=== PATIENT | female | born 1940 | race African-American/Black ===

== ENCOUNTER 2017-04-19 12:58 | Emergency (ER) | payer MEDICARE, OTHER ==
[~2017-04-19] VITALS: Ht 177.8 cm; Wt 78.0 kg
[~2017-04-19 12:58] MED LIST: ACETAMINOPHEN-1 EAC1 ORAL; ASPIRIN81 MG ORAL; Alprazolam; Amantadine; Crestor; GLIMEPERIDE; Gabapentin; LIPITOR10 MG ORAL; Metoprolol; NORVASC5 MG ORAL; ONDANSETRON; Paroxetine; Ranitidine; Tramadol; ZESTRIL10 M1 ORAL; [UNRECOGNIZED DRUG - OTHER]; [UNRECOGNIZED DRUG - OTHER]
[2017-04-19 13:13] VITALS: BP 146/58
[2017-04-19] MEDS ORDERED: Tylenol #3 tab (300mg/30mg) PO ONE (13:30)
[2017-04-19] MEDS ORDERED: ACETAMINOPHEN-1 EAC1 ORAL (14:55)
[2017-04-19 15:01] VITALS: BP 158/64
--- NOTE | 2017-04-19 15:14 | Diagnostic Imaging Report ---
Indication: Chest pain Comparison: 01/10/15 A single view chest radiograph was obtained. Findings: No definite infiltrate or pulmonary vascular congestion identified. The heart is normal in size. The aorta is mildly enlarged consistent with atherosclerotic vascular disease. The bones are osteopenic. Impression: No acute disease
--- NOTE | 2017-04-19 15:16 | Diagnostic Imaging Report ---
Indication: Chest pain and trauma. Comparison: None Findings: 4 views of the left chest wall was obtained for evaluation of the ribs. No acute fracture seen. Bones are osteopenic. The lung is clear. There is no pneumothorax. Surgical clips are noted in the abdomen. Sternotomy noted. Aorta is calcified. Impression: no acute fracture
--- NOTE | 2017-04-19 15:24 | Emergency Room Report ---
History of Present Illness General Chief Complaint: Multiple Trauma/Fall Source: Patient Present Illness HPI 76-year-old female presents to ED complaining of left-sided rib pain. States that she tripped and fell crashing into her dresser. Denies hitting her head or LOC. Patient presents with left-sided rib pain. Pain is an 8 out 10, throbbing, nonradiating. Worse with deep breaths. Denies any other injuries. No other aggravating relieving factors. Denies any other associated symptoms Allergies: Coded Allergies: No Known Allergies (Unverified , 01/10/15) Patient History Past Medical History: DM, HTN Past Surgical History: none Pertinent Family History: none Social History: Denies: smoking, alcohol use, drug use Now: No Immunizations: UTD Reviewed Nursing Documentation: PMH: Agreed, PSxH: Agreed Nursing Documentation-PMH Hx Cardiac Problems: Yes Hx Hypertension: Yes Hx Diabetes: Yes Hx Cancer: No Hx Gastrointestinal Problems: No Hx Neurological Problems: No Review of Systems All Other Systems: negative except mentioned in HPI Physical Exam Vital Signs Date Time Temp Pulse Resp B/P (MAP) Pulse Ox O2 Delivery O2 Flow Rate FiO2 04/19/17 13:05 97.9 71 15 146/58 99 Room Air Sp02 EP Interpretation: reviewed, normal General Appearance: no apparent distress, alert, GCS 15, non-toxic Head: normocephalic Eyes: bilateral eye normal inspection, bilateral eye PERRL ENT: hearing grossly normal Neck: normal inspection Respiratory: lungs clear, normal breath sounds, speaking full sentences, other - L sided rib pain Cardiovascular #1: regular rate, rhythm, no edema Gastrointestinal: normal bowel sounds, non tender, soft, non-distended, no guarding, no rebound Rectal: deferred Genitourinary: no CVA tenderness Musculoskeletal: normal inspection Neurologic: alert, oriented x3, responsive, motor strength/tone normal, sensory intact, speech normal Psychiatric: normal inspection Skin: normal inspection Lymphatic: normal inspection Medical Decision Making Diagnostic Impression: Primary Impression: Rib contusion Qualified Codes: S20.212A - Contusion of left front wall of thorax, initial encounter ER Course Hospital Course 76-year-old F presents to ED complaining of L sided rib pain s/p trip and fall Differential diagnoses include: Fracture, dislocation, sprain, contusion Clinical course Patient placed on stretcher. After initial history and physical, I ordered pain medications and Xrays of chest/L ribs Xrays read shows no acute fracture/dislocation. no PTX. Diagnosis - rib contusion Stable and discharged to home with prescription for Tylenol #3. apply ice. weight bear as tolerated. Followup with PMD. Return to ED if symptoms recur or worsen Chest X-Ray Diagnostic Results Chest X-Ray Diagnostic Results : Chest X-Ray Ordered: Yes # of Views/Limited/Complete: 1 View Indication: Chest Pain EP Interpretation: Yes Interpretation: no consolidation, no effusion, no pneumothorax, no acute cardiopulmonary disease Impression: No acute disease Interpreting ER Provider: Electronically signed by Kolton Galindo MD Other X-Ray Diagnostic Results Other X-Ray Diagnostic Results : X-Ray ordered: Rib series # of Views/Limited Vs Complete: 3 View Indication: Pain EP Interpretation: Yes Interpretation: no dislocation, no soft tissue swelling, no fractures, other - no pneumothorax Impression: No acute disease Interpreting ER Provider: Electronically signed by Kolton Galindo MD Last Vital Signs Date Time Temp Pulse Resp B/P (MAP) Pulse Ox O2 Delivery O2 Flow Rate FiO2 04/19/17 15:01 97.9 73 15 158/64 99 Room Air Status: improved Disposition: HOME, SELF-CARE Condition: Stable Scripts Acetaminophen With Codeine (T#3) (TYLENOL #3 TAB*) Y Tab 1 TAB ORAL Q8H Y for For Pain, #20 TAB Prov: KOLTON GALINDO M.D. 04/19/17 Patient Instructions: Rib Contusion KOLTON GALINDO M.D. Apr 19, 2017 15:24
== END 2017-04-19 15:07 | disposition home or self-care (01) ==
LOC: EMR 14:05
DX: S20.212A Contusion of left front wall of thorax, initial encounter (principal); W01.0XXA Fall on same level from slipping, tripping and stumbling without subsequent striking against object, initial encounter; Y92.9 Unspecified place or not applicable; E11.9 Type 2 diabetes mellitus without complications; I10 Essential (primary) hypertension
CPT/HCPCS: 71010; 99284

== ENCOUNTER 2017-05-21 16:06 | Emergency (ER) | payer MEDICARE, OTHER ==
[~2017-05-21] VITALS: Ht 177.8 cm; Wt 77.1 kg
[2017-05-21 16:24] VITALS: BP 102/56
[2017-05-21] MEDS ORDERED: TYLENOL EXTRA500 MG ORAL (17:49)
[2017-05-21] MEDS ORDERED: Tylenol #3 tab (300mg/30mg) ORAL ONE (18:00)
[2017-05-21 18:15] VITALS: BP 102/56
--- NOTE | 2017-05-21 22:38 | Emergency Room Report ---
History of Present Illness General Chief Complaint: Multiple Trauma/Fall Source: Patient Present Illness [facility] The patient is a 77 yo F presenting for R rib and R knee pain 2 days prior. She states she was in the bathroom with her walker, felt weakness in the R knee, and fell with her ribs hitting the toilet seat. She has R knee TKR many years prior. She is now complaining of R rib pain described as 8/10 dull ache and is worse with deep breaths and movement. She denies SOB, cough, hemoptysis, CP. R knee described as 5/10 dull ache and is worse with movement. She has been ambulating with walker since the fall without difficulty. She has been using pain medication prescribed by her PMD which does help. She denies hitting her head or LOC. She denies other symptoms including N, V, F , chills, MOLINA, dizziness, blurred vision, abd pain, numbness/tingling Allergies: Coded Allergies: No Known Allergies (Unverified , 01/10/15) Patient History Past Medical History: see triage record Pertinent Family History: none Reviewed Nursing Documentation: PMH: Agreed, PSxH: Agreed Nursing Documentation-PMH Hx Cardiac Problems: Yes Hx Hypertension: Yes Hx Diabetes: Yes Hx Cancer: No Hx Gastrointestinal Problems: No Hx Neurological Problems: No Review of Systems All Other Systems: negative except mentioned in HPI Physical Exam Vital Signs Date Time Temp Pulse Resp B/P (MAP) Pulse Ox O2 Delivery O2 Flow Rate FiO2 05/21/17 16:11 99.3 69 20 102/56 100 Room Air Sp02 EP Interpretation: reviewed, normal General Appearance: no apparent distress, alert, GCS 15, non-toxic Head: normocephalic, atraumatic Eyes: bilateral eye normal inspection, bilateral eye PERRL ENT: hearing grossly normal, normal pharynx, no angioedema, normal voice Respiratory: normal inspection, lungs clear, normal breath sounds, no respiratory distress, no retraction, other - TTP over the R lateral lower ribs Cardiovascular #1: regular rate, rhythm, no edema Musculoskeletal: back normal, normal range of motion Neurologic: alert, oriented x3, responsive, motor strength/tone normal, sensory intact, speech normal Psychiatric: judgement/insight normal, memory normal, mood/affect normal, no suicidal/homicidal ideation Skin: normal color, no rash, warm/dry, well hydrated Medical Decision Making PA Attestation Dr. Knox is my supervising physician. Patient management was discussed with my supervising physician Diagnostic Impression: Primary Impression: Fracture of rib Qualified Codes: S22.31XA - Fracture of one rib, right side, initial encounter for closed fracture Additional Impression: Fall Qualified Codes: W19.XXXA - Unspecified fall, initial encounter ER Course The patient is a 77 yo F presenting for R rib and R knee pain DDx considered but not limited to: rib fracture, pneumothorax, rib contusion, flail chest, knee fracture/contusion, among others PE: NAD RRR. Lungs CTA bilat. Normal chest expansion. TTP over the R lateral lower ribs. No ecchymosis. No flail chest. R knee: no ecchymosis. Surgical scar. Full AROM Xrays show R rib multiple rib fractures. No pneumothorax. R knee xray unremarkable CUREs report shows patient has had multiple recent narcotic and benzodiazepine prescriptions. She was told she needs to see her PMD for pain medication. ER precautions given Other X-Ray Diagnostic Results Other X-Ray Diagnostic Results #1: X-Ray ordered: R rib # of Views/Limited Vs Complete: Complete Indication: Pain EP Interpretation: Yes Interpretation: no dislocation, no soft tissue swelling, no fractures, nonspecific bowel gas Impression: Other - R lower rib fracture. No free air. Pneumothorax Electronically Signed by: QUIN Doan Scribe Text Multiple R lower rib fractures. No pneumothorax. Reviewed with my SP. Other X-Ray Diagnostic Results #2: X-Ray ordered: R knee # of Views/Limited Vs Complete: 3 View Indication: Pain EP Interpretation: Yes Interpretation: no dislocation, no soft tissue swelling, no fractures Impression: No acute disease Electronically Signed by: QUIN Doan Scribjoe Text Reviewed with my SP. No acute findings. Last Vital Signs Date Time Temp Pulse Resp B/P (MAP) Pulse Ox O2 Delivery O2 Flow Rate FiO2 05/21/17 18:15 99.3 80 20 102/56 100 Room Air Status: improved Disposition: HOME, SELF-CARE Condition: Improved Scripts Acetaminophen* (TYLENOL EXTRA STRENGTH*) 500 Mg Tablet 500 MG ORAL Q8H Y for Prn Headache/Temp > 101, #30 TAB 0 Refills Prov: SOPHIA RODARTE 05/21/17 Patient Instructions: Rib Fracture Additional Instructions: I discussed my findings with the patient. All questions and concerns have been answered. Treatment and medication compliance have been addressed. I advised the patient that they need to follow up with Primary doctor within 3 days. Return to ED if symptoms worsen, new symptoms arise such as shortness of breath , or if needed for any reason. Patient verbalized understanding of discharge instructions. SOPHIA RODARTE. May 21, 2017 22:38
--- NOTE | 2017-05-22 10:22 | Diagnostic Imaging Report ---
Indication: PAIN Technique: One view of the chest, multiple views of the right ribs Comparison: Chest radiograph compared to 04/19/2017 Findings: Chest Demonstrates slightly better inspiration than on the prior study. Calcified granuloma is again demonstrated the left lung base. Lungs and pleural spaces are otherwise clear. Heart size is normal. The aorta is tortuous and calcified. Radiographs demonstrate fractures of the right lateral eighth, ninth, 10th, and 11th ribs. Impression: Multiple right rib fractures, as described No pneumothorax This agrees with the preliminary interpretation provided by the emergency room physician
--- NOTE | 2017-05-22 10:32 | Diagnostic Imaging Report ---
Indication: PAIN Technique: 3 views of the right knee Comparison: None Findings:Patient is status post total knee arthroplasty. There are surgical clips postero-medially. The prosthesis appears well aligned. No worrisome periprosthetic lucency. There is questionable small suprapatellar effusion and questionable suprapatellar soft tissue swelling. No acute fractures. No dislocations. Impression:Post surgical changes, as described No acute bony trauma Possible soft tissue swelling and small joint effusion. Correlate with clinical findings This agrees with the preliminary interpretation provided by the emergency room physician
== END 2017-05-21 18:31 | disposition home or self-care (01) ==
LOC: EMR 16:42
DX: S22.31XA Fracture of one rib, right side, initial encounter for closed fracture (principal); M25.561 Pain in right knee; Z96.651 Presence of right artificial knee joint; I10 Essential (primary) hypertension; E11.9 Type 2 diabetes mellitus without complications; R53.1 Weakness; W19.XXXA Unspecified fall, initial encounter; Y93.9 Activity, unspecified; Y92.002 Bathroom of unspecified non-institutional (private) residence as the place of occurrence of the external cause
CPT/HCPCS: 99284

== ENCOUNTER 2017-06-04 18:07 | Inpatient (IN) | payer MEDICARE, OTHER ==
[~2017-06-04] VITALS: Ht 177.8 cm; Wt 75.7 kg
[~2017-06-04 18:07] MED LIST changes: +TYLENOL EXTRA500 MG ORAL
[2017-06-04] MEDS ORDERED: Sodium Chloride 500ML 500 ML IV ONE (18:11)
[2017-06-04 18:25] VITALS: BP 134/63
[2017-06-04 18:51] LABS: BASOPHILS % (AUTO) 0.5 % (0.0-2.0); EOSINOPHILS % (AUTO) 1.2 % (0.0-3.0); LYMPHOCYTES % (AUTO) 27.6 % (20.0-45.0); MEAN CORPUSCULAR HEMOGLOBIN 31.9 PG (27.0-31.0); MEAN CORPUSCULAR HGB CONC 31.8 G/DL (32.0-36.0); MEAN CORPUSCULAR VOLUME 100 FL (80-99); MEAN PLATELET VOLUME 4.9 FL (6.5-10.1); MONOCYTES % (AUTO) 8.1 % (1.0-10.0); NEUTROPHILS % (AUTO) 62.6 % (45.0-75.0); PLATELET COUNT 243 K/UL (150-450); RED BLOOD COUNT 3.28 M/UL (4.20-5.40); RED CELL DISTRIBUTION WIDTH 12.7 % (11.6-14.8); WHITE BLOOD COUNT 7.7 K/UL (4.8-10.8)
[2017-06-04 19:01] LABS: INR 0.9 (0.9-1.1); PROTHROMBIN TIME 9.9 SEC (9.30-11.50)
--- NOTE | 2017-06-04 19:07 | Emergency Room Report ---
History of Present Illness General Chief Complaint: Generalized Weakness Source: Patient Present Illness HPI Patient presents with complaints of general weakness Patient reports that over the past several weeks she has been feeling more weak She has been getting blood test for worsening kidney disease Denies any vomiting or diarrhea denies any chest pain On review of records patient has had multiple falls recently complaining of knee pain and has had previous recent multiple rib fractures At this time denies any vomiting or diarrhea denies any cough Patient feels that she feels too weak to stand up and bear weight Allergies: Coded Allergies: No Known Allergies (Unverified , 01/10/15) Patient History Past Medical History: see triage record Pertinent Family History: none Reviewed Nursing Documentation: PMH: Agreed, PSxH: Agreed Nursing Documentation-PMH Hx Cardiac Problems: Yes - CABG Hx Hypertension: Yes Hx Diabetes: Yes Hx Cancer: No Hx Gastrointestinal Problems: No Hx Neurological Problems: No Review of Systems All Other Systems: negative except mentioned in HPI Physical Exam Vital Signs Date Time Temp Pulse Resp B/P (MAP) Pulse Ox O2 Delivery O2 Flow Rate FiO2 06/04/17 18:11 98.2 74 18 112/61 99 Room Air Sp02 EP Interpretation: reviewed, normal General Appearance: well appearing, no apparent distress Head: normocephalic, atraumatic Eyes: bilateral eye PERRL, bilateral eye EOMI ENT: hearing grossly normal, TMs + canals normal, uvula midline, dry mucus membranes Neck: full range of motion, supple, no meningismus, no bony tend Respiratory: lungs clear, normal breath sounds, no rhonchi, no respiratory distress, no retraction, no accessory muscle use Cardiovascular #1: normal peripheral pulses, regular rate, rhythm, no edema, no gallop, no JVD, no murmur Gastrointestinal: normal bowel sounds, non tender, soft, no mass, no organomegaly, non-distended, no guarding, no hernia, no pulsatile mass, no rebound Genitourinary: no CVA tenderness Musculoskeletal: other - Uncomfortable on palpation of both knees no obvious hematomas Neurologic: oriented x3, responsive, card grinder helper III-XII nml as tested, motor strength/ tone normal, sensory intact Psychiatric: mood/affect normal Skin: no rash, warm/dry, palpation normal Lymphatic: normal inspection, no adenopathy Medical Decision Making Diagnostic Impression: Primary Impression: ARF (acute renal failure) Additional Impression: UTI (urinary tract infection) ER Course Multiple differentials considered including but not limited to cardiac, cardiopulmonary metabolic pathology also infectious and intracranial Patient's blood work revealed renal insufficiency patient also clinically appears dehydrated at this time is provided further hydration and requires admission for further care IV and to box also initiated , Labs Test 06/04/17 18:33 06/04/17 18:53 06/05/17 05:20 White Blood Count 7.7 K/UL (4.8-10.8) 9.8 K/UL (4.8-10.8) Red Blood Count 3.28 M/UL (4.20-5.40) 3.52 M/UL (4.20-5.40) Hemoglobin 10.5 G/DL (12.0-16.0) 11.7 G/DL (12.0-16.0) Hematocrit 32.9 % (37.0-47.0) 34.7 % (37.0-47.0) Mean Corpuscular Volume 100 FL (80-99) 98 FL (80-99) Mean Corpuscular Hemoglobin 31.9 PG (27.0-31.0) 33.2 PG (27.0-31.0) Mean Corpuscular Hemoglobin Concent 31.8 G/DL (32.0-36.0) 33.8 G/DL (32.0-36.0) Red Cell Distribution Width 12.7 % (11.6-14.8) 12.9 % (11.6-14.8) Platelet Count 243 K/UL (150-450) 267 K/UL (150-450) Mean Platelet Volume 4.9 FL (6.5-10.1) 5.9 FL (6.5-10.1) Neutrophils (%) (Auto) 62.6 % (45.0-75.0) 83.5 % (45.0-75.0) Lymphocytes (%) (Auto) 27.6 % (20.0-45.0) 9.4 % (20.0-45.0) Monocytes (%) (Auto) 8.1 % (1.0-10.0) 6.2 % (1.0-10.0) Eosinophils (%) (Auto) 1.2 % (0.0-3.0) 0.6 % (0.0-3.0) Basophils (%) (Auto) 0.5 % (0.0-2.0) 0.4 % (0.0-2.0) Prothrombin Time 9.9 SEC (9.30-11.50) 10.0 SEC (9.30-11.50) Prothromb Time International Ratio 0.9 (0.9-1.1) 1.0 (0.9-1.1) Activated Partial Thromboplast Time 32 SEC (23-33) 29 SEC (23-33) Sodium Level 137 MMOL/L (136-145) 142 MMOL/L (136-145) Potassium Level 3.4 MMOL/L (3.5-5.1) 3.4 MMOL/L (3.5-5.1) Chloride Level 101 MMOL/L (98-107) 107 MMOL/L (98-107) Carbon Dioxide Level 26 MMOL/L (21-32) 27 MMOL/L (21-32) Anion Gap 10 (5-15) 8 (5-15) Blood Urea Nitrogen 22 mg/dL (7-18) 19 mg/dL (7-18) Creatinine 2.6 MG/DL (0.55-1.30) 2.0 MG/DL (0.55-1.30) Estimat Glomerular Filtration Rate mL/min (>60) mL/min (>60) Glucose Level 84 MG/DL (74-106) 124 MG/DL (74-106) Uric Acid 6.0 MG/DL (2.6-7.2) Calcium Level 8.3 MG/DL (8.5-10.1) 8.9 MG/DL (8.5-10.1) Total Bilirubin 0.2 MG/DL (0.2-1.0) 0.2 MG/DL (0.2-1.0) Aspartate Amino Transf (AST/SGOT) 10 U/L (15-37) 10 U/L (15-37) Alanine Aminotransferase (ALT/SGPT) 11 U/L (12-78) 9 U/L (12-78) Alkaline Phosphatase 92 U/L (46-116) 96 U/L (46-116) Total Creatine Kinase 33 U/L (26-308) Creatine Kinase MB < 0.5 NG/ML (0.0-3.6) Creatine Kinase MB Relative Index 1.5 Troponin I 0.017 ng/mL (0.000-0.056) Pro-B-Type Natriuretic Peptide 256 (0-125) Total Protein 6.2 G/DL (6.4-8.2) 6.8 G/DL (6.4-8.2) Albumin 2.8 G/DL (3.4-5.0) 2.8 G/DL (3.4-5.0) Globulin 3.4 g/dL 4.0 g/dL Albumin/Globulin Ratio 0.8 (1.0-2.7) 0.7 (1.0-2.7) Urine Color Pale yellow Urine Appearance Very cloudy Urine pH 5 (4.5-8.0) Urine Specific [place] 1.015 (1.005-1.035) Urine Protein 3+ (NEGATIVE) Urine Glucose (UA) Negative (NEGATIVE) Urine Ketones Negative (NEGATIVE) Urine Occult Blood 1+ (NEGATIVE) Urine Nitrite Negative (NEGATIVE) Urine Bilirubin Negative (NEGATIVE) Urine Urobilinogen Normal MG/DL (0.0-1.0) Urine Leukocyte Esterase 3+ (NEGATIVE) Urine RBC 2-4 /HPF (0 - 2) Urine WBC 20-30 /HPF (0 - 2) Urine Squamous Epithelial Cells Occasional /LPF Urine Bacteria Many /HPF (NONE) Urine Eosinophils None seen Urine Random Sodium 40 MEQ/L (20-110) Urine Potassium Timed 29 mmol/L (12-62) Differential Total Cells Counted 100 Neutrophils % (Manual) 86 % (45-75) Lymphocytes % (Manual) 12 % (20-45) Monocytes % (Manual) 2 % (1-10) Eosinophils % (Manual) 0 % (0-3) Basophils % (Manual) 0 % (0-2) Band Neutrophils 0 % (0-8) Platelet Estimate Adequate Platelet Morphology Normal Red Blood Cell Morphology Normal Erythrocyte Sedimentation Rate 73 MM/HR (0-30) Reticulocyte Count 1.1 % (0.0-2.0) Iron Level 21 ug/dL (50-175) Total Iron Binding Capacity 191 ug/dL (250-450) Percent Iron Saturation 11 % (15-50) Unsaturated Iron Binding 170 ug/dL (112-346) Lactate Dehydrogenase 131 U/L (81-234) Triglycerides Level 83 MG/DL (0-200) Cholesterol Level 78 MG/DL (< 200) LDL Cholesterol 41 mg/dL (<100) HDL Cholesterol 27 MG/DL (40-60) Cholesterol/HDL Ratio 2.9 (3.3-4.4) Vitamin B12 Level > 2000 PG/ML (193-986) Folate 11.3 ng/mL (>3.0) Thyroid Stimulating Hormone (TSH) 0.614 uiU/mL (0.360-3.740) Rhythm Strip Diag. Results EP Interpretation: yes Rate: 88 Rhythm: NSR, no PVC's, no ectopy Chest X-Ray Diagnostic Results Chest X-Ray Diagnostic Results : Chest X-Ray Ordered: Yes # of Views/Limited/Complete: 1 View Indication: Chest Pain EP Interpretation: Yes Interpretation: no consolidation, no effusion, no pneumothorax Impression: No acute disease Electronically Signed by: Naila Tavares DO Last Vital Signs Date Time Temp Pulse Resp B/P (MAP) Pulse Ox O2 Delivery O2 Flow Rate FiO2 06/04/17 18:25 98.3 78 14 134/63 100 Room Air Status: improved Disposition: ADMITTED INPATIENT Condition: Serious Referrals: NON PHYSICIAN (PCP) NAILA TAVARES D.O. Jun 04, 2017 19:07
[2017-06-04 19:12] LABS: APPEARANCE,URINE VERY CLOUDY; KETONES,URINE NEGATIVE (NEGATIVE); LEUKOCYTE ESTERASE ,URINE 3+ (NEGATIVE); NITRITE,URINE NEGATIVE (NEGATIVE); PH,URINE 5 (4.5-8.0); PROTEIN,URINE 3+ (NEGATIVE); UROBILINOGEN,URINE NORMAL MG/DL (0.0-1.0)
[2017-06-04] MEDS ORDERED: CRESTOR20 MG ORAL (19:19)
[2017-06-04] MEDS ORDERED: LISINOPRIL20 MG ORAL (19:19)
[2017-06-04] MEDS ORDERED: NEURONTIN300 MG ORAL ×2 (19:19→19:22)
[2017-06-04] MEDS ORDERED: PAXIL40 MG ORAL (19:19)
[2017-06-04] MEDS ORDERED: NORVASC5 MG ORAL (19:19)
[2017-06-04] MEDS ORDERED: LACTULOSE10 GM/153 PO (19:19)
[2017-06-04] MEDS ORDERED: ACETAMINOPHEN-1 EAC1 ORAL (19:19)
[2017-06-04 19:20] LABS: BACTERIA,URINE MANY /HPF; SQUAMOUS EPITHELIAL CELL,UR OCCASIONAL /LPF (NONE/OCC); WBC,URINE 20-30 /HPF (0 - 2)
[2017-06-04] MEDS ORDERED: ZOFRAN4 M1 ORAL (19:22)
[2017-06-04] MEDS ORDERED: FORTAMET500 MG PO (19:22)
[2017-06-04] MEDS ORDERED: TRULICITY0.75 MG/0. SQ (19:22)
[2017-06-04] MEDS ORDERED: HYDRALAZINE HCL25 M2 PO (19:22)
[2017-06-04] MEDS ORDERED: PROTONIX40 MG ORAL (19:22)
[2017-06-04] MEDS ORDERED: ALPRAZOLAM0.5 MG PO (19:22)
[2017-06-04] MEDS ORDERED: ZANTAC150 MG ORAL (19:22)
[2017-06-04 19:27] LABS: ALANINE AMINOTRANSFERASE 11 U/L (12-78); ALBUMIN/GLOBULIN RATIO 0.8 (1.0-2.7); ANION GAP 10 (5-15); ASPARTATE AMINO TRANSFERASE 10 U/L (15-37); CALCIUM 8.3 MG/DL (8.5-10.1); CARBON DIOXIDE 26 MMOL/L (21-32); CHLORIDE 101 MMOL/L (98-107); CKMB < 0.5 NG/ML (0.0-3.6); CREATININE 2.6 MG/DL (0.55-1.30); POTASSIUM 3.4 MMOL/L (3.5-5.1); SODIUM 137 MMOL/L (136-145); TOTAL PROTEIN 6.2 G/DL (6.4-8.2)
[2017-06-04] MEDS ORDERED: LORazepam Inj 2mg/ml 1ml IV PRN (19:45)
[2017-06-04] MEDS ORDERED: cefTRIAXone 1 GM in NS 55 ML IVPB ONE (19:45)
[2017-06-04] MEDS ORDERED: Morphine Sulfate 2mg/ml Inj IVP PRN (19:45)
[2017-06-04] MEDS ORDERED: Mylanta II UD 30ml ORAL PRN (19:45)
[2017-06-04] MEDS ORDERED: Miralax 17gm pkt ORAL PRN (19:45)
[2017-06-04] MEDS ORDERED: Zolpidem 5mg tab ORAL PRN (19:45)
[2017-06-04 20:10] VITALS: BP 127/68
[2017-06-04] MEDS ORDERED: METOPROLOL TART25 MG ORAL (20:10)
[2017-06-04] MEDS ORDERED: BACLOFEN10 MG ORAL (20:10)
[2017-06-04] MEDS ORDERED: NICODERM CQ1 EAC1 TD (20:10)
[2017-06-04] MEDS ORDERED: CARAFATE1 GM/10 M1 ORAL (20:10)
[2017-06-04] MEDS ORDERED: LINZESS290 MCG PO (20:10)
[2017-06-04] MEDS: HydrALAZINE 25mg tab ORAL SCH (20:33)
[2017-06-04 20:40] VITALS: BP 138/72
[2017-06-04] MEDS: NovoLOG Insulin Flexpen SUBQ SCH (21:00)
[2017-06-05] VITALS (8 sets, daily range): BP systolic 116–157; BP diastolic 58–78
[2017-06-05] MEDS: NovoLOG Insulin Flexpen SUBQ SCH ×4 (05:40→21:06)
[2017-06-05 07:12] LABS: BASOPHILS % (AUTO) 0.4 % (0.0-2.0); EOSINOPHILS % (AUTO) 0.6 % (0.0-3.0); LYMPHOCYTES % (AUTO) 9.4 % (20.0-45.0); MEAN CORPUSCULAR HEMOGLOBIN 33.2 PG (27.0-31.0); MEAN CORPUSCULAR HGB CONC 33.8 G/DL (32.0-36.0); MEAN CORPUSCULAR VOLUME 98 FL (80-99); MEAN PLATELET VOLUME 5.9 FL (6.5-10.1); MONOCYTES % (AUTO) 6.2 % (1.0-10.0); NEUTROPHILS % (AUTO) 83.5 % (45.0-75.0); PLATELET COUNT 267 K/UL (150-450); RED BLOOD COUNT 3.52 M/UL (4.20-5.40); RED CELL DISTRIBUTION WIDTH 12.9 % (11.6-14.8); WHITE BLOOD COUNT 9.8 K/UL (4.8-10.8)
[2017-06-05 07:44] LABS: ALANINE AMINOTRANSFERASE 9 U/L (12-78); ALBUMIN/GLOBULIN RATIO 0.7 (1.0-2.7); ANION GAP 8 (5-15); ASPARTATE AMINO TRANSFERASE 10 U/L (15-37); CALCIUM 8.9 MG/DL (8.5-10.1); CARBON DIOXIDE 27 MMOL/L (21-32); CHLORIDE 107 MMOL/L (98-107); CHOLESTEROL 78 MG/DL (< 200); CHOLESTEROL/HDL RATIO 2.9 (3.3-4.4); LACTATE DEHYDROGENASE 131 U/L (81-234); POTASSIUM 3.4 MMOL/L (3.5-5.1); SODIUM 142 MMOL/L (136-145); THYROID STIMULATING HORMONE 0.614 uiU/mL (0.360-3.740); TOTAL PROTEIN 6.8 G/DL (6.4-8.2)
[2017-06-05 08:49] LABS: IRON 21 ug/dL (50-175); TOTAL IRON BINDING CAPACITY 191 ug/dL (250-450)
[2017-06-05 09:18] LABS: ERYTHROCYTE SEDIMENTATION RATE 73 MM/HR (0-30)
[2017-06-05] MEDS: ALPRAZolam 0.5mg tab ORAL SCH ×3 (09:26→17:55)
[2017-06-05 09:54] LABS: BAND NEUTROPHILS % (MANUAL) 0 % (0-8); BASOPHILS % (MANUAL) 0 % (0-2); EOSINOPHILS % (MANUAL) 0 % (0-3); LYMPHOCYTES % (MANUAL) 12 % (20-45); NEUTROPHILS % (MANUAL) 86 % (45-75); PLATELET ESTIMATE ADEQUATE; PLATELET MORPHOLOGY NORMAL; TOTAL CELLS COUNTED 100
[2017-06-05] MEDS: PARoxetine 20mg tab ORAL SCH (10:17)
[2017-06-05 10:37] LABS: PATH BLOOD SMEAR/OMC SENT TO PATHOLOGIST; RETICULOCYTE COUNT 1.1 % (0.0-2.0)
--- NOTE | 2017-06-05 10:50 | Diagnostic Imaging Report ---
Indication: Chest pain Technique: One view of the chest Comparison: 04/19/2017 Findings: Suboptimal inspiration. Lungs and pleural spaces are clear. There is evidence of prior CABG. No significant interim change Impression: No acute process
[2017-06-05] MEDS: Aspirin Baby 81mg ORAL SCH (17:56)
--- NOTE | 2017-06-05 18:51 | History and Physical ---
History of Present Illness General Date patient seen: Jun 05, 2017 Reason for Hospitalization: Generalized Weakness Present Illness HPI 77 y/o gentle lady with pmhx of CAD s/p CABG, HTN, DM2, multiple falls with resultant rib fractuers, knee pain presents to [facility] with complaints of general weakness for the past several weeks. Patient also has a complaint of burning sensation when she urinates and it has lasted for the last 2 weeks. Patient denies fever or chills, denies shortness of breath or chest pain. Preliminary urinalysis reveals presence of pyuria and the patient has been initiated on broad spectrum antibiotics and appropriate consultations have been requested. CXR obtained in the ER is negative for acute process. Allergies: Coded Allergies: No Known Allergies (Unverified , 01/10/15) Medication History Scheduled Alprazolam* (Xanax*), 0.5 MG PO TID, (Reported) Amlodipine Besylate (Norvasc), 5 MG ORAL BID Amlodipine Besylate (Norvasc), 5 MG ORAL DAILY, (Reported) Aspirin* (Aspirin*), 162 MG ORAL DAILY Atorvastatin Calcium* (Lipitor*), 10 MG ORAL BEDTIME Baclofen* (Baclofen*), 10 MG ORAL THREE TIMES A DAY, (Reported) Ciprofloxacin* (Cipro*), 500 MG PO BID Gabapentin (Neurontin), 300 MG ORAL BID, (Reported) Gabapentin (Neurontin), 300 MG ORAL THREE TIMES A DAY, (Reported) Hydralazine Hcl* (Hydralazine Hcl*), 25 MG ORAL BEDTIME Lisinopril (Lisinopril*), 20 MG ORAL DAILY, (Reported) Lisinopril* (Zestril*), 5 MG ORAL DAILY Metoprolol Tartrate* (Metoprolol Tartrate*), 25 MG ORAL EVERY 12 HOURS, ( Reported) Nicotine 14MG Patch* (Nicoderm Cq 14MG*), 1 EACH TD DAILY, (Reported) Pantoprazole* (Protonix*), 40 MG ORAL DAILY, (Reported) Paroxetine Hcl (Paxil), 40 MG ORAL DAILY, (Reported) Ranitidine Hcl* (Zantac*), 150 MG ORAL TWICE A DAY, (Reported) Rosuvastatin Calcium* (Crestor*), 20 MG ORAL DAILY, (Reported) Sucralfate (Carafate), 1 GM ORAL FOUR TIMES A DAY, (Reported) Scheduled PRN Acetaminophen With Codeine (T#3) (Tylenol #3 Tab*), 1 TAB ORAL Q8H PRN for For Pain Acetaminophen With Codeine (T#3) (Tylenol #3 Tab*), 1 TAB ORAL Q8H PRN for For Pain Acetaminophen With Codeine (T#3) (Tylenol #3 Tab*), 1 TAB ORAL Q4H PRN for For Pain, (Reported) Acetaminophen* (Tylenol Extra Strength*), 500 MG ORAL Q8H PRN for Prn Headache/ Temp > 101 Ondansetron (Zofran), 4 MG ORAL Q6H PRN for Nausea & Vomiting, (Reported) Phenazopyridine Hcl* (Pyridium*), 100 MG ORAL TIDPRN PRN Miscellaneous Medications Dulaglutide (Trulicity), 0.75 MG SQ, (Reported) Lactulose (Lactulose), 10 GM PO, (Reported) Linaclotide (Linzess), 290 MCG PO, (Reported) Metformin Hcl (Fortamet), 500 MG PO, (Reported) [Alprazolam], (Reported) [Amantadine], (Reported) [Crestor], (Reported) [Glimeperide], (Reported) [List], (Reported) [Metoprolol], (Reported) [Ondansentron], (Reported) [Ranitidine], (Reported) [Tramadol], (Reported) Patient History Healthcare decision maker Resuscitation status Advanced Directive on File Past Medical/Surgical History Past Medical/Surgical History: (1) Syncope (2) Hyperkalemia (3) ARF (acute renal failure) (4) Benzocaine overdose of undetermined intent (5) Depression (6) Hypertension (7) Polypharmacy (8) DM (diabetes mellitus) (9) Contusion, hip (10) Multiple injuries due to trauma (11) Rib contusion (12) Fracture of rib (13) Fall (14) Anemia Review of Systems Constitutional: Reports: malaise, weakness Genitourinary: Reports: dysuria, frequency, pain, urgency Physical Exam General Appearance: moderate distress Lines, tubes and drains: peripheral HEENT: normocephalic, atraumatic, anicteric, PERRL Neck: non-tender, normal alignment, supple, normal inspection Breasts: no masses Cardiovascular/Chest: normal peripheral pulses, normal rate, no JVD Abdomen: normal bowel sounds, non tender, soft, no organomegaly, no mass Genitourinary/Rectal: normal genital exam, normal rectal exam Extremities: normal range of motion, non-tender, normal inspection, no calf tenderness Skin Exam: normal pigmentation, warm/dry Neurologic: sportspersons II-XII grossly normal, no motor/sensory deficits Last 24 Hour Vital Signs Date Time Temp Pulse Resp B/P (MAP) Pulse Ox O2 Delivery O2 Flow Rate FiO2 06/05/17 17:55 75 120/58 06/05/17 16:00 97.9 75 18 120/58 96 Room Air 06/05/17 12:33 98.2 79 18 133/70 96 Room Air 06/05/17 09:26 88 116/62 06/05/17 09:13 98.1 88 14 116/62 94 Room Air 06/05/17 08:00 98.1 88 14 116/62 94 Room Air 06/05/17 04:00 97.9 78 18 139/77 96 Room Air 06/05/17 00:00 98.1 82 18 157/78 95 Room Air 06/04/17 20:40 98.1 72 16 138/72 99 Room Air 06/04/17 20:33 138/72 06/04/17 20:10 98.3 82 18 127/68 100 Nasal Cannula 2.0 06/04/17 20:10 98.3 82 18 127/68 100 Nasal Cannula 2.0 Laboratory Tests Test 06/04/17 18:53 06/05/17 05:20 Urine Color Pale yellow Urine Appearance Very cloudy Urine pH 5 (4.5-8.0) Urine Specific [place] 1.015 (1.005-1.035) Urine Protein 3+ (NEGATIVE) H Urine Glucose (UA) Negative (NEGATIVE) Urine Ketones Negative (NEGATIVE) Urine Occult Blood 1+ (NEGATIVE) H Urine Nitrite Negative (NEGATIVE) Urine Bilirubin Negative (NEGATIVE) Urine Urobilinogen Normal MG/DL (0.0-1.0) Urine Leukocyte Esterase 3+ (NEGATIVE) H Urine RBC 2-4 /HPF (0 - 2) H Urine WBC 20-30 /HPF (0 - 2) H Urine Squamous Epithelial Cells Occasional /LPF Urine Bacteria Many /HPF (NONE) H Urine Eosinophils None seen Urine Random Sodium 40 MEQ/L (20-110) Urine Potassium Timed 29 mmol/L (12-62) White Blood Count 9.8 K/UL (4.8-10.8) Red Blood Count 3.52 M/UL (4.20-5.40) L Hemoglobin 11.7 G/DL (12.0-16.0) L Hematocrit 34.7 % (37.0-47.0) L Mean Corpuscular Volume 98 FL (80-99) Mean Corpuscular Hemoglobin 33.2 PG (27.0-31.0) H Mean Corpuscular Hemoglobin Concent 33.8 G/DL (32.0-36.0) Red Cell Distribution Width 12.9 % (11.6-14.8) Platelet Count 267 K/UL (150-450) Mean Platelet Volume 5.9 FL (6.5-10.1) L Neutrophils (%) (Auto) 83.5 % (45.0-75.0) H Lymphocytes (%) (Auto) 9.4 % (20.0-45.0) L Monocytes (%) (Auto) 6.2 % (1.0-10.0) Eosinophils (%) (Auto) 0.6 % (0.0-3.0) Basophils (%) (Auto) 0.4 % (0.0-2.0) Differential Total Cells Counted 100 Neutrophils % (Manual) 86 % (45-75) H Lymphocytes % (Manual) 12 % (20-45) L Monocytes % (Manual) 2 % (1-10) Eosinophils % (Manual) 0 % (0-3) Basophils % (Manual) 0 % (0-2) Band Neutrophils 0 % (0-8) Platelet Estimate Adequate Platelet Morphology Normal Red Blood Cell Morphology Normal Erythrocyte Sedimentation Rate 73 MM/HR (0-30) H Reticulocyte Count 1.1 % (0.0-2.0) Prothrombin Time 10.0 SEC (9.30-11.50) Prothromb Time International Ratio 1.0 (0.9-1.1) Activated Partial Thromboplast Time 29 SEC (23-33) Sodium Level 142 MMOL/L (136-145) Potassium Level 3.4 MMOL/L (3.5-5.1) L Chloride Level 107 MMOL/L (98-107) Carbon Dioxide Level 27 MMOL/L (21-32) Anion Gap 8 (5-15) Blood Urea Nitrogen 19 mg/dL (7-18) H Creatinine 2.0 MG/DL (0.55-1.30) H Estimat Glomerular Filtration Rate mL/min (>60) Glucose Level 124 MG/DL (74-106) H Calcium Level 8.9 MG/DL (8.5-10.1) Iron Level 21 ug/dL (50-175) L Total Iron Binding Capacity 191 ug/dL (250-450) L Percent Iron Saturation 11 % (15-50) L Unsaturated Iron Binding 170 ug/dL (112-346) Total Bilirubin 0.2 MG/DL (0.2-1.0) Aspartate Amino Transf (AST/SGOT) 10 U/L (15-37) L Alanine Aminotransferase (ALT/SGPT) 9 U/L (12-78) L Alkaline Phosphatase 96 U/L (46-116) Lactate Dehydrogenase 131 U/L (81-234) Total Protein 6.8 G/DL (6.4-8.2) Albumin 2.8 G/DL (3.4-5.0) L Globulin 4.0 g/dL Albumin/Globulin Ratio 0.7 (1.0-2.7) L Triglycerides Level 83 MG/DL (0-200) Cholesterol Level 78 MG/DL (< 200) LDL Cholesterol 41 mg/dL (<100) HDL Cholesterol 27 MG/DL (40-60) L Cholesterol/HDL Ratio 2.9 (3.3-4.4) L Carcinoembryonic Antigen Pending Vitamin B12 Level > 2000 PG/ML (193-986) H Folate Pending Thyroid Stimulating Hormone (TSH) 0.614 uiU/mL (0.360-3.740) Microbiology Date/Time Source Procedure Growth Status 06/04/17 18:53 Urine,Clean Catch Urine Culture - Preliminary Gram Negative Bacillus 1 Resulted Height (Feet): 5 Height (Inches): 10.00 Weight (Pounds): 167 Medications Current Medications Medications (Trade) Dose Ordered Sig/Mikhail Route PRN Reason Start Time Stop Time Status Last Admin Dose Admin Acetaminophen (Tylenol) 650 mg Q4H PRN ORAL fever 06/04/17 19:45 07/04/17 19:44 06/05/17 14:33 Al Hydroxide/Mg Hydroxide (Mylanta II) 30 ml Q6H PRN ORAL dyspepsia 06/04/17 19:45 07/04/17 19:44 Alprazolam (Xanax) 0.5 mg TID ORAL 06/05/17 09:00 06/12/17 08:59 06/05/17 17:55 Amlodipine Besylate (Norvasc) 5 mg BID ORAL 06/05/17 09:00 07/05/17 08:59 06/05/17 17:55 Aspirin (ASA) 81 mg DAILY ORAL 06/05/17 17:00 07/05/17 16:59 06/05/17 17:56 Dextrose (Dextrose 50%) STAT PRN IV Hypoglycemia 06/04/17 19:45 07/04/17 19:44 Gabapentin (Neurontin) 300 mg BID ORAL 06/05/17 09:00 07/05/17 08:59 06/05/17 17:55 Hydralazine HCl (Apresoline) 25 mg BEDTIME ORAL 06/04/17 21:00 07/04/17 20:59 06/04/17 20:33 Insulin Aspart (NovoLOG) BEFORE MEALS AND HS SUBQ 06/04/17 21:00 07/04/17 20:59 06/05/17 11:37 Lorazepam (Ativan 2mg/ml 1ml) 0.5 mg Q4H PRN IV For Anxiety 06/04/17 19:45 06/11/17 19:44 Morphine Sulfate (Morphine Sulfate) 1 mg Q4H PRN IVP For Pain Scale 4-10 06/04/17 19:45 06/11/17 19:44 Ondansetron HCl (Zofran) 4 mg Q6H PRN IVP Nausea & Vomiting 06/04/17 19:45 07/04/17 19:44 Paroxetine HCl (Paxil) 40 mg DAILY ORAL 06/05/17 09:00 07/05/17 08:59 06/05/17 10:17 Phenazopyridine HCl (Pyridium) 100 mg TIDPRN PRN ORAL PAIN UPON URINATION 06/05/17 15:00 07/05/17 14:59 Piperacillin Sod/ Tazobactam Sod 3.375 gm/Dextrose 110 ml @ 27.5 mls/hr EVERY 8 HOURS IVPB 06/05/17 20:00 06/12/17 19:59 Polyethylene Glycol (Miralax) 17 gm HSPRN PRN ORAL Constipation 06/04/17 19:45 07/04/17 19:44 Zolpidem Tartrate (Ambien) 5 mg HSPRN PRN ORAL Insomnia 06/04/17 19:45 06/11/17 19:44 Assessment/Plan Status: stable, progressing Assessment/Plan Acute generalized weakness Acute urinary tract infection Hx of CAD s/p CAGB HTN Plan Broad spectrum antibiotics Urine culture and sensitivity Adjust antibiotics as sson as sensitivity is determined Cardiac diet as tolerated Electrolyte replacement CURTIS ROBERTS Jun 05, 2017 18:51
[2017-06-05] MEDS: HydrALAZINE 25mg tab ORAL SCH (20:59)
[2017-06-05] MEDS: Piperacillin/Tazobactam 3.375 GM in D5W 110 ML IVPB SCH (21:53)
[2017-06-06] VITALS (7 sets, daily range): BP systolic 125–157; BP diastolic 62–91
[2017-06-06] MEDS: Piperacillin/Tazobactam 3.375 GM in D5W 110 ML IVPB SCH ×2 (05:19→13:57)
[2017-06-06] MEDS: NovoLOG Insulin Flexpen SUBQ SCH ×4 (06:22→21:05)
--- NOTE | 2017-06-06 08:24 | Diagnostic Imaging Report ---
APPROVED REPORT CPT Code: 98435 Present Symptoms Lower Extremity Pain: Right Comments: Hx CAD, CABG, HTN. BILATERAL: Imaging reveals a patent deep venous system bilaterally. There is no evidence of thrombus within the femoral, popliteal or tibial segments. The greater saphenous veins are also within normal limits. Doppler indicates normal spontaneous flow within these segments. The tibial veins were not well visualized bilaterally.
[2017-06-06] MEDS: Aspirin Baby 81mg ORAL SCH (09:11)
[2017-06-06] MEDS: ALPRAZolam 0.5mg tab ORAL SCH ×2 (09:13→13:14)
[2017-06-06] MEDS: PARoxetine 20mg tab ORAL SCH (09:13)
--- NOTE | 2017-06-06 11:09 | Diagnostic Imaging Report ---
Indication: Abnormal renal function tests Technique: Grayscale and duplex images of the kidneys, retroperitoneum, and bladder were obtained. Comparison:01/10/2015 Findings: Right kidney measures 9.2 cm in length. Left kidney measures 10.7 cm in length. Both kidneys demonstrate normal echogenicity. No hydronephrosis. There is questionably a small cyst in the upper pole of the left kidney. Right renal contour is lobulated. Normal inferior vena cava. Bladder is mildly distended, contains some dependent debris posteriorly.. Impression: Negative right of cirrhosis Possible debris within the bladder Equivocal small left renal cyst.
--- NOTE | 2017-06-06 14:31 | Neurology Progress Note ---
Objective Physical Exam Last Vital Signs Date Time Temp Pulse Resp B/P (MAP) Pulse Ox O2 Delivery O2 Flow Rate FiO2 06/06/17 11:58 98.2 73 20 126/62 97 Room Air 06/04/17 20:10 2.0 Impression/Recommendations Recommendations # [id number] CLOVER GRAY Jun 06, 2017 14:31
--- NOTE | 2017-06-06 16:36 | Consultation ---
History of Present Illness General Date patient seen: Jun 06, 2017 Time patient seen: 19:19 Chief Complaint: Generalized Weakness Reason for Consultation: bactriuria Present Illness HPI ID Consult Note 77 y/o F with hx of CAD s/p CABG, HTN, DM2, multiple falls with resultant rib fractuers, knee pain presents to ED on 06/04 with complains of general weakness for the past several weeks. Also complains of dysuria for the last 2 weeks. Denies vomiting, diarrhea, CP, cough Of note, has been getting frequent lab test as an outpatient given worsening renal failure Patient has been afebrile, no leukocytosis, CXR neg. U/a with mild pyuria and ucx grew pans S E.coli. Currently on IV ZOsyn. Allergies: Coded Allergies: No Known Allergies (Unverified , 01/10/15) Medication History Scheduled Alprazolam* (Xanax*), 0.5 MG PO TID, (Reported) Amlodipine Besylate (Norvasc), 5 MG ORAL BID Amlodipine Besylate (Norvasc), 5 MG ORAL DAILY, (Reported) Aspirin* (Aspirin*), 162 MG ORAL DAILY Atorvastatin Calcium* (Lipitor*), 10 MG ORAL BEDTIME Baclofen* (Baclofen*), 10 MG ORAL THREE TIMES A DAY, (Reported) Gabapentin (Neurontin), 300 MG ORAL BID, (Reported) Gabapentin (Neurontin), 300 MG ORAL THREE TIMES A DAY, (Reported) Lisinopril (Lisinopril*), 20 MG ORAL DAILY, (Reported) Lisinopril* (Zestril*), 5 MG ORAL DAILY Metoprolol Tartrate* (Metoprolol Tartrate*), 25 MG ORAL EVERY 12 HOURS, ( Reported) Nicotine 14MG Patch* (Nicoderm Cq 14MG*), 1 EACH TD DAILY, (Reported) Pantoprazole* (Protonix*), 40 MG ORAL DAILY, (Reported) Paroxetine Hcl (Paxil), 40 MG ORAL DAILY, (Reported) Ranitidine Hcl* (Zantac*), 150 MG ORAL TWICE A DAY, (Reported) Rosuvastatin Calcium* (Crestor*), 20 MG ORAL DAILY, (Reported) Sucralfate (Carafate), 1 GM ORAL FOUR TIMES A DAY, (Reported) Scheduled PRN Acetaminophen With Codeine (T#3) (Tylenol #3 Tab*), 1 TAB ORAL Q8H PRN for For Pain Acetaminophen With Codeine (T#3) (Tylenol #3 Tab*), 1 TAB ORAL Q8H PRN for For Pain Acetaminophen With Codeine (T#3) (Tylenol #3 Tab*), 1 TAB ORAL Q4H PRN for For Pain, (Reported) Acetaminophen* (Tylenol Extra Strength*), 500 MG ORAL Q8H PRN for Prn Headache/ Temp > 101 Ondansetron (Zofran), 4 MG ORAL Q6H PRN for Nausea & Vomiting, (Reported) Miscellaneous Medications Dulaglutide (Trulicity), 0.75 MG SQ, (Reported) Hydralazine HCl (Hydralazine HCl), 25 MG PO, (Reported) Lactulose (Lactulose), 10 GM PO, (Reported) Linaclotide (Linzess), 290 MCG PO, (Reported) Metformin Hcl (Fortamet), 500 MG PO, (Reported) [Alprazolam], (Reported) [Amantadine], (Reported) [Crestor], (Reported) [Glimeperide], (Reported) [List], (Reported) [Metoprolol], (Reported) [Ondansentron], (Reported) [Ranitidine], (Reported) [Tramadol], (Reported) Patient History Healthcare decision maker Resuscitation status Advanced Directive on File Patient History Narrative PMHx: as above SHX no contributory Fhx: non contributory Review of Systems All Other Systems: negative except mentioned in HPI Physical Exam Physical Exam Narrative General Appearance: well appearing, no apparent distress HEENT: PERRL, no oral lesions Neck: full range of motion, supple Respiratory: lungs clear, normal breath sounds, no rhonchi, no respiratory distress Cardiovascular : regular rate, rhythm, no edema, no murmur Gastrointestinal: normal bowel sounds, non tender, soft, no mass, no organomegaly, non-distended Genitourinary: no CVA tenderness Musculoskeletal: other - Uncomfortable on palpation of both knees no obvious hematomas Neurologic: oriented x3, responsive, no focal deficits Skin: no rash, warm/dry, no rash Last 24 Hour Vital Signs Date Time Temp Pulse Resp B/P (MAP) Pulse Ox O2 Delivery O2 Flow Rate FiO2 06/06/17 16:00 98.1 76 18 155/75 97 Room Air 06/06/17 11:58 98.2 73 20 126/62 97 Room Air 06/06/17 09:13 77 137/73 06/06/17 08:44 97.9 77 20 144/62 96 Room Air 06/06/17 04:09 98.0 06/06/17 04:00 97.9 76 20 129/68 95 Room Air 06/06/17 00:05 98.1 66 18 125/62 95 Room Air 06/05/17 20:59 132/70 06/05/17 20:00 97.7 75 18 132/70 18 Room Air 06/05/17 20:00 97.7 75 18 132/70 96 Room Air 06/05/17 17:55 75 120/58 Intake and Output 06/06/17 06/07/17 19:00 07:00 Intake Total 387.5 ml Balance 387.5 ml Intake Oral 360 ml IV Total 27.5 ml reviewed reviewed Height (Feet): 5 Height (Inches): 10.00 Weight (Pounds): 167 Medications Current Medications Medications (Trade) Dose Ordered Sig/Mikhail Route PRN Reason Start Time Stop Time Status Last Admin Dose Admin Acetaminophen (Tylenol) 650 mg Q4H PRN ORAL fever 06/04/17 19:45 07/04/17 19:44 06/06/17 03:10 Al Hydroxide/Mg Hydroxide (Mylanta II) 30 ml Q6H PRN ORAL dyspepsia 06/04/17 19:45 07/04/17 19:44 Alprazolam (Xanax) 0.5 mg BEDTIME ORAL 06/06/17 21:00 06/12/17 08:59 Amlodipine Besylate (Norvasc) 5 mg BID ORAL 06/05/17 09:00 07/05/17 08:59 06/06/17 09:13 Aspirin (ASA) 81 mg DAILY ORAL 06/05/17 17:00 07/05/17 16:59 06/06/17 09:11 Dextrose (Dextrose 50%) STAT PRN IV Hypoglycemia 06/04/17 19:45 07/04/17 19:44 Gabapentin (Neurontin) 300 mg BID ORAL 06/05/17 09:00 07/05/17 08:59 06/06/17 09:11 Hydralazine HCl (Apresoline) 25 mg BEDTIME ORAL 06/04/17 21:00 07/04/17 20:59 06/05/17 20:59 Insulin Aspart (NovoLOG) BEFORE MEALS AND HS SUBQ 06/04/17 21:00 07/04/17 20:59 06/06/17 06:22 Lorazepam (Ativan 2mg/ml 1ml) 0.5 mg Q4H PRN IV For Anxiety 06/04/17 19:45 06/11/17 19:44 Morphine Sulfate (Morphine Sulfate) 1 mg Q4H PRN IVP For Pain Scale 4-10 06/04/17 19:45 06/11/17 19:44 Ondansetron HCl (Zofran) 4 mg Q6H PRN IVP Nausea & Vomiting 06/04/17 19:45 07/04/17 19:44 Paroxetine HCl (Paxil) 40 mg DAILY ORAL 06/05/17 09:00 07/05/17 08:59 06/06/17 09:13 Phenazopyridine HCl (Pyridium) 100 mg TIDPRN PRN ORAL PAIN UPON URINATION 06/05/17 15:00 07/05/17 14:59 06/05/17 19:47 Piperacillin Sod/ Tazobactam Sod 3.375 gm/Dextrose 110 ml @ 27.5 mls/hr EVERY 8 HOURS IVPB 06/05/17 20:00 06/12/17 19:59 06/06/17 13:57 Polyethylene Glycol (Miralax) 17 gm HSPRN PRN ORAL Constipation 06/04/17 19:45 07/04/17 19:44 Zolpidem Tartrate (Ambien) 5 mg HSPRN PRN ORAL Insomnia 06/04/17 19:45 06/11/17 19:44 Assessment/Plan Assessment/Plan Abx: IV CEftriaxone x1 06/04 IV Zosyn 06/05- Assesment: GEneralized weakness/ body aches- r/o flu -CXR no acute disease GALDINO on CKD, improving -renal us: No hydronephrosis. There is questionably a small cyst in the upper pole of the left kidney. Right renal contour is lobulated. . Bladder is mildly distended, contains some dependent debris posteriorly.. E.coli UTI- +pyuria and dysuria -u/a WBC 20-30, nit ne g,leuk +3; uCx >100K E.coli (guzman S) Afebrile, no leukocytosis CAD s/p CABG, HTN, DM2, multiple falls with resultant rib fractuers, knee pain Plan: -Switch Zosyn to PO keflex 250mg bid for UTI (Abx d#10/30) -check Flu, WNV ab -Monitor CBC/BMP, temperatures Thank you for this consultation. Will continue to follow along with you. Discussed with ANDREY. Rosalva Bourne M.D. Jun 06, 2017 16:36
--- NOTE | 2017-06-06 17:20 | Pulmonology Progress Note ---
Assessment/Plan Assessment/Plan ASSESSMENT UTI with E coli CKD generalized weakness likely due to UTI HTN recurrent falls DM CAD with hx of CABG anemia of chronic disease PLAN OF CARE [facility] floor Neuro seen and evaluated abx urine cx + E coli on abx and Pyridium, can be switched to oral on dc ID follows renal parameters closely monitored creat down to 2.0 from initial 2.6 renal US no evidence of hydro, normal echogenicity bilaterally CKD likely due to diabetic nephropathy BS management with SS of insulin BP management with BB and CCB continue ASA lipid panel WNL bowel regimen fall precautions PT/OT HH monitor, anemia w/up c/w anemia of chronic disease neuro cleared for dc ( discussed over the phone) dc today fup with PMD case discussed and evaluated by supervising physician Subjective Allergies: Coded Allergies: No Known Allergies (Unverified , 01/10/15) Subjective patient reports feeling better wants to go home creat down to 2.0 Objective Last 24 Hour Vital Signs Date Time Temp Pulse Resp B/P (MAP) Pulse Ox O2 Delivery O2 Flow Rate FiO2 06/06/17 16:00 98.1 76 18 155/75 97 Room Air 06/06/17 11:58 98.2 73 20 126/62 97 Room Air 06/06/17 09:13 77 137/73 06/06/17 08:44 97.9 77 20 144/62 96 Room Air 06/06/17 04:09 98.0 06/06/17 04:00 97.9 76 20 129/68 95 Room Air 06/06/17 00:05 98.1 66 18 125/62 95 Room Air 06/05/17 20:59 132/70 06/05/17 20:00 97.7 75 18 132/70 18 Room Air 06/05/17 20:00 97.7 75 18 132/70 96 Room Air 06/05/17 17:55 75 120/58 Intake and Output 06/06/17 06/07/17 19:00 07:00 Intake Total 387.5 ml Balance 387.5 ml Intake Oral 360 ml IV Total 27.5 ml General Appearance: WD/WN, no acute distress HEENT: normocephalic, atraumatic, anicteric, mucous membranes moist Respiratory/Chest: chest wall non-tender, lungs clear, normal breath sounds, no respiratory distress Cardiovascular: normal peripheral pulses, normal rate, regular rhythm, no JVD Abdomen: normal bowel sounds, soft, non tender, non distended Genitourinary: normal external genitalia Extremities: no edema Neurologic/Psychiatric: no motor/sensory deficits, alert, oriented x 3, responsive Musculoskeletal: normal muscle bulk Microbiology Date/Time Source Procedure Growth Status 06/04/17 18:53 Urine,Clean Catch Urine Culture - Final Escherichia Coli Complete Current Medications Medications (Trade) Dose Ordered Sig/Mikhail Route PRN Reason Start Time Stop Time Status Last Admin Dose Admin Acetaminophen (Tylenol) 650 mg Q4H PRN ORAL fever 06/04/17 19:45 07/04/17 19:44 06/06/17 03:10 Al Hydroxide/Mg Hydroxide (Mylanta II) 30 ml Q6H PRN ORAL dyspepsia 06/04/17 19:45 07/04/17 19:44 Alprazolam (Xanax) 0.5 mg BEDTIME ORAL 06/06/17 21:00 06/12/17 08:59 Amlodipine Besylate (Norvasc) 5 mg BID ORAL 06/05/17 09:00 07/05/17 08:59 06/06/17 09:13 Aspirin (ASA) 81 mg DAILY ORAL 06/05/17 17:00 07/05/17 16:59 06/06/17 09:11 Dextrose (Dextrose 50%) STAT PRN IV Hypoglycemia 06/04/17 19:45 07/04/17 19:44 Gabapentin (Neurontin) 300 mg BID ORAL 06/05/17 09:00 07/05/17 08:59 06/06/17 09:11 Hydralazine HCl (Apresoline) 25 mg BEDTIME ORAL 06/04/17 21:00 07/04/17 20:59 06/05/17 20:59 Insulin Aspart (NovoLOG) BEFORE MEALS AND HS SUBQ 06/04/17 21:00 07/04/17 20:59 06/06/17 06:22 Lorazepam (Ativan 2mg/ml 1ml) 0.5 mg Q4H PRN IV For Anxiety 06/04/17 19:45 06/11/17 19:44 Morphine Sulfate (Morphine Sulfate) 1 mg Q4H PRN IVP For Pain Scale 4-10 06/04/17 19:45 06/11/17 19:44 Ondansetron HCl (Zofran) 4 mg Q6H PRN IVP Nausea & Vomiting 06/04/17 19:45 07/04/17 19:44 Paroxetine HCl (Paxil) 40 mg DAILY ORAL 06/05/17 09:00 07/05/17 08:59 06/06/17 09:13 Phenazopyridine HCl (Pyridium) 100 mg TIDPRN PRN ORAL PAIN UPON URINATION 06/05/17 15:00 07/05/17 14:59 06/05/17 19:47 Piperacillin Sod/ Tazobactam Sod 3.375 gm/Dextrose 110 ml @ 27.5 mls/hr EVERY 8 HOURS IVPB 06/05/17 20:00 06/12/17 19:59 06/06/17 13:57 Polyethylene Glycol (Miralax) 17 gm HSPRN PRN ORAL Constipation 06/04/17 19:45 07/04/17 19:44 Zolpidem Tartrate (Ambien) 5 mg HSPRN PRN ORAL Insomnia 06/04/17 19:45 06/11/17 19:44 Ankush (Corneliokenrick)Rina NP Jun 06, 2017 17:20
[2017-06-06] MEDS ORDERED: CIPRO500 MG PO (17:25)
[2017-06-06] MEDS ORDERED: HYDRALAZINE HCL25 M1 ORAL (17:25)
[2017-06-06] MEDS ORDERED: PHENAZOPYRIDIN100 MG ORAL (17:25)
[2017-06-06] MEDS ORDERED: ALPRAZolam 0.5mg tab ORAL SCH (21:00)
[2017-06-06] MEDS: HydrALAZINE 25mg tab ORAL SCH (21:00)
[2017-06-06] MEDS: Cephalexin 250mg Cap ORAL SCH (22:50)
[2017-06-07] VITALS: BP 147/81
--- NOTE | 2017-06-07 01:01 | Consultation ---
DATE OF CONSULTATION: 06/06/2017 NEUROLOGIC CONSULTATION CONSULTING PHYSICIAN: Sánchez Rod M.D. REQUESTING PHYSICIAN: Georgie Montanez M.D. HISTORY OF PRESENT ILLNESS: This is a 77-year-old female, seen in neurological consultation to evaluate an episode of a sudden fall. The patient now informs me that she was at home and she was transferring herself from the bed to a bedside commode. She felt weakness in her legs and fell down hitting her knee and both wrists. She could not get up, so she called out a caregiver, who helped her and called paramedics. According to percussion instrument repairer note, they were called to the scene, found the patient with a blood pressure of 78/52 and heart rate of 77. Apparently, the patient was sitting at a doctor's office where she developed weakness and dizziness, became hypotensive, and had orthostatic blood pressure changes. The patient reported that she donated blood at 6 a.m., following which she was weak and dizzy. She went to see her doctor and on arrival, she was placed in a gurney in a shock position and started on IV fluids. She was awake x3. There was no chest pain. No palpitations. No shortness of breath. The patient was able to speak in full sentences. The patient was brought to emergency room. She was complaining that over the last few weeks, she was getting weak and she was getting blood tests for "worsening of kidney disease." Apparently, she had a recent history of several falls and had previous multiple rib fractures. On admission, she was feeling too weak to be able to stand up or bear weight. Her vital signs on admission improved. Blood pressure 112/61 and temperature 98.2 degrees. Following admission, lab work was obtained. CBC study with hemoglobin 10.5, hematocrit 32.9, and elevated MCV and MCH. Coagulation panel was normal. Urinalysis, 20 to 30 WBCs and 3+ leukocyte esterase. Her chemistry panel with BUN of 22 and creatinine 2.6. BNP of 256. Normal TSH and B12. Normal lipid panel. Sedimentation rate elevated at 73. The patient's venous duplex of lower extremities, no DVT noted. Chest x-ray, no acute process. PAST MEDICAL HISTORY: The patient has a history of fall with right knee surgery in September of this year. She has a history of hypertension, diabetes, and diabetic polyneuropathy. CURRENT MEDICATIONS: Treatment prior to admission included Tylenol as needed, Xanax 0.5 t.i.d., amlodipine, Norvasc 5 mg b.i.d., aspirin, Lipitor, Baclofen, Trulicity, Neurontin 300 mg b.i.d., hydralazine, lactulose, lisinopril, metformin, metoprolol, nicotine patch, ondansetron, Paxil, and Crestor. ALLERGIES: None reported. SOCIAL HISTORY: Lives at home. She has a caregiver. Denies alcohol or drug abuse. Nonsmoker. FAMILY HISTORY: Noncontributory. REVIEW OF SYSTEMS: At this time, she feels quite better. She still has some generalized weakness and weakness in her both knees. She is able to ambulate at home without walker, but goes outside using walker. No chest pain or palpitations. No respiratory difficulties. Denies previous strokes, TIA, or seizures. PHYSICAL EXAMINATION: GENERAL: A well-developed, well-nourished female, not in acute distress. VITAL SIGNS: Stable. Blood pressure 126/62 and temperature 98.2 degrees. HEENT: Head, normocephalic. There is no evidence of injuries. Eyes, ears, and throat are clear. NECK: Supple. No meningeal signs. MUSCULOSKELETAL: Unremarkable except a postoperative scarring with a recent bruise in the right knee area. Peripheral pulses 1+ and symmetric. MENTAL STATUS: The patient is alert and oriented x2. Her speech is fluent with no evidence of aphasia or apraxia. She has a poor recollection of events. She is a poor historian. She is pleasant, cooperative, and asking to discharge her home right at this moment. CRANIAL NERVE II: Pupils both responding to light and accommodation. Extraocular movement intact. No nystagmus. CRANIAL NERVE V: Normal corneal responses. CRANIAL NERVE VII: No facial asymmetry. CRANIAL NERVE VIII: Normal hearing. CRANIAL NERVES IX THROUGH XII: Within normal limits. MOTOR EXAMINATION: Normal muscle tone and strength 5/5 in all extremities. No involuntary movement. Deep tendon reflexes 1+ bilaterally and symmetric. SENSORY EXAMINATION: Decreased response to pin stimulation in both feet. GAIT: Not tested. IMPRESSION: 1. History of syncopal episode, probably vasovagal in origin. 2. Diabetes type 2, diabetic neuropathies. 3. Mild cognitive impairment. 4. Abnormal gait, multifactorial. RECOMMENDATIONS: Get CT of the brain without contrast. Get PT and OT. Start mobility protocol outside the rehab. Discontinue all unessential medications, which may contribute to her gait problems such as benzodiazepine (Xanax). Continue with aspirin and statins. Thank you for allowing me to see this interesting patient in neurological consultation. Sánchez Myate Rod DR: JOANNE JOB#: [id number] CC:
[2017-06-07 04:56] VITALS: BP 142/73
[2017-06-07] MEDS: NovoLOG Insulin Flexpen SUBQ SCH ×2 (05:40→11:30)
[2017-06-07 08:00] VITALS: BP 135/61
--- NOTE | 2017-06-07 08:32 | Pulmonology Progress Note ---
Assessment/Plan Assessment/Plan ASSESSMENT history of syncopal episode, probably vasovagal in origin. UTI with E coli CKD generalized weakness likely due to UTI HTN recurrent falls DM diabetic nephropathy CAD with hx of CABG anemia of chronic disease mild cognitive impairment abnormal gait PLAN OF CARE [facility] floor Neuro seen and evaluated CT head no acute findings abx urine cx + E coli on abx and Pyridium, can be switched to oral on dc ID follows renal parameters closely monitored creat down to 2.0 from initial 2.6 renal US no evidence of hydro, normal echogenicity bilaterally CKD likely due to diabetic nephropathy BS management with SS of insulin BP management with BB and CCB continue ASA lipid panel WNL bowel regimen fall precautions PT/OT HH monitor, anemia w/up c/w anemia of chronic disease neuro cleared for dc per PT eval patient needs 24 hr caregiver vs SNF [facility] caregiver was contacted by nursing staff, he and the other caregiver will be 24 hrs caregivers for this patient patient can be dc home (declined SNF) case discussed and evaluated by supervising physician Subjective Allergies: Coded Allergies: No Known Allergies (Unverified , 01/10/15) Subjective patient was not dc last night no caregiver was available patient wants to go home Objective Last 24 Hour Vital Signs Date Time Temp Pulse Resp B/P (MAP) Pulse Ox O2 Delivery O2 Flow Rate FiO2 06/07/17 04:56 99.2 77 19 142/73 95 Room Air 06/07/17 00:00 99.3 87 21 147/81 95 Room Air 06/06/17 22:00 98.2 06/06/17 21:00 147/78 06/06/17 19:53 98.2 77 20 147/78 97 Room Air 06/06/17 18:35 77 145/72 06/06/17 18:29 77 145/72 06/06/17 16:00 98.1 76 18 155/75 97 Room Air 06/06/17 11:58 98.2 73 20 126/62 97 Room Air 06/06/17 09:13 77 137/73 06/06/17 08:44 97.9 77 20 144/62 96 Room Air Objective General Appearance: WD/WN, no acute distress HEENT: normocephalic, atraumatic, anicteric, mucous membranes moist Respiratory/Chest: chest wall non-tender, lungs clear, normal breath sounds, no respiratory distress Cardiovascular: normal peripheral pulses, normal rate, regular rhythm, no JVD Abdomen: normal bowel sounds, soft, non tender, non distended Genitourinary: normal external genitalia Extremities: no edema Neurologic/Psychiatric: no motor/sensory deficits, alert, oriented ,responsive , ataxic Musculoskeletal: normal muscle bulk Microbiology Date/Time Source Procedure Growth Status 06/04/17 18:53 Urine,Clean Catch Urine Culture - Final Escherichia Coli Complete Current Medications Medications (Trade) Dose Ordered Sig/Mikhail Route PRN Reason Start Time Stop Time Status Last Admin Dose Admin Acetaminophen (Tylenol) 650 mg Q4H PRN ORAL fever 06/04/17 19:45 07/04/17 19:44 06/06/17 21:01 Al Hydroxide/Mg Hydroxide (Mylanta II) 30 ml Q6H PRN ORAL dyspepsia 06/04/17 19:45 07/04/17 19:44 Alprazolam (Xanax) 0.5 mg BEDTIME ORAL 06/06/17 21:00 06/12/17 08:59 Amlodipine Besylate (Norvasc) 5 mg BID ORAL 06/05/17 09:00 07/05/17 08:59 06/06/17 18:29 Aspirin (ASA) 81 mg DAILY ORAL 06/05/17 17:00 07/05/17 16:59 06/06/17 09:11 Cephalexin (Keflex) 250 mg BID ORAL 06/06/17 23:00 06/13/17 22:59 06/06/17 22:50 Dextrose (Dextrose 50%) STAT PRN IV Hypoglycemia 06/04/17 19:45 07/04/17 19:44 Gabapentin (Neurontin) 300 mg BID ORAL 06/05/17 09:00 07/05/17 08:59 06/06/17 18:28 Hydralazine HCl (Apresoline) 25 mg BEDTIME ORAL 06/04/17 21:00 07/04/17 20:59 06/06/17 21:00 Insulin Aspart (NovoLOG) BEFORE MEALS AND HS SUBQ 06/04/17 21:00 07/04/17 20:59 06/06/17 21:05 Lorazepam (Ativan 2mg/ml 1ml) 0.5 mg Q4H PRN IV For Anxiety 06/04/17 19:45 06/11/17 19:44 Morphine Sulfate (Morphine Sulfate) 1 mg Q4H PRN IVP For Pain Scale 4-10 06/04/17 19:45 06/11/17 19:44 Ondansetron HCl (Zofran) 4 mg Q6H PRN IVP Nausea & Vomiting 06/04/17 19:45 07/04/17 19:44 Paroxetine HCl (Paxil) 40 mg DAILY ORAL 06/05/17 09:00 07/05/17 08:59 06/06/17 09:13 Phenazopyridine HCl (Pyridium) 100 mg TIDPRN PRN ORAL PAIN UPON URINATION 06/05/17 15:00 07/05/17 14:59 06/05/17 19:47 Polyethylene Glycol (Miralax) 17 gm HSPRN PRN ORAL Constipation 06/04/17 19:45 07/04/17 19:44 Zolpidem Tartrate (Ambien) 5 mg HSPRN PRN ORAL Insomnia 06/04/17 19:45 06/11/17 19:44 Ankush BradleyUniversity Of Vermont Health NetworkRina Neville NP Jun 07, 2017 08:32
[2017-06-07] MEDS: Cephalexin 250mg Cap ORAL SCH (09:13)
[2017-06-07] MEDS: PARoxetine 20mg tab ORAL SCH (09:14)
[2017-06-07] MEDS: Aspirin Baby 81mg ORAL SCH (09:14)
[2017-06-07 10:46] LABS: BASOPHILS % (AUTO) 0.5 % (0.0-2.0); EOSINOPHILS % (AUTO) 0.6 % (0.0-3.0); MEAN CORPUSCULAR HGB CONC 32.6 G/DL (32.0-36.0); MEAN CORPUSCULAR VOLUME 98 FL (80-99); MEAN PLATELET VOLUME 5.9 FL (6.5-10.1); MONOCYTES % (AUTO) 5.1 % (1.0-10.0); NEUTROPHILS % (AUTO) 77.8 % (45.0-75.0); PLATELET COUNT 286 K/UL (150-450); RED CELL DISTRIBUTION WIDTH 12.8 % (11.6-14.8); WHITE BLOOD COUNT 8.8 K/UL (4.8-10.8)
--- NOTE | 2017-06-07 10:56 | Diagnostic Imaging Report ---
Indication: Altered level of consciousness Technique: Contiguous 5 mm thick transaxial imaging of the head obtained in a Siemens Sensation [address] scanner. Soft tissue and bone windows generated. Total Dose length Product (DLP): [address] Dose Index Volume (CTDIvol): 70.38, 0.15 mGy Comparison: 01/10/15 Findings: There is mild prominence of the ventricles, basal cisterns, and cerebral sulci consistent with atrophy. Mild, nonspecific, white matter hypoattenuation is noted throughout the brain consistent with chronic small vessel disease. There is no midline shift, edema, acute hemorrhage, mass effect, or abnormal extra-axial fluid collections. Bones and extra osseous soft tissues are unremarkable. Impression: No acute intracranial bleed, mass effect or edema. Mild atrophy of the brain. Nonspecific white matter hypoattenuation probably due to chronic small vessel disease. The CT scanner at [facility] is accredited by the [employer] and the scans are performed using dose optimization techniques as appropriate to a performed exam including Automatic Exposure control.
[2017-06-07 10:59] LABS: ANION GAP 8 (5-15); CARBON DIOXIDE 28 MMOL/L (21-32); CHLORIDE 105 MMOL/L (98-107); CREATININE 1.8 MG/DL (0.55-1.30); POTASSIUM 4.3 MMOL/L (3.5-5.1); SODIUM 141 MMOL/L (136-145)
[2017-06-07 12:00] VITALS: BP 146/71
[2017-06-07] MEDS ORDERED: NS 275ml ONE (14:19)
[2017-06-07] MEDS ORDERED: Tubing IV Secondary IV ONE (14:19)
--- NOTE | 2017-06-10 13:17 | Discharge Summary ---
Discharge Summary Hospital Course Date of Admission Jun 04, 2017 at 18:40 Date of Discharge Jun 07, 2017 at 14:20 Admitting Diagnosis Near syncope HPI Carolann Tsang is a 77 year old female who was admitted on Jun 04, 2017 at 18: 40 for Syncope Hospital Course dc summary #[id number] Discharge Medications New Medications: Ciprofloxacin* (Cipro*) 500 Mg Tablet 500 MG PO BID, #10 TAB Hydralazine Hcl* (Hydralazine Hcl*) 25 Mg Tablet 25 MG ORAL BEDTIME, #30 TAB Phenazopyridine Hcl* (Pyridium*) 100 Mg Tablet 100 MG ORAL TIDPRN PRN, #10 TAB Continued Medications: Acetaminophen* (Tylenol Extra Strength*) 500 Mg Tablet 500 MG ORAL Q8H PRN for Prn Headache/Temp > 101, #30 TAB 0 Refills Alprazolam* (Xanax*) 0.5 Mg Tablet 0.5 MG PO TID, TAB Amlodipine Besylate (Norvasc) 5 Mg Tab 5 MG ORAL BID, #60 TAB Aspirin* (Aspirin*) 81 Mg Chew 162 MG ORAL DAILY, #30 TAB Atorvastatin Calcium* (Lipitor*) 10 Mg Tab 10 MG ORAL BEDTIME, #30 TAB Baclofen* (Baclofen*) 10 Mg Tablet 10 MG ORAL THREE TIMES A DAY, TAB Gabapentin (Neurontin) 300 Mg Capsule 300 MG ORAL BID, #15 CAP 0 Refills Linaclotide (Linzess) 290 Mcg Capsule 290 MCG PO, CAP Metformin Hcl (Fortamet) 500 Mg Tab.er.24 500 MG PO, TAB Paroxetine Hcl (Paxil) 40 Mg Tablet 40 MG ORAL DAILY, #30 TAB 0 Refills Ranitidine Hcl* (Zantac*) 150 Mg Tablet 150 MG ORAL TWICE A DAY, TAB Sucralfate (Carafate) 1 Gm/10 Ml Oral.susp 1 GM ORAL FOUR TIMES A DAY, ML Discontinued Medications: Hydralazine HCl (Hydralazine HCl) 25 Mg Tablet 25 MG PO, TAB Discharge Discharge Disposition Patient was discharged to Home () Discharge Diagnoses: Ankush (Violetaein)Rina NP Jun 10, 2017 13:17
--- NOTE | 2017-06-10 22:45 | Discharge Summary 2 SIG ---
DATE OF ADMISSION: 06/04/2017 DATE OF DISCHARGE: 06/07/2017 REASON FOR ADMISSION: 77-year-old female presented with complaint of generalized weakness. In the emergency department, she was diagnosed with acute renal failure, urinary tract infection and was admitted for further management. HOSPITAL STAY: The patient was admitted. ID and neurology consults were requested. Neurologist had seen and evaluated the patient. CT of the head revealed no acute intracranial pathology. Initially, neurologist stated that syncopal episode was likely vasovagal. He recommended to discontinue all unnecessary medications that could contribute to abnormal gait including all benzodiazepine and continue to use aspirin and statin. The patient was started on empiric antibiotics. Urine culture grew E. coli. The patient was on antibiotic and Pyridium p.r.n. Per ID recommendation, the patient could be switched to oral antibiotic on discharge. Renal parameters were closely monitored. Creatinine down to 2 from initial 2.6. Renal ultrasound revealed no evidence of hydronephrosis and normal echogenicity bilaterally. The patient most likely had chronic kidney disease probably due to the diabetic nephropathy. Blood sugar was managed with sliding scale of insulin. Blood pressure was managed with beta-zita and calcium-channel zita. Aspirin was continued. Lipid panel was within normal limits. Bowel regimen was instituted. Hemoglobin and hematocrit were closely monitored. Anemia workup was consistent with anemia of chronic disease. No need for transfusion. The patient was working with physical and occupational therapists. Fall precautions were maintained. Per physical therapy evaluation, the patient needs 24-hour caregiver versus prison facility. Initially was working on placement to prison facility; however, the patient adamantly refused. Caregiver, Parrish, was contacted by nursing staff and pillowcase folder. Parrish stated that he and another caregiver will be able to provide 24-hour care, staying with the patient overnight. Neurologist cleared the patient for discharge. The patient was stable for discharge. FINAL DIAGNOSES: 1. Status post syncopal episode, probably vasovagal in origin. 2. Urinary tract infection with Escherichia coli. 3. Chronic kidney disease. 4. Generalized weakness, likely secondary to urinary tract infection. 5. Hypertension. 6. Recurrent falls. 7. Diabetes mellitus. 8. Diabetic nephropathy. 9. Coronary artery disease with history of coronary artery bypass graft. 10. Anemia of chronic disease. 11. Mild cognitive impairment. 12. Abnormal gait. DISCHARGE MEDICATIONS: See medication reconciliation list. Prescription provided for oral antibiotics. DISCHARGE INSTRUCTIONS: The patient discharged home with 24-hour caregiver. Follow up with primary medical doctor. Georgie Montanez M.D. Rina BradleyRye Psychiatric Hospital CenterJamin NMindy DR: Chris JOB#: [id number] CC: GEORGINA
--- NOTE | 2017-06-17 12:19 | Cardiology Report ---
APPROVED REPORT EKG Measurement Heart [id number] Normal sinus rhythm IVCD Septal infarct, age undetermined Abnormal ECG
== END 2017-06-07 14:20 | disposition home or self-care (01) | DRG 690 ==
LOC: EDBD 18:07 → EMR 18:32 → 4W 18:40 → EDBEDREQ 19:29
DX: N39.0 Urinary tract infection, site not specified (principal); E11.22 Type 2 diabetes mellitus with diabetic chronic kidney disease; E11.42 Type 2 diabetes mellitus with diabetic polyneuropathy; I12.9 Hypertensive chronic kidney disease with stage 1 through stage 4 chronic kidney disease, or unspecified chronic kidney disease; N18.9 Chronic kidney disease, unspecified; I25.10 Atherosclerotic heart disease of native coronary artery without angina pectoris; B96.20 Unspecified Escherichia coli [E. coli] as the cause of diseases classified elsewhere; R55 Syncope and collapse; R29.6 Repeated falls; G31.84 Mild cognitive impairment of uncertain or unknown etiology; D63.1 Anemia in chronic kidney disease; Z79.84 Long term (current) use of oral hypoglycemic drugs; Z95.1 Presence of aortocoronary bypass graft
CPT/HCPCS: 36415; 70450; 71010; 76775; 80048; 80053; 80061; 81003; 82378; 82550; 82553; 82607; 82746; 82962; 83540; 83550; 83615; 83880; 84133; 84300; 84443; 84484; 84550; 85007; 85025; 85044; 85060; 85610; 85651; 85730; 87086; 87181; 89050; 93005; 93970; 99285; J1815; J8499

== ENCOUNTER 2017-11-26 13:39 | Inpatient (IN) | payer MEDICARE, OTHER ==
[~2017-11-26] VITALS: Ht 177.8 cm; Wt 73.0 kg
[~2017-11-26 13:39] MED LIST changes: +ALPRAZOLAM0.5 MG PO; +BACLOFEN10 MG ORAL; +CARAFATE1 GM/10 M1 ORAL; +CIPRO500 MG PO; +CRESTOR20 MG ORAL; +FORTAMET500 MG PO; +HYDRALAZINE HCL25 M1 ORAL; +HYDRALAZINE HCL25 M2 PO; +LACTULOSE10 GM/153 PO; +LINZESS290 MCG PO; +LISINOPRIL20 MG ORAL; +METOPROLOL TART25 MG ORAL; +NEURONTIN300 MG ORAL; +NICODERM CQ1 EAC1 TD; +PAXIL40 MG ORAL; +PHENAZOPYRIDIN100 MG ORAL; +PROTONIX40 MG ORAL; +TRULICITY0.75 MG/0. SQ; +ZANTAC150 MG ORAL; +ZOFRAN4 M1 ORAL
[2017-11-26 17:18] VITALS: BP 187/90
[2017-11-26 20:00] VITALS: BP 179/94
[2017-11-26] MEDS: Heparin 5000 units/ml inj SUBQ SCH (21:44)
[2017-11-26] MEDS ORDERED: D5 1/2NS 1,000 ML IV SCH (22:00)
[2017-11-26] MEDS ORDERED: Lisinopril 20mg tab ORAL ONE (22:00)
[2017-11-26] MEDS: cefTRIAXone 1 GM in D5W 110 ML IVPB SCH (22:44)
[2017-11-27] VITALS: BP 164/86
[2017-11-27] MEDS: ALPRAZolam 0.25mg tab ORAL PRN (02:43)
[2017-11-27] MEDS ORDERED: AMLODIPINE BESYL5 MG PO (03:49)
[2017-11-27 04:00] VITALS: BP 158/87
[2017-11-27] MEDS: Heparin 5000 units/ml inj SUBQ SCH ×3 (06:22→22:33)
[2017-11-27 07:55] LABS: BASOPHILS % (AUTO) 0.5 % (0.0-2.0); EOSINOPHILS % (AUTO) 0.5 % (0.0-3.0); HEMATOCRIT 36.5 % (37.0-47.0); HEMOGLOBIN 12.1 G/DL (12.0-16.0); LYMPHOCYTES % (AUTO) 13.5 % (20.0-45.0); MEAN CORPUSCULAR VOLUME 92 FL (80-99); NEUTROPHILS % (AUTO) 79.6 % (45.0-75.0); PLATELET COUNT 194 K/UL (150-450); RED BLOOD COUNT 3.95 M/UL (4.20-5.40)
[2017-11-27 08:00] VITALS: BP 169/87
[2017-11-27] MEDS: Aspirin Baby 81mg ORAL SCH (08:29)
[2017-11-27 08:49] LABS: APPEARANCE,URINE SLIGHTLY CLOUDY; BILIRUBIN, URINE NEGATIVE (NEGATIVE); COLOR,URINE PALE YELLOW; GLUCOSE, URINE (UA) NEGATIVE (NEGATIVE); KETONES,URINE NEGATIVE (NEGATIVE); LEUKOCYTE ESTERASE ,URINE 3+ (NEGATIVE); NITRITE,URINE POSITIVE (NEGATIVE); PH,URINE 6 (4.5-8.0); PROTEIN,URINE 4+ (NEGATIVE); UROBILINOGEN,URINE NORMAL MG/DL (0.0-1.0)
[2017-11-27 08:58] LABS: ALANINE AMINOTRANSFERASE 27 U/L (12-78); ALBUMIN 2.5 G/DL (3.4-5.0); ALBUMIN/GLOBULIN RATIO 0.7 (1.0-2.7); ALKALINE PHOSPHATASE 89 U/L (46-116); ANION GAP 10 mmol/L (5-15); ASPARTATE AMINO TRANSFERASE 39 U/L (15-37); BILIRUBIN,TOTAL 0.2 MG/DL (0.2-1.0); BLOOD UREA NITROGEN 25 mg/dL (7-18); CALCIUM 7.9 MG/DL (8.5-10.1); CARBON DIOXIDE 25 MMOL/L (21-32); CHLORIDE 106 MMOL/L (98-107); CHOLESTEROL 85 MG/DL (< 200); CREATINE KINASE 1119 U/L (26-308); HDL CHOLESTEROL 30 MG/DL (40-60); PHOSPHORUS 4.2 MG/DL (2.5-4.9); POTASSIUM 3.5 MMOL/L (3.5-5.1); SODIUM 141 MMOL/L (136-145); TRIGLYCERIDES 61 MG/DL (30-150)
[2017-11-27] MEDS ORDERED: Azithromycin 250mg tab ORAL SCH (09:00)
--- NOTE | 2017-11-27 11:00 | Diagnostic Imaging Report ---
Indication: Dyspnea Comparison: 06/04/2017 A single view chest radiograph was obtained. Findings: Right hemidiaphragm is elevated. Heart is normal in size. There is mild right basilar atelectasis. Sternotomy noted. Bones are osteopenic. IMPRESSION: Right basal atelectasis and volume loss.
--- NOTE | 2017-11-27 11:03 | History & Physical ---
History and Physical History & Physicial Dictated for Int Med-Dr Neil no. [id number]. MARCELL WAYNE Nov 27, 2017 11:03
[2017-11-27] MEDS ORDERED: NAMENDA5 MG ORAL (11:28)
[2017-11-27 12:00] VITALS: BP 169/80
[2017-11-27] MEDS: NovoLOG Insulin Flexpen SUBQ SCH ×3 (12:02→22:38)
--- NOTE | 2017-11-27 12:37 | Diagnostic Imaging Report ---
Indication: Left-sided facial droop Technique: The head was imaged in a 1.5 Kierra magnet. Sequences obtained include sagittal and axial T1 FLAIR, axial T2 fast spin echo with fat saturation, axial T2 FLAIR, diffusion and ADC map. Comparison: CT head 06/07/2017 Findings: There is moderate prominence of the sulci, ventricles, and basal cisterns consistent with atrophy. Moderate, nonspecific T2 hyperintensity noted within white matter. This may be due to chronic small vessel disease. Several small cystic foci are demonstrated within the basal ganglia and deep white matter/marshall radiata. These are consistent with old lacunar infarcts. There is no restricted diffusion. Diaz-white differentiation is normal. There is no mass effect, midline shift, edema, or hemorrhage. There are no abnormal extra-axial or intra-axial fluid collections. The corpus callosum and sella are unremarkable. The brainstem and cerebellum are unremarkable. Bone marrow signal within the visualized osseous structures appears age appropriate and unremarkable otherwise. Impression: No acute intracranial findings. No evidence of acute CVA. Multiple old lacunar infarcts. Moderate atrophy and evidence of chronic small vessel disease involving white matter tracts.
--- NOTE | 2017-11-27 12:45 | Consultation ---
History of Present Illness General Date patient seen: Nov 27, 2017 Reason for Consultation: dyspnea Present Illness HPI 77 y/o gentle lady with pmhx of CAD s/p CABG, HTN, DM2, multiple falls with resultant rib fractures, She was taken by paramedics to [facility] with CC of ALOC. She had a CT without contrast at [place], which was negative for CVA. She was found to have possible pneumonia, pyuria and UTI and transferred to [facility] for further evaluation. Patient denies fever or chills, or chest pain. Preliminary urinalysis reveals presence of pyuria and the patient has been initiated on broad spectrum antibiotics. She is asymptomatic now and only c/o back and knee pain. Allergies: Coded Allergies: No Known Allergies (Unverified , 01/10/15) Medication History Scheduled Alprazolam* (Xanax*), 0.5 MG PO BID, (Reported) Amlodipine Besylate* (Amlodipine Besylate*), 5 MG PO DAILY, (Reported) Aspirin* (Aspirin*), 162 MG ORAL DAILY Atorvastatin Calcium* (Lipitor*), 10 MG ORAL BEDTIME Baclofen* (Baclofen*), 10 MG ORAL BID, (Reported) Ciprofloxacin* (Cipro*), 500 MG PO BID Gabapentin (Neurontin), 300 MG ORAL BID, (Reported) Gabapentin (Neurontin), 300 MG ORAL BID, (Reported) Hydralazine Hcl* (Hydralazine Hcl*), 25 MG ORAL BEDTIME Lisinopril (Lisinopril*), 20 MG ORAL DAILY, (Reported) Memantine Hcl* (Namenda*), 5 MG ORAL DAILY, (Reported) Metoprolol Tartrate* (Metoprolol Tartrate*), 25 MG ORAL EVERY 12 HOURS, ( Reported) Nicotine 14MG Patch* (Nicoderm Cq 14MG*), 1 EACH TD DAILY, (Reported) Pantoprazole* (Protonix*), 40 MG ORAL DAILY, (Reported) Paroxetine Hcl (Paxil), 40 MG ORAL DAILY, (Reported) Ranitidine Hcl* (Zantac*), 150 MG ORAL TWICE A DAY, (Reported) Rosuvastatin Calcium* (Crestor*), 20 MG ORAL DAILY, (Reported) Sucralfate (Carafate), 1 GM ORAL FOUR TIMES A DAY, (Reported) Scheduled PRN Acetaminophen With Codeine (T#3) (Tylenol #3 Tab*), 1 TAB ORAL Q8H PRN for For Pain Acetaminophen With Codeine (T#3) (Tylenol #3 Tab*), 1 TAB ORAL Q8H PRN for For Pain Acetaminophen With Codeine (T#3) (Tylenol #3 Tab*), 1 TAB ORAL Q4H PRN for For Pain, (Reported) Acetaminophen* (Tylenol Extra Strength*), 500 MG ORAL Q8H PRN for Prn Headache/ Temp > 101 Ondansetron (Zofran), 4 MG ORAL Q6H PRN for Nausea & Vomiting, (Reported) Phenazopyridine Hcl* (Pyridium*), 100 MG ORAL TIDPRN PRN Miscellaneous Medications Dulaglutide (Trulicity), 0.75 MG SQ, (Reported) Lactulose (Lactulose), 10 GM PO, (Reported) Linaclotide (Linzess), 290 MCG PO, (Reported) Metformin Hcl (Fortamet), 500 MG PO, (Reported) [Alprazolam], (Reported) [Amantadine], (Reported) [Crestor], (Reported) [Glimeperide], (Reported) [List], (Reported) [Metoprolol], (Reported) [Ondansentron], (Reported) [Ranitidine], (Reported) [Tramadol], (Reported) Discontinued Medications Amlodipine Besylate (Norvasc), 5 MG ORAL BID Discontinued Reason: Medication dose changed Amlodipine Besylate (Norvasc), 5 MG ORAL DAILY, (Reported) Discontinued Reason: Medication dose changed Lisinopril* (Zestril*), 5 MG ORAL DAILY Discontinued Reason: Medication dose changed Patient History Healthcare decision maker Resuscitation status Full Code Advanced Directive on File Past Medical/Surgical History Past Medical/Surgical History: (1) Depression (2) Hypertension (3) DM (diabetes mellitus) (4) Rib contusion Review of Systems All Other Systems: negative except mentioned in HPI Physical Exam General Appearance: cachetic Lines, tubes and drains: peripheral Neck: non-tender, normal alignment Respiratory/Chest: chest wall non-tender, lungs clear Cardiovascular/Chest: normal peripheral pulses, normal rate Abdomen: normal bowel sounds Genitourinary/Rectal: normal rectal exam Extremities: normal range of motion Neurologic: launch manager II-XII grossly normal, no motor/sensory deficits Lymphatic: anterior cervical Last 24 Hour Vital Signs Date Time Temp Pulse Resp B/P (MAP) Pulse Ox O2 Delivery O2 Flow Rate FiO2 11/27/17 08:32 80 169/87 11/27/17 08:32 80 169/87 11/27/17 08:00 90 11/27/17 08:00 98.2 86 18 169/87 98 Room Air 98.2 11/27/17 04:00 82 11/27/17 04:00 98.2 86 18 158/87 98 Room Air 98.2 11/27/17 00:00 111 11/27/17 00:00 98.4 87 18 164/86 100 Room Air 98.4 11/26/17 21:43 179/94 11/26/17 21:42 91 179/94 11/26/17 20:00 113 11/26/17 20:00 99.9 91 18 179/94 95 Room Air 99.9 11/26/17 17:18 97.5 90 20 187/90 96 Room Air 97.5 11/26/17 17:09 94 Intake and Output 11/26/17 11/27/17 19:00 07:00 Intake Total 535 ml Output Total 500 ml 625 ml Balance -500 ml -90 ml Intake Oral 50 ml IV Total 485 ml Output Urine Total 500 ml 625 ml Laboratory Tests Test 11/27/17 03:00 11/27/17 06:20 Urine Color Pale yellow Urine Appearance Slightly cloudy Urine pH 6 (4.5-8.0) Urine Specific [place] 1.020 (1.005-1.035) Urine Protein 4+ (NEGATIVE) H Urine Glucose (UA) Negative (NEGATIVE) Urine Ketones Negative (NEGATIVE) Urine Occult Blood 5+ (NEGATIVE) H Urine Nitrite Positive (NEGATIVE) H Urine Bilirubin Negative (NEGATIVE) Urine Urobilinogen Normal MG/DL (0.0-1.0) Urine Leukocyte Esterase 3+ (NEGATIVE) H Urine RBC 5-10 /HPF (0 - 2) H Urine WBC 30-40 /HPF (0 - 2) H Urine Squamous Epithelial Cells Few /LPF (NONE/OCC) Urine Bacteria Moderate /HPF (NONE) H White Blood Count 9.0 K/UL (4.8-10.8) Red Blood Count 3.95 M/UL (4.20-5.40) L Hemoglobin 12.1 G/DL (12.0-16.0) Hematocrit 36.5 % (37.0-47.0) L Mean Corpuscular Volume 92 FL (80-99) Mean Corpuscular Hemoglobin 30.7 PG (27.0-31.0) Mean Corpuscular Hemoglobin Concent 33.2 G/DL (32.0-36.0) Red Cell Distribution Width 13.0 % (11.6-14.8) Platelet Count 194 K/UL (150-450) Mean Platelet Volume 5.9 FL (6.5-10.1) L Neutrophils (%) (Auto) 79.6 % (45.0-75.0) H Lymphocytes (%) (Auto) 13.5 % (20.0-45.0) L Monocytes (%) (Auto) 6.0 % (1.0-10.0) Eosinophils (%) (Auto) 0.5 % (0.0-3.0) Basophils (%) (Auto) 0.5 % (0.0-2.0) Sodium Level 141 MMOL/L (136-145) Potassium Level 3.5 MMOL/L (3.5-5.1) Chloride Level 106 MMOL/L (98-107) Carbon Dioxide Level 25 MMOL/L (21-32) Anion Gap 10 mmol/L (5-15) Blood Urea Nitrogen 25 mg/dL (7-18) H Creatinine 2.0 MG/DL (0.55-1.30) H Estimat Glomerular Filtration Rate mL/min (>60) Glucose Level 154 MG/DL (74-106) H Hemoglobin A1c 5.5 % (4.3-6.0) Calcium Level 7.9 MG/DL (8.5-10.1) L Phosphorus Level 4.2 MG/DL (2.5-4.9) Magnesium Level 2.0 MG/DL (1.8-2.4) Total Bilirubin 0.2 MG/DL (0.2-1.0) Aspartate Amino Transf (AST/SGOT) 39 U/L (15-37) H Alanine Aminotransferase (ALT/SGPT) 27 U/L (12-78) Alkaline Phosphatase 89 U/L (46-116) Total Creatine Kinase 1119 U/L (26-308) H Troponin I 0.059 ng/mL (0.000-0.056) Total Protein 6.1 G/DL (6.4-8.2) L Albumin 2.5 G/DL (3.4-5.0) L Globulin 3.6 g/dL Albumin/Globulin Ratio 0.7 (1.0-2.7) L Triglycerides Level 61 MG/DL (30-150) Cholesterol Level 85 MG/DL (< 200) LDL Cholesterol 40 mg/dL (<100) HDL Cholesterol 30 MG/DL (40-60) L Cholesterol/HDL Ratio 2.8 (3.3-4.4) L Height (Feet): 5 Height (Inches): 10.00 Weight (Pounds): 161 Medications Current Medications Medications (Trade) Dose Ordered Sig/Mikhail Route PRN Reason Start Time Stop Time Status Last Admin Dose Admin Alprazolam (Xanax) 0.25 mg Q8H PRN ORAL For Anxiety 11/26/17 19:00 12/03/17 18:59 11/27/17 02:43 Amlodipine Besylate (Norvasc) 5 mg DAILY ORAL 11/27/17 09:00 12/27/17 08:59 11/27/17 08:32 Aspirin (ASA) 81 mg DAILY ORAL 11/27/17 09:00 12/27/17 08:59 11/27/17 08:29 Azithromycin (Zithromax) 250 mg DAILY ORAL 11/27/17 09:00 12/04/17 08:59 11/27/17 08:31 Carvedilol (Coreg) 3.125 mg EVERY 12 HOURS ORAL 11/26/17 21:00 12/26/17 20:59 11/27/17 08:32 Ceftriaxone Sodium 1 gm/ Dextrose 110 ml @ 220 mls/hr Q24H IVPB 11/26/17 23:00 12/03/17 22:59 11/26/17 22:44 Dextrose (Dextrose 50%) 25 ml STAT PRN IV Hypoglycemia 11/27/17 12:00 12/27/17 11:59 Dextrose (Dextrose 50%) 50 ml STAT PRN IV Hypoglycemia 11/27/17 11:00 12/27/17 10:59 Gabapentin (Neurontin) 100 mg BID ORAL 11/26/17 22:00 12/26/17 21:59 11/27/17 08:28 Heparin Sodium (Porcine) (Heparin 5000 units/ml) 5,000 units EVERY 8 HOURS SUBQ 11/26/17 22:00 12/26/17 21:59 11/27/17 06:22 Insulin Aspart (NovoLOG) BEFORE MEALS AND HS SUBQ 11/27/17 12:30 12/27/17 12:29 Pantoprazole (Protonix) 40 mg DAILY ORAL 11/27/17 09:00 12/27/17 08:59 11/27/17 08:28 Paroxetine HCl (Paxil) 20 mg BEDTIME ORAL 11/27/17 21:00 12/27/17 20:59 Sodium 1,000 ml @ 75 mls/hr [id number] IV 11/27/17 12:30 12/27/17 12:29 Assessment/Plan Problem List: (1) Sepsis ICD Codes: A41.9 - Sepsis, unspecified organism SNOMED: 41063253 (2) UTI (urinary tract infection) ICD Codes: N39.0 - Urinary tract infection, site not specified SNOMED: 33402060 (3) DM (diabetes mellitus) ICD Codes: E11.9 - DM (diabetes mellitus) SNOMED: 03721638 (4) Hypertension ICD Codes: I10 - Hypertension SNOMED: 06357072 (5) Depression ICD Codes: F32.9 - Depression SNOMED: 44965827 (6) ARF (acute renal failure) ICD Codes: N17.9 - Acute kidney failure, unspecified SNOMED: 17959796 Assessment/Plan check urine cultures iv abx titrate fio2 to sat of 92% CT of head at [place] was negative monitor BP renal studies antidepressant pt/ot med/surg. Georgie Montanez MD Nov 27, 2017 12:45
[2017-11-27] MEDS: 1/2NS w/KCl 20mEq 1000ml 1,000 ML IV SCH (13:31)
--- NOTE | 2017-11-27 14:58 | Cardiac Electrophysiology PN ---
Subjective Subjective Consult dictated [id number] Objective Last 24 Hour Vital Signs Date Time Temp Pulse Resp B/P (MAP) Pulse Ox O2 Delivery O2 Flow Rate FiO2 11/27/17 08:32 80 169/87 11/27/17 08:32 80 169/87 11/27/17 08:00 90 11/27/17 08:00 98.2 86 18 169/87 98 Room Air 98.2 11/27/17 04:00 82 11/27/17 04:00 98.2 86 18 158/87 98 Room Air 98.2 11/27/17 00:00 111 11/27/17 00:00 98.4 87 18 164/86 100 Room Air 98.4 11/26/17 21:43 179/94 11/26/17 21:42 91 179/94 11/26/17 20:00 113 11/26/17 20:00 99.9 91 18 179/94 95 Room Air 99.9 11/26/17 17:18 97.5 90 20 187/90 96 Room Air 97.5 11/26/17 17:09 94 Intake and Output 11/26/17 11/27/17 19:00 07:00 Intake Total 535 ml Output Total 500 ml 625 ml Balance -500 ml -90 ml Intake Oral 50 ml IV Total 485 ml Output Urine Total 500 ml 625 ml Laboratory Tests Test 11/27/17 03:00 11/27/17 06:20 Urine Color Pale yellow Urine Appearance Slightly cloudy Urine pH 6 (4.5-8.0) Urine Specific [place] 1.020 (1.005-1.035) Urine Protein 4+ (NEGATIVE) H Urine Glucose (UA) Negative (NEGATIVE) Urine Ketones Negative (NEGATIVE) Urine Occult Blood 5+ (NEGATIVE) H Urine Nitrite Positive (NEGATIVE) H Urine Bilirubin Negative (NEGATIVE) Urine Urobilinogen Normal MG/DL (0.0-1.0) Urine Leukocyte Esterase 3+ (NEGATIVE) H Urine RBC 5-10 /HPF (0 - 2) H Urine WBC 30-40 /HPF (0 - 2) H Urine Squamous Epithelial Cells Few /LPF (NONE/OCC) Urine Bacteria Moderate /HPF (NONE) H White Blood Count 9.0 K/UL (4.8-10.8) Red Blood Count 3.95 M/UL (4.20-5.40) L Hemoglobin 12.1 G/DL (12.0-16.0) Hematocrit 36.5 % (37.0-47.0) L Mean Corpuscular Volume 92 FL (80-99) Mean Corpuscular Hemoglobin 30.7 PG (27.0-31.0) Mean Corpuscular Hemoglobin Concent 33.2 G/DL (32.0-36.0) Red Cell Distribution Width 13.0 % (11.6-14.8) Platelet Count 194 K/UL (150-450) Mean Platelet Volume 5.9 FL (6.5-10.1) L Neutrophils (%) (Auto) 79.6 % (45.0-75.0) H Lymphocytes (%) (Auto) 13.5 % (20.0-45.0) L Monocytes (%) (Auto) 6.0 % (1.0-10.0) Eosinophils (%) (Auto) 0.5 % (0.0-3.0) Basophils (%) (Auto) 0.5 % (0.0-2.0) Sodium Level 141 MMOL/L (136-145) Potassium Level 3.5 MMOL/L (3.5-5.1) Chloride Level 106 MMOL/L (98-107) Carbon Dioxide Level 25 MMOL/L (21-32) Anion Gap 10 mmol/L (5-15) Blood Urea Nitrogen 25 mg/dL (7-18) H Creatinine 2.0 MG/DL (0.55-1.30) H Estimat Glomerular Filtration Rate mL/min (>60) Glucose Level 154 MG/DL (74-106) H Hemoglobin A1c 5.5 % (4.3-6.0) Calcium Level 7.9 MG/DL (8.5-10.1) L Phosphorus Level 4.2 MG/DL (2.5-4.9) Magnesium Level 2.0 MG/DL (1.8-2.4) Total Bilirubin 0.2 MG/DL (0.2-1.0) Aspartate Amino Transf (AST/SGOT) 39 U/L (15-37) H Alanine Aminotransferase (ALT/SGPT) 27 U/L (12-78) Alkaline Phosphatase 89 U/L (46-116) Total Creatine Kinase 1119 U/L (26-308) H Troponin I 0.059 ng/mL (0.000-0.056) Total Protein 6.1 G/DL (6.4-8.2) L Albumin 2.5 G/DL (3.4-5.0) L Globulin 3.6 g/dL Albumin/Globulin Ratio 0.7 (1.0-2.7) L Triglycerides Level 61 MG/DL (30-150) Cholesterol Level 85 MG/DL (< 200) LDL Cholesterol 40 mg/dL (<100) HDL Cholesterol 30 MG/DL (40-60) L Cholesterol/HDL Ratio 2.8 (3.3-4.4) L Hunter Ruby MD Nov 27, 2017 14:58
--- NOTE | 2017-11-27 15:50 | Cardiology Report ---
APPROVED REPORT EXAM: Two-dimensional and M-mode echocardiogram with Doppler and color Doppler. INDICATION CVA/TIA M-Mode DIMENSIONS IVSd1.6 (0.7-1.1cm)Left Atrium (MM)3.5 (1.6-4.0cm) LVDd4.0 (3.5-5.6cm)Aortic Root3.1 (2.0-3.7cm) PWd1.4 (0.7-1.1cm)Aortic Cusp Exc.1.8 (1.5-2.0cm) LVDs3.0 (2.5-4.0cm) PWs1.7 cm Normal left ventricular chamber size. Mildly depressed systolic function and wall motion. Left ventricular ejection fraction estimated to be 50 %. Mild left ventricular hypertrophy. No evidence of pericardial effusion. All other cardiac chamber sizes are within normal limits. Aortic valve calcification with decreased cusp excursion c/w mild aortic stenosis. Mildly thickened mitral valve leaflets with normal excursion. Mild mitral annulus and aortic root calcification. Normal pulmonic valve structure. Normal tricuspid valve structure. IVC is normal in size with physiological collapse. A color flow and spectral Doppler study was performed and revealed: No aortic insufficiency. Peak aortic valve gradient of 18 mmHg and a mean of 8 mmHg. Aortic valve area 1.6 cm2 calculated by continuity equation. Mild mitral regurgitation. Mitral diastolic velocities suggest mild left ventricular diastolic dysfunction (Grade I). Mild tricuspid regurgitation. Tricuspid systolic velocities suggests peak right ventricular systolic pressure of 37 mmHg, consistent with mild pulmonary hypertension. Mild pulmonic regurgitation present.
--- NOTE | 2017-11-27 15:50 | Consultation ---
Consult Note Consult Note [id number] Tyrese Pagan MD Nov 27, 2017 15:50
[2017-11-27 16:00] VITALS: BP 145/70
--- NOTE | 2017-11-27 16:15 | History and Physical Report ---
DATE OF ADMISSION: 11/27/2017 CHIEF COMPLAINT: The patient is a 77-year-old female, who presents with a chief complaint of, "I fell out of bed." HISTORY OF PRESENT ILLNESS: The patient was last seen on 11/25/2017 by her caregiver. This was in the evening. The patient states she fell out of her bed yesterday, 11/26/2017. The patient states she rolled over and fell out of bed. The patient denies loss of consciousness. The patient, however, was found by her caregiver approximately at 10:30 a.m. EMS was called. The patient appeared to be confused. The patient was initially transferred to [facility] emergency room. The patient is transferred to [facility] for insurance purposes. The patient is admitted for syncopal episode to rule out acute cerebrovascular accident. Upon arrival at [facility], the patient was also noted to have a left-sided facial droop. The patient was initially transferred to [facility] emergency room by EMS. The patient is transferred to [facility] for insurance purposes. The patient is admitted for syncopal episode and left facial weakness to rule out acute cerebrovascular accident. PAST MEDICAL HISTORY: Significant for , 1. Type 2 diabetes. 2. Hypertension. 3. Chronic renal failure. 4. History of coronary artery disease. PAST SURGICAL HISTORY: Significant for, 1. Coronary artery bypass graft in 2013. 2. Right knee surgery. CURRENT MEDICATIONS: 1. Coreg 3.125 mg p.o. twice daily. 2. Xanax 0.25 mg p.o. q.8 hours p.r.n. 3. Protonix 40 mg p.o. daily. 4. Crestor 10 mg p.o. daily. 5. Gabapentin 100 mg p.o. twice daily. 6. Lisinopril 20 mg p.o. daily. 7. Amlodipine 5 mg p.o. daily. 8. Aspirin 81 mg p.o. daily. ALLERGIES: No known drug allergies. SOCIAL HISTORY: The patient is a and lives alone. The patient does have a caregiver daily. The patient denies alcohol use. The patient does state that she occasionally smokes tobacco. REVIEW OF SYSTEMS: CONSTITUTIONAL: The patient denies weight loss or weight gain. The patient denies fevers or chills. HEENT: The patient denies ear or throat pain. The patient denies headache. CARDIOVASCULAR: The patient denies palpitations or chest pain. CHEST: The patient denies wheeze or shortness of breath. ABDOMINAL: The patient denies nausea, vomiting, diarrhea, or constipation. GENITOURINARY: The patient denies dysuria or increased frequency of urination. NEUROMUSCULAR: The patient has a history of syncopal episode as above. The patient complains of left facial weakness. The patient denies seizures or generalized weakness. PHYSICAL EXAMINATION: VITAL SIGNS: Temperature 98.4, respirations 18, pulse 87 to 111, and blood pressure 154/86. GENERAL: The patient is a well-developed and well-nourished female, in no apparent distress. HEENT: Pupils equal and responsive to light and accommodation. Extraocular movements are intact. The patient does have a right-sided facial droop noted. CHEST: Lungs are clear to auscultation bilaterally without wheezes or rales. CARDIOVASCULAR: Regular rhythm and rate. S1 and S2 are normal without murmurs, rubs, or gallops. ABDOMEN: Soft, nontender, and nondistended. Positive bowel sounds. No evidence of hepatosplenomegaly. Currently, no rebound or guarding noted. EXTREMITIES: Negative for clubbing, cyanosis, or edema. RECTAL/GENITAL: Refused. NEUROLOGIC: The patient does have a right-sided facial droop. Cranial nerves II through XII are grossly intact without focal deficits. Motor strength is 4/5 bilaterally. Deep tendon reflexes are 2+ plantar. LABORATORY STUDIES: WBC 12.0, hemoglobin 13.7, hematocrit 41.1, and platelets 251,000. Sodium 136, potassium 3.7, chloride 102, CO2 22, BUN 23, creatinine 2.22, and glucose 195. Troponin 0.03. Protime 13.4 and INR 1.1. Creatine kinase 1.694. Urinalysis showed positive leukocyte esterase with 4 to 10 rbc's and greater than [address] scan of the brain at [place] failed to demonstrate acute hemorrhage or infarct. ASSESSMENT: This is a 77-year-old female. 1. Syncopal episode. 2. Left facial droop. 3. Urinary tract infection. 4. Hypertension. 5. Diabetes type 2. 6. Hypercholesterolemia. 7. Coronary artery disease. TREATMENT: 1. Syncopal episode/left facial droop. A Neurology consultation is pending with Dr. Rod. The patient is awaiting MRI of the brain. Initial CAT scan of the brain failed to demonstrate acute infarct or hemorrhage. We will follow recommendations of Neurology. Carotid duplex and Dopplers are pending. 2. Urinary tract infection. The patient was started empirically on ceftriaxone at [place]. The patient will continue on ceftriaxone. A urine culture is pending. 3. Hypertension. Continue lisinopril and Coreg as above. 4. Diabetes type 2. NovoLog sliding scale has been instituted. 5. Hypercholesteremia. Continue Crestor as above. 6. Coronary artery disease. A Cardiology consultation has been obtained with Dr. Hunter Ruby. Hira De Leon M.D. DR: RISHI JOB#: [id number] CC:
--- NOTE | 2017-11-27 16:30 | Cardiology Report ---
APPROVED REPORT EKG Measurement Heart [id number] Normal sinus rhythm Normal ECG
[2017-11-27] MEDS ORDERED: Norco 5mg/325mg tab ORAL PRN (16:50)
--- NOTE | 2017-11-27 18:45 | Consultation ---
DATE OF CONSULTATION: 11/27/2017 CARDIAC ELECTROPHYSIOLOGY CONSULTATION CONSULTING PHYSICIAN: Hunter Ruby M.D. REFERRING PHYSICIAN: García Neil M.D. REASON FOR CONSULTATION: Evaluation of the patient for SVT, hypertension, history of coronary bypass graft. HISTORY OF PRESENT ILLNESS: The patient is a very pleasant 77-year-old lady with history of hypertension, history of diabetes as well as coronary artery bypass graft in 2013 at [facility], who was taken to [facility] for altered level of consciousness and syncope. The patient had CT of the head without contrast that was negative for acute stroke. The patient was then transferred to [facility] for possible underlying pneumonia and UTI. The patient also overnight had episodes of SVT at rate of 180 beats per minute with sudden onset and sudden termination while the patient was in sinus rhythm before and after the event. The patient states that she has had palpitations in the past, but never had any procedure to fix it. REVIEW OF SYSTEMS: Performed and was negative other than what was mentioned in history of present illness. PAST MEDICAL HISTORY: 1. Hypertension. 2. Diabetes. 3. Coronary artery disease. 4. Coronary artery bypass graft. 5. History of mild dementia. MEDICATIONS: Include Xanax, amlodipine, aspirin, Lipitor, gabapentin, hydralazine, lisinopril, Toprol, nicotine patch, Paxil, Protonix, Zantac, Carafate, and Crestor. FAMILY HISTORY: Noncontributory. SOCIAL HISTORY: She does not smoke or drink alcohol. PHYSICAL EXAMINATION: VITAL SIGNS: Show blood pressure of 169/87, pulse is 90, respirations 18, and she is afebrile. HEAD AND NECK: Showed no JVD or carotid bruits. LUNGS: Clear. CARDIOVASCULAR: Shows regular S1 and S2 with no gallop. Sternotomy scar is intact. ABDOMEN: Soft. EXTREMITIES: A 1+ pitting edema. LABORATORY AND DIAGNOSTIC DATA: Her EKG showed sinus rhythm with prolonged QT with corrected QT of 475 msec. The telemetry strips show episodes of supraventricular tachycardia, rate of up to 180 beats per minute. Her echocardiogram showed ejection fraction of 50%. Labs show white count of 9, hemoglobin 12.1, hematocrit 36.5, platelet count of 194,000. Sodium 141, potassium 3.1, BUN of 25, creatinine 2, and glucose of 154. Troponin 0.059. Total CK is 1119. ASSESSMENT AND PLAN: 1. Elevated troponin. This could be due to the patient's renal failure with creatinine of 2 as well as multiple falls with CPK of more than 1100. Her echocardiogram showed normal left ventricular systolic function. The patient does not have any chest pain currently. The EKG does not show active ischemic changes. Continue aspirin and Coreg. Add statin to her medical regimen. 2. History of coronary artery bypass graft. As mentioned above, continue aspirin, Coreg, and Lipitor. 3. Supraventricular tachycardia, rate of up to 170 beats per minute. The electrophysiology study can be considered as an outpatient. At this time, continue on Coreg and if the patient has recurrence of arrhythmia, we will increase the dosage. 4. Hypertension, on Coreg 3.125 mg b.i.d. and Norvasc 5 mg daily. 5. UTI, on IV antibiotic. 6. Status post fall with very high CPK. Creatinine is 2. 7. Renal failure. In general, the patient's urinalysis shows positive nitrites and 30 to 40 wbc as well. Thank you very much, Dr. Neil, for allowing me to participate in the care of this patient. Please do not hesitate to contact me for any questions regarding my evaluation. Hunter Ruby M.D. DR: Jasper JOB#: [id number] CC:
[2017-11-27 20:00] VITALS: BP 165/84
[2017-11-27] MEDS ORDERED: Tubing IV Secondary IV ONE (21:26)
[2017-11-27] MEDS ORDERED: D5 1/2NS 1000ml IV ONE (21:26)
--- NOTE | 2017-11-27 21:51 | Consultation ---
History of Present Illness General Date patient seen: Nov 26, 2017 Reason for Consultation: dyspnea Present Illness HPI 77-year-old lady with history of hypertension, history of diabetes as well as coronary artery bypass graft in 2013 at [facility], who was taken to [facility] for altered level of consciousness. the pt is disorganized and delusional disoriented to year Allergies: Coded Allergies: No Known Allergies (Unverified , 01/10/15) Medication History Scheduled Alprazolam* (Xanax*), 0.5 MG PO BID, (Reported) Amlodipine Besylate* (Amlodipine Besylate*), 5 MG PO DAILY, (Reported) Aspirin* (Aspirin*), 162 MG ORAL DAILY Atorvastatin Calcium* (Lipitor*), 10 MG ORAL BEDTIME Baclofen* (Baclofen*), 10 MG ORAL BID, (Reported) Ciprofloxacin* (Cipro*), 500 MG PO BID Gabapentin (Neurontin), 300 MG ORAL BID, (Reported) Gabapentin (Neurontin), 300 MG ORAL BID, (Reported) Hydralazine Hcl* (Hydralazine Hcl*), 25 MG ORAL BEDTIME Lisinopril (Lisinopril*), 20 MG ORAL DAILY, (Reported) Memantine Hcl* (Namenda*), 5 MG ORAL DAILY, (Reported) Metoprolol Tartrate* (Metoprolol Tartrate*), 25 MG ORAL EVERY 12 HOURS, ( Reported) Nicotine 14MG Patch* (Nicoderm Cq 14MG*), 1 EACH TD DAILY, (Reported) Pantoprazole* (Protonix*), 40 MG ORAL DAILY, (Reported) Paroxetine Hcl (Paxil), 40 MG ORAL DAILY, (Reported) Ranitidine Hcl* (Zantac*), 150 MG ORAL TWICE A DAY, (Reported) Rosuvastatin Calcium* (Crestor*), 20 MG ORAL DAILY, (Reported) Sucralfate (Carafate), 1 GM ORAL FOUR TIMES A DAY, (Reported) Scheduled PRN Acetaminophen With Codeine (T#3) (Tylenol #3 Tab*), 1 TAB ORAL Q8H PRN for For Pain Acetaminophen With Codeine (T#3) (Tylenol #3 Tab*), 1 TAB ORAL Q8H PRN for For Pain Acetaminophen With Codeine (T#3) (Tylenol #3 Tab*), 1 TAB ORAL Q4H PRN for For Pain, (Reported) Acetaminophen* (Tylenol Extra Strength*), 500 MG ORAL Q8H PRN for Prn Headache/ Temp > 101 Ondansetron (Zofran), 4 MG ORAL Q6H PRN for Nausea & Vomiting, (Reported) Phenazopyridine Hcl* (Pyridium*), 100 MG ORAL TIDPRN PRN Miscellaneous Medications Dulaglutide (Trulicity), 0.75 MG SQ, (Reported) Lactulose (Lactulose), 10 GM PO, (Reported) Linaclotide (Linzess), 290 MCG PO, (Reported) Metformin Hcl (Fortamet), 500 MG PO, (Reported) [Alprazolam], (Reported) [Amantadine], (Reported) [Crestor], (Reported) [Glimeperide], (Reported) [List], (Reported) [Metoprolol], (Reported) [Ondansentron], (Reported) [Ranitidine], (Reported) [Tramadol], (Reported) Discontinued Medications Amlodipine Besylate (Norvasc), 5 MG ORAL BID Discontinued Reason: Medication dose changed Amlodipine Besylate (Norvasc), 5 MG ORAL DAILY, (Reported) Discontinued Reason: Medication dose changed Lisinopril* (Zestril*), 5 MG ORAL DAILY Discontinued Reason: Medication dose changed Patient History Limited by: medical condition History Provided By: Patient, Medical Record, PMD Healthcare decision maker Resuscitation status Full Code Advanced Directive on File Past Medical/Surgical History Past Medical/Surgical History: (1) Hyperkalemia (2) Fracture of rib (3) Anemia (4) Contusion, hip (5) Polypharmacy (6) Benzocaine overdose of undetermined intent (7) Multiple injuries due to trauma (8) Weakness (9) Fall (10) Syncope (11) Depression (12) Hypertension (13) DM (diabetes mellitus) (14) Rib contusion (15) Sepsis (16) UTI (urinary tract infection) (17) ARF (acute renal failure) Review of Systems Psychiatric: Reports: prior hx, anxiety, depressed feelings, emotional problems Physical Exam General Appearance: no apparent distress, alert, agitated Last 24 Hour Vital Signs Date Time Temp Pulse Resp B/P (MAP) Pulse Ox O2 Delivery O2 Flow Rate FiO2 11/27/17 20:00 97.3 77 18 165/84 97 Room Air 97.3 11/27/17 18:22 97.3 11/27/17 16:00 97.3 73 18 145/70 98 Room Air 97.3 11/27/17 12:00 80 11/27/17 12:00 97.6 80 18 169/80 95 Room Air 97.6 11/27/17 08:32 80 169/87 11/27/17 08:32 80 169/87 11/27/17 08:00 90 11/27/17 08:00 98.2 86 18 169/87 98 Room Air 98.2 11/27/17 04:00 82 11/27/17 04:00 98.2 86 18 158/87 98 Room Air 98.2 11/27/17 00:00 111 11/27/17 00:00 98.4 87 18 164/86 100 Room Air 98.4 Intake and Output 11/26/17 11/27/17 19:00 07:00 Intake Total 535 ml Output Total 500 ml 625 ml Balance -500 ml -90 ml Intake Oral 50 ml IV Total 485 ml Output Urine Total 500 ml 625 ml Laboratory Tests Test 11/27/17 03:00 11/27/17 06:20 Urine Color Pale yellow Urine Appearance Slightly cloudy Urine pH 6 (4.5-8.0) Urine Specific [place] 1.020 (1.005-1.035) Urine Protein 4+ (NEGATIVE) H Urine Glucose (UA) Negative (NEGATIVE) Urine Ketones Negative (NEGATIVE) Urine Occult Blood 5+ (NEGATIVE) H Urine Nitrite Positive (NEGATIVE) H Urine Bilirubin Negative (NEGATIVE) Urine Urobilinogen Normal MG/DL (0.0-1.0) Urine Leukocyte Esterase 3+ (NEGATIVE) H Urine RBC 5-10 /HPF (0 - 2) H Urine WBC 30-40 /HPF (0 - 2) H Urine Squamous Epithelial Cells Few /LPF (NONE/OCC) Urine Bacteria Moderate /HPF (NONE) H White Blood Count 9.0 K/UL (4.8-10.8) Red Blood Count 3.95 M/UL (4.20-5.40) L Hemoglobin 12.1 G/DL (12.0-16.0) Hematocrit 36.5 % (37.0-47.0) L Mean Corpuscular Volume 92 FL (80-99) Mean Corpuscular Hemoglobin 30.7 PG (27.0-31.0) Mean Corpuscular Hemoglobin Concent 33.2 G/DL (32.0-36.0) Red Cell Distribution Width 13.0 % (11.6-14.8) Platelet Count 194 K/UL (150-450) Mean Platelet Volume 5.9 FL (6.5-10.1) L Neutrophils (%) (Auto) 79.6 % (45.0-75.0) H Lymphocytes (%) (Auto) 13.5 % (20.0-45.0) L Monocytes (%) (Auto) 6.0 % (1.0-10.0) Eosinophils (%) (Auto) 0.5 % (0.0-3.0) Basophils (%) (Auto) 0.5 % (0.0-2.0) Sodium Level 141 MMOL/L (136-145) Potassium Level 3.5 MMOL/L (3.5-5.1) Chloride Level 106 MMOL/L (98-107) Carbon Dioxide Level 25 MMOL/L (21-32) Anion Gap 10 mmol/L (5-15) Blood Urea Nitrogen 25 mg/dL (7-18) H Creatinine 2.0 MG/DL (0.55-1.30) H Estimat Glomerular Filtration Rate mL/min (>60) Glucose Level 154 MG/DL (74-106) H Hemoglobin A1c 5.5 % (4.3-6.0) Calcium Level 7.9 MG/DL (8.5-10.1) L Phosphorus Level 4.2 MG/DL (2.5-4.9) Magnesium Level 2.0 MG/DL (1.8-2.4) Total Bilirubin 0.2 MG/DL (0.2-1.0) Aspartate Amino Transf (AST/SGOT) 39 U/L (15-37) H Alanine Aminotransferase (ALT/SGPT) 27 U/L (12-78) Alkaline Phosphatase 89 U/L (46-116) Total Creatine Kinase 1119 U/L (26-308) H Troponin I 0.059 ng/mL (0.000-0.056) Total Protein 6.1 G/DL (6.4-8.2) L Albumin 2.5 G/DL (3.4-5.0) L Globulin 3.6 g/dL Albumin/Globulin Ratio 0.7 (1.0-2.7) L Triglycerides Level 61 MG/DL (30-150) Cholesterol Level 85 MG/DL (< 200) LDL Cholesterol 40 mg/dL (<100) HDL Cholesterol 30 MG/DL (40-60) L Cholesterol/HDL Ratio 2.8 (3.3-4.4) L Height (Feet): 5 Height (Inches): 10.00 Weight (Pounds): 161 Medications Current Medications Medications (Trade) Dose Ordered Sig/Mikhail Route PRN Reason Start Time Stop Time Status Last Admin Dose Admin Acetaminophen/ Hydrocodone Bitart ([place] 5/325) 1 tab Q6H PRN ORAL Moderate Pain (5-7) 11/27/17 16:50 12/04/17 16:49 11/27/17 17:23 Alprazolam (Xanax) 0.25 mg Q8H PRN ORAL For Anxiety 11/26/17 19:00 12/03/17 18:59 11/27/17 02:43 Amlodipine Besylate (Norvasc) 5 mg DAILY ORAL 11/27/17 09:00 12/27/17 08:59 11/27/17 08:32 Aspirin (ASA) 81 mg DAILY ORAL 11/27/17 09:00 12/27/17 08:59 11/27/17 08:29 Carvedilol (Coreg) 3.125 mg EVERY 12 HOURS ORAL 11/26/17 21:00 12/26/17 20:59 11/27/17 08:32 Ceftriaxone Sodium 1 gm/ Dextrose 110 ml @ 220 mls/hr Q24H IVPB 11/26/17 23:00 12/03/17 22:59 11/26/17 22:44 Dextrose (Dextrose 50%) 25 ml STAT PRN IV Hypoglycemia 11/27/17 12:00 12/27/17 11:59 Dextrose (Dextrose 50%) 50 ml STAT PRN IV Hypoglycemia 11/27/17 11:00 12/27/17 10:59 Gabapentin (Neurontin) 100 mg BID ORAL 11/26/17 22:00 12/26/17 21:59 11/27/17 18:18 Heparin Sodium (Porcine) (Heparin 5000 units/ml) 5,000 units EVERY 8 HOURS SUBQ 11/26/17 22:00 12/26/17 21:59 11/27/17 06:22 Insulin Aspart (NovoLOG) BEFORE MEALS AND HS SUBQ 11/27/17 12:30 12/27/17 12:29 11/27/17 18:18 Memantine (Namenda) 5 mg DAILY ORAL 11/28/17 09:00 12/28/17 08:59 Pantoprazole (Protonix) 40 mg DAILY ORAL 11/27/17 09:00 12/27/17 08:59 11/27/17 08:28 Paroxetine HCl (Paxil) 20 mg BEDTIME ORAL 11/27/17 21:00 12/27/17 20:59 Sodium 1,000 ml @ 75 mls/hr [id number] IV 11/27/17 12:30 12/27/17 12:29 11/27/17 13:31 Assessment/Plan Status: unchanged Status Narrative dementia with behavioral dist Paxil Zyprexa decreased Gregg Villalobos M.D. Nov 27, 2017 21:51
--- NOTE | 2017-11-27 21:53 | General Progress Note ---
Assessment/Plan Assessment/Plan dementia with behavioral dist Paxil Zyprexa decreased Xanax Subjective Date patient seen: Nov 27, 2017 Neurologic/Psychiatric: Reports: anxiety, depressed Allergies: Coded Allergies: No Known Allergies (Unverified , 01/10/15) Objective Last 24 Hour Vital Signs Date Time Temp Pulse Resp B/P (MAP) Pulse Ox O2 Delivery O2 Flow Rate FiO2 11/27/17 20:00 97.3 77 18 165/84 97 Room Air 97.3 11/27/17 18:22 97.3 11/27/17 16:00 97.3 73 18 145/70 98 Room Air 97.3 11/27/17 12:00 80 11/27/17 12:00 97.6 80 18 169/80 95 Room Air 97.6 11/27/17 08:32 80 169/87 11/27/17 08:32 80 169/87 11/27/17 08:00 90 11/27/17 08:00 98.2 86 18 169/87 98 Room Air 98.2 11/27/17 04:00 82 11/27/17 04:00 98.2 86 18 158/87 98 Room Air 98.2 11/27/17 00:00 111 11/27/17 00:00 98.4 87 18 164/86 100 Room Air 98.4 Intake and Output 11/26/17 11/27/17 19:00 07:00 Intake Total 535 ml Output Total 500 ml 625 ml Balance -500 ml -90 ml Intake Oral 50 ml IV Total 485 ml Output Urine Total 500 ml 625 ml Laboratory Tests 11/27/17 03:00: Urine Color Pale yellow, Urine Appearance Slightly cloudy, Urine pH 6, Urine Specific [place] 1.020, Urine Protein 4+H, Urine Glucose (UA) Negative, Urine Ketones Negative, Urine Occult Blood 5+H, Urine Nitrite PositiveH, Urine Bilirubin Negative, Urine Urobilinogen Normal, Urine Leukocyte Esterase 3+H, Urine RBC 5-10H, Urine WBC 30-40H, Urine Squamous Epithelial Cells Few, Urine Bacteria ModerateH 11/27/17 06:20: White Blood Count 9.0, Red Blood Count 3.95L, Hemoglobin 12.1, Hematocrit 36.5L , Mean Corpuscular Volume 92, Mean Corpuscular Hemoglobin 30.7, Mean Corpuscular Hemoglobin Concent 33.2, Red Cell Distribution Width 13.0, Platelet Count 194, Mean Platelet Volume 5.9L, Neutrophils (%) (Auto) 79.6H, Lymphocytes (%) (Auto) 13.5L, Monocytes (%) (Auto) 6.0, Eosinophils (%) (Auto) 0.5, Basophils (%) (Auto) 0.5, Sodium Level 141, Potassium Level 3.5, Chloride Level 106, Carbon Dioxide Level 25, Anion Gap 10, Blood Urea Nitrogen 25H, Creatinine 2.0H, Estimat Glomerular Filtration Rate , Glucose Level 154H, Hemoglobin A1c 5.5, Calcium Level 7.9L, Phosphorus Level 4.2, Magnesium Level 2.0, Total Bilirubin 0.2, Aspartate Amino Transf (AST/SGOT) 39H, Alanine Aminotransferase ( ALT/SGPT) 27, Alkaline Phosphatase 89, Total Creatine Kinase 1119H, Troponin I 0.059H, Total Protein 6.1L, Albumin 2.5L, Globulin 3.6, Albumin/Globulin Ratio 0.7L, Triglycerides Level 61, Cholesterol Level 85, LDL Cholesterol 40, HDL Cholesterol 30L, Cholesterol/HDL Ratio 2.8L Height (Feet): 5 Height (Inches): 10.00 Weight (Pounds): 161 General Appearance: no apparent distress, alert Gregg Acosta M.D. Nov 27, 2017 21:53
[2017-11-27] MEDS: cefTRIAXone 1 GM in D5W 110 ML IVPB SCH (22:33)
[2017-11-27] MEDS: PARoxetine 20mg tab ORAL SCH (22:34)
--- NOTE | 2017-11-27 23:15 | Consultation ---
DATE OF CONSULTATION: 11/27/2017 INFECTIOUS DISEASES CONSULTATION CONSULTING PHYSICIAN: Tyrese Pagan M.D. REQUESTING PHYSICIAN: Georgie Montanez M.D. REASON FOR CONSULTATION: Evaluation of the patient for possible pneumonia, UTI, antibiotic management. HISTORY OF PRESENT ILLNESS: The patient is a 77-year-old female with multiple medical problems who was admitted to [place] initially after the patient had a fall. The patient worked up including a CT scan, which was unremarkable; however, the patient was diagnosed with possible urinary tract infection and pneumonia, was started on Zithromax and Rocephin. The patient has been transferred to this medical center for further care. The patient has history of dysuria for the last one month. Laboratories in [place] showed significant pyuria. PAST MEDICAL HISTORY: 1. CAD. 2. Hyperlipidemia. 3. Hypertension. 4. Renal insufficiency. 5. Osteoarthritis. 6. Diabetes. 7. Depression. MEDICATIONS: Rocephin and Zithromax. ALLERGIES: No known drug allergies. SOCIAL HISTORY: Ex-smoker. FAMILY HISTORY: Not contributing. REVIEW OF SYSTEMS: A 10-point review was done. Except what was mentioned above has been negative. The patient is not complaining of cough, runny nose, or sore throat. Just dysuria. No abdominal pain. No seizure. PHYSICAL EXAMINATION: VITAL SIGNS: Temperature 97 degrees, pulse 86, respiratory rate 18, and blood pressure 116/80. HEENT: No pale conjunctivae. No icterus. NECK: No lymphadenopathy. CHEST: Clear. HEART: S1 and S2. ABDOMEN: Soft and nontender. EXTREMITIES: No cyanosis. NEUROLOGIC: Awake and alert. LABORATORY AND DIAGNOSTIC DATA: White blood cells 9, hemoglobin 12 and platelets 194. UA, 30-40 white blood cells. BUN 25 and creatinine 2. ALT, AST and alkaline phosphatase unremarkable. Troponin 0.06. Urine culture is pending. ASSESSMENT: The patient is a 77-year-old female with: 1. Urinary tract infection/dysuria and pyuria. 2. Doubt pneumonia. The patient has been complaining of cough. 3. Status post fall. 4. Rule out bacteremia. PLAN: 1. We will continue the patient on Rocephin and discontinue Zithromax. 2. Monitor CBC. 3. Monitor BMP. 4. Monitor chest x-ray. 5. We will send blood culture and urine culture. 6. Ultrasound of the kidneys. 7. Based on the patient's clinical course and laboratories, we will do further recommendation. Thank you, Dr. Montanez, for allowing me to participate in the care of this patient. I will follow the patient with you during this hospitalization. Tyrese Pagan M.D. DR: BENITEZ JOB#: [id number] CC:
[2017-11-28] VITALS: BP 159/76
[2017-11-28] MEDS: 1/2NS w/KCl 20mEq 1000ml 1,000 ML IV SCH ×2 (01:39→14:58)
[2017-11-28 04:00] VITALS: BP 177/69
[2017-11-28] MEDS: NovoLOG Insulin Flexpen SUBQ SCH ×4 (06:40→21:04)
[2017-11-28] MEDS: Heparin 5000 units/ml inj SUBQ SCH ×3 (06:40→22:25)
[2017-11-28 08:00] VITALS: BP 173/76
--- NOTE | 2017-11-28 08:11 | Diagnostic Imaging Report ---
APPROVED REPORT CPT Code: 22587 Present Symptoms Comments: R/O DVT BILATERAL: Imaging reveals a patent deep venous system bilaterally. There is no evidence of thrombus within the femoral, popliteal or tibial segments. The greater saphenous veins are also within normal limits. Doppler indicates normal spontaneous flow within these segments.
--- NOTE | 2017-11-28 08:11 | Diagnostic Imaging Report ---
APPROVED REPORT CPT Code: 23127 Vascular Symptoms Syncope Doppler Spectral Velocity Analysis RightLeft arteries. The Doppler spectral flow analysis indicates the degree of stenosis is minimal (30%) in the common carotid artery, mild (40%) in the internal carotid artery, and (30%) in the external carotid artery. VERTEBRAL- The vertebral artery is patent, without evidence of stenosis or steal. arteries. The Doppler spectral flow analysis indicates the degree of stenosis is minimal (30%) in the common carotid artery, mild (40%) in the internal carotid artery, and moderate (50% - 60%) in the external carotid artery. VERTEBRAL- The vertebral artery is patent, without evidence of stenosis or steal.
[2017-11-28] MEDS: Aspirin Baby 81mg ORAL SCH (08:35)
[2017-11-28] MEDS: Memantine 5 MG TAB ORAL SCH (08:36)
[2017-11-28 09:03] LABS: BASOPHILS % (AUTO) 0.4 % (0.0-2.0); EOSINOPHILS % (AUTO) 1.1 % (0.0-3.0); HEMATOCRIT 32.3 % (37.0-47.0); HEMOGLOBIN 10.6 G/DL (12.0-16.0); LYMPHOCYTES % (AUTO) 16.1 % (20.0-45.0); MEAN CORPUSCULAR VOLUME 92 FL (80-99); MONOCYTES % (AUTO) 5.4 % (1.0-10.0); PLATELET COUNT 203 K/UL (150-450); RED BLOOD COUNT 3.52 M/UL (4.20-5.40); RED CELL DISTRIBUTION WIDTH 12.6 % (11.6-14.8); WHITE BLOOD COUNT 8.3 K/UL (4.8-10.8)
[2017-11-28 09:16] LABS: ANION GAP 8 mmol/L (5-15); BLOOD UREA NITROGEN 25 mg/dL (7-18); CALCIUM 8.1 MG/DL (8.5-10.1); CARBON DIOXIDE 24 MMOL/L (21-32); CHLORIDE 107 MMOL/L (98-107); CREATININE 1.9 MG/DL (0.55-1.30); POTASSIUM 3.9 MMOL/L (3.5-5.1); SODIUM 139 MMOL/L (136-145)
[2017-11-28 09:27] LABS: INR 0.9 (0.9-1.1)
--- NOTE | 2017-11-28 10:05 | Infectious Diseases Prog Note ---
Assessment/Plan Assessment/Plan ASSESSMENT: The patient is a 77-year-old female with: Urinary tract infection dysuria and pyuria Doubt pneumonia Not complaining of cough Rule out bacteremia MRI : No acute intracranial findings. No evidence of acute CVA. Status post fall CAD Hyperlipidemia Hypertension Renal insufficiency Osteoarthritis Diabetes Depression PLAN: continue the patient on Rocephin d# 3/ 5 Monitor CBC Monitor BMP. Monitor chest x-ray. Monitor (blood and urine) culture Ultrasound of the kidneys Subjective Allergies: Coded Allergies: No Known Allergies (Unverified , 01/10/15) Subjective Afebrile Objective Vital Signs Last 24 Hour Vital Signs Date Time Temp Pulse Resp B/P (MAP) Pulse Ox O2 Delivery O2 Flow Rate FiO2 11/28/17 08:36 75 173/76 11/28/17 08:36 75 173/76 11/28/17 08:00 97.3 75 21 173/76 95 Room Air 97.3 11/28/17 04:00 98.1 70 20 177/69 97 Room Air 98.1 11/28/17 04:00 68 11/28/17 00:00 98.2 70 18 159/76 98 Room Air 98.2 11/28/17 00:00 75 11/27/17 22:34 77 165/84 11/27/17 20:00 97.3 77 18 165/84 97 Room Air 97.3 11/27/17 20:00 72 11/27/17 18:22 97.3 11/27/17 16:00 97.3 73 18 145/70 98 Room Air 97.3 11/27/17 12:00 80 11/27/17 12:00 97.6 80 18 169/80 95 Room Air 97.6 Height (Feet): 5 Height (Inches): 10.00 Weight (Pounds): 161 HEENT: anicteric Respiratory/Chest: no respiratory distress Cardiovascular: normal rate Abdomen: no organomegaly Laboratory Tests Test 11/28/17 04:00 11/28/17 06:40 White Blood Count 8.3 K/UL (4.8-10.8) Red Blood Count 3.52 M/UL (4.20-5.40) L Hemoglobin 10.6 G/DL (12.0-16.0) L Hematocrit 32.3 % (37.0-47.0) L Mean Corpuscular Volume 92 FL (80-99) Mean Corpuscular Hemoglobin 30.3 PG (27.0-31.0) Mean Corpuscular Hemoglobin Concent 32.9 G/DL (32.0-36.0) Red Cell Distribution Width 12.6 % (11.6-14.8) Platelet Count 203 K/UL (150-450) Mean Platelet Volume 6.0 FL (6.5-10.1) L Neutrophils (%) (Auto) 77.0 % (45.0-75.0) H Lymphocytes (%) (Auto) 16.1 % (20.0-45.0) L Monocytes (%) (Auto) 5.4 % (1.0-10.0) Eosinophils (%) (Auto) 1.1 % (0.0-3.0) Basophils (%) (Auto) 0.4 % (0.0-2.0) Erythrocyte Sedimentation Rate Pending Reticulocyte Count Pending Prothrombin Time 9.8 SEC (9.30-11.50) Prothromb Time International Ratio 0.9 (0.9-1.1) Activated Partial Thromboplast Time 38 SEC (23-33) H Sodium Level 139 MMOL/L (136-145) Potassium Level 3.9 MMOL/L (3.5-5.1) Chloride Level 107 MMOL/L (98-107) Carbon Dioxide Level 24 MMOL/L (21-32) Anion Gap 8 mmol/L (5-15) Blood Urea Nitrogen 25 mg/dL (7-18) H Creatinine 1.9 MG/DL (0.55-1.30) H Estimat Glomerular Filtration Rate mL/min (>60) Glucose Level 151 MG/DL (74-106) H Calcium Level 8.1 MG/DL (8.5-10.1) L Iron Level Pending Unsaturated Iron Binding Pending Lactate Dehydrogenase Pending Total Creatine Kinase Pending Creatine Kinase MB Pending Troponin I Pending Pro-B-Type Natriuretic Peptide Pending Triglycerides Level Pending Cholesterol Level Pending LDL Cholesterol Pending HDL Cholesterol Pending Cholesterol/HDL Ratio Pending Vitamin B12 Level Pending Folate Pending Thyroid Stimulating Hormone (TSH) Pending Current Medications Medications (Trade) Dose Ordered Sig/Mikhail Route PRN Reason Start Time Stop Time Status Last Admin Dose Admin Acetaminophen/ Hydrocodone Bitart ([place] 5/325) 1 tab Q6H PRN ORAL Moderate Pain (5-7) 11/27/17 16:50 12/04/17 16:49 11/27/17 17:23 Alprazolam (Xanax) 0.25 mg Q8H PRN ORAL For Anxiety 11/26/17 19:00 12/03/17 18:59 11/27/17 02:43 Amlodipine Besylate (Norvasc) 5 mg DAILY ORAL 11/27/17 09:00 12/27/17 08:59 11/28/17 08:36 Aspirin (ASA) 81 mg DAILY ORAL 11/27/17 09:00 12/27/17 08:59 11/28/17 08:35 Carvedilol (Coreg) 3.125 mg EVERY 12 HOURS ORAL 11/26/17 21:00 12/26/17 20:59 11/28/17 08:36 Ceftriaxone Sodium 1 gm/ Dextrose 110 ml @ 220 mls/hr Q24H IVPB 11/26/17 23:00 12/03/17 22:59 11/27/17 22:33 Dextrose (Dextrose 50%) 25 ml STAT PRN IV Hypoglycemia 11/27/17 12:00 12/27/17 11:59 Dextrose (Dextrose 50%) 50 ml STAT PRN IV Hypoglycemia 11/27/17 11:00 12/27/17 10:59 Gabapentin (Neurontin) 100 mg BID ORAL 11/26/17 22:00 12/26/17 21:59 11/28/17 08:40 Heparin Sodium (Porcine) (Heparin 5000 units/ml) 5,000 units EVERY 8 HOURS SUBQ 11/26/17 22:00 12/26/17 21:59 11/28/17 06:40 Insulin Aspart (NovoLOG) BEFORE MEALS AND HS SUBQ 11/27/17 12:30 12/27/17 12:29 11/28/17 06:40 Memantine (Namenda) 5 mg DAILY ORAL 11/28/17 09:00 12/28/17 08:59 11/28/17 08:36 Olanzapine (ZyPREXA) 2.5 mg BEDTIME ORAL 11/28/17 21:00 12/28/17 20:59 Pantoprazole (Protonix) 40 mg DAILY ORAL 11/27/17 09:00 5/4/18 08:59 11/28/17 08:36 Paroxetine HCl (Paxil) 20 mg BEDTIME ORAL 11/27/17 21:00 12/27/17 20:59 11/27/17 22:34 Sodium 1,000 ml @ 75 mls/hr [id number] IV 11/27/17 12:30 12/27/17 12:29 11/28/17 01:39 Tyrese Pagan MD Nov 28, 2017 10:04
[2017-11-28 10:35] LABS: % IRON SATURATION 35 % (15-50); IRON 48 ug/dL (50-175); TOTAL IRON BINDING CAPACITY 136 ug/dL (250-450)
[2017-11-28 10:37] LABS: CHOLESTEROL 79 MG/DL (< 200); HDL CHOLESTEROL 23 MG/DL (40-60); LACTATE DEHYDROGENASE 242 U/L (81-234); TRIGLYCERIDES 85 MG/DL (30-150)
[2017-11-28 10:49] LABS: CKMB 2.4 NG/ML (0.0-3.6)
[2017-11-28 12:00] VITALS: BP 169/79
--- NOTE | 2017-11-28 14:46 | Pulmonology Progress Note ---
Assessment/Plan Problems: (1) Acute encephalopathy (2) Sepsis (3) UTI (urinary tract infection) (4) SVT (supraventricular tachycardia) (5) Depression (6) Hypertension (7) DM (diabetes mellitus) Assessment/Plan dc iv fluids renal function becoming more stable continue abx check urine cultures sliding scale diabetic diet pt/ot med/surg if of with cardio Subjective ROS Limited/Unobtainable: No Constitutional: Reports: no symptoms HEENT: Repors: no symptoms Respiratory: Reports: no symptoms Allergies: Coded Allergies: No Known Allergies (Unverified , 01/10/15) Objective Last 24 Hour Vital Signs Date Time Temp Pulse Resp B/P (MAP) Pulse Ox O2 Delivery O2 Flow Rate FiO2 11/28/17 12:00 97.3 20 169/79 95 Room Air 97.3 11/28/17 12:00 70 11/28/17 08:36 75 173/76 11/28/17 08:36 75 173/76 11/28/17 08:00 97.3 75 21 173/76 95 Room Air 97.3 11/28/17 08:00 75 11/28/17 04:00 98.1 70 20 177/69 97 Room Air 98.1 11/28/17 04:00 68 11/28/17 00:00 98.2 70 18 159/76 98 Room Air 98.2 11/28/17 00:00 75 11/27/17 22:34 77 165/84 11/27/17 20:00 97.3 77 18 165/84 97 Room Air 97.3 11/27/17 20:00 72 11/27/17 18:22 97.3 11/27/17 16:00 97.3 73 18 145/70 98 Room Air 97.3 Intake and Output 11/27/17 11/28/17 19:00 07:00 Intake Total 913 ml 1016 ml Output Total 800 ml 500 ml Balance 113 ml 516 ml Intake Oral 500 ml 100 ml IV Total 413 ml 916 ml Output Urine Total 800 ml 500 ml # Bowel Movements 1 General Appearance: WD/WN HEENT: normocephalic, atraumatic Respiratory/Chest: chest wall non-tender, lungs clear, normal breath sounds Breasts: no masses Cardiovascular: normal peripheral pulses Abdomen: normal bowel sounds, soft, non tender Genitourinary: normal external genitalia Extremities: no cyanosis Neurologic/Psychiatric: clinical rn liaison II-XII grossly normal Lymphatic: no neck adenopathy Microbiology Date/Time Source Procedure Growth Status 11/27/17 03:00 Urine,Clean Catch Urine Culture - Preliminary Gram Negative Bacillus 1 Resulted Laboratory Tests 11/28/17 04:00: White Blood Count 8.3, Red Blood Count 3.52L, Hemoglobin 10.6L, Hematocrit 32.3L , Mean Corpuscular Volume 92, Mean Corpuscular Hemoglobin 30.3, Mean Corpuscular Hemoglobin Concent 32.9, Red Cell Distribution Width 12.6, Platelet Count 203, Mean Platelet Volume 6.0L, Neutrophils (%) (Auto) 77.0H, Lymphocytes (%) (Auto) 16.1L, Monocytes (%) (Auto) 5.4, Eosinophils (%) (Auto) 1.1, Basophils (%) (Auto) 0.4, Differential Total Cells Counted 100, Neutrophils % ( Manual) 76H, Lymphocytes % (Manual) 18L, Monocytes % (Manual) 6, Eosinophils % ( Manual) 0, Basophils % (Manual) 0, Band Neutrophils 0, Platelet Estimate Adequate, Platelet Morphology Normal 11/28/17 06:40: Erythrocyte Sedimentation Rate 74H, Reticulocyte Count 1.9, Prothrombin Time 9.8 , Prothromb Time International Ratio 0.9, Activated Partial Thromboplast Time 38H, Sodium Level 139, Potassium Level 3.9, Chloride Level 107, Carbon Dioxide Level 24, Anion Gap 8, Blood Urea Nitrogen 25H, Creatinine 1.9H, Estimat Glomerular Filtration Rate , Glucose Level 151H, Calcium Level 8.1L, Iron Level 48L, Total Iron Binding Capacity 136L, Percent Iron Saturation 35, Unsaturated Iron Binding 88L, Lactate Dehydrogenase 242H, Total Creatine Kinase 748H, Creatine Kinase MB 2.4, Creatine Kinase MB Relative Index 0.3, Troponin I 0.020 , Pro-B-Type Natriuretic Peptide 904H, Triglycerides Level 85, Cholesterol Level 79, LDL Cholesterol 42, HDL Cholesterol 23L, Cholesterol/HDL Ratio 3.4, Vitamin B12 Level 1231H, Folate 17.3, Thyroid Stimulating Hormone (TSH) 0.659 Current Medications Medications (Trade) Dose Ordered Sig/Mikhail Route PRN Reason Start Time Stop Time Status Last Admin Dose Admin Acetaminophen (Tylenol) 650 mg Q6H PRN ORAL Mild Pain/Temp > 100.5 11/28/17 11:30 12/28/17 11:29 Alprazolam (Xanax) 0.25 mg Q8H PRN ORAL For Anxiety 11/26/17 19:00 12/03/17 18:59 11/27/17 02:43 Amlodipine Besylate (Norvasc) 5 mg DAILY ORAL 11/27/17 09:00 12/27/17 08:59 11/28/17 08:36 Aspirin (ASA) 81 mg DAILY ORAL 11/27/17 09:00 12/27/17 08:59 11/28/17 08:35 Carvedilol (Coreg) 3.125 mg EVERY 12 HOURS ORAL 11/26/17 21:00 12/26/17 20:59 11/28/17 08:36 Ceftriaxone Sodium 1 gm/ Dextrose 110 ml @ 220 mls/hr Q24H IVPB 11/26/17 23:00 12/03/17 22:59 11/27/17 22:33 Dextrose (Dextrose 50%) 25 ml STAT PRN IV Hypoglycemia 11/27/17 12:00 12/27/17 11:59 Dextrose (Dextrose 50%) 50 ml STAT PRN IV Hypoglycemia 11/27/17 11:00 12/27/17 10:59 Gabapentin (Neurontin) 100 mg BID ORAL 11/26/17 22:00 12/26/17 21:59 11/28/17 08:40 Heparin Sodium (Porcine) (Heparin 5000 units/ml) 5,000 units EVERY 8 HOURS SUBQ 11/26/17 22:00 12/26/17 21:59 11/28/17 06:40 Insulin Aspart (NovoLOG) BEFORE MEALS AND HS SUBQ 11/27/17 12:30 12/27/17 12:29 11/28/17 12:00 Memantine (Namenda) 5 mg DAILY ORAL 11/28/17 09:00 12/28/17 08:59 11/28/17 08:36 Olanzapine (ZyPREXA) 2.5 mg BEDTIME ORAL 11/28/17 21:00 12/28/17 20:59 Pantoprazole (Protonix) 40 mg DAILY ORAL 11/27/17 09:00 12/27/17 08:59 11/28/17 08:36 Paroxetine HCl (Paxil) 20 mg BEDTIME ORAL 11/27/17 21:00 12/27/17 20:59 11/27/17 22:34 Sodium 1,000 ml @ 75 mls/hr [id number] IV 11/27/17 12:30 12/27/17 12:29 11/28/17 01:39 Georgie Montanez MD Nov 28, 2017 14:46
--- NOTE | 2017-11-28 15:39 | Consultation ---
Consult Note Consult Note asked to eval for high Cr- The patient was last seen on 11/25/2017 by her caregiver. This was in the evening. The patient states she fell out of her bed yesterday, 11/26/2017. The patient states she rolled over and fell out of bed. The patient denies loss of consciousness. The patient, however, was found by her caregiver approximately at 10:30 a.m. EMS was called. The patient appeared to be confused. The patient was initially transferred to [facility] emergency room. The patient is transferred to [facility] for insurance purposes. The patient is admitted for syncopal episode to rule out acute cerebrovascular accident. Upon arrival at [facility], the patient was also noted to have a left-sided facial droop. The patient was initially transferred to [facility] emergency room by EMS. The patient is transferred to [facility] for insurance purposes. The patient is admitted for syncopal episode and left facial weakness to rule out acute cerebrovascular accident. PH: 1. Type 2 diabetes. 2. Hypertension. 3. Chronic renal failure. 4. History of coronary artery disease. Assessment/Plan CKD with proteinuria likely diabetic- UTI Encephalopathy 1. Syncopal episode. 2. Left facial droop. 3. Urinary tract infection. 4. Hypertension. 5. Diabetes type 2. 6. Hypercholesterolemia. 7. Coronary artery disease. Keep BP and BS in check Avoid nephrotoxic Per consultants fu renal parameters AMOL DAVILA Nov 28, 2017 15:39
--- NOTE | 2017-11-28 15:41 | General Progress Note ---
Assessment/Plan Status: stable, progressing Assessment/Plan dementia with behavioral dist Paxil Zyprexa decreased Xanax Subjective Date patient seen: Nov 28, 2017 Neurologic/Psychiatric: Reports: anxiety, depressed Allergies: Coded Allergies: No Known Allergies (Unverified , 01/10/15) Subjective the pt is more alert and less confused. No agitation today Objective Last 24 Hour Vital Signs Date Time Temp Pulse Resp B/P (MAP) Pulse Ox O2 Delivery O2 Flow Rate FiO2 11/28/17 14:50 97.3 11/28/17 12:00 97.3 20 169/79 95 Room Air 97.3 11/28/17 12:00 70 11/28/17 08:36 75 173/76 11/28/17 08:36 75 173/76 11/28/17 08:00 97.3 75 21 173/76 95 Room Air 97.3 11/28/17 08:00 75 11/28/17 04:00 98.1 70 20 177/69 97 Room Air 98.1 11/28/17 04:00 68 11/28/17 00:00 98.2 70 18 159/76 98 Room Air 98.2 11/28/17 00:00 75 11/27/17 22:34 77 165/84 11/27/17 20:00 97.3 77 18 165/84 97 Room Air 97.3 11/27/17 20:00 72 11/27/17 18:22 97.3 11/27/17 16:00 97.3 73 18 145/70 98 Room Air 97.3 Intake and Output 11/27/17 11/28/17 19:00 07:00 Intake Total 913 ml 1016 ml Output Total 800 ml 500 ml Balance 113 ml 516 ml Intake Oral 500 ml 100 ml IV Total 413 ml 916 ml Output Urine Total 800 ml 500 ml # Bowel Movements 1 Laboratory Tests 11/28/17 04:00: White Blood Count 8.3, Red Blood Count 3.52L, Hemoglobin 10.6L, Hematocrit 32.3L , Mean Corpuscular Volume 92, Mean Corpuscular Hemoglobin 30.3, Mean Corpuscular Hemoglobin Concent 32.9, Red Cell Distribution Width 12.6, Platelet Count 203, Mean Platelet Volume 6.0L, Neutrophils (%) (Auto) 77.0H, Lymphocytes (%) (Auto) 16.1L, Monocytes (%) (Auto) 5.4, Eosinophils (%) (Auto) 1.1, Basophils (%) (Auto) 0.4, Differential Total Cells Counted 100, Neutrophils % ( Manual) 76H, Lymphocytes % (Manual) 18L, Monocytes % (Manual) 6, Eosinophils % ( Manual) 0, Basophils % (Manual) 0, Band Neutrophils 0, Platelet Estimate Adequate, Platelet Morphology Normal 11/28/17 06:40: Erythrocyte Sedimentation Rate 74H, Reticulocyte Count 1.9, Prothrombin Time 9.8 , Prothromb Time International Ratio 0.9, Activated Partial Thromboplast Time 38H, Sodium Level 139, Potassium Level 3.9, Chloride Level 107, Carbon Dioxide Level 24, Anion Gap 8, Blood Urea Nitrogen 25H, Creatinine 1.9H, Estimat Glomerular Filtration Rate , Glucose Level 151H, Calcium Level 8.1L, Iron Level 48L, Total Iron Binding Capacity 136L, Percent Iron Saturation 35, Unsaturated Iron Binding 88L, Lactate Dehydrogenase 242H, Total Creatine Kinase 748H, Creatine Kinase MB 2.4, Creatine Kinase MB Relative Index 0.3, Troponin I 0.020 , Pro-B-Type Natriuretic Peptide 904H, Triglycerides Level 85, Cholesterol Level 79, LDL Cholesterol 42, HDL Cholesterol 23L, Cholesterol/HDL Ratio 3.4, Vitamin B12 Level 1231H, Folate 17.3, Thyroid Stimulating Hormone (TSH) 0.659 Height (Feet): 5 Height (Inches): 10.00 Weight (Pounds): 161 General Appearance: no apparent distress, alert Neurologic: oriented x 3, responsive, normal mood/affect Gregg Acosta M.D. Nov 28, 2017 15:41
[2017-11-28 16:00] VITALS: BP 165/80
--- NOTE | 2017-11-28 16:22 | Cardiac Electrophysiology PN ---
Assessment/Plan Assessment/Plan 1. Elevated troponin. Could be due to renal failure with creatinine of 2 as well as multiple falls with CPK of more than 1100. Echo showed normal left ventricular systolic function. The EKG does not show active ischemic changes. Continue aspirin and Coreg. Hold statin for now for high CPK. 2. History of coronary artery bypass graft. On aspirin and Coreg 3. Supraventricular tachycardia, rate of up to 170 beats per minute. The electrophysiology study as outpatient. Continue Coreg 4. Hypertension, on Coreg 3.125 mg b.i.d. and Norvasc 5 mg daily. 5. UTI, on IV antibiotic. 6. Status post fall with very high CPK. Creatinine is 2. 7. Renal failure. DW RN Subjective Subjective Comfortable in NAD Objective Last 24 Hour Vital Signs Date Time Temp Pulse Resp B/P (MAP) Pulse Ox O2 Delivery O2 Flow Rate FiO2 11/28/17 14:50 97.3 11/28/17 12:00 97.3 20 169/79 95 Room Air 97.3 11/28/17 12:00 70 11/28/17 08:36 75 173/76 11/28/17 08:36 75 173/76 11/28/17 08:00 97.3 75 21 173/76 95 Room Air 97.3 11/28/17 08:00 75 11/28/17 04:00 98.1 70 20 177/69 97 Room Air 98.1 11/28/17 04:00 68 11/28/17 00:00 98.2 70 18 159/76 98 Room Air 98.2 11/28/17 00:00 75 11/27/17 22:34 77 165/84 11/27/17 20:00 97.3 77 18 165/84 97 Room Air 97.3 11/27/17 20:00 72 11/27/17 18:22 97.3 Intake and Output 11/27/17 11/28/17 19:00 07:00 Intake Total 913 ml 1016 ml Output Total 800 ml 500 ml Balance 113 ml 516 ml Intake Oral 500 ml 100 ml IV Total 413 ml 916 ml Output Urine Total 800 ml 500 ml # Bowel Movements 1 Laboratory Tests Test 11/28/17 04:00 11/28/17 06:40 White Blood Count 8.3 K/UL (4.8-10.8) Red Blood Count 3.52 M/UL (4.20-5.40) L Hemoglobin 10.6 G/DL (12.0-16.0) L Hematocrit 32.3 % (37.0-47.0) L Mean Corpuscular Volume 92 FL (80-99) Mean Corpuscular Hemoglobin 30.3 PG (27.0-31.0) Mean Corpuscular Hemoglobin Concent 32.9 G/DL (32.0-36.0) Red Cell Distribution Width 12.6 % (11.6-14.8) Platelet Count 203 K/UL (150-450) Mean Platelet Volume 6.0 FL (6.5-10.1) L Neutrophils (%) (Auto) 77.0 % (45.0-75.0) H Lymphocytes (%) (Auto) 16.1 % (20.0-45.0) L Monocytes (%) (Auto) 5.4 % (1.0-10.0) Eosinophils (%) (Auto) 1.1 % (0.0-3.0) Basophils (%) (Auto) 0.4 % (0.0-2.0) Differential Total Cells Counted 100 Neutrophils % (Manual) 76 % (45-75) H Lymphocytes % (Manual) 18 % (20-45) L Monocytes % (Manual) 6 % (1-10) Eosinophils % (Manual) 0 % (0-3) Basophils % (Manual) 0 % (0-2) Band Neutrophils 0 % (0-8) Platelet Estimate Adequate Platelet Morphology Normal Erythrocyte Sedimentation Rate 74 MM/HR (0-30) H Reticulocyte Count 1.9 % (0.0-2.0) Prothrombin Time 9.8 SEC (9.30-11.50) Prothromb Time International Ratio 0.9 (0.9-1.1) Activated Partial Thromboplast Time 38 SEC (23-33) H Sodium Level 139 MMOL/L (136-145) Potassium Level 3.9 MMOL/L (3.5-5.1) Chloride Level 107 MMOL/L (98-107) Carbon Dioxide Level 24 MMOL/L (21-32) Anion Gap 8 mmol/L (5-15) Blood Urea Nitrogen 25 mg/dL (7-18) H Creatinine 1.9 MG/DL (0.55-1.30) H Estimat Glomerular Filtration Rate mL/min (>60) Glucose Level 151 MG/DL (74-106) H Calcium Level 8.1 MG/DL (8.5-10.1) L Iron Level 48 ug/dL (50-175) L Total Iron Binding Capacity 136 ug/dL (250-450) L Percent Iron Saturation 35 % (15-50) Unsaturated Iron Binding 88 ug/dL (112-346) L Lactate Dehydrogenase 242 U/L (81-234) H Total Creatine Kinase 748 U/L (26-308) H Creatine Kinase MB 2.4 NG/ML (0.0-3.6) Creatine Kinase MB Relative Index 0.3 Troponin I 0.020 ng/mL (0.000-0.056) Pro-B-Type Natriuretic Peptide 904 pg/mL (0-125) H Triglycerides Level 85 MG/DL (30-150) Cholesterol Level 79 MG/DL (< 200) LDL Cholesterol 42 mg/dL (<100) HDL Cholesterol 23 MG/DL (40-60) L Cholesterol/HDL Ratio 3.4 (3.3-4.4) Vitamin B12 Level 1231 PG/ML (193-986) H Folate 17.3 NG/ML (8.6-58.9) Thyroid Stimulating Hormone (TSH) 0.659 uiU/mL (0.358-3.740) Microbiology Date/Time Source Procedure Growth Status 11/27/17 03:00 Urine,Clean Catch Urine Culture - Preliminary Gram Negative Bacillus 1 Resulted Objective HEAD AND NECK: No JVD LUNGS: Clear. CARDIOVASCULAR: Regular S1 and S2 with no gallop. Sternotomy scar is intact. ABDOMEN: Soft. EXTREMITIES: 1+ pitting edema. Hunter Ruby MD Nov 28, 2017 16:22
[2017-11-28] MEDS: Nitroglycerin Patch 0.4mg TDERMAL SCH (17:12)
--- NOTE | 2017-11-28 18:33 | Internal Med Progress Note ---
Subjective Date of Service: Nov 28, 2017 Physician Name Wayne,Marcell Attending Physician García Neil MD Current Medications Medications (Trade) Dose Ordered Sig/Mikhail Route PRN Reason Start Time Stop Time Status Last Admin Dose Admin Acetaminophen (Tylenol) 650 mg Q6H PRN ORAL Mild Pain/Temp > 100.5 11/28/17 11:30 12/28/17 11:29 11/28/17 14:50 Alprazolam (Xanax) 0.25 mg Q8H PRN ORAL For Anxiety 11/26/17 19:00 12/03/17 18:59 11/27/17 02:43 Amlodipine Besylate (Norvasc) 5 mg BID ORAL 11/28/17 18:00 12/27/17 08:59 11/28/17 17:12 Aspirin (ASA) 81 mg DAILY ORAL 11/27/17 09:00 12/27/17 08:59 11/28/17 08:35 Carvedilol (Coreg) 3.125 mg EVERY 12 HOURS ORAL 11/26/17 21:00 12/26/17 20:59 11/28/17 08:36 Ceftriaxone Sodium 1 gm/ Dextrose 110 ml @ 220 mls/hr Q24H IVPB 11/26/17 23:00 12/03/17 22:59 11/27/17 22:33 Dextrose (Dextrose 50%) 25 ml STAT PRN IV Hypoglycemia 11/27/17 12:00 12/27/17 11:59 Dextrose (Dextrose 50%) 50 ml STAT PRN IV Hypoglycemia 11/27/17 11:00 12/27/17 10:59 Gabapentin (Neurontin) 100 mg BID ORAL 11/26/17 22:00 12/26/17 21:59 11/28/17 17:11 Heparin Sodium (Porcine) (Heparin 5000 units/ml) 5,000 units EVERY 8 HOURS SUBQ 11/26/17 22:00 12/26/17 21:59 11/28/17 06:40 Insulin Aspart (NovoLOG) BEFORE MEALS AND HS SUBQ 11/27/17 12:30 12/27/17 12:29 11/28/17 12:00 Memantine (Namenda) 5 mg DAILY ORAL 11/28/17 09:00 12/28/17 08:59 11/28/17 08:36 Nitroglycerin (Ntg) 1 patch Q24H TDERMAL 11/28/17 17:00 12/28/17 16:59 11/28/17 17:12 Olanzapine (ZyPREXA) 2.5 mg BEDTIME ORAL 11/28/17 21:00 12/28/17 20:59 Pantoprazole (Protonix) 40 mg DAILY ORAL 11/27/17 09:00 12/27/17 08:59 11/28/17 08:36 Paroxetine HCl (Paxil) 20 mg BEDTIME ORAL 11/27/17 21:00 12/27/17 20:59 11/27/17 22:34 Sodium 1,000 ml @ 75 mls/hr [id number] IV 11/27/17 12:30 12/27/17 12:29 11/28/17 14:58 Allergies: Coded Allergies: No Known Allergies (Unverified , 01/10/15) ROS Limited/Unobtainable: No Constitutional: Reports: no symptoms HEENT: Reports: no symptoms Cardiovascular: Reports: no symptoms Respiratory: Reports: no symptoms Gastrointestinal/Abdominal: Reports: no symptoms Genitourinary: Reports: no symptoms Neurologic/Psychiatric: Reports: no symptoms Subjective 77 YO F admitted with syncope and left facial weakness. Now Rhabdomyolysis, UTI and possible pneumonia. Cover for Int Alexy-Dr Neil Objective Last Vital Signs Date Time Temp Pulse Resp B/P (MAP) Pulse Ox O2 Delivery O2 Flow Rate FiO2 11/28/17 17:12 165/80 11/28/17 17:12 87 11/28/17 16:00 97.3 20 95 Room Air 97.3 General Appearance: WD/WN, no apparent distress, alert EENT: PERRL/EOMI, normal ENT inspection Neck: non-tender, normal alignment, supple, normal inspection Cardiovascular: normal peripheral pulses, normal rate, regular rhythm, no gallop/murmur, no JVD Respiratory/Chest: chest wall non-tender, lungs clear, normal breath sounds, no respiratory distress, no accessory muscle use Abdomen: normal bowel sounds, non tender, soft, no organomegaly, no mass Extremities: normal range of motion Neurologic: wirer passenger car II-XII grossly normal, no motor/sensory deficits Skin: normal pigmentation, warm/dry Laboratory Tests Test 11/28/17 04:00 11/28/17 06:40 White Blood Count 8.3 K/UL (4.8-10.8) Red Blood Count 3.52 M/UL (4.20-5.40) L Hemoglobin 10.6 G/DL (12.0-16.0) L Hematocrit 32.3 % (37.0-47.0) L Mean Corpuscular Volume 92 FL (80-99) Mean Corpuscular Hemoglobin 30.3 PG (27.0-31.0) Mean Corpuscular Hemoglobin Concent 32.9 G/DL (32.0-36.0) Red Cell Distribution Width 12.6 % (11.6-14.8) Platelet Count 203 K/UL (150-450) Mean Platelet Volume 6.0 FL (6.5-10.1) L Neutrophils (%) (Auto) 77.0 % (45.0-75.0) H Lymphocytes (%) (Auto) 16.1 % (20.0-45.0) L Monocytes (%) (Auto) 5.4 % (1.0-10.0) Eosinophils (%) (Auto) 1.1 % (0.0-3.0) Basophils (%) (Auto) 0.4 % (0.0-2.0) Differential Total Cells Counted 100 Neutrophils % (Manual) 76 % (45-75) H Lymphocytes % (Manual) 18 % (20-45) L Monocytes % (Manual) 6 % (1-10) Eosinophils % (Manual) 0 % (0-3) Basophils % (Manual) 0 % (0-2) Band Neutrophils 0 % (0-8) Platelet Estimate Adequate Platelet Morphology Normal Erythrocyte Sedimentation Rate 74 MM/HR (0-30) H Reticulocyte Count 1.9 % (0.0-2.0) Prothrombin Time 9.8 SEC (9.30-11.50) Prothromb Time International Ratio 0.9 (0.9-1.1) Activated Partial Thromboplast Time 38 SEC (23-33) H Sodium Level 139 MMOL/L (136-145) Potassium Level 3.9 MMOL/L (3.5-5.1) Chloride Level 107 MMOL/L (98-107) Carbon Dioxide Level 24 MMOL/L (21-32) Anion Gap 8 mmol/L (5-15) Blood Urea Nitrogen 25 mg/dL (7-18) H Creatinine 1.9 MG/DL (0.55-1.30) H Estimat Glomerular Filtration Rate mL/min (>60) Glucose Level 151 MG/DL (74-106) H Calcium Level 8.1 MG/DL (8.5-10.1) L Iron Level 48 ug/dL (50-175) L Total Iron Binding Capacity 136 ug/dL (250-450) L Percent Iron Saturation 35 % (15-50) Unsaturated Iron Binding 88 ug/dL (112-346) L Lactate Dehydrogenase 242 U/L (81-234) H Total Creatine Kinase 748 U/L (26-308) H Creatine Kinase MB 2.4 NG/ML (0.0-3.6) Creatine Kinase MB Relative Index 0.3 Troponin I 0.020 ng/mL (0.000-0.056) C-Reactive Protein, Quantitative 5.2 mg/dL (0.00-0.90) H Pro-B-Type Natriuretic Peptide 904 pg/mL (0-125) H Triglycerides Level 85 MG/DL (30-150) Cholesterol Level 79 MG/DL (< 200) LDL Cholesterol 42 mg/dL (<100) HDL Cholesterol 23 MG/DL (40-60) L Cholesterol/HDL Ratio 3.4 (3.3-4.4) Vitamin B12 Level 1231 PG/ML (193-986) H Folate 17.3 NG/ML (8.6-58.9) Thyroid Stimulating Hormone (TSH) 0.659 uiU/mL (0.358-3.740) Microbiology Date/Time Source Procedure Growth Status 11/27/17 03:00 Urine,Clean Catch Urine Culture - Preliminary Gram Negative Bacillus 1 Resulted Intake and Output 11/27/17 11/28/17 19:00 07:00 Intake Total 913 ml 1016 ml Output Total 800 ml 500 ml Balance 113 ml 516 ml Intake Oral 500 ml 100 ml IV Total 413 ml 916 ml Output Urine Total 800 ml 500 ml # Bowel Movements 1 Assessment/Plan Problem List: (1) Coronary artery disease (2) Elevated troponin Assessment & Plan: Due to renal Failure. See cardiology note. (3) Rhabdomyolysis Assessment & Plan: Follow CPK (4) Syncope (5) UTI (urinary tract infection) Assessment & Plan: Await urine culture results. Continue rocephin for now (6) DM (diabetes mellitus) Assessment & Plan: continue novolog sliding scale. (7) Hypertension Assessment & Plan: Continue amlodipine. (8) ARF (acute renal failure) Assessment & Plan: See nephrology note. Status: progressing MARCELL WAYNE Nov 28, 2017 18:33
--- NOTE | 2017-11-28 18:38 | Diagnostic Imaging Report ---
Indication: Abnormal renal function Technique: US Renal Comp Comparison: 01/11/2015 Findings: Limited exam due to patient body habitus. Right kidney measures 9.7 cm in length. Left kidney measures 11 cm in length. Parenchymal echogenicity appears within normal limits bilaterally. No appreciable urinary tract stones or hydronephrosis. Bladder is decompressed by a Garcia catheter, limiting its evaluation. Imaged portions of the liver and IVC unremarkable. IMPRESSION: Renal parenchymal echogenicity appears within normal limits bilaterally. No evidence of hydronephrosis or sonographically appreciable renal stones. Garcia catheter decompresses the bladder, precluding reliable evaluation.
[2017-11-28 20:00] VITALS: BP 169/79
[2017-11-28] MEDS: OLANZapine 2.5mg tab ORAL SCH (21:02)
[2017-11-28] MEDS: PARoxetine 20mg tab ORAL SCH (21:02)
[2017-11-28] MEDS: cefTRIAXone 1 GM in D5W 110 ML IVPB SCH (22:30)
[2017-11-29] VITALS: BP 150/76
[2017-11-29] MEDS: cefTRIAXone 1 GM in D5W 110 ML IVPB SCH (01:00)
[2017-11-29 04:00] VITALS: BP 160/88
[2017-11-29] MEDS: 1/2NS w/KCl 20mEq 1000ml 1,000 ML IV SCH ×2 (04:03→17:37)
[2017-11-29] MEDS: Heparin 5000 units/ml inj SUBQ SCH ×3 (06:23→22:22)
[2017-11-29] MEDS: NovoLOG Insulin Flexpen SUBQ SCH ×4 (06:26→22:11)
--- NOTE | 2017-11-29 07:23 | Cardiac Electrophysiology PN ---
Assessment/Plan Assessment/Plan 1. Elevated troponin. Due to renal failure with creatinine of 2 as well as multiple falls with CPK of more than 1100. Echo showed normal left ventricular systolic function. The EKG does not show active ischemic changes. Continue aspirin and Coreg. Hold statin for now for high CPK. 2. History of coronary artery bypass graft. On aspirin and Coreg 3. Supraventricular tachycardia, rate of up to 170 beats per minute. The electrophysiology study as outpatient. Continue Coreg 4. Hypertension, on Coreg 3.125 mg b.i.d. and Norvasc 5 mg daily. 5. UTI, on IV antibiotic. 6. Status post fall with very high CPK. Creatinine is 2. 7. Renal failure. EVE RN Subjective Subjective Comfortable in NAD. No arrhythmias on tele. Objective Last 24 Hour Vital Signs Date Time Temp Pulse Resp B/P (MAP) Pulse Ox O2 Delivery O2 Flow Rate FiO2 11/29/17 04:00 96.6 84 18 160/88 95 Room Air 96.6 11/29/17 04:00 79 11/29/17 00:00 97.0 83 19 150/76 95 Room Air 97.0 11/29/17 00:00 70 11/28/17 21:02 72 169/79 11/28/17 20:00 97.7 72 21 169/79 96 Room Air 97.7 11/28/17 20:00 72 11/28/17 17:12 165/80 11/28/17 17:12 87 165/80 11/28/17 16:00 97.3 20 165/80 95 Room Air 97.3 11/28/17 16:00 68 11/28/17 15:49 97.3 11/28/17 14:50 97.3 11/28/17 12:00 97.3 20 169/79 95 Room Air 97.3 11/28/17 12:00 70 11/28/17 08:36 75 173/76 11/28/17 08:36 75 173/76 11/28/17 08:00 97.3 75 21 173/76 95 Room Air 97.3 11/28/17 08:00 75 Intake and Output 11/28/17 11/29/17 19:00 07:00 Intake Total 1560 ml 810 ml Output Total 1000 ml 1200 ml Balance 560 ml -390 ml Intake Oral 660 ml IV Total 900 ml 810 ml Output Urine Total 1000 ml 1200 ml Laboratory Tests Test 11/28/17 22:00 11/29/17 03:10 Urine Random Sodium 43 mmol/L (20-110) Urine Eosinophils Pending Microbiology Date/Time Source Procedure Growth Status 11/27/17 16:10 Blood Blood Culture - Preliminary NO GROWTH AFTER 24 HOURS Resulted 11/27/17 16:05 Blood Blood Culture - Preliminary NO GROWTH AFTER 24 HOURS Resulted 11/27/17 03:00 Urine,Clean Catch Urine Culture - Preliminary Gram Negative Bacillus 1 Resulted Objective HEAD AND NECK: No JVD LUNGS: Clear. CARDIOVASCULAR: Regular S1 and S2 with no gallop. Sternotomy scar is intact. ABDOMEN: Soft. EXTREMITIES: 1+ pitting edema. Hunter Ruby MD Nov 29, 2017 07:23
[2017-11-29 08:00] VITALS: BP 168/76
[2017-11-29 09:13] LABS: BASOPHILS % (AUTO) 1.1 % (0.0-2.0); HEMATOCRIT 32.3 % (37.0-47.0); HEMOGLOBIN 10.6 G/DL (12.0-16.0); LYMPHOCYTES % (AUTO) 16.5 % (20.0-45.0); MEAN CORPUSCULAR VOLUME 91 FL (80-99); MONOCYTES % (AUTO) 6.5 % (1.0-10.0); NEUTROPHILS % (AUTO) 74.9 % (45.0-75.0); PLATELET COUNT 214 K/UL (150-450); RED BLOOD COUNT 3.54 M/UL (4.20-5.40); RED CELL DISTRIBUTION WIDTH 12.4 % (11.6-14.8); WHITE BLOOD COUNT 8.1 K/UL (4.8-10.8)
[2017-11-29] MEDS: Aspirin Baby 81mg ORAL SCH (09:20)
[2017-11-29] MEDS: Memantine 5 MG TAB ORAL SCH (09:21)
[2017-11-29 10:10] LABS: ALANINE AMINOTRANSFERASE 36 U/L (12-78); ALBUMIN 2.6 G/DL (3.4-5.0); ALBUMIN/GLOBULIN RATIO 0.7 (1.0-2.7); ALKALINE PHOSPHATASE 73 U/L (46-116); ANION GAP 8 mmol/L (5-15); ASPARTATE AMINO TRANSFERASE 43 U/L (15-37); BILIRUBIN,TOTAL 0.2 MG/DL (0.2-1.0); BLOOD UREA NITROGEN 21 mg/dL (7-18); CALCIUM 8.1 MG/DL (8.5-10.1); CARBON DIOXIDE 24 MMOL/L (21-32); CHLORIDE 105 MMOL/L (98-107); CREATININE 1.8 MG/DL (0.55-1.30); PHOSPHORUS 2.8 MG/DL (2.5-4.9); POTASSIUM 3.8 MMOL/L (3.5-5.1); SODIUM 136 MMOL/L (136-145)
[2017-11-29 10:37] LABS: CREATINE KINASE 804 U/L (26-308)
[2017-11-29] MEDS: ALPRAZolam 0.25mg tab ORAL PRN ×2 (10:53→17:36)
[2017-11-29 12:00] VITALS: BP 168/80
--- NOTE | 2017-11-29 13:45 | Wound Care Consultation ---
Wound Assessment Wound Assessment #1: Wound Number: 1 Wound Present on Admission: Yes New Wound: No Status Change of Wound: No Wound Location Body Site Modif: right Wound Location Body Site: trochanter Wound Type: pressure ulcer Jennifer Test: Does not Jennifer Pressure Ulcer Stage: Deep Tissue Injury Wound Thickness: Full Thickness Wound Length: 6.0 Wound Width: 6.0 Wound Depth: utd Percent of Wound Purple/Maroon: 100 Wound Drainage Amount: None Wound Drainage Odor: None/Absent Tissue Surrounding Wound: Erythemic Wound General Appearance: Reddened - purple Wound Assessment #2: Wound Number: 2 Wound Present on Admission: Yes New Wound: No Status Change of Wound: No Wound Location Body Site Modif: upper Wound Location Body Site: sacral Wound Type: discoloration - s/p fall Jennifer Test: Does not Jennifer Percent of Wound Purple/Maroon: 100 Wound Drainage Amount: None Wound Drainage Odor: None/Absent Tissue Surrounding Wound: Intact Wound General Appearance: Reddened - purple Wound Assessment #3: Wound Number: 3 Wound Present on Admission: Yes New Wound: No Status Change of Wound: No Wound Location Body Site Modif: left Wound Location Body Site: heel Wound Type: pressure ulcer Jennifer Test: Does not Jennifer Pressure Ulcer Stage: Deep Tissue Injury Wound Thickness: Full Thickness Wound Length: 3.5 Wound Width: 4.5 Wound Depth: utd Percent of Wound [place]/Red: 100 - deep Wound Drainage Amount: None Wound Drainage Odor: None/Absent Tissue Surrounding Wound: Intact Wound General Appearance: Reddened Wound Comment #1 Right trochanter DTI pressure ulcer #2 Left heel SDTI pressure ulcer #3 Upper sacral area purple discoloration. s/p fall, according to Pt. Recommendation -Local wound care per protocol -Keep clean and dry -Turn and reposition -Optimize nutrition -Heel protector on both heels -Offload both heels -Low air loss mattress -Assess and f/u accordingly for any changes ARON NIXON RN Nov 29, 2017 13:45
--- NOTE | 2017-11-29 15:19 | Pulmonology Progress Note ---
Assessment/Plan Problems: (1) Acute encephalopathy (2) Sepsis (3) UTI (urinary tract infection) (4) SVT (supraventricular tachycardia) (5) Depression (6) Hypertension (7) DM (diabetes mellitus) Assessment/Plan dc iv fluids renal function becoming more stable continue abx, ceftriaxone urine cultures reviewed sliding scale diabetic diet pt/ot med/surg Subjective ROS Limited/Unobtainable: No Constitutional: Reports: no symptoms HEENT: Repors: no symptoms Respiratory: Reports: no symptoms Allergies: Coded Allergies: No Known Allergies (Unverified , 01/10/15) Objective Last 24 Hour Vital Signs Date Time Temp Pulse Resp B/P (MAP) Pulse Ox O2 Delivery O2 Flow Rate FiO2 11/29/17 12:00 77 11/29/17 12:00 98.0 80 20 168/80 95 Room Air 98.0 11/29/17 09:21 83 168/76 11/29/17 09:21 83 168/76 11/29/17 08:00 96.6 84 18 168/76 95 Room Air 96.6 11/29/17 08:00 86 11/29/17 04:00 96.6 84 18 160/88 95 Room Air 96.6 11/29/17 04:00 79 11/29/17 00:00 97.0 83 19 150/76 95 Room Air 97.0 11/29/17 00:00 70 11/28/17 21:02 72 169/79 11/28/17 20:00 97.7 72 21 169/79 96 Room Air 97.7 11/28/17 20:00 72 11/28/17 17:12 165/80 11/28/17 17:12 87 165/80 11/28/17 16:00 97.3 20 165/80 95 Room Air 97.3 11/28/17 16:00 68 11/28/17 15:49 97.3 Intake and Output 11/28/17 11/29/17 19:00 07:00 Intake Total 1560 ml 885 ml Output Total 1000 ml 1200 ml Balance 560 ml -315 ml Intake Oral 660 ml IV Total 900 ml 885 ml Output Urine Total 1000 ml 1200 ml General Appearance: WD/WN HEENT: normocephalic Respiratory/Chest: chest wall non-tender, lungs clear Breasts: no masses Cardiovascular: normal rate Abdomen: normal bowel sounds, soft, non tender Extremities: no cyanosis Skin: no ulcers Neurologic/Psychiatric: no motor/sensory deficits Microbiology Date/Time Source Procedure Growth Status 11/27/17 16:10 Blood Blood Culture - Preliminary NO GROWTH AFTER 24 HOURS Resulted 11/27/17 16:05 Blood Blood Culture - Preliminary NO GROWTH AFTER 24 HOURS Resulted 11/27/17 05:00 Nasal Nares MRSA Culture - Final NO METHICILLIN RESISTANT STAPH AUREUS... Complete 11/27/17 03:00 Urine,Clean Catch Urine Culture - Final Escherichia Coli Complete 11/27/17 05:00 Rectum VRE Culture - Final NO VANCOMYCIN RESISTANT ENTEROCOCCUS ... Complete Laboratory Tests 11/28/17 22:00: Urine Random Sodium 43 11/29/17 03:10: Urine Eosinophils None seen 11/29/17 08:35: White Blood Count 8.1, Red Blood Count 3.54L, Hemoglobin 10.6L, Hematocrit 32.3L , Mean Corpuscular Volume 91, Mean Corpuscular Hemoglobin 30.0, Mean Corpuscular Hemoglobin Concent 32.8, Red Cell Distribution Width 12.4, Platelet Count 214, Mean Platelet Volume 6.5, Neutrophils (%) (Auto) 74.9, Lymphocytes (% ) (Auto) 16.5L, Monocytes (%) (Auto) 6.5, Eosinophils (%) (Auto) 1.0, Basophils (%) (Auto) 1.1, Sodium Level 136, Potassium Level 3.8, Chloride Level 105, Carbon Dioxide Level 24, Anion Gap 8, Blood Urea Nitrogen 21H, Creatinine 1.8H, Estimat Glomerular Filtration Rate , Glucose Level 202H, Uric Acid 4.7, Calcium Level 8.1L, Phosphorus Level 2.8, Magnesium Level 1.8, Total Bilirubin 0.2, Aspartate Amino Transf (AST/SGOT) 43H, Alanine Aminotransferase (ALT/SGPT) 36, Alkaline Phosphatase 73, Total Creatine Kinase 804H, Pro-B-Type Natriuretic Peptide 1177H, Total Protein 6.5, Albumin 2.6L, Globulin 3.9, Albumin/Globulin Ratio 0.7L Current Medications Medications (Trade) Dose Ordered Sig/Mikhail Route PRN Reason Start Time Stop Time Status Last Admin Dose Admin Acetaminophen (Tylenol) 650 mg Q6H PRN ORAL Mild Pain/Temp > 100.5 11/28/17 11:30 5/5/18 11:29 11/28/17 14:50 Alprazolam (Xanax) 0.25 mg Q8H PRN ORAL For Anxiety 11/26/17 19:00 12/03/17 18:59 11/29/17 10:53 Amlodipine Besylate (Norvasc) 5 mg BID ORAL 11/28/17 18:00 12/27/17 08:59 11/29/17 09:21 Aspirin (ASA) 81 mg DAILY ORAL 11/27/17 09:00 12/27/17 08:59 11/29/17 09:20 Carvedilol (Coreg) 3.125 mg EVERY 12 HOURS ORAL 11/26/17 21:00 12/26/17 20:59 11/29/17 09:21 Ceftriaxone Sodium 1 gm/ Dextrose 110 ml @ 220 mls/hr Q24H IVPB 11/26/17 23:00 12/03/17 22:59 11/28/17 22:30 Dextrose (Dextrose 50%) 25 ml STAT PRN IV Hypoglycemia 11/27/17 12:00 12/27/17 11:59 Dextrose (Dextrose 50%) 50 ml STAT PRN IV Hypoglycemia 11/27/17 11:00 12/27/17 10:59 Gabapentin (Neurontin) 100 mg BID ORAL 11/26/17 22:00 12/26/17 21:59 11/29/17 09:20 Heparin Sodium (Porcine) (Heparin 5000 units/ml) 5,000 units EVERY 8 HOURS SUBQ 11/26/17 22:00 12/26/17 21:59 11/29/17 06:23 Insulin Aspart (NovoLOG) BEFORE MEALS AND HS SUBQ 11/27/17 12:30 12/27/17 12:29 11/29/17 06:26 Memantine (Namenda) 5 mg DAILY ORAL 11/28/17 09:00 12/28/17 08:59 11/29/17 09:21 Nitroglycerin (Ntg) 1 patch Q24H TDERMAL 11/28/17 17:00 12/28/17 16:59 11/28/17 17:12 Olanzapine (ZyPREXA) 2.5 mg BEDTIME ORAL 11/28/17 21:00 12/28/17 20:59 11/28/17 21:02 Pantoprazole (Protonix) 40 mg DAILY ORAL 11/27/17 09:00 12/27/17 08:59 11/29/17 09:20 Paroxetine HCl (Paxil) 20 mg BEDTIME ORAL 11/27/17 21:00 12/27/17 20:59 11/28/17 21:02 Sodium 1,000 ml @ 75 mls/hr [id number] IV 11/27/17 12:30 12/27/17 12:29 11/29/17 04:03 Georgie Montanez MD Nov 29, 2017 15:19
--- NOTE | 2017-11-29 15:31 | Nephrology Progress Note ---
Assessment/Plan Problem List: (1) Hypertension (2) DM (diabetes mellitus) (3) Anemia (4) ARF (acute renal failure) Assessment CKD with proteinuria likely diabetic- cr down 1.8 UTI Encephalopathy Anemia 1. Syncopal episode. 2. Left facial droop. 3. Urinary tract infection. 4. Hypertension. 5. Diabetes type 2. 6. Hypercholesterolemia. 7. Coronary artery disease. Plan Keep BP and BS in check increase coreg Avoid nephrotoxic Per consultants fu renal parameters Subjective ROS Limited/Unobtainable: No Constitutional: Reports: malaise Objective Objective Last 24 Hour Vital Signs Date Time Temp Pulse Resp B/P (MAP) Pulse Ox O2 Delivery O2 Flow Rate FiO2 11/29/17 12:00 77 11/29/17 12:00 98.0 80 20 168/80 95 Room Air 98.0 11/29/17 09:21 83 168/76 11/29/17 09:21 83 168/76 11/29/17 08:00 96.6 84 18 168/76 95 Room Air 96.6 11/29/17 08:00 86 11/29/17 04:00 96.6 84 18 160/88 95 Room Air 96.6 11/29/17 04:00 79 11/29/17 00:00 97.0 83 19 150/76 95 Room Air 97.0 11/29/17 00:00 70 11/28/17 21:02 72 169/79 11/28/17 20:00 97.7 72 21 169/79 96 Room Air 97.7 11/28/17 20:00 72 11/28/17 17:12 165/80 11/28/17 17:12 87 165/80 11/28/17 16:00 97.3 20 165/80 95 Room Air 97.3 11/28/17 16:00 68 11/28/17 15:49 97.3 Intake and Output 11/28/17 11/29/17 19:00 07:00 Intake Total 1560 ml 885 ml Output Total 1000 ml 1200 ml Balance 560 ml -315 ml Intake Oral 660 ml IV Total 900 ml 885 ml Output Urine Total 1000 ml 1200 ml Laboratory Tests 11/28/17 22:00: Urine Random Sodium 43 11/29/17 03:10: Urine Eosinophils None seen 11/29/17 08:35: White Blood Count 8.1, Red Blood Count 3.54L, Hemoglobin 10.6L, Hematocrit 32.3L , Mean Corpuscular Volume 91, Mean Corpuscular Hemoglobin 30.0, Mean Corpuscular Hemoglobin Concent 32.8, Red Cell Distribution Width 12.4, Platelet Count 214, Mean Platelet Volume 6.5, Neutrophils (%) (Auto) 74.9, Lymphocytes (% ) (Auto) 16.5L, Monocytes (%) (Auto) 6.5, Eosinophils (%) (Auto) 1.0, Basophils (%) (Auto) 1.1, Sodium Level 136, Potassium Level 3.8, Chloride Level 105, Carbon Dioxide Level 24, Anion Gap 8, Blood Urea Nitrogen 21H, Creatinine 1.8H, Estimat Glomerular Filtration Rate , Glucose Level 202H, Uric Acid 4.7, Calcium Level 8.1L, Phosphorus Level 2.8, Magnesium Level 1.8, Total Bilirubin 0.2, Aspartate Amino Transf (AST/SGOT) 43H, Alanine Aminotransferase (ALT/SGPT) 36, Alkaline Phosphatase 73, Total Creatine Kinase 804H, Pro-B-Type Natriuretic Peptide 1177H, Total Protein 6.5, Albumin 2.6L, Globulin 3.9, Albumin/Globulin Ratio 0.7L Height (Feet): 5 Height (Inches): 10.00 Weight (Pounds): 161 General Appearance: no apparent distress Objective no change AMOL DAVILA Nov 29, 2017 15:31
[2017-11-29 16:00] VITALS: BP 167/86
[2017-11-29] MEDS: Nitroglycerin Patch 0.4mg TDERMAL SCH (17:38)
--- NOTE | 2017-11-29 19:00 | General Progress Note ---
Assessment/Plan Assessment/Plan dementia with behavioral dist Paxil Zyprexa decreased Xanax Subjective Date patient seen: Nov 29, 2017 Neurologic/Psychiatric: Reports: anxiety, depressed, emotional problems Allergies: Coded Allergies: No Known Allergies (Unverified , 01/10/15) Subjective the pt is more alert and less confused. No agitation today Objective Last 24 Hour Vital Signs Date Time Temp Pulse Resp B/P (MAP) Pulse Ox O2 Delivery O2 Flow Rate FiO2 11/29/17 17:38 167/86 11/29/17 17:37 82 167/86 11/29/17 16:41 97.8 11/29/17 16:00 97.8 82 20 167/86 95 Room Air 97.8 11/29/17 16:00 78 11/29/17 12:00 77 11/29/17 12:00 98.0 80 20 168/80 95 Room Air 98.0 11/29/17 09:21 83 168/76 11/29/17 09:21 83 168/76 11/29/17 08:00 96.6 84 18 168/76 95 Room Air 96.6 11/29/17 08:00 86 11/29/17 04:00 96.6 84 18 160/88 95 Room Air 96.6 11/29/17 04:00 79 11/29/17 00:00 97.0 83 19 150/76 95 Room Air 97.0 11/29/17 00:00 70 11/28/17 21:02 72 169/79 11/28/17 20:00 97.7 72 21 169/79 96 Room Air 97.7 11/28/17 20:00 72 Intake and Output 11/28/17 11/29/17 19:00 07:00 Intake Total 1560 ml 885 ml Output Total 1000 ml 1200 ml Balance 560 ml -315 ml Intake Oral 660 ml IV Total 900 ml 885 ml Output Urine Total 1000 ml 1200 ml Laboratory Tests 11/28/17 22:00: Urine Random Sodium 43 11/29/17 03:10: Urine Eosinophils None seen 11/29/17 08:35: White Blood Count 8.1, Red Blood Count 3.54L, Hemoglobin 10.6L, Hematocrit 32.3L , Mean Corpuscular Volume 91, Mean Corpuscular Hemoglobin 30.0, Mean Corpuscular Hemoglobin Concent 32.8, Red Cell Distribution Width 12.4, Platelet Count 214, Mean Platelet Volume 6.5, Neutrophils (%) (Auto) 74.9, Lymphocytes (% ) (Auto) 16.5L, Monocytes (%) (Auto) 6.5, Eosinophils (%) (Auto) 1.0, Basophils (%) (Auto) 1.1, Sodium Level 136, Potassium Level 3.8, Chloride Level 105, Carbon Dioxide Level 24, Anion Gap 8, Blood Urea Nitrogen 21H, Creatinine 1.8H, Estimat Glomerular Filtration Rate , Glucose Level 202H, Uric Acid 4.7, Calcium Level 8.1L, Phosphorus Level 2.8, Magnesium Level 1.8, Total Bilirubin 0.2, Aspartate Amino Transf (AST/SGOT) 43H, Alanine Aminotransferase (ALT/SGPT) 36, Alkaline Phosphatase 73, Total Creatine Kinase 804H, Pro-B-Type Natriuretic Peptide 1177H, Total Protein 6.5, Albumin 2.6L, Globulin 3.9, Albumin/Globulin Ratio 0.7L Height (Feet): 5 Height (Inches): 10.00 Weight (Pounds): 161 Gregg Acosta M.D. Nov 29, 2017 19:00
--- NOTE | 2017-11-29 19:21 | Internal Med Progress Note ---
Subjective Date of Service: Nov 29, 2017 Physician Name Marcell Wayne Attending Physician García Neil MD Current Medications Medications (Trade) Dose Ordered Sig/Mikhail Route PRN Reason Start Time Stop Time Status Last Admin Dose Admin Acetaminophen (Tylenol) 650 mg Q6H PRN ORAL Mild Pain/Temp > 100.5 11/28/17 11:30 12/28/17 11:29 11/29/17 15:42 Alprazolam (Xanax) 0.25 mg Q8H PRN ORAL For Anxiety 11/26/17 19:00 12/03/17 18:59 11/29/17 17:36 Amlodipine Besylate (Norvasc) 5 mg BID ORAL 11/28/17 18:00 12/27/17 08:59 11/29/17 17:37 Aspirin (ASA) 81 mg DAILY ORAL 11/27/17 09:00 12/27/17 08:59 11/29/17 09:20 Carvedilol (Coreg) 6.25 mg EVERY 12 HOURS ORAL 11/29/17 21:00 12/26/17 20:59 Ceftriaxone Sodium 1 gm/ Dextrose 110 ml @ 220 mls/hr Q24H IVPB 11/26/17 23:00 12/03/17 22:59 11/28/17 22:30 Dextrose (Dextrose 50%) 25 ml STAT PRN IV Hypoglycemia 11/27/17 12:00 12/27/17 11:59 Dextrose (Dextrose 50%) 50 ml STAT PRN IV Hypoglycemia 11/27/17 11:00 12/27/17 10:59 Gabapentin (Neurontin) 100 mg BID ORAL 11/26/17 22:00 12/26/17 21:59 11/29/17 17:39 Heparin Sodium (Porcine) (Heparin 5000 units/ml) 5,000 units EVERY 8 HOURS SUBQ 11/26/17 22:00 12/26/17 21:59 11/29/17 06:23 Insulin Aspart (NovoLOG) BEFORE MEALS AND HS SUBQ 11/27/17 12:30 12/27/17 12:29 11/29/17 17:36 Memantine (Namenda) 5 mg DAILY ORAL 11/28/17 09:00 12/28/17 08:59 11/29/17 09:21 Nitroglycerin (Ntg) 1 patch Q24H TDERMAL 11/28/17 17:00 12/28/17 16:59 11/29/17 17:38 Olanzapine (ZyPREXA) 2.5 mg BEDTIME ORAL 11/28/17 21:00 12/28/17 20:59 11/28/17 21:02 Pantoprazole (Protonix) 40 mg DAILY ORAL 11/27/17 09:00 12/27/17 08:59 11/29/17 09:20 Paroxetine HCl (Paxil) 20 mg BEDTIME ORAL 11/27/17 21:00 12/27/17 20:59 11/28/17 21:02 Sodium 1,000 ml @ 75 mls/hr [id number] IV 11/27/17 12:30 12/27/17 12:29 11/29/17 17:37 Allergies: Coded Allergies: No Known Allergies (Unverified , 01/10/15) ROS Limited/Unobtainable: No Constitutional: Reports: no symptoms HEENT: Reports: no symptoms Cardiovascular: Reports: no symptoms Respiratory: Reports: no symptoms Gastrointestinal/Abdominal: Reports: no symptoms Genitourinary: Reports: no symptoms Neurologic/Psychiatric: Reports: no symptoms Subjective 77 YO F admitted with syncope and left facial weakness. Now Rhabdomyolysis, UTI and possible pneumonia. Cover for Int Alexy-Dr Neil Objective Last Vital Signs Date Time Temp Pulse Resp B/P (MAP) Pulse Ox O2 Delivery O2 Flow Rate FiO2 11/29/17 17:38 167/86 11/29/17 17:37 82 11/29/17 16:41 97.8 11/29/17 16:00 20 95 Room Air Laboratory Tests Test 11/28/17 22:00 11/29/17 03:10 11/29/17 08:35 Urine Random Sodium 43 mmol/L (20-110) Urine Eosinophils None seen White Blood Count 8.1 K/UL (4.8-10.8) Red Blood Count 3.54 M/UL (4.20-5.40) L Hemoglobin 10.6 G/DL (12.0-16.0) L Hematocrit 32.3 % (37.0-47.0) L Mean Corpuscular Volume 91 FL (80-99) Mean Corpuscular Hemoglobin 30.0 PG (27.0-31.0) Mean Corpuscular Hemoglobin Concent 32.8 G/DL (32.0-36.0) Red Cell Distribution Width 12.4 % (11.6-14.8) Platelet Count 214 K/UL (150-450) Mean Platelet Volume 6.5 FL (6.5-10.1) Neutrophils (%) (Auto) 74.9 % (45.0-75.0) Lymphocytes (%) (Auto) 16.5 % (20.0-45.0) L Monocytes (%) (Auto) 6.5 % (1.0-10.0) Eosinophils (%) (Auto) 1.0 % (0.0-3.0) Basophils (%) (Auto) 1.1 % (0.0-2.0) Sodium Level 136 MMOL/L (136-145) Potassium Level 3.8 MMOL/L (3.5-5.1) Chloride Level 105 MMOL/L (98-107) Carbon Dioxide Level 24 MMOL/L (21-32) Anion Gap 8 mmol/L (5-15) Blood Urea Nitrogen 21 mg/dL (7-18) H Creatinine 1.8 MG/DL (0.55-1.30) H Estimat Glomerular Filtration Rate mL/min (>60) Glucose Level 202 MG/DL (74-106) H Uric Acid 4.7 MG/DL (2.6-7.2) Calcium Level 8.1 MG/DL (8.5-10.1) L Phosphorus Level 2.8 MG/DL (2.5-4.9) Magnesium Level 1.8 MG/DL (1.8-2.4) Total Bilirubin 0.2 MG/DL (0.2-1.0) Aspartate Amino Transf (AST/SGOT) 43 U/L (15-37) H Alanine Aminotransferase (ALT/SGPT) 36 U/L (12-78) Alkaline Phosphatase 73 U/L (46-116) Total Creatine Kinase 804 U/L (26-308) H Pro-B-Type Natriuretic Peptide 1177 pg/mL (0-125) H Total Protein 6.5 G/DL (6.4-8.2) Albumin 2.6 G/DL (3.4-5.0) L Globulin 3.9 g/dL Albumin/Globulin Ratio 0.7 (1.0-2.7) L Microbiology Date/Time Source Procedure Growth Status 4/4/18 16:10 Blood Blood Culture - Preliminary NO GROWTH AFTER 24 HOURS Resulted 11/27/17 16:05 Blood Blood Culture - Preliminary NO GROWTH AFTER 24 HOURS Resulted 11/27/17 05:00 Nasal Nares MRSA Culture - Final NO METHICILLIN RESISTANT STAPH AUREUS... Complete 11/27/17 03:00 Urine,Clean Catch Urine Culture - Final Escherichia Coli Complete 11/27/17 05:00 Rectum VRE Culture - Final NO VANCOMYCIN RESISTANT ENTEROCOCCUS ... Complete Intake and Output 11/28/17 11/29/17 19:00 07:00 Intake Total 1560 ml 885 ml Output Total 1000 ml 1200 ml Balance 560 ml -315 ml Intake Oral 660 ml IV Total 900 ml 885 ml Output Urine Total 1000 ml 1200 ml Objective GENERAL: The patient is a well-developed and well-nourished female, in no apparent distress. HEENT: Pupils equal and responsive to light and accommodation. Extraocular movements are intact. The patient does have a right-sided facial droop noted. CHEST: Lungs are clear to auscultation bilaterally without wheezes or rales. CARDIOVASCULAR: Regular rhythm and rate. S1 and S2 are normal without murmurs, rubs, or gallops. ABDOMEN: Soft, nontender, and nondistended. Positive bowel sounds. No evidence of hepatosplenomegaly. Currently, no rebound or guarding noted. EXTREMITIES: Negative for clubbing, cyanosis, or edema. RECTAL/GENITAL: Refused. NEUROLOGIC: The patient does have a right-sided facial droop. Cranial nerves II through XII are grossly intact without focal deficits. Motor strength is 4/5 bilaterally. Deep tendon reflexes are 2+ plantar. Assessment/Plan Problem List: (1) Coronary artery disease (2) Elevated troponin Assessment & Plan: Due to renal Failure. See cardiology note. (3) Rhabdomyolysis Assessment & Plan: Follow CPK (4) Syncope (5) UTI (urinary tract infection) Assessment & Plan: Await urine culture results. Continue rocephin for now (6) DM (diabetes mellitus) Assessment & Plan: continue novolog sliding scale. (7) Hypertension Assessment & Plan: Continue amlodipine. (8) ARF (acute renal failure) Assessment & Plan: See nephrology note. Status: not improved MARCELL WAYNE Nov 29, 2017 19:21
--- NOTE | 2017-11-29 19:22 | Infectious Diseases Prog Note ---
Assessment/Plan Assessment/Plan ASSESSMENT: The patient is a 77-year-old female with: Urinary tract infection E Coli dysuria and pyuria US : Renal parenchymal echogenicity appears within normal limits bilaterally. Doubt pneumonia Not complaining of cough MRI : No acute intracranial findings. No evidence of acute CVA. Status post fall CAD Hyperlipidemia Hypertension Renal insufficiency Osteoarthritis Diabetes Depression PLAN: continue the patient on Rocephin d# 4 / 5 Monitor CBC Monitor BMP. Monitor chest x-ray. Monitor (blood ) culture Subjective Constitutional: Denies: no symptoms, fever, chills, fatigue, anorexia, drenching sweats, other Allergies: Coded Allergies: No Known Allergies (Unverified , 01/10/15) Subjective Afebrile Objective Vital Signs Last 24 Hour Vital Signs Date Time Temp Pulse Resp B/P (MAP) Pulse Ox O2 Delivery O2 Flow Rate FiO2 11/29/17 17:38 167/86 11/29/17 17:37 82 167/86 11/29/17 16:41 97.8 11/29/17 16:00 97.8 82 20 167/86 95 Room Air 97.8 11/29/17 16:00 78 11/29/17 12:00 77 11/29/17 12:00 98.0 80 20 168/80 95 Room Air 98.0 11/29/17 09:21 83 168/76 11/29/17 09:21 83 168/76 11/29/17 08:00 96.6 84 18 168/76 95 Room Air 96.6 11/29/17 08:00 86 11/29/17 04:00 96.6 84 18 160/88 95 Room Air 96.6 11/29/17 04:00 79 11/29/17 00:00 97.0 83 19 150/76 95 Room Air 97.0 11/29/17 00:00 70 11/28/17 21:02 72 169/79 11/28/17 20:00 97.7 72 21 169/79 96 Room Air 97.7 11/28/17 20:00 72 Height (Feet): 5 Height (Inches): 10.00 Weight (Pounds): 161 HEENT: anicteric Respiratory/Chest: no respiratory distress Cardiovascular: normal rate Abdomen: no organomegaly Microbiology Date/Time Source Procedure Growth Status 11/27/17 16:10 Blood Blood Culture - Preliminary NO GROWTH AFTER 24 HOURS Resulted 11/27/17 16:05 Blood Blood Culture - Preliminary NO GROWTH AFTER 24 HOURS Resulted 11/27/17 05:00 Nasal Nares MRSA Culture - Final NO METHICILLIN RESISTANT STAPH AUREUS... Complete 11/27/17 03:00 Urine,Clean Catch Urine Culture - Final Escherichia Coli Complete 11/27/17 05:00 Rectum VRE Culture - Final NO VANCOMYCIN RESISTANT ENTEROCOCCUS ... Complete Laboratory Tests Test 11/28/17 22:00 11/29/17 03:10 11/29/17 08:35 Urine Random Sodium 43 mmol/L (20-110) Urine Eosinophils None seen White Blood Count 8.1 K/UL (4.8-10.8) Red Blood Count 3.54 M/UL (4.20-5.40) L Hemoglobin 10.6 G/DL (12.0-16.0) L Hematocrit 32.3 % (37.0-47.0) L Mean Corpuscular Volume 91 FL (80-99) Mean Corpuscular Hemoglobin 30.0 PG (27.0-31.0) Mean Corpuscular Hemoglobin Concent 32.8 G/DL (32.0-36.0) Red Cell Distribution Width 12.4 % (11.6-14.8) Platelet Count 214 K/UL (150-450) Mean Platelet Volume 6.5 FL (6.5-10.1) Neutrophils (%) (Auto) 74.9 % (45.0-75.0) Lymphocytes (%) (Auto) 16.5 % (20.0-45.0) L Monocytes (%) (Auto) 6.5 % (1.0-10.0) Eosinophils (%) (Auto) 1.0 % (0.0-3.0) Basophils (%) (Auto) 1.1 % (0.0-2.0) Sodium Level 136 MMOL/L (136-145) Potassium Level 3.8 MMOL/L (3.5-5.1) Chloride Level 105 MMOL/L (98-107) Carbon Dioxide Level 24 MMOL/L (21-32) Anion Gap 8 mmol/L (5-15) Blood Urea Nitrogen 21 mg/dL (7-18) H Creatinine 1.8 MG/DL (0.55-1.30) H Estimat Glomerular Filtration Rate mL/min (>60) Glucose Level 202 MG/DL (74-106) H Uric Acid 4.7 MG/DL (2.6-7.2) Calcium Level 8.1 MG/DL (8.5-10.1) L Phosphorus Level 2.8 MG/DL (2.5-4.9) Magnesium Level 1.8 MG/DL (1.8-2.4) Total Bilirubin 0.2 MG/DL (0.2-1.0) Aspartate Amino Transf (AST/SGOT) 43 U/L (15-37) H Alanine Aminotransferase (ALT/SGPT) 36 U/L (12-78) Alkaline Phosphatase 73 U/L (46-116) Total Creatine Kinase 804 U/L (26-308) H Pro-B-Type Natriuretic Peptide 1177 pg/mL (0-125) H Total Protein 6.5 G/DL (6.4-8.2) Albumin 2.6 G/DL (3.4-5.0) L Globulin 3.9 g/dL Albumin/Globulin Ratio 0.7 (1.0-2.7) L Current Medications Medications (Trade) Dose Ordered Sig/Mikhail Route PRN Reason Start Time Stop Time Status Last Admin Dose Admin Acetaminophen (Tylenol) 650 mg Q6H PRN ORAL Mild Pain/Temp > 100.5 11/28/17 11:30 12/28/17 11:29 11/29/17 15:42 Alprazolam (Xanax) 0.25 mg Q8H PRN ORAL For Anxiety 11/26/17 19:00 12/03/17 18:59 11/29/17 17:36 Amlodipine Besylate (Norvasc) 5 mg BID ORAL 11/28/17 18:00 12/27/17 08:59 11/29/17 17:37 Aspirin (ASA) 81 mg DAILY ORAL 11/27/17 09:00 12/27/17 08:59 11/29/17 09:20 Carvedilol (Coreg) 6.25 mg EVERY 12 HOURS ORAL 11/29/17 21:00 12/26/17 20:59 Ceftriaxone Sodium 1 gm/ Dextrose 110 ml @ 220 mls/hr Q24H IVPB 11/26/17 23:00 12/03/17 22:59 11/28/17 22:30 Dextrose (Dextrose 50%) 25 ml STAT PRN IV Hypoglycemia 11/27/17 12:00 12/27/17 11:59 Dextrose (Dextrose 50%) 50 ml STAT PRN IV Hypoglycemia 11/27/17 11:00 12/27/17 10:59 Gabapentin (Neurontin) 100 mg BID ORAL 11/26/17 22:00 12/26/17 21:59 11/29/17 17:39 Heparin Sodium (Porcine) (Heparin 5000 units/ml) 5,000 units EVERY 8 HOURS SUBQ 11/26/17 22:00 12/26/17 21:59 11/29/17 06:23 Insulin Aspart (NovoLOG) BEFORE MEALS AND HS SUBQ 11/27/17 12:30 12/27/17 12:29 11/29/17 17:36 Memantine (Namenda) 5 mg DAILY ORAL 11/28/17 09:00 12/28/17 08:59 11/29/17 09:21 Nitroglycerin (Ntg) 1 patch Q24H TDERMAL 11/28/17 17:00 12/28/17 16:59 11/29/17 17:38 Olanzapine (ZyPREXA) 2.5 mg BEDTIME ORAL 11/28/17 21:00 12/28/17 20:59 11/28/17 21:02 Pantoprazole (Protonix) 40 mg DAILY ORAL 11/27/17 09:00 12/27/17 08:59 11/29/17 09:20 Paroxetine HCl (Paxil) 20 mg BEDTIME ORAL 11/27/17 21:00 12/27/17 20:59 11/28/17 21:02 Sodium 1,000 ml @ 75 mls/hr [id number] IV 11/27/17 12:30 12/27/17 12:29 11/29/17 17:37 Tyrese Pagan MD Nov 29, 2017 19:22
[2017-11-29 20:00] VITALS: BP 166/93
[2017-11-29] MEDS: PARoxetine 20mg tab ORAL SCH (22:08)
[2017-11-29] MEDS: OLANZapine 2.5mg tab ORAL SCH (22:08)
[2017-11-30] VITALS (7 sets, daily range): BP systolic 151–167; BP diastolic 73–87
[2017-11-30 05:54] LABS: EOSINOPHILS % (AUTO) 1.8 % (0.0-3.0); HEMATOCRIT 31.3 % (37.0-47.0); MEAN CORPUSCULAR VOLUME 91 FL (80-99); MONOCYTES % (AUTO) 9.3 % (1.0-10.0); NEUTROPHILS % (AUTO) 67.9 % (45.0-75.0); PLATELET COUNT 211 K/UL (150-450); RED BLOOD COUNT 3.44 M/UL (4.20-5.40); RED CELL DISTRIBUTION WIDTH 12.4 % (11.6-14.8); WHITE BLOOD COUNT 7.3 K/UL (4.8-10.8)
[2017-11-30 06:15] LABS: CREATINE KINASE 430 U/L (26-308)
[2017-11-30 06:16] LABS: ALANINE AMINOTRANSFERASE 36 U/L (12-78); ALBUMIN 2.5 G/DL (3.4-5.0); ALBUMIN/GLOBULIN RATIO 0.6 (1.0-2.7); ALKALINE PHOSPHATASE 74 U/L (46-116); ANION GAP 8 mmol/L (5-15); ASPARTATE AMINO TRANSFERASE 32 U/L (15-37); BILIRUBIN,TOTAL 0.3 MG/DL (0.2-1.0); BLOOD UREA NITROGEN 18 mg/dL (7-18); CALCIUM 8.2 MG/DL (8.5-10.1); CARBON DIOXIDE 24 MMOL/L (21-32); CHLORIDE 106 MMOL/L (98-107); CREATININE 1.7 MG/DL (0.55-1.30); PHOSPHORUS 3.1 MG/DL (2.5-4.9); POTASSIUM 3.9 MMOL/L (3.5-5.1); SODIUM 138 MMOL/L (136-145)
[2017-11-30] MEDS: NovoLOG Insulin Flexpen SUBQ SCH ×4 (07:01→20:46)
[2017-11-30] MEDS: Heparin 5000 units/ml inj SUBQ SCH ×3 (07:02→22:00)
[2017-11-30] MEDS: Memantine 5 MG TAB ORAL SCH (08:43)
[2017-11-30] MEDS: Aspirin Baby 81mg ORAL SCH (08:44)
[2017-11-30] MEDS: ALPRAZolam 0.25mg tab ORAL PRN (08:44)
[2017-11-30] MEDS: 1/2NS w/KCl 20mEq 1000ml 1,000 ML IV SCH ×2 (08:49→17:47)
[2017-11-30] MEDS ORDERED: Miralax 17gm pkt ORAL PRN ×2 (11:05→15:45)
--- NOTE | 2017-11-30 11:42 | Pulmonology Progress Note ---
Assessment/Plan Problems: (1) Acute encephalopathy (2) Sepsis (3) UTI (urinary tract infection) (4) SVT (supraventricular tachycardia) (5) Depression (6) Hypertension (7) DM (diabetes mellitus) Assessment/Plan on iv renal function becoming more stable continue abx, ceftriaxone urine cultures reviewed sliding scale diabetic diet pt/ot med/surg Subjective ROS Limited/Unobtainable: No Allergies: Coded Allergies: No Known Allergies (Unverified , 01/10/15) Objective Last 24 Hour Vital Signs Date Time Temp Pulse Resp B/P (MAP) Pulse Ox O2 Delivery O2 Flow Rate FiO2 11/30/17 08:44 77 151/73 11/30/17 08:43 77 151/73 11/30/17 08:00 98.2 77 20 151/73 97 Room Air 98.2 11/30/17 08:00 74 11/30/17 04:00 78 11/30/17 04:00 97.9 75 20 164/80 94 Room Air 97.9 11/30/17 00:00 75 11/30/17 00:00 97.7 75 20 167/87 96 Room Air 97.7 11/29/17 22:09 94 166/93 11/29/17 20:00 97.5 81 20 166/93 95 Room Air 97.5 11/29/17 20:00 83 11/29/17 17:38 167/86 11/29/17 17:37 82 167/86 11/29/17 16:41 97.8 11/29/17 16:00 97.8 82 20 167/86 95 Room Air 97.8 11/29/17 16:00 78 11/29/17 12:00 77 11/29/17 12:00 98.0 80 20 168/80 95 Room Air 98.0 Intake and Output 11/29/17 11/30/17 19:00 07:00 Intake Total 1305 ml Output Total 2000 ml 2000 ml Balance -695 ml -2000 ml Intake Oral 480 ml IV Total 825 ml Output Urine Total 2000 ml 2000 ml Objective General Appearance: cachectic HEENT: normocephalic Respiratory/Chest: chest wall non-tender, lungs clear Breasts: no masses Cardiovascular: normal rate Abdomen: normal bowel sounds, soft, non tender Extremities: no cyanosis Skin: no ulcers Neurologic/Psychiatric: no motor/sensory deficits Microbiology Date/Time Source Procedure Growth Status 11/27/17 16:10 Blood Blood Culture - Preliminary NO GROWTH AFTER 48 HOURS Resulted 11/27/17 16:05 Blood Blood Culture - Preliminary NO GROWTH AFTER 48 HOURS Resulted Laboratory Tests 11/30/17 04:35: White Blood Count 7.3, Red Blood Count 3.44L, Hemoglobin 11.0L, Hematocrit 31.3L , Mean Corpuscular Volume 91, Mean Corpuscular Hemoglobin 31.9H, Mean Corpuscular Hemoglobin Concent 35.0, Red Cell Distribution Width 12.4, Platelet Count 211, Mean Platelet Volume 6.1L, Neutrophils (%) (Auto) 67.9, Lymphocytes ( %) (Auto) 20.0, Monocytes (%) (Auto) 9.3, Eosinophils (%) (Auto) 1.8, Basophils (%) (Auto) 1.0, Sodium Level 138, Potassium Level 3.9, Chloride Level 106, Carbon Dioxide Level 24, Anion Gap 8, Blood Urea Nitrogen 18, Creatinine 1.7H, Estimat Glomerular Filtration Rate , Glucose Level 137H, Uric Acid 4.1, Calcium Level 8.2L, Phosphorus Level 3.1, Magnesium Level 1.6L, Total Bilirubin 0.3, Aspartate Amino Transf (AST/SGOT) 32, Alanine Aminotransferase (ALT/SGPT) 36, Alkaline Phosphatase 74, Total Creatine Kinase 430H, Troponin I 0.017, C- Reactive Protein, Quantitative 1.5H, Pro-B-Type Natriuretic Peptide 1397H, Total Protein 6.5, Albumin 2.5L, Globulin 4.0, Albumin/Globulin Ratio 0.6L Current Medications Medications (Trade) Dose Ordered Sig/Mikhail Route PRN Reason Start Time Stop Time Status Last Admin Dose Admin Acetaminophen (Tylenol) 650 mg Q6H PRN ORAL Mild Pain/Temp > 100.5 11/28/17 11:30 12/28/17 11:29 11/29/17 15:42 Alprazolam (Xanax) 0.25 mg Q8H PRN ORAL For Anxiety 11/26/17 19:00 12/03/17 18:59 11/30/17 08:44 Amlodipine Besylate (Norvasc) 5 mg BID ORAL 11/28/17 18:00 12/27/17 08:59 11/30/17 08:43 Aspirin (ASA) 81 mg DAILY ORAL 11/27/17 09:00 12/27/17 08:59 11/30/17 08:44 Carvedilol (Coreg) 6.25 mg EVERY 12 HOURS ORAL 11/29/17 21:00 12/26/17 20:59 11/30/17 08:44 Ceftriaxone Sodium 1 gm/ Dextrose 110 ml @ 220 mls/hr Q24H IVPB 11/26/17 23:00 12/03/17 22:59 11/29/17 01:00 Dextrose (Dextrose 50%) 25 ml STAT PRN IV Hypoglycemia 11/27/17 12:00 12/27/17 11:59 Dextrose (Dextrose 50%) 50 ml STAT PRN IV Hypoglycemia 11/27/17 11:00 12/27/17 10:59 Gabapentin (Neurontin) 100 mg BID ORAL 11/26/17 22:00 12/26/17 21:59 11/30/17 08:42 Heparin Sodium (Porcine) (Heparin 5000 units/ml) 5,000 units EVERY 8 HOURS SUBQ 11/26/17 22:00 12/26/17 21:59 11/30/17 07:02 Insulin Aspart (NovoLOG) BEFORE MEALS AND HS SUBQ 11/27/17 12:30 12/27/17 12:29 11/30/17 07:01 Memantine (Namenda) 5 mg DAILY ORAL 11/28/17 09:00 12/28/17 08:59 11/30/17 08:43 Nitroglycerin (Ntg) 1 patch Q24H TDERMAL 11/28/17 17:00 12/28/17 16:59 11/29/17 17:38 Olanzapine (ZyPREXA) 2.5 mg BEDTIME ORAL 11/28/17 21:00 12/28/17 20:59 11/29/17 22:08 Pantoprazole (Protonix) 40 mg DAILY ORAL 11/27/17 09:00 12/27/17 08:59 11/30/17 09:12 Paroxetine HCl (Paxil) 20 mg BEDTIME ORAL 11/27/17 21:00 12/27/17 20:59 11/29/17 22:08 Polyethylene Glycol (Miralax) 17 gm DAILY PRN ORAL Constipation 11/30/17 11:05 12/30/17 11:04 11/30/17 11:38 Sodium 1,000 ml @ 75 mls/hr [id number] IV 11/27/17 12:30 12/27/17 12:29 11/30/17 08:49 Georgie Montanez MD Nov 30, 2017 11:42
--- NOTE | 2017-11-30 12:08 | Nephrology Progress Note ---
Assessment/Plan Problem List: (1) Hypertension (2) DM (diabetes mellitus) (3) Anemia (4) ARF (acute renal failure) Assessment CKD with proteinuria likely diabetic- cr down 1.8 UTI Encephalopathy Anemia 1. Syncopal episode. 2. Left facial droop. 3. Urinary tract infection. 4. Hypertension. 5. Diabetes type 2. 6. Hypercholesterolemia. 7. Coronary artery disease. Plan Keep BP and BS in check increase coreg Avoid nephrotoxic Per consultants fu renal parameters Subjective ROS Limited/Unobtainable: No Constitutional: Reports: malaise Objective Objective Last 24 Hour Vital Signs Date Time Temp Pulse Resp B/P (MAP) Pulse Ox O2 Delivery O2 Flow Rate FiO2 11/30/17 08:44 77 151/73 11/30/17 08:43 77 151/73 11/30/17 08:00 98.2 77 20 151/73 97 Room Air 98.2 11/30/17 08:00 74 11/30/17 04:00 78 11/30/17 04:00 97.9 75 20 164/80 94 Room Air 97.9 11/30/17 00:00 75 11/30/17 00:00 97.7 75 20 167/87 96 Room Air 97.7 11/29/17 22:09 94 166/93 11/29/17 20:00 97.5 81 20 166/93 95 Room Air 97.5 11/29/17 20:00 83 11/29/17 17:38 167/86 11/29/17 17:37 82 167/86 11/29/17 16:41 97.8 11/29/17 16:00 97.8 82 20 167/86 95 Room Air 97.8 11/29/17 16:00 78 Intake and Output 11/29/17 11/30/17 19:00 07:00 Intake Total 1305 ml Output Total 2000 ml 2000 ml Balance -695 ml -2000 ml Intake Oral 480 ml IV Total 825 ml Output Urine Total 2000 ml 2000 ml Laboratory Tests 11/30/17 04:35: White Blood Count 7.3, Red Blood Count 3.44L, Hemoglobin 11.0L, Hematocrit 31.3L , Mean Corpuscular Volume 91, Mean Corpuscular Hemoglobin 31.9H, Mean Corpuscular Hemoglobin Concent 35.0, Red Cell Distribution Width 12.4, Platelet Count 211, Mean Platelet Volume 6.1L, Neutrophils (%) (Auto) 67.9, Lymphocytes ( %) (Auto) 20.0, Monocytes (%) (Auto) 9.3, Eosinophils (%) (Auto) 1.8, Basophils (%) (Auto) 1.0, Sodium Level 138, Potassium Level 3.9, Chloride Level 106, Carbon Dioxide Level 24, Anion Gap 8, Blood Urea Nitrogen 18, Creatinine 1.7H, Estimat Glomerular Filtration Rate , Glucose Level 137H, Uric Acid 4.1, Calcium Level 8.2L, Phosphorus Level 3.1, Magnesium Level 1.6L, Total Bilirubin 0.3, Aspartate Amino Transf (AST/SGOT) 32, Alanine Aminotransferase (ALT/SGPT) 36, Alkaline Phosphatase 74, Total Creatine Kinase 430H, Troponin I 0.017, C- Reactive Protein, Quantitative 1.5H, Pro-B-Type Natriuretic Peptide 1397H, Total Protein 6.5, Albumin 2.5L, Globulin 4.0, Albumin/Globulin Ratio 0.6L Height (Feet): 5 Height (Inches): 10.00 Weight (Pounds): 161 General Appearance: no apparent distress Objective no change AMOL DAVILA Nov 30, 2017 12:08
--- NOTE | 2017-11-30 14:44 | Internal Med Progress Note ---
Subjective Date of Service: Nov 30, 2017 Physician Name Wayne,Marcell Attending Physician García Neil MD Current Medications Medications (Trade) Dose Ordered Sig/Mikhail Route PRN Reason Start Time Stop Time Status Last Admin Dose Admin Acetaminophen (Tylenol) 650 mg Q6H PRN ORAL Mild Pain/Temp > 100.5 11/28/17 11:30 12/28/17 11:29 11/29/17 15:42 Alprazolam (Xanax) 0.25 mg Q8H PRN ORAL For Anxiety 11/26/17 19:00 12/03/17 18:59 11/30/17 08:44 Amlodipine Besylate (Norvasc) 5 mg BID ORAL 11/28/17 18:00 12/27/17 08:59 11/30/17 08:43 Aspirin (ASA) 81 mg DAILY ORAL 11/27/17 09:00 12/27/17 08:59 11/30/17 08:44 Carvedilol (Coreg) 6.25 mg EVERY 12 HOURS ORAL 11/29/17 21:00 12/26/17 20:59 11/30/17 08:44 Ceftriaxone Sodium 1 gm/ Dextrose 110 ml @ 220 mls/hr Q24H IVPB 11/26/17 23:00 12/03/17 22:59 11/29/17 01:00 Dextrose (Dextrose 50%) 25 ml STAT PRN IV Hypoglycemia 11/27/17 12:00 12/27/17 11:59 Dextrose (Dextrose 50%) 50 ml STAT PRN IV Hypoglycemia 11/27/17 11:00 12/27/17 10:59 Gabapentin (Neurontin) 100 mg BID ORAL 11/26/17 22:00 12/26/17 21:59 11/30/17 08:42 Heparin Sodium (Porcine) (Heparin 5000 units/ml) 5,000 units EVERY 8 HOURS SUBQ 11/26/17 22:00 12/26/17 21:59 11/30/17 07:02 Insulin Aspart (NovoLOG) BEFORE MEALS AND HS SUBQ 11/27/17 12:30 12/27/17 12:29 11/30/17 11:43 Memantine (Namenda) 5 mg DAILY ORAL 11/28/17 09:00 12/28/17 08:59 11/30/17 08:43 Nitroglycerin (Ntg) 1 patch Q24H TDERMAL 11/28/17 17:00 12/28/17 16:59 11/29/17 17:38 Olanzapine (ZyPREXA) 2.5 mg BEDTIME ORAL 11/28/17 21:00 12/28/17 20:59 11/29/17 22:08 Pantoprazole (Protonix) 40 mg DAILY ORAL 11/27/17 09:00 12/27/17 08:59 11/30/17 09:12 Paroxetine HCl (Paxil) 20 mg BEDTIME ORAL 11/27/17 21:00 12/27/17 20:59 11/29/17 22:08 Polyethylene Glycol (Miralax) 17 gm DAILY PRN ORAL Constipation 11/30/17 11:05 12/30/17 11:04 11/30/17 11:38 Sodium 1,000 ml @ 75 mls/hr [id number] IV 11/27/17 12:30 12/27/17 12:29 11/30/17 08:49 Allergies: Coded Allergies: No Known Allergies (Unverified , 01/10/15) ROS Limited/Unobtainable: No Constitutional: Reports: no symptoms HEENT: Reports: no symptoms Cardiovascular: Reports: no symptoms Respiratory: Reports: no symptoms Gastrointestinal/Abdominal: Reports: no symptoms Genitourinary: Reports: no symptoms Neurologic/Psychiatric: Reports: no symptoms Subjective 77 YO F admitted with syncope and left facial weakness. Now Rhabdomyolysis, UTI and possible pneumonia. Cover for Int Alexy-Dr Neil Objective Last Vital Signs Date Time Temp Pulse Resp B/P (MAP) Pulse Ox O2 Delivery O2 Flow Rate FiO2 11/30/17 12:00 97.0 76 20 155/77 96 Room Air 97.0 Laboratory Tests Test 11/30/17 04:35 White Blood Count 7.3 K/UL (4.8-10.8) Red Blood Count 3.44 M/UL (4.20-5.40) L Hemoglobin 11.0 G/DL (12.0-16.0) L Hematocrit 31.3 % (37.0-47.0) L Mean Corpuscular Volume 91 FL (80-99) Mean Corpuscular Hemoglobin 31.9 PG (27.0-31.0) H Mean Corpuscular Hemoglobin Concent 35.0 G/DL (32.0-36.0) Red Cell Distribution Width 12.4 % (11.6-14.8) Platelet Count 211 K/UL (150-450) Mean Platelet Volume 6.1 FL (6.5-10.1) L Neutrophils (%) (Auto) 67.9 % (45.0-75.0) Lymphocytes (%) (Auto) 20.0 % (20.0-45.0) Monocytes (%) (Auto) 9.3 % (1.0-10.0) Eosinophils (%) (Auto) 1.8 % (0.0-3.0) Basophils (%) (Auto) 1.0 % (0.0-2.0) Sodium Level 138 MMOL/L (136-145) Potassium Level 3.9 MMOL/L (3.5-5.1) Chloride Level 106 MMOL/L (98-107) Carbon Dioxide Level 24 MMOL/L (21-32) Anion Gap 8 mmol/L (5-15) Blood Urea Nitrogen 18 mg/dL (7-18) Creatinine 1.7 MG/DL (0.55-1.30) H Estimat Glomerular Filtration Rate mL/min (>60) Glucose Level 137 MG/DL (74-106) H Uric Acid 4.1 MG/DL (2.6-7.2) Calcium Level 8.2 MG/DL (8.5-10.1) L Phosphorus Level 3.1 MG/DL (2.5-4.9) Magnesium Level 1.6 MG/DL (1.8-2.4) L Total Bilirubin 0.3 MG/DL (0.2-1.0) Aspartate Amino Transf (AST/SGOT) 32 U/L (15-37) Alanine Aminotransferase (ALT/SGPT) 36 U/L (12-78) Alkaline Phosphatase 74 U/L (46-116) Total Creatine Kinase 430 U/L (26-308) H Troponin I 0.017 ng/mL (0.000-0.056) C-Reactive Protein, Quantitative 1.5 mg/dL (0.00-0.90) H Pro-B-Type Natriuretic Peptide 1397 pg/mL (0-125) H Total Protein 6.5 G/DL (6.4-8.2) Albumin 2.5 G/DL (3.4-5.0) L Globulin 4.0 g/dL Albumin/Globulin Ratio 0.6 (1.0-2.7) L Microbiology Date/Time Source Procedure Growth Status 11/27/17 16:10 Blood Blood Culture - Preliminary NO GROWTH AFTER 48 HOURS Resulted 11/27/17 16:05 Blood Blood Culture - Preliminary NO GROWTH AFTER 48 HOURS Resulted Intake and Output 11/29/17 11/30/17 19:00 07:00 Intake Total 1305 ml Output Total 2000 ml 2000 ml Balance -695 ml -2000 ml Intake Oral 480 ml IV Total 825 ml Output Urine Total 2000 ml 2000 ml Objective GENERAL: The patient is a well-developed and well-nourished female, in no apparent distress. HEENT: Pupils equal and responsive to light and accommodation. Extraocular movements are intact. The patient does have a right-sided facial droop noted. CHEST: Lungs are clear to auscultation bilaterally without wheezes or rales. CARDIOVASCULAR: Regular rhythm and rate. S1 and S2 are normal without murmurs, rubs, or gallops. ABDOMEN: Soft, nontender, and nondistended. Positive bowel sounds. No evidence of hepatosplenomegaly. Currently, no rebound or guarding noted. EXTREMITIES: Negative for clubbing, cyanosis, or edema. RECTAL/GENITAL: Refused. NEUROLOGIC: The patient does have a right-sided facial droop. Cranial nerves II through XII are grossly intact without focal deficits. Motor strength is 4/5 bilaterally. Deep tendon reflexes are 2+ plantar. Assessment/Plan Problem List: (1) Coronary artery disease (2) Elevated troponin Assessment & Plan: Due to renal Failure. See cardiology note. (3) Rhabdomyolysis Assessment & Plan: Follow CPK (4) Syncope (5) UTI (urinary tract infection) Assessment & Plan: E. Coli. Continue rocephin (6) DM (diabetes mellitus) Assessment & Plan: continue novolog sliding scale. (7) Hypertension Assessment & Plan: Continue amlodipine. (8) ARF (acute renal failure) Assessment & Plan: See nephrology note. Status: progressing Assessment/Plan Discharge planning MARCELL WAYNE Nov 30, 2017 14:44
[2017-11-30] MEDS ORDERED: ALPRAZolam 0.25mg tab ORAL PRN (15:40)
--- NOTE | 2017-11-30 16:06 | Cardiac Electrophysiology PN ---
Assessment/Plan Assessment/Plan 1. Elevated troponin. Due to renal failure with creatinine of 2 as well as CPK of more than 1100. Echo showed normal left ventricular systolic function. The EKG does not show active ischemic changes. Continue aspirin and Coreg. Hold statin for now for high CPK. No chest pain 2. History of coronary artery bypass graft. On aspirin and Coreg 3. Supraventricular tachycardia, rate of up to 170 beats per minute. The electrophysiology study as outpatient. Continue Coreg 4. Hypertension, on Coreg 3.125 mg b.i.d. and Norvasc 5 mg daily. 5. UTI, on IV antibiotic. 6. Status post fall with very high CPK. Creatinine is 2. 7. Renal failure. EVE RN Subjective Subjective Comfortable in NAD. No arrhythmias on tele.Just transferred to [facility] Objective Last 24 Hour Vital Signs Date Time Temp Pulse Resp B/P (MAP) Pulse Ox O2 Delivery O2 Flow Rate FiO2 11/30/17 12:00 97.0 76 20 155/77 96 Room Air 97.0 11/30/17 12:00 79 11/30/17 08:44 77 151/73 11/30/17 08:43 77 151/73 11/30/17 08:00 98.2 77 20 151/73 97 Room Air 98.2 11/30/17 08:00 74 11/30/17 04:00 78 11/30/17 04:00 97.9 75 20 164/80 94 Room Air 97.9 11/30/17 00:00 75 11/30/17 00:00 97.7 75 20 167/87 96 Room Air 97.7 11/29/17 22:09 94 166/93 11/29/17 20:00 97.5 81 20 166/93 95 Room Air 97.5 11/29/17 20:00 83 11/29/17 17:38 167/86 11/29/17 17:37 82 167/86 11/29/17 16:41 97.8 Intake and Output 11/29/17 11/30/17 19:00 07:00 Intake Total 1305 ml Output Total 2000 ml 2000 ml Balance -695 ml -2000 ml Intake Oral 480 ml IV Total 825 ml Output Urine Total 2000 ml 2000 ml Laboratory Tests Test 11/30/17 04:35 White Blood Count 7.3 K/UL (4.8-10.8) Red Blood Count 3.44 M/UL (4.20-5.40) L Hemoglobin 11.0 G/DL (12.0-16.0) L Hematocrit 31.3 % (37.0-47.0) L Mean Corpuscular Volume 91 FL (80-99) Mean Corpuscular Hemoglobin 31.9 PG (27.0-31.0) H Mean Corpuscular Hemoglobin Concent 35.0 G/DL (32.0-36.0) Red Cell Distribution Width 12.4 % (11.6-14.8) Platelet Count 211 K/UL (150-450) Mean Platelet Volume 6.1 FL (6.5-10.1) L Neutrophils (%) (Auto) 67.9 % (45.0-75.0) Lymphocytes (%) (Auto) 20.0 % (20.0-45.0) Monocytes (%) (Auto) 9.3 % (1.0-10.0) Eosinophils (%) (Auto) 1.8 % (0.0-3.0) Basophils (%) (Auto) 1.0 % (0.0-2.0) Sodium Level 138 MMOL/L (136-145) Potassium Level 3.9 MMOL/L (3.5-5.1) Chloride Level 106 MMOL/L (98-107) Carbon Dioxide Level 24 MMOL/L (21-32) Anion Gap 8 mmol/L (5-15) Blood Urea Nitrogen 18 mg/dL (7-18) Creatinine 1.7 MG/DL (0.55-1.30) H Estimat Glomerular Filtration Rate mL/min (>60) Glucose Level 137 MG/DL (74-106) H Uric Acid 4.1 MG/DL (2.6-7.2) Calcium Level 8.2 MG/DL (8.5-10.1) L Phosphorus Level 3.1 MG/DL (2.5-4.9) Magnesium Level 1.6 MG/DL (1.8-2.4) L Total Bilirubin 0.3 MG/DL (0.2-1.0) Aspartate Amino Transf (AST/SGOT) 32 U/L (15-37) Alanine Aminotransferase (ALT/SGPT) 36 U/L (12-78) Alkaline Phosphatase 74 U/L (46-116) Total Creatine Kinase 430 U/L (26-308) H Troponin I 0.017 ng/mL (0.000-0.056) C-Reactive Protein, Quantitative 1.5 mg/dL (0.00-0.90) H Pro-B-Type Natriuretic Peptide 1397 pg/mL (0-125) H Total Protein 6.5 G/DL (6.4-8.2) Albumin 2.5 G/DL (3.4-5.0) L Globulin 4.0 g/dL Albumin/Globulin Ratio 0.6 (1.0-2.7) L Microbiology Date/Time Source Procedure Growth Status 11/27/17 16:10 Blood Blood Culture - Preliminary NO GROWTH AFTER 48 HOURS Resulted 11/27/17 16:05 Blood Blood Culture - Preliminary NO GROWTH AFTER 48 HOURS Resulted Objective HEAD AND NECK: No JVD LUNGS: Clear. CARDIOVASCULAR: Regular S1 and S2 with no gallop. Sternotomy scar is intact. ABDOMEN: Soft. EXTREMITIES: 1+ pitting edema. Hunter Ruby MD Nov 30, 2017 16:06
[2017-11-30] MEDS: Nitroglycerin Patch 0.4mg TDERMAL SCH (17:50)
[2017-11-30] MEDS ORDERED: Fleet's Enema 133ml RECTAL PRN ×2 (18:15)
[2017-11-30] MEDS: Carvedilol 6.25mg Tab ORAL SCH (20:07)
[2017-11-30] MEDS: OLANZapine 2.5mg tab ORAL SCH (20:08)
[2017-11-30] MEDS: PARoxetine 20mg tab ORAL SCH (20:22)
[2017-11-30] MEDS: cefTRIAXone 1 GM in D5W 110 ML IVPB SCH (23:32)
[2017-12-01] VITALS: BP 140/67
[2017-12-01] MEDS: 1/2NS w/KCl 20mEq 1000ml 1,000 ML IV SCH ×2 (01:55→17:10)
[2017-12-01] MEDS: Heparin 5000 units/ml inj SUBQ SCH ×3 (05:55→21:40)
[2017-12-01] MEDS: NovoLOG Insulin Flexpen SUBQ SCH ×4 (05:56→21:00)
[2017-12-01 07:22] LABS: BASOPHILS % (AUTO) 0.8 % (0.0-2.0); EOSINOPHILS % (AUTO) 1.5 % (0.0-3.0); HEMATOCRIT 31.4 % (37.0-47.0); HEMOGLOBIN 10.3 G/DL (12.0-16.0); LYMPHOCYTES % (AUTO) 20.1 % (20.0-45.0); MEAN CORPUSCULAR VOLUME 93 FL (80-99); NEUTROPHILS % (AUTO) 69.5 % (45.0-75.0); PLATELET COUNT 208 K/UL (150-450); RED BLOOD COUNT 3.39 M/UL (4.20-5.40); RED CELL DISTRIBUTION WIDTH 12.5 % (11.6-14.8); WHITE BLOOD COUNT 9.2 K/UL (4.8-10.8)
[2017-12-01 07:50] LABS: ALANINE AMINOTRANSFERASE 28 U/L (12-78); ALBUMIN 2.5 G/DL (3.4-5.0); ALBUMIN/GLOBULIN RATIO 0.7 (1.0-2.7); ALKALINE PHOSPHATASE 70 U/L (46-116); ANION GAP 8 mmol/L (5-15); ASPARTATE AMINO TRANSFERASE 23 U/L (15-37); BILIRUBIN,TOTAL 0.3 MG/DL (0.2-1.0); BLOOD UREA NITROGEN 20 mg/dL (7-18); CALCIUM 8.1 MG/DL (8.5-10.1); CARBON DIOXIDE 25 MMOL/L (21-32); CHLORIDE 106 MMOL/L (98-107); CREATININE 1.8 MG/DL (0.55-1.30); POTASSIUM 4.1 MMOL/L (3.5-5.1); SODIUM 139 MMOL/L (136-145)
[2017-12-01 08:00] VITALS: BP 146/76
[2017-12-01] MEDS: Aspirin Baby 81mg ORAL SCH (08:53)
[2017-12-01] MEDS: Memantine 5 MG TAB ORAL SCH (08:53)
[2017-12-01] MEDS: Carvedilol 6.25mg Tab ORAL SCH ×2 (08:54→21:17)
[2017-12-01 12:00] VITALS: BP 131/77
--- NOTE | 2017-12-01 12:49 | Nephrology Progress Note ---
Assessment/Plan Problem List: (1) Hypertension (2) DM (diabetes mellitus) (3) Anemia (4) ARF (acute renal failure) Assessment CKD with proteinuria likely diabetic- cr down 1.8 UTI Encephalopathy Anemia 1. Syncopal episode. 2. Left facial droop. 3. Urinary tract infection. 4. Hypertension. 5. Diabetes type 2. 6. Hypercholesterolemia. 7. Coronary artery disease. Plan Keep BP and BS in check increase coreg Avoid nephrotoxic Per consultants fu renal parameters Subjective ROS Limited/Unobtainable: No Constitutional: Reports: malaise Objective Objective Last 24 Hour Vital Signs Date Time Temp Pulse Resp B/P (MAP) Pulse Ox O2 Delivery O2 Flow Rate FiO2 12/01/17 08:54 82 146/76 12/01/17 08:53 82 146/76 12/01/17 08:00 97.5 82 17 146/76 97 Room Air 97.5 12/01/17 04:00 97.0 84 20 97 Room Air 97.0 12/01/17 01:09 97.2 12/01/17 00:10 101.0 12/01/17 00:00 100.1 76 19 140/67 96 Room Air 100.1 11/30/17 20:08 85 167/85 11/30/17 20:07 85 167/85 11/30/17 20:00 98.2 85 19 167/85 96 Room Air 98.2 11/30/17 17:50 156/87 11/30/17 16:00 99.0 86 20 156/81 95 Room Air 99.0 Intake and Output 11/30/17 12/01/17 19:00 07:00 Intake Total 765 ml 675 ml Output Total 200 ml 1000 ml Balance 565 ml -325 ml Intake Oral 690 ml IV Total 75 ml 675 ml Output Urine Total 200 ml 1000 ml Laboratory Tests 12/01/17 04:30: Urine Eosinophils None seen 12/01/17 05:30: White Blood Count 9.2, Red Blood Count 3.39L, Hemoglobin 10.3L, Hematocrit 31.4L , Mean Corpuscular Volume 93, Mean Corpuscular Hemoglobin 30.5, Mean Corpuscular Hemoglobin Concent 33.0, Red Cell Distribution Width 12.5, Platelet Count 208, Mean Platelet Volume 5.8L, Neutrophils (%) (Auto) 69.5, Lymphocytes ( %) (Auto) 20.1, Monocytes (%) (Auto) 8.0, Eosinophils (%) (Auto) 1.5, Basophils (%) (Auto) 0.8, Sodium Level 139, Potassium Level 4.1, Chloride Level 106, Carbon Dioxide Level 25, Anion Gap 8, Blood Urea Nitrogen 20H, Creatinine 1.8H, Estimat Glomerular Filtration Rate , Glucose Level 111H, Calcium Level 8.1L, Phosphorus Level 4.0, Magnesium Level 1.8, Total Bilirubin 0.3, Aspartate Amino Transf (AST/SGOT) 23, Alanine Aminotransferase (ALT/SGPT) 28, Alkaline Phosphatase 70, Total Protein 6.2L, Albumin 2.5L, Globulin 3.7, Albumin/ Globulin Ratio 0.7L 12/01/17 07:00: Stool Occult Blood Negative Height (Feet): 5 Height (Inches): 10.00 Weight (Pounds): 161 General Appearance: no apparent distress Objective no change AMOL DAVILA Dec 01, 2017 12:49
--- NOTE | 2017-12-01 13:37 | Pulmonology Progress Note ---
Assessment/Plan Problems: (1) Acute encephalopathy (2) Sepsis (3) UTI (urinary tract infection) (4) SVT (supraventricular tachycardia) (5) Depression (6) Hypertension (7) DM (diabetes mellitus) Assessment/Plan doing better renal function becoming more stable continue abx, ceftriaxone finsihding soon. urine cultures reviewed sliding scale diabetic diet pt/ot med/surg Subjective ROS Limited/Unobtainable: No Constitutional: Reports: no symptoms HEENT: Repors: no symptoms Respiratory: Reports: no symptoms Allergies: Coded Allergies: No Known Allergies (Unverified , 01/10/15) Objective Last 24 Hour Vital Signs Date Time Temp Pulse Resp B/P (MAP) Pulse Ox O2 Delivery O2 Flow Rate FiO2 12/01/17 12:00 97.5 63 17 131/77 97 Room Air 97.5 12/01/17 08:54 82 146/76 12/01/17 08:53 82 146/76 12/01/17 08:00 97.5 82 17 146/76 97 Room Air 97.5 12/01/17 04:00 97.0 84 20 97 Room Air 97.0 12/01/17 01:09 97.2 12/01/17 00:10 101.0 12/01/17 00:00 100.1 76 19 140/67 96 Room Air 100.1 11/30/17 20:08 85 167/85 11/30/17 20:07 85 167/85 11/30/17 20:00 98.2 85 19 167/85 96 Room Air 98.2 11/30/17 17:50 156/87 11/30/17 16:00 99.0 86 20 156/81 95 Room Air 99.0 Intake and Output 11/30/17 12/01/17 19:00 07:00 Intake Total 765 ml 675 ml Output Total 200 ml 1000 ml Balance 565 ml -325 ml Intake Oral 690 ml IV Total 75 ml 675 ml Output Urine Total 200 ml 1000 ml Objective General Appearance: cachectic HEENT: normocephalic Respiratory/Chest: chest wall non-tender, lungs clear Breasts: no masses Cardiovascular: normal rate Abdomen: normal bowel sounds, soft, non tender Extremities: no cyanosis Skin: no ulcers Neurologic/Psychiatric: no motor/sensory deficits Laboratory Tests 12/01/17 04:30: Urine Eosinophils None seen 12/01/17 05:30: White Blood Count 9.2, Red Blood Count 3.39L, Hemoglobin 10.3L, Hematocrit 31.4L , Mean Corpuscular Volume 93, Mean Corpuscular Hemoglobin 30.5, Mean Corpuscular Hemoglobin Concent 33.0, Red Cell Distribution Width 12.5, Platelet Count 208, Mean Platelet Volume 5.8L, Neutrophils (%) (Auto) 69.5, Lymphocytes ( %) (Auto) 20.1, Monocytes (%) (Auto) 8.0, Eosinophils (%) (Auto) 1.5, Basophils (%) (Auto) 0.8, Sodium Level 139, Potassium Level 4.1, Chloride Level 106, Carbon Dioxide Level 25, Anion Gap 8, Blood Urea Nitrogen 20H, Creatinine 1.8H, Estimat Glomerular Filtration Rate , Glucose Level 111H, Calcium Level 8.1L, Phosphorus Level 4.0, Magnesium Level 1.8, Total Bilirubin 0.3, Aspartate Amino Transf (AST/SGOT) 23, Alanine Aminotransferase (ALT/SGPT) 28, Alkaline Phosphatase 70, Total Protein 6.2L, Albumin 2.5L, Globulin 3.7, Albumin/ Globulin Ratio 0.7L 12/01/17 07:00: Stool Occult Blood Negative Current Medications Medications (Trade) Dose Ordered Sig/Mikhail Route PRN Reason Start Time Stop Time Status Last Admin Dose Admin Acetaminophen (Tylenol) 650 mg Q6H PRN ORAL Mild Pain/Temp > 100.5 11/30/17 15:40 12/28/17 15:39 12/01/17 09:08 Alprazolam (Xanax) 0.25 mg Q8H PRN ORAL For Anxiety 11/30/17 15:40 12/03/17 15:39 Amlodipine Besylate (Norvasc) 5 mg Q12HR ORAL 11/30/17 21:00 12/30/17 20:59 12/01/17 08:53 Aspirin (ASA) 81 mg DAILY ORAL 12/01/17 09:00 12/27/17 08:59 12/01/17 08:53 Carvedilol (Coreg) 6.25 mg EVERY 12 HOURS ORAL 11/30/17 21:00 12/26/17 20:59 12/01/17 08:54 Ceftriaxone Sodium 1 gm/ Dextrose 110 ml @ 220 mls/hr Q24H IVPB 11/30/17 23:00 12/03/17 22:59 11/30/17 23:32 Dextrose (Dextrose 50%) 25 ml STAT PRN IV Hypoglycemia 11/30/17 15:42 12/30/17 15:41 Dextrose (Dextrose 50%) 50 ml STAT PRN IV Hypoglycemia 11/30/17 15:42 12/30/17 15:41 Gabapentin (Neurontin) 100 mg BID ORAL 11/30/17 18:00 12/26/17 21:59 12/01/17 08:53 Heparin Sodium (Porcine) (Heparin 5000 units/ml) 5,000 units EVERY 8 HOURS SUBQ 11/30/17 22:00 12/26/17 21:59 12/01/17 05:55 Insulin Aspart (NovoLOG) BEFORE MEALS AND HS SUBQ 11/30/17 16:30 12/27/17 12:29 12/01/17 12:04 Memantine (Namenda) 5 mg DAILY ORAL 12/01/17 09:00 12/28/17 08:59 12/01/17 08:53 Nitroglycerin (Ntg) 1 patch Q24H TDERMAL 11/30/17 17:00 12/28/17 16:59 11/30/17 17:50 Olanzapine (ZyPREXA) 2.5 mg BEDTIME ORAL 11/30/17 21:00 12/28/17 20:59 11/30/17 20:08 Pantoprazole (Protonix) 40 mg DAILY ORAL 12/01/17 09:00 12/27/17 08:59 12/01/17 08:53 Paroxetine HCl (Paxil) 20 mg BEDTIME ORAL 11/30/17 21:00 12/27/17 20:59 11/30/17 20:22 Polyethylene Glycol (Miralax) 17 gm DAILY PRN ORAL Constipation 11/30/17 15:45 12/30/17 15:44 Sodium 1,000 ml @ 75 mls/hr [id number] IV 11/30/17 15:40 12/27/17 15:39 12/01/17 01:55 Sodium Phosphate (Fleet's Sodium Phosl Enema) 133 ml DAILY PRN RECTAL Constipation 11/30/17 18:15 12/30/17 18:14 Georgie Montanez MD Dec 01, 2017 13:37
--- NOTE | 2017-12-01 15:27 | Infectious Diseases Prog Note ---
Assessment/Plan Assessment/Plan ASSESSMENT: The patient is a 77-year-old female with: Urinary tract infection E Coli dysuria and pyuria US : Renal parenchymal echogenicity appears within normal limits bilaterally. Doubt pneumonia Not complaining of cough MRI : No acute intracranial findings. No evidence of acute CVA. Status post fall CAD Hyperlipidemia Hypertension Renal insufficiency Osteoarthritis Diabetes Depression PLAN: continue the patient on Rocephin d# 6 / 7-10 , upon DC will cont pt on Keflex to cont Monitor CBC Monitor BMP. Monitor chest x-ray blood Cx Subjective Allergies: Coded Allergies: No Known Allergies (Unverified , 01/10/15) Subjective SP low grade fever Objective Vital Signs Last 24 Hour Vital Signs Date Time Temp Pulse Resp B/P (MAP) Pulse Ox O2 Delivery O2 Flow Rate FiO2 12/01/17 12:00 97.5 63 17 131/77 97 Room Air 97.5 12/01/17 08:54 82 146/76 12/01/17 08:53 82 146/76 12/01/17 08:00 97.5 82 17 146/76 97 Room Air 97.5 12/01/17 04:00 97.0 84 20 97 Room Air 97.0 12/01/17 01:09 97.2 12/01/17 00:10 101.0 12/01/17 00:00 100.1 76 19 140/67 96 Room Air 100.1 11/30/17 20:08 85 167/85 11/30/17 20:07 85 167/85 11/30/17 20:00 98.2 85 19 167/85 96 Room Air 98.2 11/30/17 17:50 156/87 11/30/17 16:00 99.0 86 20 156/81 95 Room Air 99.0 Height (Feet): 5 Height (Inches): 10.00 Weight (Pounds): 161 HEENT: mucous membranes moist Respiratory/Chest: normal breath sounds Cardiovascular: regular rhythm Abdomen: no organomegaly Laboratory Tests Test 12/01/17 04:30 12/01/17 05:30 12/01/17 07:00 Urine Eosinophils None seen White Blood Count 9.2 K/UL (4.8-10.8) Red Blood Count 3.39 M/UL (4.20-5.40) L Hemoglobin 10.3 G/DL (12.0-16.0) L Hematocrit 31.4 % (37.0-47.0) L Mean Corpuscular Volume 93 FL (80-99) Mean Corpuscular Hemoglobin 30.5 PG (27.0-31.0) Mean Corpuscular Hemoglobin Concent 33.0 G/DL (32.0-36.0) Red Cell Distribution Width 12.5 % (11.6-14.8) Platelet Count 208 K/UL (150-450) Mean Platelet Volume 5.8 FL (6.5-10.1) L Neutrophils (%) (Auto) 69.5 % (45.0-75.0) Lymphocytes (%) (Auto) 20.1 % (20.0-45.0) Monocytes (%) (Auto) 8.0 % (1.0-10.0) Eosinophils (%) (Auto) 1.5 % (0.0-3.0) Basophils (%) (Auto) 0.8 % (0.0-2.0) Sodium Level 139 MMOL/L (136-145) Potassium Level 4.1 MMOL/L (3.5-5.1) Chloride Level 106 MMOL/L (98-107) Carbon Dioxide Level 25 MMOL/L (21-32) Anion Gap 8 mmol/L (5-15) Blood Urea Nitrogen 20 mg/dL (7-18) H Creatinine 1.8 MG/DL (0.55-1.30) H Estimat Glomerular Filtration Rate mL/min (>60) Glucose Level 111 MG/DL (74-106) H Calcium Level 8.1 MG/DL (8.5-10.1) L Phosphorus Level 4.0 MG/DL (2.5-4.9) Magnesium Level 1.8 MG/DL (1.8-2.4) Total Bilirubin 0.3 MG/DL (0.2-1.0) Aspartate Amino Transf (AST/SGOT) 23 U/L (15-37) Alanine Aminotransferase (ALT/SGPT) 28 U/L (12-78) Alkaline Phosphatase 70 U/L (46-116) Total Protein 6.2 G/DL (6.4-8.2) L Albumin 2.5 G/DL (3.4-5.0) L Globulin 3.7 g/dL Albumin/Globulin Ratio 0.7 (1.0-2.7) L Stool Occult Blood Negative (NEGATIVE) Current Medications Medications (Trade) Dose Ordered Sig/Mikhail Route PRN Reason Start Time Stop Time Status Last Admin Dose Admin Acetaminophen (Tylenol) 650 mg Q6H PRN ORAL Mild Pain/Temp > 100.5 11/30/17 15:40 12/28/17 15:39 12/01/17 09:08 Alprazolam (Xanax) 0.25 mg Q8H PRN ORAL For Anxiety 11/30/17 15:40 12/03/17 15:39 Amlodipine Besylate (Norvasc) 5 mg Q12HR ORAL 11/30/17 21:00 12/30/17 20:59 12/01/17 08:53 Aspirin (ASA) 81 mg DAILY ORAL 12/01/17 09:00 12/27/17 08:59 12/01/17 08:53 Carvedilol (Coreg) 6.25 mg EVERY 12 HOURS ORAL 11/30/17 21:00 12/26/17 20:59 12/01/17 08:54 Ceftriaxone Sodium 1 gm/ Dextrose 110 ml @ 220 mls/hr Q24H IVPB 11/30/17 23:00 12/03/17 22:59 11/30/17 23:32 Dextrose (Dextrose 50%) 25 ml STAT PRN IV Hypoglycemia 11/30/17 15:42 12/30/17 15:41 Dextrose (Dextrose 50%) 50 ml STAT PRN IV Hypoglycemia 11/30/17 15:42 12/30/17 15:41 Gabapentin (Neurontin) 100 mg BID ORAL 11/30/17 18:00 12/26/17 21:59 12/01/17 08:53 Heparin Sodium (Porcine) (Heparin 5000 units/ml) 5,000 units EVERY 8 HOURS SUBQ 11/30/17 22:00 12/26/17 21:59 12/01/17 13:55 Insulin Aspart (NovoLOG) BEFORE MEALS AND HS SUBQ 11/30/17 16:30 12/27/17 12:29 12/01/17 12:04 Memantine (Namenda) 5 mg DAILY ORAL 12/01/17 09:00 12/28/17 08:59 12/01/17 08:53 Nitroglycerin (Ntg) 1 patch Q24H TDERMAL 11/30/17 17:00 12/28/17 16:59 11/30/17 17:50 Olanzapine (ZyPREXA) 2.5 mg BEDTIME ORAL 11/30/17 21:00 12/28/17 20:59 11/30/17 20:08 Pantoprazole (Protonix) 40 mg DAILY ORAL 12/01/17 09:00 12/27/17 08:59 12/01/17 08:53 Paroxetine HCl (Paxil) 20 mg BEDTIME ORAL 11/30/17 21:00 12/27/17 20:59 11/30/17 20:22 Polyethylene Glycol (Miralax) 17 gm DAILY PRN ORAL Constipation 11/30/17 15:45 12/30/17 15:44 Sodium 1,000 ml @ 75 mls/hr [id number] IV 11/30/17 15:40 12/27/17 15:39 12/01/17 01:55 Sodium Phosphate (Fleet's Sodium Phosl Enema) 133 ml DAILY PRN RECTAL Constipation 11/30/17 18:15 12/30/17 18:14 Tyrese Pagan MD Dec 01, 2017 15:27
[2017-12-01 16:00] VITALS: BP 144/74
--- NOTE | 2017-12-01 17:02 | Internal Med Progress Note ---
Subjective Date of Service: Dec 01, 2017 Physician Name Marcell Wayne Attending Physician García Neil MD Current Medications Medications (Trade) Dose Ordered Sig/Mikhail Route PRN Reason Start Time Stop Time Status Last Admin Dose Admin Acetaminophen (Tylenol) 650 mg Q6H PRN ORAL Mild Pain/Temp > 100.5 11/30/17 15:40 12/28/17 15:39 12/01/17 09:08 Alprazolam (Xanax) 0.25 mg Q8H PRN ORAL For Anxiety 11/30/17 15:40 12/03/17 15:39 Amlodipine Besylate (Norvasc) 5 mg Q12HR ORAL 11/30/17 21:00 12/30/17 20:59 12/01/17 08:53 Aspirin (ASA) 81 mg DAILY ORAL 12/01/17 09:00 12/27/17 08:59 12/01/17 08:53 Carvedilol (Coreg) 6.25 mg EVERY 12 HOURS ORAL 11/30/17 21:00 12/26/17 20:59 12/01/17 08:54 Ceftriaxone Sodium 1 gm/ Dextrose 110 ml @ 220 mls/hr Q24H IVPB 11/30/17 23:00 12/03/17 22:59 11/30/17 23:32 Dextrose (Dextrose 50%) 25 ml STAT PRN IV Hypoglycemia 11/30/17 15:42 12/30/17 15:41 Dextrose (Dextrose 50%) 50 ml STAT PRN IV Hypoglycemia 11/30/17 15:42 12/30/17 15:41 Gabapentin (Neurontin) 100 mg BID ORAL 11/30/17 18:00 12/26/17 21:59 12/01/17 08:53 Heparin Sodium (Porcine) (Heparin 5000 units/ml) 5,000 units EVERY 8 HOURS SUBQ 11/30/17 22:00 12/26/17 21:59 12/01/17 13:55 Insulin Aspart (NovoLOG) BEFORE MEALS AND HS SUBQ 11/30/17 16:30 12/27/17 12:29 12/01/17 12:04 Memantine (Namenda) 5 mg DAILY ORAL 12/01/17 09:00 12/28/17 08:59 12/01/17 08:53 Nitroglycerin (Ntg) 1 patch Q24H TDERMAL 11/30/17 17:00 12/28/17 16:59 11/30/17 17:50 Olanzapine (ZyPREXA) 2.5 mg BEDTIME ORAL 11/30/17 21:00 12/28/17 20:59 11/30/17 20:08 Pantoprazole (Protonix) 40 mg DAILY ORAL 12/01/17 09:00 12/27/17 08:59 12/01/17 08:53 Paroxetine HCl (Paxil) 20 mg BEDTIME ORAL 11/30/17 21:00 12/27/17 20:59 11/30/17 20:22 Polyethylene Glycol (Miralax) 17 gm DAILY PRN ORAL Constipation 11/30/17 15:45 12/30/17 15:44 Sodium 1,000 ml @ 75 mls/hr [id number] IV 11/30/17 15:40 12/27/17 15:39 12/01/17 01:55 Sodium Phosphate (Fleet's Sodium Phosl Enema) 133 ml DAILY PRN RECTAL Constipation 11/30/17 18:15 12/30/17 18:14 Allergies: Coded Allergies: No Known Allergies (Unverified , 01/10/15) ROS Limited/Unobtainable: No Constitutional: Reports: no symptoms HEENT: Reports: no symptoms Cardiovascular: Reports: no symptoms Respiratory: Reports: no symptoms Gastrointestinal/Abdominal: Reports: no symptoms Genitourinary: Reports: no symptoms Neurologic/Psychiatric: Reports: no symptoms Subjective 77 YO F admitted with syncope and left facial weakness. Now Rhabdomyolysis, UTI and possible pneumonia. Cover for Int Alexy-Dr Neil Objective Last Vital Signs Date Time Temp Pulse Resp B/P (MAP) Pulse Ox O2 Delivery O2 Flow Rate FiO2 12/01/17 12:00 97.5 63 17 131/77 97 Room Air 97.5 Laboratory Tests Test 12/01/17 04:30 12/01/17 05:30 12/01/17 07:00 Urine Eosinophils None seen White Blood Count 9.2 K/UL (4.8-10.8) Red Blood Count 3.39 M/UL (4.20-5.40) L Hemoglobin 10.3 G/DL (12.0-16.0) L Hematocrit 31.4 % (37.0-47.0) L Mean Corpuscular Volume 93 FL (80-99) Mean Corpuscular Hemoglobin 30.5 PG (27.0-31.0) Mean Corpuscular Hemoglobin Concent 33.0 G/DL (32.0-36.0) Red Cell Distribution Width 12.5 % (11.6-14.8) Platelet Count 208 K/UL (150-450) Mean Platelet Volume 5.8 FL (6.5-10.1) L Neutrophils (%) (Auto) 69.5 % (45.0-75.0) Lymphocytes (%) (Auto) 20.1 % (20.0-45.0) Monocytes (%) (Auto) 8.0 % (1.0-10.0) Eosinophils (%) (Auto) 1.5 % (0.0-3.0) Basophils (%) (Auto) 0.8 % (0.0-2.0) Sodium Level 139 MMOL/L (136-145) Potassium Level 4.1 MMOL/L (3.5-5.1) Chloride Level 106 MMOL/L (98-107) Carbon Dioxide Level 25 MMOL/L (21-32) Anion Gap 8 mmol/L (5-15) Blood Urea Nitrogen 20 mg/dL (7-18) H Creatinine 1.8 MG/DL (0.55-1.30) H Estimat Glomerular Filtration Rate mL/min (>60) Glucose Level 111 MG/DL (74-106) H Calcium Level 8.1 MG/DL (8.5-10.1) L Phosphorus Level 4.0 MG/DL (2.5-4.9) Magnesium Level 1.8 MG/DL (1.8-2.4) Total Bilirubin 0.3 MG/DL (0.2-1.0) Aspartate Amino Transf (AST/SGOT) 23 U/L (15-37) Alanine Aminotransferase (ALT/SGPT) 28 U/L (12-78) Alkaline Phosphatase 70 U/L (46-116) Total Protein 6.2 G/DL (6.4-8.2) L Albumin 2.5 G/DL (3.4-5.0) L Globulin 3.7 g/dL Albumin/Globulin Ratio 0.7 (1.0-2.7) L Stool Occult Blood Negative (NEGATIVE) Intake and Output 11/30/17 12/01/17 19:00 07:00 Intake Total 765 ml 675 ml Output Total 200 ml 1000 ml Balance 565 ml -325 ml Intake Oral 690 ml IV Total 75 ml 675 ml Output Urine Total 200 ml 1000 ml Objective GENERAL: The patient is a well-developed and well-nourished female, in no apparent distress. HEENT: Pupils equal and responsive to light and accommodation. Extraocular movements are intact. The patient does have a right-sided facial droop noted. CHEST: Lungs are clear to auscultation bilaterally without wheezes or rales. CARDIOVASCULAR: Regular rhythm and rate. S1 and S2 are normal without murmurs, rubs, or gallops. ABDOMEN: Soft, nontender, and nondistended. Positive bowel sounds. No evidence of hepatosplenomegaly. Currently, no rebound or guarding noted. EXTREMITIES: Negative for clubbing, cyanosis, or edema. RECTAL/GENITAL: Refused. NEUROLOGIC: The patient does have a right-sided facial droop. Cranial nerves II through XII are grossly intact without focal deficits. Motor strength is 4/5 bilaterally. Deep tendon reflexes are 2+ plantar. Assessment/Plan Problem List: (1) Coronary artery disease (2) Elevated troponin Assessment & Plan: Due to renal Failure. See cardiology note. (3) Rhabdomyolysis Assessment & Plan: Follow CPK (4) Syncope (5) UTI (urinary tract infection) Assessment & Plan: E. Coli. Continue rocephin (6) DM (diabetes mellitus) Assessment & Plan: continue novolog sliding scale. (7) Hypertension Assessment & Plan: Continue amlodipine. (8) ARF (acute renal failure) Assessment & Plan: See nephrology note. Assessment/Plan Discharge planning MARCELL WAYNE Dec 01, 2017 17:02
[2017-12-01] MEDS: Nitroglycerin Patch 0.4mg TDERMAL SCH (17:09)
[2017-12-01 20:00] VITALS: BP 137/70
[2017-12-01] MEDS: OLANZapine 2.5mg tab ORAL SCH (21:16)
[2017-12-01] MEDS: PARoxetine 20mg tab ORAL SCH (21:17)
[2017-12-01] MEDS: cefTRIAXone 1 GM in D5W 110 ML IVPB SCH (23:59)
[2017-12-02] VITALS: BP 146/77
[2017-12-02 04:00] VITALS: BP 144/77
[2017-12-02] MEDS: NovoLOG Insulin Flexpen SUBQ SCH ×3 (06:19→16:30)
[2017-12-02] MEDS: Heparin 5000 units/ml inj SUBQ SCH ×2 (06:20→13:53)
[2017-12-02 06:53] LABS: EOSINOPHILS % (AUTO) 2.3 % (0.0-3.0); HEMATOCRIT 29.5 % (37.0-47.0); HEMOGLOBIN 9.8 G/DL (12.0-16.0); LYMPHOCYTES % (AUTO) 20.1 % (20.0-45.0); MEAN CORPUSCULAR VOLUME 92 FL (80-99); MONOCYTES % (AUTO) 7.3 % (1.0-10.0); NEUTROPHILS % (AUTO) 69.3 % (45.0-75.0); PLATELET COUNT 211 K/UL (150-450); RED BLOOD COUNT 3.21 M/UL (4.20-5.40); RED CELL DISTRIBUTION WIDTH 12.4 % (11.6-14.8)
[2017-12-02 07:16] LABS: ANION GAP 10 mmol/L (5-15); BLOOD UREA NITROGEN 21 mg/dL (7-18); CARBON DIOXIDE 24 MMOL/L (21-32); CHLORIDE 105 MMOL/L (98-107); CREATININE 1.8 MG/DL (0.55-1.30); POTASSIUM 4.3 MMOL/L (3.5-5.1); SODIUM 139 MMOL/L (136-145)
[2017-12-02 07:22] LABS: CREATINE KINASE 78 U/L (26-308)
[2017-12-02 08:00] VITALS: BP 150/63
[2017-12-02] MEDS: Aspirin Baby 81mg ORAL SCH (08:34)
[2017-12-02] MEDS: Carvedilol 6.25mg Tab ORAL SCH (08:34)
[2017-12-02] MEDS: Memantine 5 MG TAB ORAL SCH (08:35)
[2017-12-02] MEDS: 1/2NS w/KCl 20mEq 1000ml 1,000 ML IV SCH (08:36)
[2017-12-02] MEDS ORDERED: Fleet's Enema 133ml RECTAL ONE (10:00)
--- NOTE | 2017-12-02 10:57 | Cardiac Electrophysiology PN ---
Assessment/Plan Assessment/Plan 1. Elevated troponin. Due to renal failure with creatinine of 2 as well as CPK of more than 1100. Echo showed normal left ventricular systolic function. The EKG no active ischemic changes. Continue aspirin and Coreg. Hold statin for now for high CPK. No chest pain 2. History of coronary artery bypass graft. On aspirin and Coreg 3. Supraventricular tachycardia, rate of up to 170 beats per minute. The electrophysiology study as outpatient. Continue Coreg 4. Hypertension, on Coreg 3.125 mg b.i.d. and Norvasc 5 mg daily. 5. UTI, on IV antibiotic. 6. Status post fall with very high CPK. Creatinine is 1.8 today 7. Renal failure. EVE RN Subjective Subjective Comfortable in NAD. Now on NMB. Still on IV Abx. DC planning in progress Objective Last 24 Hour Vital Signs Date Time Temp Pulse Resp B/P (MAP) Pulse Ox O2 Delivery O2 Flow Rate FiO2 12/02/17 08:34 74 150/63 12/02/17 08:34 74 150/63 12/02/17 08:00 98.6 74 22 150/63 99 Room Air 98.6 12/02/17 04:00 99.0 75 20 144/77 97 Room Air 99.0 12/02/17 00:00 98.6 67 18 146/77 98 Room Air 98.6 12/01/17 21:17 72 141/69 12/01/17 21:17 72 141/69 12/01/17 20:00 99.0 69 20 137/70 96 Room Air 99.0 12/01/17 17:09 144/74 12/01/17 16:00 98.0 79 17 144/74 97 Room Air 98.0 12/01/17 12:00 97.5 63 17 131/77 97 Room Air 97.5 Intake and Output 12/01/17 12/02/17 19:00 07:00 Intake Total 480 ml 750 ml Output Total 500 ml 2500 ml Balance -20 ml -1750 ml Intake Oral 480 ml IV Total 750 ml Output Urine Total 2500 ml Stool Total 500 ml # Bowel Movements 1 Laboratory Tests Test 12/02/17 05:00 12/02/17 05:55 Urine Eosinophils None seen White Blood Count 8.0 K/UL (4.8-10.8) Red Blood Count 3.21 M/UL (4.20-5.40) L Hemoglobin 9.8 G/DL (12.0-16.0) L Hematocrit 29.5 % (37.0-47.0) L Mean Corpuscular Volume 92 FL (80-99) Mean Corpuscular Hemoglobin 30.5 PG (27.0-31.0) Mean Corpuscular Hemoglobin Concent 33.3 G/DL (32.0-36.0) Red Cell Distribution Width 12.4 % (11.6-14.8) Platelet Count 211 K/UL (150-450) Mean Platelet Volume 6.5 FL (6.5-10.1) Neutrophils (%) (Auto) 69.3 % (45.0-75.0) Lymphocytes (%) (Auto) 20.1 % (20.0-45.0) Monocytes (%) (Auto) 7.3 % (1.0-10.0) Eosinophils (%) (Auto) 2.3 % (0.0-3.0) Basophils (%) (Auto) 1.0 % (0.0-2.0) Sodium Level 139 MMOL/L (136-145) Potassium Level 4.3 MMOL/L (3.5-5.1) Chloride Level 105 MMOL/L (98-107) Carbon Dioxide Level 24 MMOL/L (21-32) Anion Gap 10 mmol/L (5-15) Blood Urea Nitrogen 21 mg/dL (7-18) H Creatinine 1.8 MG/DL (0.55-1.30) H Estimat Glomerular Filtration Rate mL/min (>60) Glucose Level 135 MG/DL (74-106) H Calcium Level 8.0 MG/DL (8.5-10.1) L Total Creatine Kinase 78 U/L (26-308) Objective HEAD AND NECK: No JVD LUNGS: Clear. CARDIOVASCULAR: Regular S1 and S2 with no gallop. Sternotomy scar is intact. ABDOMEN: Soft. EXTREMITIES: 1+ pitting edema. Hunter Ruby MD Dec 02, 2017 10:57
[2017-12-02 11:59] VITALS: BP 151/67
[2017-12-02] MEDS ORDERED: PAROXETINE HCL20 MG ORAL (14:31)
[2017-12-02] MEDS ORDERED: OLANZAPINE2.5 MG ORAL (14:31)
[2017-12-02] MEDS ORDERED: CEPHALEXIN500 MG ORAL (14:32)
--- NOTE | 2017-12-02 14:33 | Pulmonology Progress Note ---
Assessment/Plan Problems: (1) Acute encephalopathy (2) Sepsis (3) UTI (urinary tract infection) (4) SVT (supraventricular tachycardia) (5) Depression (6) Hypertension (7) DM (diabetes mellitus) Assessment/Plan doing better renal function becoming more stable continue abx, ceftriaxone finsihding soon. urine cultures reviewed sliding scale diabetic diet pt/ot med/surg dc home with Keflex for 5 days Subjective ROS Limited/Unobtainable: No Constitutional: Reports: no symptoms HEENT: Repors: no symptoms Respiratory: Reports: no symptoms Allergies: Coded Allergies: No Known Allergies (Unverified , 01/10/15) Objective Last 24 Hour Vital Signs Date Time Temp Pulse Resp B/P (MAP) Pulse Ox O2 Delivery O2 Flow Rate FiO2 12/02/17 11:59 98.6 63 20 151/67 99 Room Air 98.6 12/02/17 08:34 74 150/63 12/02/17 08:34 74 150/63 12/02/17 08:00 98.6 74 22 150/63 99 Room Air 98.6 12/02/17 04:00 99.0 75 20 144/77 97 Room Air 99.0 12/02/17 00:00 98.6 67 18 146/77 98 Room Air 98.6 12/01/17 21:17 72 141/69 12/01/17 21:17 72 141/69 12/01/17 20:00 99.0 69 20 137/70 96 Room Air 99.0 12/01/17 17:09 144/74 12/01/17 16:00 98.0 79 17 144/74 97 Room Air 98.0 Intake and Output 12/01/17 12/02/17 19:00 07:00 Intake Total 480 ml 750 ml Output Total 500 ml 2500 ml Balance -20 ml -1750 ml Intake Oral 480 ml IV Total 750 ml Output Urine Total 2500 ml Stool Total 500 ml # Bowel Movements 1 Objective General Appearance: cachectic HEENT: normocephalic Respiratory/Chest: chest wall non-tender, lungs clear Breasts: no masses Cardiovascular: normal rate Abdomen: normal bowel sounds, soft, non tender Extremities: no cyanosis Skin: no ulcers Neurologic/Psychiatric: no motor/sensory deficits Laboratory Tests 12/02/17 05:00: Urine Eosinophils None seen 12/02/17 05:55: White Blood Count 8.0, Red Blood Count 3.21L, Hemoglobin 9.8L, Hematocrit 29.5L , Mean Corpuscular Volume 92, Mean Corpuscular Hemoglobin 30.5, Mean Corpuscular Hemoglobin Concent 33.3, Red Cell Distribution Width 12.4, Platelet Count 211, Mean Platelet Volume 6.5, Neutrophils (%) (Auto) 69.3, Lymphocytes (% ) (Auto) 20.1, Monocytes (%) (Auto) 7.3, Eosinophils (%) (Auto) 2.3, Basophils ( %) (Auto) 1.0, Sodium Level 139, Potassium Level 4.3, Chloride Level 105, Carbon Dioxide Level 24, Anion Gap 10, Blood Urea Nitrogen 21H, Creatinine 1.8H , Estimat Glomerular Filtration Rate , Glucose Level 135H, Calcium Level 8.0L, Total Creatine Kinase 78 Current Medications Medications (Trade) Dose Ordered Sig/Mikhail Route PRN Reason Start Time Stop Time Status Last Admin Dose Admin Acetaminophen (Tylenol) 650 mg Q6H PRN ORAL Mild Pain/Temp > 100.5 11/30/17 15:40 12/28/17 15:39 12/02/17 13:52 Alprazolam (Xanax) 0.25 mg Q8H PRN ORAL For Anxiety 11/30/17 15:40 12/03/17 15:39 Amlodipine Besylate (Norvasc) 5 mg Q12HR ORAL 11/30/17 21:00 12/30/17 20:59 12/02/17 08:34 Aspirin (ASA) 81 mg DAILY ORAL 12/01/17 09:00 12/27/17 08:59 12/02/17 08:34 Carvedilol (Coreg) 6.25 mg EVERY 12 HOURS ORAL 11/30/17 21:00 12/26/17 20:59 12/02/17 08:34 Ceftriaxone Sodium 1 gm/ Dextrose 110 ml @ 220 mls/hr Q24H IVPB 11/30/17 23:00 12/03/17 22:59 12/01/17 23:59 Clonidine HCl (Catapres Tab) 0.1 mg Q4H PRN ORAL SBP > 160mmHg 12/02/17 13:00 01/01/18 12:59 Dextrose (Dextrose 50%) 25 ml STAT PRN IV Hypoglycemia 11/30/17 15:42 12/30/17 15:41 Dextrose (Dextrose 50%) 50 ml STAT PRN IV Hypoglycemia 11/30/17 15:42 12/30/17 15:41 Gabapentin (Neurontin) 100 mg BID ORAL 11/30/17 18:00 12/26/17 21:59 12/02/17 08:34 Heparin Sodium (Porcine) (Heparin 5000 units/ml) 5,000 units EVERY 8 HOURS SUBQ 11/30/17 22:00 12/26/17 21:59 12/02/17 13:53 Insulin Aspart (NovoLOG) BEFORE MEALS AND HS SUBQ 11/30/17 16:30 12/27/17 12:29 12/02/17 06:19 Memantine (Namenda) 5 mg DAILY ORAL 12/01/17 09:00 12/28/17 08:59 12/02/17 08:35 Nitroglycerin (Ntg) 1 patch Q24H TDERMAL 11/30/17 17:00 12/28/17 16:59 12/01/17 17:09 Olanzapine (ZyPREXA) 2.5 mg BEDTIME ORAL 11/30/17 21:00 12/28/17 20:59 12/01/17 21:16 Pantoprazole (Protonix) 40 mg DAILY ORAL 12/01/17 09:00 12/27/17 08:59 12/02/17 08:34 Paroxetine HCl (Paxil) 20 mg BEDTIME ORAL 11/30/17 21:00 12/27/17 20:59 12/01/17 21:17 Polyethylene Glycol (Miralax) 17 gm DAILY PRN ORAL Constipation 11/30/17 15:45 12/30/17 15:44 Sodium 1,000 ml @ 75 mls/hr [id number] IV 11/30/17 15:40 12/27/17 15:39 12/02/17 08:36 Sodium Phosphate (Fleet's Sodium Phosl Enema) 133 ml DAILY PRN RECTAL Constipation 11/30/17 18:15 12/30/17 18:14 Georgie Montanez MD Dec 02, 2017 14:33
--- NOTE | 2017-12-02 15:23 | Nephrology Progress Note ---
Assessment/Plan Problem List: (1) Hypertension (2) DM (diabetes mellitus) (3) Anemia (4) ARF (acute renal failure) Assessment CKD with proteinuria likely diabetic- cr down 1.8 UTI Encephalopathy Anemia 1. Syncopal episode. 2. Left facial droop. 3. Urinary tract infection. 4. Hypertension. 5. Diabetes type 2. 6. Hypercholesterolemia. 7. Coronary artery disease. Plan Keep BP and BS in check increase coreg Avoid nephrotoxic Per consultants fu renal parameters Subjective ROS Limited/Unobtainable: No Constitutional: Reports: malaise Objective Objective Last 24 Hour Vital Signs Date Time Temp Pulse Resp B/P (MAP) Pulse Ox O2 Delivery O2 Flow Rate FiO2 12/02/17 11:59 98.6 63 20 151/67 99 Room Air 98.6 12/02/17 08:34 74 150/63 12/02/17 08:34 74 150/63 12/02/17 08:00 98.6 74 22 150/63 99 Room Air 98.6 12/02/17 04:00 99.0 75 20 144/77 97 Room Air 99.0 12/02/17 00:00 98.6 67 18 146/77 98 Room Air 98.6 12/01/17 21:17 72 141/69 12/01/17 21:17 72 141/69 12/01/17 20:00 99.0 69 20 137/70 96 Room Air 99.0 12/01/17 17:09 144/74 12/01/17 16:00 98.0 79 17 144/74 97 Room Air 98.0 Intake and Output 12/01/17 12/02/17 19:00 07:00 Intake Total 480 ml 750 ml Output Total 500 ml 2500 ml Balance -20 ml -1750 ml Intake Oral 480 ml IV Total 750 ml Output Urine Total 2500 ml Stool Total 500 ml # Bowel Movements 1 Laboratory Tests 12/02/17 05:00: Urine Eosinophils None seen 12/02/17 05:55: White Blood Count 8.0, Red Blood Count 3.21L, Hemoglobin 9.8L, Hematocrit 29.5L , Mean Corpuscular Volume 92, Mean Corpuscular Hemoglobin 30.5, Mean Corpuscular Hemoglobin Concent 33.3, Red Cell Distribution Width 12.4, Platelet Count 211, Mean Platelet Volume 6.5, Neutrophils (%) (Auto) 69.3, Lymphocytes (% ) (Auto) 20.1, Monocytes (%) (Auto) 7.3, Eosinophils (%) (Auto) 2.3, Basophils ( %) (Auto) 1.0, Sodium Level 139, Potassium Level 4.3, Chloride Level 105, Carbon Dioxide Level 24, Anion Gap 10, Blood Urea Nitrogen 21H, Creatinine 1.8H , Estimat Glomerular Filtration Rate , Glucose Level 135H, Calcium Level 8.0L, Total Creatine Kinase 78 Height (Feet): 5 Height (Inches): 10.00 Weight (Pounds): 161 General Appearance: no apparent distress Cardiovascular: normal rate Respiratory/Chest: lungs clear Abdomen: soft Objective no change AMOL DAVILA Dec 02, 2017 15:23
[2017-12-02 16:00] VITALS: BP 165/85
[2017-12-02] MEDS ORDERED: NS 275ml ONE ×3 (16:04→19:29)
[2017-12-02 17:33] VITALS: BP 165/85
[2017-12-02] MEDS: Nitroglycerin Patch 0.4mg TDERMAL SCH (17:33)
--- NOTE | 2017-12-02 19:08 | Internal Med Progress Note ---
Subjective Date of Service: Dec 02, 2017 Physician Name Marcell Wayne Attending Physician García Neil MD Current Medications Medications (Trade) Dose Ordered Sig/Mikhail Route PRN Reason Start Time Stop Time Status Last Admin Dose Admin Acetaminophen (Tylenol) 650 mg Q6H PRN ORAL Mild Pain/Temp > 100.5 11/30/17 15:40 12/28/17 15:39 12/02/17 13:52 Alprazolam (Xanax) 0.25 mg Q8H PRN ORAL For Anxiety 11/30/17 15:40 12/03/17 15:39 Amlodipine Besylate (Norvasc) 5 mg Q12HR ORAL 11/30/17 21:00 12/30/17 20:59 12/02/17 08:34 Aspirin (ASA) 81 mg DAILY ORAL 12/01/17 09:00 12/27/17 08:59 12/02/17 08:34 Carvedilol (Coreg) 6.25 mg EVERY 12 HOURS ORAL 11/30/17 21:00 12/26/17 20:59 12/02/17 08:34 Ceftriaxone Sodium 1 gm/ Dextrose 110 ml @ 220 mls/hr Q24H IVPB 11/30/17 23:00 12/03/17 22:59 12/01/17 23:59 Clonidine HCl (Catapres Tab) 0.1 mg Q4H PRN ORAL SBP > 160mmHg 12/02/17 13:00 01/01/18 12:59 12/02/17 16:29 Dextrose (Dextrose 50%) 25 ml STAT PRN IV Hypoglycemia 11/30/17 15:42 12/30/17 15:41 Dextrose (Dextrose 50%) 50 ml STAT PRN IV Hypoglycemia 11/30/17 15:42 12/30/17 15:41 Gabapentin (Neurontin) 100 mg BID ORAL 11/30/17 18:00 12/26/17 21:59 12/02/17 17:33 Heparin Sodium (Porcine) (Heparin 5000 units/ml) 5,000 units EVERY 8 HOURS SUBQ 11/30/17 22:00 12/26/17 21:59 12/02/17 13:53 Insulin Aspart (NovoLOG) BEFORE MEALS AND HS SUBQ 11/30/17 16:30 12/27/17 12:29 12/02/17 06:19 Memantine (Namenda) 5 mg DAILY ORAL 12/01/17 09:00 12/28/17 08:59 12/02/17 08:35 Nitroglycerin (Ntg) 1 patch Q24H TDERMAL 11/30/17 17:00 12/28/17 16:59 12/02/17 17:33 Olanzapine (ZyPREXA) 2.5 mg BEDTIME ORAL 11/30/17 21:00 12/28/17 20:59 12/01/17 21:16 Pantoprazole (Protonix) 40 mg DAILY ORAL 12/01/17 09:00 12/27/17 08:59 12/02/17 08:34 Paroxetine HCl (Paxil) 20 mg BEDTIME ORAL 11/30/17 21:00 12/27/17 20:59 12/01/17 21:17 Polyethylene Glycol (Miralax) 17 gm DAILY PRN ORAL Constipation 11/30/17 15:45 12/30/17 15:44 Sodium 1,000 ml @ 75 mls/hr [id number] IV 11/30/17 15:40 12/27/17 15:39 12/02/17 08:36 Sodium Phosphate (Fleet's Sodium Phosl Enema) 133 ml DAILY PRN RECTAL Constipation 11/30/17 18:15 12/30/17 18:14 Allergies: Coded Allergies: No Known Allergies (Unverified , 01/10/15) ROS Limited/Unobtainable: No Constitutional: Reports: no symptoms HEENT: Reports: no symptoms Cardiovascular: Reports: no symptoms Respiratory: Reports: no symptoms Gastrointestinal/Abdominal: Reports: no symptoms Genitourinary: Reports: no symptoms Neurologic/Psychiatric: Reports: no symptoms Subjective 77 YO F admitted with syncope and left facial weakness. Now Rhabdomyolysis, UTI and possible pneumonia. Cover for Int Alexy-Dr Neil. Await discharge home Objective Last Vital Signs Date Time Temp Pulse Resp B/P (MAP) Pulse Ox O2 Delivery O2 Flow Rate FiO2 12/02/17 17:33 165/85 12/02/17 16:00 98.7 78 20 97 Room Air 98.7 Laboratory Tests Test 12/02/17 05:00 12/02/17 05:55 Urine Eosinophils None seen White Blood Count 8.0 K/UL (4.8-10.8) Red Blood Count 3.21 M/UL (4.20-5.40) L Hemoglobin 9.8 G/DL (12.0-16.0) L Hematocrit 29.5 % (37.0-47.0) L Mean Corpuscular Volume 92 FL (80-99) Mean Corpuscular Hemoglobin 30.5 PG (27.0-31.0) Mean Corpuscular Hemoglobin Concent 33.3 G/DL (32.0-36.0) Red Cell Distribution Width 12.4 % (11.6-14.8) Platelet Count 211 K/UL (150-450) Mean Platelet Volume 6.5 FL (6.5-10.1) Neutrophils (%) (Auto) 69.3 % (45.0-75.0) Lymphocytes (%) (Auto) 20.1 % (20.0-45.0) Monocytes (%) (Auto) 7.3 % (1.0-10.0) Eosinophils (%) (Auto) 2.3 % (0.0-3.0) Basophils (%) (Auto) 1.0 % (0.0-2.0) Sodium Level 139 MMOL/L (136-145) Potassium Level 4.3 MMOL/L (3.5-5.1) Chloride Level 105 MMOL/L (98-107) Carbon Dioxide Level 24 MMOL/L (21-32) Anion Gap 10 mmol/L (5-15) Blood Urea Nitrogen 21 mg/dL (7-18) H Creatinine 1.8 MG/DL (0.55-1.30) H Estimat Glomerular Filtration Rate mL/min (>60) Glucose Level 135 MG/DL (74-106) H Calcium Level 8.0 MG/DL (8.5-10.1) L Total Creatine Kinase 78 U/L (26-308) Intake and Output 12/01/17 12/02/17 19:00 07:00 Intake Total 480 ml 750 ml Output Total 500 ml 2500 ml Balance -20 ml -1750 ml Intake Oral 480 ml IV Total 750 ml Output Urine Total 2500 ml Stool Total 500 ml # Bowel Movements 1 Objective GENERAL: The patient is a well-developed and well-nourished female, in no apparent distress. HEENT: Pupils equal and responsive to light and accommodation. Extraocular movements are intact. The patient does have a right-sided facial droop noted. CHEST: Lungs are clear to auscultation bilaterally without wheezes or rales. CARDIOVASCULAR: Regular rhythm and rate. S1 and S2 are normal without murmurs, rubs, or gallops. ABDOMEN: Soft, nontender, and nondistended. Positive bowel sounds. No evidence of hepatosplenomegaly. Currently, no rebound or guarding noted. EXTREMITIES: Negative for clubbing, cyanosis, or edema. RECTAL/GENITAL: Refused. NEUROLOGIC: The patient does have a right-sided facial droop. Cranial nerves II through XII are grossly intact without focal deficits. Motor strength is 4/5 bilaterally. Deep tendon reflexes are 2+ plantar. Assessment/Plan Problem List: (1) Coronary artery disease (2) Elevated troponin Assessment & Plan: Due to renal Failure. See cardiology note. (3) Rhabdomyolysis Assessment & Plan: Follow CPK (4) Syncope (5) UTI (urinary tract infection) Assessment & Plan: E. Coli. Continue rocephin (6) DM (diabetes mellitus) Assessment & Plan: continue novolog sliding scale. (7) Hypertension Assessment & Plan: Continue amlodipine. (8) ARF (acute renal failure) Assessment & Plan: See nephrology note. Assessment/Plan Discharge planning: home today MARCELL WAYNE Dec 02, 2017 19:08
--- NOTE | 2017-12-02 19:22 | Infectious Diseases Prog Note ---
Assessment/Plan Assessment/Plan ASSESSMENT: The patient is a 77-year-old female with: Urinary tract infection E Coli dysuria and pyuria US : Renal parenchymal echogenicity appears within normal limits bilaterally. Doubt pneumonia Not complaining of cough MRI : No acute intracranial findings. No evidence of acute CVA. Status post fall CAD Hyperlipidemia Hypertension Renal insufficiency Osteoarthritis Diabetes Depression PLAN: continue the patient on Rocephin d# 7 / 7-10 , upon DC will stop AB Rx Monitor CBC Monitor BMP. Monitor chest x-ray blood Cx Subjective Allergies: Coded Allergies: No Known Allergies (Unverified , 01/10/15) Subjective afebrile Objective Vital Signs Last 24 Hour Vital Signs Date Time Temp Pulse Resp B/P (MAP) Pulse Ox O2 Delivery O2 Flow Rate FiO2 12/02/17 17:33 165/85 12/02/17 16:29 165/85 12/02/17 16:00 98.7 78 20 165/85 97 Room Air 98.7 12/02/17 11:59 98.6 63 20 151/67 99 Room Air 98.6 12/02/17 08:34 74 150/63 12/02/17 08:34 74 150/63 12/02/17 08:00 98.6 74 22 150/63 99 Room Air 98.6 12/02/17 04:00 99.0 75 20 144/77 97 Room Air 99.0 12/02/17 00:00 98.6 67 18 146/77 98 Room Air 98.6 12/01/17 21:17 72 141/69 12/01/17 21:17 72 141/69 12/01/17 20:00 99.0 69 20 137/70 96 Room Air 99.0 Height (Feet): 5 Height (Inches): 10.00 Weight (Pounds): 161 HEENT: anicteric Respiratory/Chest: no respiratory distress Cardiovascular: regularly irregular Abdomen: no organomegaly Laboratory Tests Test 12/02/17 05:00 12/02/17 05:55 Urine Eosinophils None seen White Blood Count 8.0 K/UL (4.8-10.8) Red Blood Count 3.21 M/UL (4.20-5.40) L Hemoglobin 9.8 G/DL (12.0-16.0) L Hematocrit 29.5 % (37.0-47.0) L Mean Corpuscular Volume 92 FL (80-99) Mean Corpuscular Hemoglobin 30.5 PG (27.0-31.0) Mean Corpuscular Hemoglobin Concent 33.3 G/DL (32.0-36.0) Red Cell Distribution Width 12.4 % (11.6-14.8) Platelet Count 211 K/UL (150-450) Mean Platelet Volume 6.5 FL (6.5-10.1) Neutrophils (%) (Auto) 69.3 % (45.0-75.0) Lymphocytes (%) (Auto) 20.1 % (20.0-45.0) Monocytes (%) (Auto) 7.3 % (1.0-10.0) Eosinophils (%) (Auto) 2.3 % (0.0-3.0) Basophils (%) (Auto) 1.0 % (0.0-2.0) Sodium Level 139 MMOL/L (136-145) Potassium Level 4.3 MMOL/L (3.5-5.1) Chloride Level 105 MMOL/L (98-107) Carbon Dioxide Level 24 MMOL/L (21-32) Anion Gap 10 mmol/L (5-15) Blood Urea Nitrogen 21 mg/dL (7-18) H Creatinine 1.8 MG/DL (0.55-1.30) H Estimat Glomerular Filtration Rate mL/min (>60) Glucose Level 135 MG/DL (74-106) H Calcium Level 8.0 MG/DL (8.5-10.1) L Total Creatine Kinase 78 U/L (26-308) Current Medications Medications (Trade) Dose Ordered Sig/Mikhail Route PRN Reason Start Time Stop Time Status Last Admin Dose Admin Acetaminophen (Tylenol) 650 mg Q6H PRN ORAL Mild Pain/Temp > 100.5 11/30/17 15:40 12/28/17 15:39 12/02/17 13:52 Alprazolam (Xanax) 0.25 mg Q8H PRN ORAL For Anxiety 11/30/17 15:40 12/03/17 15:39 Amlodipine Besylate (Norvasc) 5 mg Q12HR ORAL 11/30/17 21:00 12/30/17 20:59 12/02/17 08:34 Aspirin (ASA) 81 mg DAILY ORAL 12/01/17 09:00 12/27/17 08:59 12/02/17 08:34 Carvedilol (Coreg) 6.25 mg EVERY 12 HOURS ORAL 11/30/17 21:00 12/26/17 20:59 12/02/17 08:34 Ceftriaxone Sodium 1 gm/ Dextrose 110 ml @ 220 mls/hr Q24H IVPB 11/30/17 23:00 12/03/17 22:59 12/01/17 23:59 Clonidine HCl (Catapres Tab) 0.1 mg Q4H PRN ORAL SBP > 160mmHg 12/02/17 13:00 01/01/18 12:59 12/02/17 16:29 Dextrose (Dextrose 50%) 25 ml STAT PRN IV Hypoglycemia 11/30/17 15:42 12/30/17 15:41 Dextrose (Dextrose 50%) 50 ml STAT PRN IV Hypoglycemia 11/30/17 15:42 12/30/17 15:41 Gabapentin (Neurontin) 100 mg BID ORAL 11/30/17 18:00 12/26/17 21:59 12/02/17 17:33 Heparin Sodium (Porcine) (Heparin 5000 units/ml) 5,000 units EVERY 8 HOURS SUBQ 11/30/17 22:00 12/26/17 21:59 12/02/17 13:53 Insulin Aspart (NovoLOG) BEFORE MEALS AND HS SUBQ 11/30/17 16:30 12/27/17 12:29 12/02/17 06:19 Memantine (Namenda) 5 mg DAILY ORAL 12/01/17 09:00 12/28/17 08:59 12/02/17 08:35 Nitroglycerin (Ntg) 1 patch Q24H TDERMAL 11/30/17 17:00 12/28/17 16:59 12/02/17 17:33 Olanzapine (ZyPREXA) 2.5 mg BEDTIME ORAL 11/30/17 21:00 12/28/17 20:59 12/01/17 21:16 Pantoprazole (Protonix) 40 mg DAILY ORAL 12/01/17 09:00 12/27/17 08:59 12/02/17 08:34 Paroxetine HCl (Paxil) 20 mg BEDTIME ORAL 11/30/17 21:00 12/27/17 20:59 12/01/17 21:17 Polyethylene Glycol (Miralax) 17 gm DAILY PRN ORAL Constipation 11/30/17 15:45 12/30/17 15:44 Sodium 1,000 ml @ 75 mls/hr [id number] IV 11/30/17 15:40 12/27/17 15:39 12/02/17 08:36 Sodium Phosphate (Fleet's Sodium Phosl Enema) 133 ml DAILY PRN RECTAL Constipation 11/30/17 18:15 12/30/17 18:14 Tyrese Pagan MD Dec 02, 2017 19:22
[2017-12-02] MEDS ORDERED: Tubing IV Secondary IV ONE (19:29)
--- NOTE | 2017-12-02 21:33 | General Progress Note ---
Assessment/Plan Assessment/Plan dementia with behavioral dist Paxil Zyprexa decreased Xanax Subjective Date patient seen: Nov 30, 2017 Neurologic/Psychiatric: Reports: anxiety, depressed, emotional problems Allergies: Coded Allergies: No Known Allergies (Unverified , 01/10/15) Subjective the pt was seen on 11/30/17 the pt is alert and less confused. No agitation today Objective Last 24 Hour Vital Signs Date Time Temp Pulse Resp B/P (MAP) Pulse Ox O2 Delivery O2 Flow Rate FiO2 12/02/17 17:33 165/85 12/02/17 16:29 165/85 12/02/17 16:00 98.7 78 20 165/85 97 Room Air 98.7 12/02/17 11:59 98.6 63 20 151/67 99 Room Air 98.6 12/02/17 08:34 74 150/63 12/02/17 08:34 74 150/63 12/02/17 08:00 98.6 74 22 150/63 99 Room Air 98.6 12/02/17 04:00 99.0 75 20 144/77 97 Room Air 99.0 12/02/17 00:00 98.6 67 18 146/77 98 Room Air 98.6 Intake and Output 12/01/17 12/02/17 19:00 07:00 Intake Total 480 ml 750 ml Output Total 500 ml 2500 ml Balance -20 ml -1750 ml Intake Oral 480 ml IV Total 750 ml Output Urine Total 2500 ml Stool Total 500 ml # Bowel Movements 1 Laboratory Tests 12/02/17 05:00: Urine Eosinophils None seen 12/02/17 05:55: White Blood Count 8.0, Red Blood Count 3.21L, Hemoglobin 9.8L, Hematocrit 29.5L , Mean Corpuscular Volume 92, Mean Corpuscular Hemoglobin 30.5, Mean Corpuscular Hemoglobin Concent 33.3, Red Cell Distribution Width 12.4, Platelet Count 211, Mean Platelet Volume 6.5, Neutrophils (%) (Auto) 69.3, Lymphocytes (% ) (Auto) 20.1, Monocytes (%) (Auto) 7.3, Eosinophils (%) (Auto) 2.3, Basophils ( %) (Auto) 1.0, Sodium Level 139, Potassium Level 4.3, Chloride Level 105, Carbon Dioxide Level 24, Anion Gap 10, Blood Urea Nitrogen 21H, Creatinine 1.8H , Estimat Glomerular Filtration Rate , Glucose Level 135H, Calcium Level 8.0L, Total Creatine Kinase 78 Height (Feet): 5 Height (Inches): 10.00 Weight (Pounds): 161 Gregg Acosta M.D. Dec 02, 2017 21:33
--- NOTE | 2017-12-02 21:33 | General Progress Note ---
Assessment/Plan Assessment/Plan dementia with behavioral dist Paxil Zyprexa decreased Xanax Subjective Date patient seen: Dec 01, 2017 Neurologic/Psychiatric: Reports: anxiety, depressed, emotional problems Allergies: Coded Allergies: No Known Allergies (Unverified , 01/10/15) Subjective the pt was seen on the pt is alert and less confused. the same Objective Last 24 Hour Vital Signs Date Time Temp Pulse Resp B/P (MAP) Pulse Ox O2 Delivery O2 Flow Rate FiO2 12/02/17 17:33 165/85 12/02/17 16:29 165/85 12/02/17 16:00 98.7 78 20 165/85 97 Room Air 98.7 12/02/17 11:59 98.6 63 20 151/67 99 Room Air 98.6 12/02/17 08:34 74 150/63 12/02/17 08:34 74 150/63 12/02/17 08:00 98.6 74 22 150/63 99 Room Air 98.6 12/02/17 04:00 99.0 75 20 144/77 97 Room Air 99.0 12/02/17 00:00 98.6 67 18 146/77 98 Room Air 98.6 Intake and Output 12/01/17 12/02/17 19:00 07:00 Intake Total 480 ml 750 ml Output Total 500 ml 2500 ml Balance -20 ml -1750 ml Intake Oral 480 ml IV Total 750 ml Output Urine Total 2500 ml Stool Total 500 ml # Bowel Movements 1 Laboratory Tests 12/02/17 05:00: Urine Eosinophils None seen 12/02/17 05:55: White Blood Count 8.0, Red Blood Count 3.21L, Hemoglobin 9.8L, Hematocrit 29.5L , Mean Corpuscular Volume 92, Mean Corpuscular Hemoglobin 30.5, Mean Corpuscular Hemoglobin Concent 33.3, Red Cell Distribution Width 12.4, Platelet Count 211, Mean Platelet Volume 6.5, Neutrophils (%) (Auto) 69.3, Lymphocytes (% ) (Auto) 20.1, Monocytes (%) (Auto) 7.3, Eosinophils (%) (Auto) 2.3, Basophils ( %) (Auto) 1.0, Sodium Level 139, Potassium Level 4.3, Chloride Level 105, Carbon Dioxide Level 24, Anion Gap 10, Blood Urea Nitrogen 21H, Creatinine 1.8H , Estimat Glomerular Filtration Rate , Glucose Level 135H, Calcium Level 8.0L, Total Creatine Kinase 78 Height (Feet): 5 Height (Inches): 10.00 Weight (Pounds): 161 Gregg Acosta M.D. Dec 02, 2017 21:33
--- NOTE | 2017-12-02 21:35 | General Progress Note ---
Assessment/Plan Assessment/Plan dementia with behavioral dist Paxil Zyprexa decreased Xanax Subjective Date patient seen: Dec 02, 2017 Neurologic/Psychiatric: Reports: anxiety, depressed, emotional problems Allergies: Coded Allergies: No Known Allergies (Unverified , 01/10/15) Subjective the pt was seen on 12/02/17 Objective Last 24 Hour Vital Signs Date Time Temp Pulse Resp B/P (MAP) Pulse Ox O2 Delivery O2 Flow Rate FiO2 12/02/17 17:33 165/85 12/02/17 16:29 165/85 12/02/17 16:00 98.7 78 20 165/85 97 Room Air 98.7 12/02/17 11:59 98.6 63 20 151/67 99 Room Air 98.6 12/02/17 08:34 74 150/63 12/02/17 08:34 74 150/63 12/02/17 08:00 98.6 74 22 150/63 99 Room Air 98.6 12/02/17 04:00 99.0 75 20 144/77 97 Room Air 99.0 12/02/17 00:00 98.6 67 18 146/77 98 Room Air 98.6 Intake and Output 12/01/17 12/02/17 19:00 07:00 Intake Total 480 ml 750 ml Output Total 500 ml 2500 ml Balance -20 ml -1750 ml Intake Oral 480 ml IV Total 750 ml Output Urine Total 2500 ml Stool Total 500 ml # Bowel Movements 1 Laboratory Tests 12/02/17 05:00: Urine Eosinophils None seen 12/02/17 05:55: White Blood Count 8.0, Red Blood Count 3.21L, Hemoglobin 9.8L, Hematocrit 29.5L , Mean Corpuscular Volume 92, Mean Corpuscular Hemoglobin 30.5, Mean Corpuscular Hemoglobin Concent 33.3, Red Cell Distribution Width 12.4, Platelet Count 211, Mean Platelet Volume 6.5, Neutrophils (%) (Auto) 69.3, Lymphocytes (% ) (Auto) 20.1, Monocytes (%) (Auto) 7.3, Eosinophils (%) (Auto) 2.3, Basophils ( %) (Auto) 1.0, Sodium Level 139, Potassium Level 4.3, Chloride Level 105, Carbon Dioxide Level 24, Anion Gap 10, Blood Urea Nitrogen 21H, Creatinine 1.8H , Estimat Glomerular Filtration Rate , Glucose Level 135H, Calcium Level 8.0L, Total Creatine Kinase 78 Height (Feet): 5 Height (Inches): 10.00 Weight (Pounds): 161 General Appearance: no apparent distress, alert, confused Neurologic: depressed affect Gregg Acosta M.D. Dec 02, 2017 21:35
--- NOTE | 2017-12-03 09:07 | Discharge Summary ---
Discharge Summary Discharge Summary Discharge Summary DATE OF ADMISSION: 11/26/2017 DATE OF DISCHARGE: 12/02/2017 REASON FOR ADMISSION: 77 years old female with past medical history of diabetes, hypertension, renal insufficiency, coronary artery disease with a history of CABG, history of CVA, was transferred from [facility] emergency department per insurance purposes. Apparently patient in the morning was rolled out of the bed and fell. She denied loss of consciousness or blackouts. Patient was found by caregiver and appeared to be confused. Paramedics were called. Patient initially was transferred to [facility] emergency department for evaluation. CT head at the [place] failed to demonstrate any evidence of acute CVA. Urinalysis revealed evidence of UTI. Troponin was negative. WBC- 12. CK -1694. Patient noted to have left facial droop. Patient was admitted with a syncopal episode, left facial droop, urinary tract infection, hypertension, diabetes mellitus type 2, hypercholesterolemia and coronary artery disease. CONSULTANTS: salvage repairer Dr. Ruby pulmonary Dr. Montanez ID specialist Dr. Pagan repairer cylinder heads Dr. Martin psychiatrist [facility] COURSE: Patient admitted to telemetry floor initially. Patient was started on empiric antibiotic. ID specialist closely followed. Urine culture revealed Escherichia coli. Patient completed treatment with IV Rocephin for 7 days. Blood cultures were negative. MRI of the brain revealed no evidence of acute intracranial findings. No evidence of acute CVA. However it demonstrated multiple old lacunar infarcts. Moderate atrophy and evidence of chronic small vessel disease involving white matter. Carotid duplex revealed minimal stenosis. Venous duplex bilateral lower extremities was negative for acute DVT. Lipid panel was stable. Statin was on hold secondary to high CK. TSH was within normal limits. Marketing Designer closely followed. Initial troponin minimally elevated -0.059. Consecutive two other troponin were negative. Per salvage repairer, elevated troponin was due to renal failure as well as elevated CK. Echocardiogram revealed normal left ventricular systolic function. EKG showed no acute ischemic changes. Aspirin and Coreg were continued. Statin was on hold due to elevated CK. Patient denied any chest pain. Patient noted to have supraventricular tachycardia with rate of 170, spontaneously resolved. Marketing Designer recommended electrophysiology study as outpatient. Coreg was continued and dose was uptitrated. Blood pressure was managed with beta zita and calcium channel zita. Oven Press Tender closely followed. Per repairer cylinder heads, patient had acute renal failure on chronic kidney disease with proteinuria, likely diabetic nephropathy. Renal parameters and electrolytes were closely monitored. Electrolytes were corrected as needed. Nephrotoxics were avoided. Creatinine down to 1.8 from initial 2.0. Blood sugar was managed with a sliding scale insulin remained stable. Primer Waterproofing Machine Adjuster closely followed. Supplemental oxygen provided as needed to keep pulse oximetry above 92%. Patient was on strict aspiration precautions. DVT prophylaxis provided. Pulmonary toilet provided as needed. Chest x-ray revealed right base atelectasis, but no acute cardiopulmonary changes. Counts were closely monitored. Anemia workup revealed anemia of chronic disease. Stool for occult blood was negative. No need for transfusion. Psychiatrist closely followed patient and diagnosed patient with dementia with behavioral disturbances. Psychiatric medication regimen was optimized as per psychiatrist. Patient was working with physical and occupational therapists. Wound care provided as per wound care nurse recommendation for present on admission deep tissue injuries pressure ulcers. Metal status improved to baseline. Patient with evidence of extensive cerebrovascular disease as evident on MRI. Left facial droop likely was not new. Syncopal episode was probably due to infectious process/UTI. Blood pressure stable, No further episode of syncope, no falls. Outpatient follow up with salvage repairer for EP studies. Patient was stable for discharge home. FINAL DIAGNOSES: Syncopal episode Acute encephalopathy Urinary tract infection with Escherichia coli, status post treatment S/p fall with a high CPK Acute renal failure on chronic kidney disease, likely diabetic nephropathy Diabetes mellitus Type 2 Hypertension Coronary artery disease with history of CABG Hypercholesterolemia Elevated troponin Supraventricular tachycardia Dementia with behavioral disturbances Right trochanter deep tissue injury pressure ulcer, present on admission Left heel deep tissue injury pressure ulcer, present on admission DISCHARGE MEDICATIONS: See Medication Reconciliation list. DISCHARGE INSTRUCTIONS: Patient was discharged home Follow up with primary care provide in one week. Follow up with salvage repairer for outpatient EP studies. I have been assigned to dictate discharge summary for this account. I was not involved in the patient's management.. Rina Lechuga NP ([place]) Dec 03, 2017 09:07
== END 2017-12-02 19:30 | disposition home or self-care (01) | DRG 689 ==
LOC: 2E 16:32 → 4E 11-30 15:35
DX: N39.0 Urinary tract infection, site not specified (principal); G93.40 Encephalopathy, unspecified; N17.9 Acute kidney failure, unspecified; I47.1 Supraventricular tachycardia; F03.91 Unspecified dementia, unspecified severity, with behavioral disturbance; M62.82 Rhabdomyolysis; R55 Syncope and collapse; R29.810 Facial weakness; Z95.1 Presence of aortocoronary bypass graft; E78.5 Hyperlipidemia, unspecified; I25.10 Atherosclerotic heart disease of native coronary artery without angina pectoris; E11.22 Type 2 diabetes mellitus with diabetic chronic kidney disease; I12.9 Hypertensive chronic kidney disease with stage 1 through stage 4 chronic kidney disease, or unspecified chronic kidney disease; N18.9 Chronic kidney disease, unspecified; E78.00 Pure hypercholesterolemia, unspecified; B96.20 Unspecified Escherichia coli [E. coli] as the cause of diseases classified elsewhere; Z91.81 History of falling; R74.9 Abnormal serum enzyme level, unspecified; L89.210 Pressure ulcer of right hip, unstageable; L89.620 Pressure ulcer of left heel, unstageable; F32.9 Major depressive disorder, single episode, unspecified; Z87.891 Personal history of nicotine dependence
CPT/HCPCS: 36415; 70551; 71045; 76770; 80048; 80053; 80061; 81003; 82270; 82378; 82550; 82553; 82607; 82746; 82962; 83036; 83540; 83550; 83615; 83735; 83880; 84100; 84300; 84443; 84484; 84550; 85007; 85025; 85044; 85060; 85610; 85651; 85730; 86140; 87040; 87081; 87086; 87181; 89050; 93005; 93306; 93880; 93970; J1815

== ENCOUNTER 2017-12-07 09:04 | Inpatient (IN) | payer MEDICARE, OTHER ==
[~2017-12-07] VITALS: Ht 188 cm; Wt 81.6 kg
[~2017-12-07 09:04] MED LIST changes: +AMLODIPINE BESYL5 MG PO; +CEPHALEXIN500 MG ORAL; +NAMENDA5 MG ORAL; +OLANZAPINE2.5 MG ORAL; +PAROXETINE HCL20 MG ORAL
[2017-12-07 09:38] LABS: BASOPHILS % (AUTO) 0.5 % (0.0-2.0); EOSINOPHILS % (AUTO) 1.3 % (0.0-3.0); HEMATOCRIT 39.2 % (37.0-47.0); HEMOGLOBIN 13.2 G/DL (12.0-16.0); LYMPHOCYTES % (AUTO) 19.2 % (20.0-45.0); MEAN CORPUSCULAR VOLUME 95 FL (80-99); MONOCYTES % (AUTO) 4.3 % (1.0-10.0); NEUTROPHILS % (AUTO) 74.7 % (45.0-75.0); PLATELET COUNT 328 K/UL (150-450); RED BLOOD COUNT 4.13 M/UL (4.20-5.40); RED CELL DISTRIBUTION WIDTH 13.6 % (11.6-14.8); WHITE BLOOD COUNT 11.1 K/UL (4.8-10.8)
--- NOTE | 2017-12-07 09:39 | Emergency Room Report ---
History of Present Illness General Chief Complaint: Altered Level of Consciousness Source: Patient, EMS Present Illness HPI Patient is brought in by EMS. She was discharged 4 days ago for a urinary tract infection. Per EMS, she presents from home as her family members called stating that she is more confused than she usually is. She is weaker and sleepy and this is not typical of her. The patient herself states that she has some right leg pain but otherwise has no complaints. There has been no fever or chills. There is been no nausea or vomiting. She denies chest pain or shortness of breath. She denies abdominal pain. She is moaning intermittently. Allergies: Coded Allergies: No Known Allergies (Unverified , 01/10/15) Patient History Past Medical History: see triage record, DM, HTN, SC, CAD, dementia, psych hx Past Surgical History: CABG Social History: Denies: smoking, alcohol use, drug use Now: No Reviewed Nursing Documentation: PMH: Agreed; PSxH: Agreed Nursing Documentation-PMH Past Medical History: No History, Except For Hx Cardiac Problems: Yes Hx Hypertension: Yes Hx Diabetes: Yes Hx Cancer: No Hx Gastrointestinal Problems: No Hx Neurological Problems: Yes Hx Weakness: Yes Review of Systems All Other Systems: negative except mentioned in HPI Physical Exam Vital Signs Date Time Temp Pulse Resp B/P (MAP) Pulse Ox O2 Delivery O2 Flow Rate FiO2 12/07/17 08:59 99.0 67 18 150/77 97 Room Air 99.0 Sp02 EP Interpretation: reviewed, normal General Appearance: no apparent distress, alert, GCS 15, non-toxic Head: normocephalic, atraumatic Eyes: bilateral eye normal inspection, bilateral eye PERRL ENT: hearing grossly normal, normal pharynx, no angioedema, normal voice Neck: full range of motion, supple/symm/no masses Respiratory: chest non-tender, lungs clear, normal breath sounds, no respiratory distress, no retraction, no accessory muscle use, speaking full sentences Cardiovascular #1: regular rate, rhythm, no edema Gastrointestinal: normal bowel sounds, non tender, soft, non-distended, no guarding, no rebound Rectal: deferred Musculoskeletal: back normal, normal range of motion, non-tender Neurologic: alert, responsive, sensory intact, speech normal, other - Oriented to self only Psychiatric: no suicidal/homicidal ideation, depressed affect Skin: normal color, no rash, warm/dry, well hydrated Medical Decision Making Diagnostic Impression: Primary Impression: UTI (urinary tract infection) Additional Impressions: Acute encephalopathy Acute kidney injury ER Course This patient presents with altered mental status. I suspected an underlying infection. The patient underwent laboratory workup to include CBC, CMP, cardiac enzymes and urinalysis which showed an elevated white blood cell count and findings consistent with a urinary tract infection. I did review the previous microbiology and this infection is sensitive to Rocephin. She is given Rocephin in the emergency department. She is also given IV fluids. This patient also appears chronically ill and I am unsure of her baseline functioning. She may need to undergo assessment for [facility] facility placement. Regardless, the patient is admitted for further evaluation and treatment. Laboratory Tests Test 12/07/17 09:15 White Blood Count 11.1 K/UL (4.8-10.8) H Red Blood Count 4.13 M/UL (4.20-5.40) L Hemoglobin 13.2 G/DL (12.0-16.0) Hematocrit 39.2 % (37.0-47.0) Mean Corpuscular Volume 95 FL (80-99) Mean Corpuscular Hemoglobin 31.9 PG (27.0-31.0) H Mean Corpuscular Hemoglobin Concent 33.6 G/DL (32.0-36.0) Red Cell Distribution Width 13.6 % (11.6-14.8) Platelet Count 328 K/UL (150-450) Mean Platelet Volume 6.1 FL (6.5-10.1) L Neutrophils (%) (Auto) 74.7 % (45.0-75.0) Lymphocytes (%) (Auto) 19.2 % (20.0-45.0) L Monocytes (%) (Auto) 4.3 % (1.0-10.0) Eosinophils (%) (Auto) 1.3 % (0.0-3.0) Basophils (%) (Auto) 0.5 % (0.0-2.0) Urine Color Pale yellow Urine Appearance Clear Urine pH 6 (4.5-8.0) Urine Specific [place] 1.010 (1.005-1.035) Urine Protein 3+ (NEGATIVE) H Urine Glucose (UA) Negative (NEGATIVE) Urine Ketones Negative (NEGATIVE) Urine Occult Blood 2+ (NEGATIVE) H Urine Nitrite Negative (NEGATIVE) Urine Bilirubin Negative (NEGATIVE) Urine Urobilinogen Normal MG/DL (0.0-1.0) Urine Leukocyte Esterase 2+ (NEGATIVE) H Urine RBC 2-4 /HPF (0 - 2) H Urine WBC 10-15 /HPF (0 - 2) H Urine Squamous Epithelial Cells Few /LPF (NONE/OCC) Urine Bacteria Few /HPF (NONE) Sodium Level 140 MMOL/L (136-145) Potassium Level 4.7 MMOL/L (3.5-5.1) Chloride Level 106 MMOL/L (98-107) Carbon Dioxide Level 27 MMOL/L (21-32) Anion Gap 7 mmol/L (5-15) Blood Urea Nitrogen 19 mg/dL (7-18) H Creatinine 2.2 MG/DL (0.55-1.30) H Estimate Glomerular Filtration Rate mL/min (>60) Glucose Level 121 MG/DL (74-106) H Lactic Acid Level 0.80 mmol/L (0.66-2.22) Calcium Level 8.9 MG/DL (8.5-10.1) Total Bilirubin 0.3 MG/DL (0.2-1.0) Aspartate Amino Transferase (AST) 25 U/L (15-37) Alanine Aminotransferase (ALT) 25 U/L (12-78) Alkaline Phosphatase 133 U/L (46-116) H Total Creatine Kinase 237 U/L (26-308) Creatine Kinase MB 3.1 NG/ML (0.0-3.6) Creatine Kinase MB Relative Index 1.3 Troponin I 0.000 ng/mL (0.000-0.056) Total Protein 7.7 G/DL (6.4-8.2) Albumin 3.1 G/DL (3.4-5.0) L Globulin 4.6 g/dL Albumin/Globulin Ratio 0.7 (1.0-2.7) L EKG Diagnostic Results Rate: normal Rhythm: NSR ST Segments: no acute changes Rhythm Strip Diag. Results EP Interpretation: yes Rate: 60's Rhythm: NSR, no PVC's, no ectopy Chest X-Ray Diagnostic Results Chest X-Ray Diagnostic Results : Chest X-Ray Ordered: Yes # of Views/Limited/Complete: 1 View Indication: Other Interpretation: no consolidation, no effusion, no pneumothorax, no acute cardiopulmonary disease Impression: No acute disease Electronically Signed by: Yao Last Vital Signs Date Time Temp Pulse Resp B/P (MAP) Pulse Ox O2 Delivery O2 Flow Rate FiO2 12/07/17 08:59 99.0 67 18 150/77 97 Room Air 99.0 Disposition: ADMITTED INPATIENT Condition: Serious ANÍBAL DUENAS D.O. Dec 07, 2017 09:39
[2017-12-07 09:42] VITALS: BP 167/77
[2017-12-07 10:10] LABS: APPEARANCE,URINE CLEAR; BILIRUBIN, URINE NEGATIVE (NEGATIVE); COLOR,URINE PALE YELLOW; GLUCOSE, URINE (UA) NEGATIVE (NEGATIVE); KETONES,URINE NEGATIVE (NEGATIVE); LEUKOCYTE ESTERASE ,URINE 2+ (NEGATIVE); NITRITE,URINE NEGATIVE (NEGATIVE); PH,URINE 6 (4.5-8.0); PROTEIN,URINE 3+ (NEGATIVE); UROBILINOGEN,URINE NORMAL MG/DL (0.0-1.0)
[2017-12-07 10:13] LABS: ANION GAP 7 mmol/L (5-15); BLOOD UREA NITROGEN 19 mg/dL (7-18); CALCIUM 8.9 MG/DL (8.5-10.1); CARBON DIOXIDE 27 MMOL/L (21-32); CHLORIDE 106 MMOL/L (98-107); CREATININE 2.2 MG/DL (0.55-1.30); POTASSIUM 4.7 MMOL/L (3.5-5.1); SODIUM 140 MMOL/L (136-145)
[2017-12-07 10:27] LABS: ALANINE AMINOTRANSFERASE 25 U/L (12-78); ALBUMIN 3.1 G/DL (3.4-5.0); ALBUMIN/GLOBULIN RATIO 0.7 (1.0-2.7); ALKALINE PHOSPHATASE 133 U/L (46-116); ASPARTATE AMINO TRANSFERASE 25 U/L (15-37); BILIRUBIN,TOTAL 0.3 MG/DL (0.2-1.0); CKMB 3.1 NG/ML (0.0-3.6); CREATINE KINASE 237 U/L (26-308)
--- NOTE | 2017-12-07 10:27 | Diagnostic Imaging Report ---
Indication: Altered mental status Technique: XRAY Chest 1v Comparison: 11/27/2017 Findings: Heart size and mediastinal contours are stable. There is evidence of median sternotomy and likely prior CABG. There is unchanged elevation of the right hemidiaphragm with right basilar atelectasis. Calcified granuloma in the left base unchanged. There is no definite new focal airspace consolidation. No pleural effusion or pneumothorax. No acute osseous abnormality seen. Impression: Unchanged elevation of the right hemidiaphragm with right-sided volume loss/atelectasis. No new focal consolidation.
[2017-12-07] MEDS ORDERED: cefTRIAXone 1 GM in NS 55 ML IVPB ONE (10:30)
--- NOTE | 2017-12-07 11:20 | Diagnostic Imaging Report ---
Indication: Altered mental status Technique: Continuous helical CT scanning of the head was performed utilizing automated exposure control without intravenous contrast material. Axial and coronal reconstructions were obtained. Comparison: CT head 06/07/2017; MRI the brain 11/27/2017 CT dose: Total DLP 1527.26 mGycm; CTDI vol 70.38 mGy Findings: There is no acute intracranial hemorrhage, mass effect or cortical edema. No midline shift. The ventricles, cisterns and sulci are prominent consistent with atrophy. Size and configuration of the ventricular system is stable. Periventricular hypoattenuation is seen, a nonspecific finding. There are chronic lacunar infarcts in the bilateral basal ganglia and marshall radiata. Atherosclerotic calcifications noted in the cavernous portions of the bilateral internal carotid arteries. Bilateral basal ganglia calcifications again noted. Visualized mastoid air cells and paranasal sinuses are unremarkable. No focal lesions of the bony calvarium or soft tissues of the scalp are seen. IMPRESSION: No evidence of acute intracranial hemorrhage, mass effect or cortical edema. MRI may be obtained for more sensitive evaluation as clinically indicated. Atrophy and sequela of chronic ischemia as above. The CT scanner at [facility] is accredited by the [employer] and the scans are performed using protocols designed to limit radiation exposure to as low as reasonably achievable to attain images of sufficient resolution adequate for diagnostic evaluation.
[2017-12-07] MEDS ORDERED: UNOBMED (12:06)
[2017-12-07 13:42] VITALS: BP 184/85
[2017-12-07 14:53] VITALS: BP 164/85
[2017-12-07 15:18] VITALS: BP 157/87
[2017-12-07] MEDS ORDERED: Tylenol #3 tab (300mg/30mg) ORAL PRN (16:45)
[2017-12-07 20:00] VITALS: BP 139/76
[2017-12-07] MEDS: Metoprolol 25mg tab ORAL SCH (21:50)
[2017-12-07] MEDS: Heparin 5000 units/ml inj SUBQ SCH (21:52)
[2017-12-07] MEDS: NovoLOG Insulin Flexpen SUBQ SCH (21:52)
[2017-12-08] VITALS: BP 129/59
[2017-12-08 04:00] VITALS: BP 150/64
[2017-12-08] MEDS: Glimepiride 1mg tab ORAL SCH (05:54)
[2017-12-08] MEDS: Heparin 5000 units/ml inj SUBQ SCH ×3 (05:56→22:07)
[2017-12-08] MEDS: NovoLOG Insulin Flexpen SUBQ SCH ×4 (06:30→20:51)
[2017-12-08 07:45] LABS: BASOPHILS % (AUTO) 0.7 % (0.0-2.0); EOSINOPHILS % (AUTO) 0.5 % (0.0-3.0); HEMATOCRIT 31.8 % (37.0-47.0); HEMOGLOBIN 10.6 G/DL (12.0-16.0); LYMPHOCYTES % (AUTO) 15.4 % (20.0-45.0); MEAN CORPUSCULAR VOLUME 94 FL (80-99); MONOCYTES % (AUTO) 4.5 % (1.0-10.0); NEUTROPHILS % (AUTO) 78.9 % (45.0-75.0); PLATELET COUNT 297 K/UL (150-450); RED BLOOD COUNT 3.38 M/UL (4.20-5.40); RED CELL DISTRIBUTION WIDTH 13.5 % (11.6-14.8); WHITE BLOOD COUNT 10.6 K/UL (4.8-10.8)
[2017-12-08 07:50] LABS: ALANINE AMINOTRANSFERASE 18 U/L (12-78); ALBUMIN 2.5 G/DL (3.4-5.0); ALBUMIN/GLOBULIN RATIO 0.6 (1.0-2.7); ALKALINE PHOSPHATASE 121 U/L (46-116); ANION GAP 8 mmol/L (5-15); ASPARTATE AMINO TRANSFERASE 14 U/L (15-37); BILIRUBIN,TOTAL 0.3 MG/DL (0.2-1.0); BLOOD UREA NITROGEN 19 mg/dL (7-18); CALCIUM 8.3 MG/DL (8.5-10.1); CARBON DIOXIDE 24 MMOL/L (21-32); CHLORIDE 111 MMOL/L (98-107); CHOLESTEROL 73 MG/DL (< 200); CREATININE 1.8 MG/DL (0.55-1.30); HDL CHOLESTEROL 27 MG/DL (40-60); PHOSPHORUS 4.2 MG/DL (2.5-4.9); POTASSIUM 4.1 MMOL/L (3.5-5.1); SODIUM 143 MMOL/L (136-145); TRIGLYCERIDES 62 MG/DL (30-150)
[2017-12-08 08:00] VITALS: BP 164/70
[2017-12-08] MEDS: cefTRIAXone 1 GM in D5W 55 ML IVPB SCH (08:41)
[2017-12-08] MEDS: Memantine 5 MG TAB ORAL SCH (08:47)
[2017-12-08] MEDS: Metoprolol 25mg tab ORAL SCH ×2 (08:47→20:49)
[2017-12-08] MEDS: Lactulose 20gm/30ml UDC ORAL SCH (08:47)
[2017-12-08] MEDS: PARoxetine 20mg tab ORAL SCH (08:48)
--- NOTE | 2017-12-08 10:17 | Consultation ---
History of Present Illness General Date patient seen: Dec 08, 2017 Chief Complaint: Altered Level of Consciousness Present Illness HPI the pt with mmp, who was recently discharged after he neurological work up was normal came back with ams. the pt is confused and anxious the pt was started on xanax as she was taking it outside of the hospital Allergies: Coded Allergies: No Known Allergies (Unverified , 01/10/15) Medication History Scheduled Alprazolam* (Xanax*), 0.5 MG PO BID, (Reported) Amlodipine Besylate* (Amlodipine Besylate*), 5 MG PO DAILY, (Reported) Aspirin* (Aspirin*), 162 MG ORAL DAILY Atorvastatin Calcium* (Lipitor*), 10 MG ORAL BEDTIME Baclofen* (Baclofen*), 10 MG ORAL BID, (Reported) Cephalexin* (Keflex*), 500 MG ORAL EVERY 12 HOURS Ciprofloxacin* (Cipro*), 500 MG PO BID Gabapentin (Neurontin), 300 MG ORAL BID, (Reported) Gabapentin (Neurontin), 300 MG ORAL BID, (Reported) Hydralazine Hcl* (Hydralazine Hcl*), 25 MG ORAL BEDTIME Lisinopril (Lisinopril*), 20 MG ORAL DAILY, (Reported) Memantine Hcl* (Namenda*), 5 MG ORAL DAILY, (Reported) Metoprolol Tartrate* (Metoprolol Tartrate*), 25 MG ORAL EVERY 12 HOURS, ( Reported) Nicotine 14MG Patch* (Nicoderm Cq 14MG*), 1 EACH TD DAILY, (Reported) Olanzapine (Olanzapine), 2.5 MG ORAL BEDTIME Pantoprazole* (Protonix*), 40 MG ORAL DAILY, (Reported) Paroxetine Hcl (Paxil), 40 MG ORAL DAILY, (Reported) Paroxetine Hcl* (Paxil*), 20 MG ORAL BEDTIME Ranitidine Hcl* (Zantac*), 150 MG ORAL TWICE A DAY, (Reported) Rosuvastatin Calcium* (Crestor*), 20 MG ORAL DAILY, (Reported) Sucralfate (Carafate), 1 GM ORAL FOUR TIMES A DAY, (Reported) Scheduled PRN Acetaminophen With Codeine (T#3) (Tylenol #3 Tab*), 1 TAB ORAL Q8H PRN for For Pain Acetaminophen With Codeine (T#3) (Tylenol #3 Tab*), 1 TAB ORAL Q8H PRN for For Pain Acetaminophen With Codeine (T#3) (Tylenol #3 Tab*), 1 TAB ORAL Q4H PRN for For Pain, (Reported) Acetaminophen* (Tylenol Extra Strength*), 500 MG ORAL Q8H PRN for Prn Headache/ Temp > 101 Ondansetron (Zofran), 4 MG ORAL Q6H PRN for Nausea & Vomiting, (Reported) Phenazopyridine Hcl* (Pyridium*), 100 MG ORAL TIDPRN PRN Miscellaneous Medications Dulaglutide (Trulicity), 0.75 MG SQ, (Reported) Lactulose (Lactulose), 10 GM PO, (Reported) Linaclotide (Linzess), 290 MCG PO, (Reported) Metformin Hcl (Fortamet), 500 MG PO, (Reported) Unable to Obtain Medications (Unable To Obtain Meds), (Reported) [Alprazolam], (Reported) [Amantadine], (Reported) [Crestor], (Reported) [Glimeperide], (Reported) [List], (Reported) [Metoprolol], (Reported) [Ondansentron], (Reported) [Ranitidine], (Reported) [Tramadol], (Reported) Patient History Limited by: medical condition History Provided By: Patient, Medical Record, PMD Healthcare decision maker Resuscitation status Full Code Advanced Directive on File Past Medical/Surgical History Past Medical/Surgical History: (1) Depression (2) Rib contusion (3) Sepsis (4) Hyperkalemia (5) Fracture of rib (6) Anemia (7) Syncope (8) Contusion, hip (9) Weakness (10) Fall (11) Polypharmacy (12) Benzocaine overdose of undetermined intent (13) Multiple injuries due to trauma (14) SVT (supraventricular tachycardia) (15) Rhabdomyolysis (16) Elevated troponin (17) Acute kidney injury (18) UTI (urinary tract infection) (19) Acute encephalopathy (20) Coronary artery disease (21) Hypertension (22) ARF (acute renal failure) (23) DM (diabetes mellitus) (24) Alzheimer's dementia (25) Pyelonephritis (26) Altered mental status (27) left diaphragm elevation Review of Systems Psychiatric: Reports: see HPI, prior hx, anxiety, depressed feelings, emotional problems Physical Exam General Appearance: no apparent distress, alert, confused, agitated Last 24 Hour Vital Signs Date Time Temp Pulse Resp B/P (MAP) Pulse Ox O2 Delivery O2 Flow Rate FiO2 12/08/17 08:47 83 164/70 12/08/17 08:47 83 164/70 12/08/17 08:00 98.4 83 20 164/70 96 Room Air 98.4 12/08/17 04:00 98.4 77 19 150/64 97 98.4 12/08/17 02:00 98.2 98.2 12/08/17 01:53 98.2 12/08/17 00:54 100.0 12/08/17 00:00 100.0 69 18 129/59 96 100.0 12/07/17 21:50 87 139/76 12/07/17 20:00 99.3 87 18 139/76 97 99.3 12/07/17 15:18 97.8 109 20 157/87 94 97.8 12/07/17 15:03 97.5 96 12 164/85 98 Room Air 97.5 12/07/17 15:02 97.5 96 12 164/85 98 Room Air 97.5 12/07/17 14:53 96 12 164/85 98 Room Air 12/07/17 13:42 97.5 98 12 184/85 98 Room Air 97.5 12/07/17 13:09 207/81 Intake and Output 12/07/17 12/08/17 19:00 07:00 Intake Total 2520 ml 1110 ml Balance 2520 ml 1110 ml Intake Oral 120 ml 360 ml IV Total 750 ml Other 2400 ml # Voids 56 2 Laboratory Tests Test 12/08/17 07:00 White Blood Count 10.6 K/UL (4.8-10.8) Red Blood Count 3.38 M/UL (4.20-5.40) L Hemoglobin 10.6 G/DL (12.0-16.0) L Hematocrit 31.8 % (37.0-47.0) L Mean Corpuscular Volume 94 FL (80-99) Mean Corpuscular Hemoglobin 31.3 PG (27.0-31.0) H Mean Corpuscular Hemoglobin Concent 33.3 G/DL (32.0-36.0) Red Cell Distribution Width 13.5 % (11.6-14.8) Platelet Count 297 K/UL (150-450) Mean Platelet Volume 5.7 FL (6.5-10.1) L Neutrophils (%) (Auto) 78.9 % (45.0-75.0) H Lymphocytes (%) (Auto) 15.4 % (20.0-45.0) L Monocytes (%) (Auto) 4.5 % (1.0-10.0) Eosinophils (%) (Auto) 0.5 % (0.0-3.0) Basophils (%) (Auto) 0.7 % (0.0-2.0) Sodium Level 143 MMOL/L (136-145) Potassium Level 4.1 MMOL/L (3.5-5.1) Chloride Level 111 MMOL/L (98-107) H Carbon Dioxide Level 24 MMOL/L (21-32) Anion Gap 8 mmol/L (5-15) Blood Urea Nitrogen 19 mg/dL (7-18) H Creatinine 1.8 MG/DL (0.55-1.30) H Estimat Glomerular Filtration Rate mL/min (>60) Glucose Level 110 MG/DL (74-106) H Calcium Level 8.3 MG/DL (8.5-10.1) L Phosphorus Level 4.2 MG/DL (2.5-4.9) Magnesium Level 2.0 MG/DL (1.8-2.4) Total Bilirubin 0.3 MG/DL (0.2-1.0) Aspartate Amino Transf (AST/SGOT) 14 U/L (15-37) L Alanine Aminotransferase (ALT/SGPT) 18 U/L (12-78) Alkaline Phosphatase 121 U/L (46-116) H Troponin I 0.028 ng/mL (0.000-0.056) Total Protein 6.6 G/DL (6.4-8.2) Albumin 2.5 G/DL (3.4-5.0) L Globulin 4.1 g/dL Albumin/Globulin Ratio 0.6 (1.0-2.7) L Triglycerides Level 62 MG/DL (30-150) Cholesterol Level 73 MG/DL (< 200) LDL Cholesterol 38 mg/dL (<100) HDL Cholesterol 27 MG/DL (40-60) L Cholesterol/HDL Ratio 2.7 (3.3-4.4) L Height (Feet): 6 Height (Inches): 2.00 Weight (Pounds): 180 Medications Current Medications Medications (Trade) Dose Ordered Sig/Mikhail Route PRN Reason Start Time Stop Time Status Last Admin Dose Admin Acetaminophen (Tylenol) 650 mg Q6H PRN ORAL Mild Pain/Temp > 100.5 12/07/17 16:45 01/06/18 16:44 12/08/17 00:54 Acetaminophen/ Codeine Phosphate (Tylenol #3) 1 tab Q8HR PRN ORAL For Pain 12/07/17 16:45 12/14/17 16:44 Amlodipine Besylate (Norvasc) 5 mg DAILY ORAL 12/08/17 09:00 01/07/18 08:59 12/08/17 08:47 Atorvastatin Calcium (Lipitor) 10 mg BEDTIME ORAL 12/07/17 21:00 01/06/18 20:59 12/07/17 21:50 Ceftriaxone Sodium 1 gm/ Dextrose 55 ml @ 110 mls/hr Q24H IVPB 12/08/17 09:00 12/15/17 08:59 12/08/17 08:41 Dextrose (Dextrose 50%) 25 ml STAT PRN IV Hypoglycemia 12/07/17 17:00 01/06/18 16:59 Dextrose (Dextrose 50%) 50 ml STAT PRN IV Hypoglycemia 12/07/17 17:00 01/06/18 16:59 Gabapentin (Neurontin) 300 mg Q12HR ORAL 12/08/17 09:00 01/07/18 08:59 12/08/17 08:47 Glimepiride (Amaryl) 2 mg ACBREAKFAST ORAL 12/08/17 06:30 01/07/18 06:29 12/08/17 05:54 Heparin Sodium (Porcine) (Heparin 5000 units/ml) 5,000 units EVERY 8 HOURS SUBQ 12/07/17 22:00 01/06/18 21:59 12/08/17 05:56 Insulin Aspart (NovoLOG) BEFORE MEALS AND HS SUBQ 12/07/17 21:00 01/06/18 20:59 12/07/17 21:52 Lactulose (Cephulac) 10 gm DAILY ORAL 12/08/17 09:00 01/07/18 08:59 12/08/17 08:47 Memantine (Namenda) 5 mg DAILY ORAL 12/08/17 09:00 01/07/18 08:59 12/08/17 08:47 Metoprolol Tartrate (Lopressor) 25 mg Q12HR ORAL 12/07/17 21:00 01/06/18 20:59 12/08/17 08:47 Nicotine (Nicoderm) 1 patch Q24H TDERMAL 12/07/17 18:00 01/06/18 17:59 12/07/17 21:51 Ondansetron HCl (Zofran) 4 mg Q4H PRN IVP Nausea & Vomiting 12/07/17 17:00 01/06/18 16:59 Pantoprazole (Protonix) 40 mg DAILY ORAL 12/08/17 09:00 01/07/18 08:59 12/08/17 08:47 Paroxetine HCl (Paxil) 40 mg DAILY ORAL 12/08/17 09:00 01/07/18 08:59 12/08/17 08:48 Sodium Chloride 1,000 ml @ 75 mls/hr [id number] IV 12/07/17 17:00 01/06/18 16:59 12/08/17 05:55 Assessment/Plan Assessment/Plan 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 Dec 08, 2017 10:17
[2017-12-08 12:00] VITALS: BP 145/67
--- NOTE | 2017-12-08 14:05 | Consultation ---
History of Present Illness General Date patient seen: Dec 08, 2017 Chief Complaint: Altered Level of Consciousness Present Illness Allergies: Coded Allergies: No Known Allergies (Unverified , 01/10/15) Medication History Scheduled Alprazolam* (Xanax*), 0.5 MG PO BID, (Reported) Amlodipine Besylate* (Amlodipine Besylate*), 5 MG PO DAILY, (Reported) Aspirin* (Aspirin*), 162 MG ORAL DAILY Atorvastatin Calcium* (Lipitor*), 10 MG ORAL BEDTIME Baclofen* (Baclofen*), 10 MG ORAL BID, (Reported) Cephalexin* (Keflex*), 500 MG ORAL EVERY 12 HOURS Ciprofloxacin* (Cipro*), 500 MG PO BID Gabapentin (Neurontin), 300 MG ORAL BID, (Reported) Gabapentin (Neurontin), 300 MG ORAL BID, (Reported) Hydralazine Hcl* (Hydralazine Hcl*), 25 MG ORAL BEDTIME Lisinopril (Lisinopril*), 20 MG ORAL DAILY, (Reported) Memantine Hcl* (Namenda*), 5 MG ORAL DAILY, (Reported) Metoprolol Tartrate* (Metoprolol Tartrate*), 25 MG ORAL EVERY 12 HOURS, ( Reported) Nicotine 14MG Patch* (Nicoderm Cq 14MG*), 1 EACH TD DAILY, (Reported) Olanzapine (Olanzapine), 2.5 MG ORAL BEDTIME Pantoprazole* (Protonix*), 40 MG ORAL DAILY, (Reported) Paroxetine Hcl (Paxil), 40 MG ORAL DAILY, (Reported) Paroxetine Hcl* (Paxil*), 20 MG ORAL BEDTIME Ranitidine Hcl* (Zantac*), 150 MG ORAL TWICE A DAY, (Reported) Rosuvastatin Calcium* (Crestor*), 20 MG ORAL DAILY, (Reported) Sucralfate (Carafate), 1 GM ORAL FOUR TIMES A DAY, (Reported) Scheduled PRN Acetaminophen With Codeine (T#3) (Tylenol #3 Tab*), 1 TAB ORAL Q8H PRN for For Pain Acetaminophen With Codeine (T#3) (Tylenol #3 Tab*), 1 TAB ORAL Q8H PRN for For Pain Acetaminophen With Codeine (T#3) (Tylenol #3 Tab*), 1 TAB ORAL Q4H PRN for For Pain, (Reported) Acetaminophen* (Tylenol Extra Strength*), 500 MG ORAL Q8H PRN for Prn Headache/ Temp > 101 Ondansetron (Zofran), 4 MG ORAL Q6H PRN for Nausea & Vomiting, (Reported) Phenazopyridine Hcl* (Pyridium*), 100 MG ORAL TIDPRN PRN Miscellaneous Medications Dulaglutide (Trulicity), 0.75 MG SQ, (Reported) Lactulose (Lactulose), 10 GM PO, (Reported) Linaclotide (Linzess), 290 MCG PO, (Reported) Metformin Hcl (Fortamet), 500 MG PO, (Reported) Unable to Obtain Medications (Unable To Obtain Meds), (Reported) [Alprazolam], (Reported) [Amantadine], (Reported) [Crestor], (Reported) [Glimeperide], (Reported) [List], (Reported) [Metoprolol], (Reported) [Ondansentron], (Reported) [Ranitidine], (Reported) [Tramadol], (Reported) Patient History Healthcare decision maker Resuscitation status Full Code Advanced Directive on File Review of Systems All Other Systems: negative except mentioned in HPI Physical Exam General Appearance: cachetic Lines, tubes and drains: peripheral HEENT: normocephalic Neck: non-tender, normal alignment Breasts: no masses Abdomen: normal bowel sounds, non tender Genitourinary/Rectal: normal genital exam, normal rectal exam Extremities: normal range of motion 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 Last 24 Hour Vital Signs Date Time Temp Pulse Resp B/P (MAP) Pulse Ox O2 Delivery O2 Flow Rate FiO2 12/08/17 12:00 97.1 69 20 145/67 97 Room Air 97.1 12/08/17 08:47 83 164/70 12/08/17 08:47 83 164/70 12/08/17 08:00 98.4 83 20 164/70 96 Room Air 98.4 12/08/17 04:00 98.4 77 19 150/64 97 98.4 12/08/17 02:00 98.2 98.2 12/08/17 01:53 98.2 12/08/17 00:54 100.0 12/08/17 00:00 100.0 69 18 129/59 96 100.0 12/07/17 21:50 87 139/76 12/07/17 20:00 99.3 87 18 139/76 97 99.3 12/07/17 15:18 97.8 109 20 157/87 94 97.8 12/07/17 15:03 97.5 96 12 164/85 98 Room Air 97.5 12/07/17 15:02 97.5 96 12 164 98 Room Air 97.5 12/07/17 14:53 96 12 98 Room Air Intake and Output 12/07/17 12/08/17 19:00 07:00 Intake Total 2520 ml 1110 ml Balance 2520 ml 1110 ml Intake Oral 120 ml 360 ml IV Total 750 ml Other 2400 ml # Voids 56 2 Laboratory Tests Test 12/08/17 07:00 White Blood Count 10.6 K/UL (4.8-10.8) Red Blood Count 3.38 M/UL (4.20-5.40) L Hemoglobin 10.6 G/DL (12.0-16.0) L Hematocrit 31.8 % (37.0-47.0) L Mean Corpuscular Volume 94 FL (80-99) Mean Corpuscular Hemoglobin 31.3 PG (27.0-31.0) H Mean Corpuscular Hemoglobin Concent 33.3 G/DL (32.0-36.0) Red Cell Distribution Width 13.5 % (11.6-14.8) Platelet Count 297 K/UL (150-450) Mean Platelet Volume 5.7 FL (6.5-10.1) L Neutrophils (%) (Auto) 78.9 % (45.0-75.0) H Lymphocytes (%) (Auto) 15.4 % (20.0-45.0) L Monocytes (%) (Auto) 4.5 % (1.0-10.0) Eosinophils (%) (Auto) 0.5 % (0.0-3.0) Basophils (%) (Auto) 0.7 % (0.0-2.0) Sodium Level 143 MMOL/L (136-145) Potassium Level 4.1 MMOL/L (3.5-5.1) Chloride Level 111 MMOL/L (98-107) H Carbon Dioxide Level 24 MMOL/L (21-32) Anion Gap 8 mmol/L (5-15) Blood Urea Nitrogen 19 mg/dL (7-18) H Creatinine 1.8 MG/DL (0.55-1.30) H Estimat Glomerular Filtration Rate mL/min (>60) Glucose Level 110 MG/DL (74-106) H Calcium Level 8.3 MG/DL (8.5-10.1) L Phosphorus Level 4.2 MG/DL (2.5-4.9) Magnesium Level 2.0 MG/DL (1.8-2.4) Total Bilirubin 0.3 MG/DL (0.2-1.0) Aspartate Amino Transf (AST/SGOT) 14 U/L (15-37) L Alanine Aminotransferase (ALT/SGPT) 18 U/L (12-78) Alkaline Phosphatase 121 U/L (46-116) H Troponin I 0.028 ng/mL (0.000-0.056) Total Protein 6.6 G/DL (6.4-8.2) Albumin 2.5 G/DL (3.4-5.0) L Globulin 4.1 g/dL Albumin/Globulin Ratio 0.6 (1.0-2.7) L Triglycerides Level 62 MG/DL (30-150) Cholesterol Level 73 MG/DL (< 200) LDL Cholesterol 38 mg/dL (<100) HDL Cholesterol 27 MG/DL (40-60) L Cholesterol/HDL Ratio 2.7 (3.3-4.4) L Height (Feet): 6 Height (Inches): 2.00 Weight (Pounds): 180 Medications Current Medications Medications (Trade) Dose Ordered Sig/Mikhail Route PRN Reason Start Time Stop Time Status Last Admin Dose Admin Acetaminophen (Tylenol) 650 mg Q6H PRN ORAL Mild Pain/Temp > 100.5 12/07/17 16:45 01/06/18 16:44 12/08/17 00:54 Acetaminophen/ Codeine Phosphate (Tylenol #3) 1 tab Q8HR PRN ORAL For Pain 12/07/17 16:45 12/14/17 16:44 Amlodipine Besylate (Norvasc) 5 mg DAILY ORAL 12/08/17 09:00 01/07/18 08:59 12/08/17 08:47 Atorvastatin Calcium (Lipitor) 10 mg BEDTIME ORAL 4/14/18 21:00 01/06/18 20:59 12/07/17 21:50 Ceftriaxone Sodium 1 gm/ Dextrose 55 ml @ 110 mls/hr Q24H IVPB 12/08/17 09:00 12/15/17 08:59 12/08/17 08:41 Dextrose (Dextrose 50%) 25 ml STAT PRN IV Hypoglycemia 12/07/17 17:00 01/06/18 16:59 Dextrose (Dextrose 50%) 50 ml STAT PRN IV Hypoglycemia 12/07/17 17:00 01/06/18 16:59 Gabapentin (Neurontin) 300 mg Q12HR ORAL 12/08/17 09:00 01/07/18 08:59 12/08/17 08:47 Glimepiride (Amaryl) 2 mg ACBREAKFAST ORAL 12/08/17 06:30 01/07/18 06:29 12/08/17 05:54 Heparin Sodium (Porcine) (Heparin 5000 units/ml) 5,000 units EVERY 8 HOURS SUBQ 12/07/17 22:00 01/06/18 21:59 12/08/17 13:51 Insulin Aspart (NovoLOG) BEFORE MEALS AND HS SUBQ 12/07/17 21:00 01/06/18 20:59 12/07/17 21:52 Lactulose (Cephulac) 10 gm DAILY ORAL 12/08/17 09:00 01/07/18 08:59 12/08/17 08:47 Memantine (Namenda) 5 mg DAILY ORAL 12/08/17 09:00 01/07/18 08:59 12/08/17 08:47 Metoprolol Tartrate (Lopressor) 25 mg Q12HR ORAL 12/07/17 21:00 01/06/18 20:59 12/08/17 08:47 Nicotine (Nicoderm) 1 patch Q24H TDERMAL 12/07/17 18:00 01/06/18 17:59 12/07/17 21:51 Ondansetron HCl (Zofran) 4 mg Q4H PRN IVP Nausea & Vomiting 12/07/17 17:00 01/06/18 16:59 Pantoprazole (Protonix) 40 mg DAILY ORAL 12/08/17 09:00 01/07/18 08:59 12/08/17 08:47 Paroxetine HCl (Paxil) 40 mg DAILY ORAL 12/08/17 09:00 01/07/18 08:59 12/08/17 08:48 Sodium Chloride 1,000 ml @ 75 mls/hr [id number] IV 12/07/17 17:00 01/06/18 16:59 12/08/17 05:55 Assessment/Plan Problem List: (1) Pyelonephritis ICD Codes: N12 - Tubulo-interstitial nephritis, not specified as acute or chronic SNOMED: 30072822 (2) Acute encephalopathy ICD Codes: G93.40 - Encephalopathy, unspecified SNOMED: 16495346, 623370605 (3) Alzheimer's dementia ICD Codes: G30.9 - Alzheimer's disease, unspecified; F02.80 - Dementia in other diseases classified elsewhere without behavioral disturbance SNOMED: 77748437 (4) DM (diabetes mellitus) ICD Codes: E11.9 - DM (diabetes mellitus) SNOMED: 56460808 Assessment/Plan guzman cultures IV abx symptomatic treatment sliding scale diabetic diet dvt prophylaxis check labs in am ID evaluation Georgie Montanez MD Dec 08, 2017 14:05
--- NOTE | 2017-12-08 15:46 | History & Physical ---
History and Physical History & Physicial Dictated for Int Med-Dr Neil no. [id number]. MARCELL WAYNE Dec 08, 2017 15:46
[2017-12-08 16:00] VITALS: BP 152/67
[2017-12-08 20:00] VITALS: BP 145/73
--- NOTE | 2017-12-08 20:30 | History and Physical Report ---
DATE OF ADMISSION: 12/07/2017 CHIEF COMPLAINT: The patient is a 77-year-old female who presents with chief complaint of altered mental status. HISTORY OF PRESENT ILLNESS: The patient was admitted to [facility] from November 27, 2017 to December 02, 2017. The patient was admitted for altered mental status. The patient was also admitted with left facial droop. Neurology workup was normal. The patient was diagnosed with syncopal episode. Please see history and physical and discharge summary dictated at that admission. According to the patient's family, she has been more confused than usual. This started about three days ago. The patient presented to [place] emergency room. The patient was found to have urinary tract infection. The patient was admitted for urinary tract infection and altered mental status. REVIEW OF SYSTEMS: CONSTITUTIONAL: The patient denies weight loss or gain. The patient denies fevers or chills. HEENT: The patient denies ear or throat pain. The patient denies headache. CARDIOVASCULAR: The patient denies palpitations or chest pain. CHEST: The patient denies wheeze or shortness of breath. ABDOMINAL: The patient denies nausea, vomiting, diarrhea, or constipation. GENITOURINARY: The patient denies dysuria or increased frequency of urination. NEUROMUSCULAR: The patient denies seizures or generalized weakness. PAST MEDICAL HISTORY: Significant for: 1. Type 2 diabetes. 2. Hypertension. 3. Chronic renal failure. 4. History of coronary artery disease. PAST SURGICAL HISTORY: Significant for: 1. Coronary artery bypass graft in 2013. 2. Right knee surgery. CURRENT MEDICATIONS: 1. Amlodipine 5 mg p.o. daily. 2. Aspirin 81 mg p.o. daily. 3. Atorvastatin 10 mg p.o. daily. 4. Baclofen 10 mg one tablet p.o. twice daily. 5. Trulicity 0.75 mg subcutaneous daily. 6. Neurontin 300 mg p.o. twice daily. 7. Hydralazine 25 mg p.o. at bedtime. 8. Lisinopril 20 mg p.o. daily. 9. Namenda 5 mg p.o. daily. 10. Metformin 500 mg p.o. daily (extended release). 11. Metoprolol 25 mg p.o. twice daily. 12. Zyprexa 2.5 mg p.o. at bedtime. 13. Protonix 40 mg p.o. daily. 14. Paxil 40 mg p.o. daily. 15. Zantac 150 mg p.o. twice daily. ALLERGIES: No known drug allergies. SOCIAL HISTORY: The patient is a and lives alone. The patient has a daily caregiver. The patient denies tobacco or alcohol use. The patient lives with caregiver. The patient denies alcohol use. The patient admits to occasional tobacco use. PHYSICAL EXAMINATION: VITAL SIGNS: Temperature 98.2, respirations 19, pulse 77, blood pressure 152/64. GENERAL: The patient is well-developed and well-nourished female, in no apparent distress. HEENT: Pupils are equal and responsive to light and accommodation. Extraocular movements are intact. NECK: Supple. No lymphadenopathy. CHEST: Lungs are clear to auscultation bilaterally without wheezes or rales. CARDIOVASCULAR: Regular rate. S1 and S2 normal without murmurs, rubs, or gallops. ABDOMEN: Soft, nontender, and nondistended. Positive bowel sounds. No evidence of hepatosplenomegaly. Currently, no rebound or guarding noted. EXTREMITIES: Negative for clubbing, cyanosis, or edema. RECTAL/GENITAL: Deferred. NEUROLOGIC: Cranial nerves II to XII are grossly intact without focal deficits. LABORATORY STUDIES: WBC 11.1, hemoglobin 13.2, hematocrit 39.2, platelets 328,000. Sodium 140, potassium 4.7, chloride 106, CO2 27, BUN 19, creatinine 2.2, glucose 121. Urinalysis showed 2+ leukocyte esterase with 10 to 15 wbc's and 2+ occult blood. ASSESSMENT: This is a 77-year-old female: 1. Altered mental status. 2. Urinary tract infection. 3. Diabetes type 2. 4. Hypertension. 5. Chronic renal failure. 6. Coronary artery disease. 7. Alzheimer's dementia. TREATMENT: 1. Altered mental status, this is probably secondary to urinary tract infection. 2. Urinary tract infection. Urine culture is pending. The patient has been started empirically on ceftriaxone. 3. Diabetes type 2. NovoLog sliding scale has been instituted. 4. Hypertension. Continue Norvasc as above. 5. Chronic renal failure. The patient is currently receiving intravenous fluids. 6. History of coronary artery disease. 7. Alzheimer's dementia. Continue Aricept as above. Hira De Leon M.D. DR: Thierry JOB#: [id number] CC:
[2017-12-09] VITALS (7 sets, daily range): BP systolic 106–160; BP diastolic 57–80
[2017-12-09] MEDS: Glimepiride 1mg tab ORAL SCH (06:07)
[2017-12-09] MEDS: Heparin 5000 units/ml inj SUBQ SCH ×3 (06:09→22:18)
[2017-12-09] MEDS: NovoLOG Insulin Flexpen SUBQ SCH ×4 (06:10→20:53)
[2017-12-09] MEDS: cefTRIAXone 1 GM in D5W 55 ML IVPB SCH (08:28)
[2017-12-09] MEDS: Lactulose 20gm/30ml UDC ORAL SCH (08:29)
[2017-12-09] MEDS: Metoprolol 25mg tab ORAL SCH ×2 (08:29→20:49)
[2017-12-09] MEDS: ALPRAZolam 0.5mg tab ORAL SCH ×2 (08:30→17:15)
[2017-12-09] MEDS: Memantine 5 MG TAB ORAL SCH (08:30)
[2017-12-09] MEDS: PARoxetine 20mg tab ORAL SCH (08:30)
--- NOTE | 2017-12-09 08:43 | Diagnostic Imaging Report ---
Indication: Abnormal renal function tests, history of renal disease Technique: Grayscale and duplex images of the kidneys, retroperitoneum, and bladder were obtained. Comparison: For 12/13/2017 Findings: Right kidney measures 9.1 cm in length. Left kidney measures and 28 cm in length. Both kidneys demonstrate normal echogenicity. No hydronephrosis. No focal abnormality. Normal inferior vena cava. Bladder is normal, volume 280 mL. Patient did not void for the exam. The a Garcia catheter has been removed. No significant change otherwise Impression: negative Interim Garcia catheter removal. No other significant interim change, over 11 days.
[2017-12-09 09:07] LABS: BASOPHILS % (AUTO) 0.4 % (0.0-2.0); EOSINOPHILS % (AUTO) 0.5 % (0.0-3.0); HEMATOCRIT 30.9 % (37.0-47.0); HEMOGLOBIN 10.5 G/DL (12.0-16.0); LYMPHOCYTES % (AUTO) 17.6 % (20.0-45.0); MEAN CORPUSCULAR VOLUME 93 FL (80-99); NEUTROPHILS % (AUTO) 76.6 % (45.0-75.0); PLATELET COUNT 266 K/UL (150-450); RED CELL DISTRIBUTION WIDTH 13.4 % (11.6-14.8); WHITE BLOOD COUNT 8.5 K/UL (4.8-10.8)
[2017-12-09 09:45] LABS: ALANINE AMINOTRANSFERASE 16 U/L (12-78); ALBUMIN 2.6 G/DL (3.4-5.0); ALBUMIN/GLOBULIN RATIO 0.7 (1.0-2.7); ALKALINE PHOSPHATASE 116 U/L (46-116); ANION GAP 10 mmol/L (5-15); ASPARTATE AMINO TRANSFERASE 17 U/L (15-37); BILIRUBIN,TOTAL 0.2 MG/DL (0.2-1.0); BLOOD UREA NITROGEN 22 mg/dL (7-18); CALCIUM 8.5 MG/DL (8.5-10.1); CARBON DIOXIDE 23 MMOL/L (21-32); CHLORIDE 111 MMOL/L (98-107); CREATININE 1.7 MG/DL (0.55-1.30); PHOSPHORUS 3.7 MG/DL (2.5-4.9); POTASSIUM 3.7 MMOL/L (3.5-5.1); SODIUM 144 MMOL/L (136-145)
[2017-12-09] MEDS ORDERED: Tubing IV Secondary IV ONE (10:33)
--- NOTE | 2017-12-09 11:01 | Internal Med Progress Note ---
Subjective Date of Service: Dec 09, 2017 Physician Name Marcell Wayne Attending Physician García Neil MD Current Medications Medications (Trade) Dose Ordered Sig/Mikhail Route PRN Reason Start Time Stop Time Status Last Admin Dose Admin Acetaminophen (Tylenol) 650 mg Q6H PRN ORAL Mild Pain/Temp > 100.5 12/07/17 16:45 01/06/18 16:44 12/09/17 08:31 Acetaminophen/ Codeine Phosphate (Tylenol #3) 1 tab Q8HR PRN ORAL For Pain 12/07/17 16:45 12/14/17 16:44 Alprazolam (Xanax) 0.5 mg TWICE A DAY ORAL 12/09/17 09:00 12/16/17 08:59 12/09/17 08:30 Amlodipine Besylate (Norvasc) 5 mg DAILY ORAL 12/08/17 09:00 01/07/18 08:59 12/09/17 08:30 Atorvastatin Calcium (Lipitor) 10 mg BEDTIME ORAL 12/07/17 21:00 01/06/18 20:59 12/08/17 20:49 Ceftriaxone Sodium 1 gm/ Dextrose 55 ml @ 110 mls/hr Q24H IVPB 12/08/17 09:00 12/15/17 08:59 12/09/17 08:28 Dextrose (Dextrose 50%) 25 ml STAT PRN IV Hypoglycemia 12/07/17 17:00 01/06/18 16:59 Dextrose (Dextrose 50%) 50 ml STAT PRN IV Hypoglycemia 12/07/17 17:00 01/06/18 16:59 Gabapentin (Neurontin) 300 mg Q12HR ORAL 12/08/17 09:00 01/07/18 08:59 12/09/17 08:30 Glimepiride (Amaryl) 2 mg ACBREAKFAST ORAL 12/08/17 06:30 01/07/18 06:29 12/09/17 06:07 Heparin Sodium (Porcine) (Heparin 5000 units/ml) 5,000 units EVERY 8 HOURS SUBQ 12/07/17 22:00 01/06/18 21:59 12/09/17 06:09 Insulin Aspart (NovoLOG) BEFORE MEALS AND HS SUBQ 12/07/17 21:00 01/06/18 20:59 12/07/17 21:52 Lactulose (Cephulac) 10 gm DAILY ORAL 12/08/17 09:00 01/07/18 08:59 12/09/17 08:29 Memantine (Namenda) 5 mg DAILY ORAL 12/08/17 09:00 01/07/18 08:59 12/09/17 08:30 Metoprolol Tartrate (Lopressor) 25 mg Q12HR ORAL 12/07/17 21:00 01/06/18 20:59 12/09/17 08:29 Nicotine (Nicoderm) 1 patch Q24H TDERMAL 12/07/17 18:00 01/06/18 17:59 12/08/17 17:32 Ondansetron HCl (Zofran) 4 mg Q4H PRN IVP Nausea & Vomiting 12/07/17 17:00 01/06/18 16:59 Pantoprazole (Protonix) 40 mg DAILY ORAL 12/08/17 09:00 01/07/18 08:59 12/09/17 08:30 Paroxetine HCl (Paxil) 40 mg DAILY ORAL 12/08/17 09:00 01/07/18 08:59 12/09/17 08:30 Sodium Chloride 1,000 ml @ 75 mls/hr [id number] IV 12/07/17 17:00 01/06/18 16:59 12/09/17 08:29 Allergies: Coded Allergies: No Known Allergies (Unverified , 01/10/15) ROS Limited/Unobtainable: No Constitutional: Reports: no symptoms HEENT: Reports: no symptoms Cardiovascular: Reports: no symptoms Respiratory: Reports: no symptoms Gastrointestinal/Abdominal: Reports: no symptoms Genitourinary: Reports: no symptoms Neurologic/Psychiatric: Reports: no symptoms Subjective 77 YO F admitted with altered mental status. Now UTI. Cover for Int Alexy-Dr Neil. Objective Last Vital Signs Date Time Temp Pulse Resp B/P (MAP) Pulse Ox O2 Delivery O2 Flow Rate FiO2 12/09/17 08:30 64 157/75 12/09/17 08:00 98.5 18 100 98.5 12/08/17 16:00 Room Air General Appearance: WD/WN, no apparent distress, alert EENT: PERRL/EOMI, normal ENT inspection, TMs normal Neck: non-tender, normal alignment, supple Cardiovascular: normal peripheral pulses, normal rate, regular rhythm, no gallop/murmur, no JVD Respiratory/Chest: chest wall non-tender, lungs clear, normal breath sounds, no respiratory distress, no accessory muscle use Abdomen: normal bowel sounds, non tender, soft, no organomegaly, no mass Extremities: normal range of motion, non-tender 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, no motor/sensory deficits, abnormal gait Skin: normal pigmentation, warm/dry Laboratory Tests Test 12/09/17 08:06 White Blood Count 8.5 K/UL (4.8-10.8) Red Blood Count 3.30 M/UL (4.20-5.40) L Hemoglobin 10.5 G/DL (12.0-16.0) L Hematocrit 30.9 % (37.0-47.0) L Mean Corpuscular Volume 93 FL (80-99) Mean Corpuscular Hemoglobin 31.8 PG (27.0-31.0) H Mean Corpuscular Hemoglobin Concent 34.0 G/DL (32.0-36.0) Red Cell Distribution Width 13.4 % (11.6-14.8) Platelet Count 266 K/UL (150-450) Mean Platelet Volume 5.6 FL (6.5-10.1) L Neutrophils (%) (Auto) 76.6 % (45.0-75.0) H Lymphocytes (%) (Auto) 17.6 % (20.0-45.0) L Monocytes (%) (Auto) 5.0 % (1.0-10.0) Eosinophils (%) (Auto) 0.5 % (0.0-3.0) Basophils (%) (Auto) 0.4 % (0.0-2.0) Erythrocyte Sedimentation Rate Pending Sodium Level 144 MMOL/L (136-145) Potassium Level 3.7 MMOL/L (3.5-5.1) Chloride Level 111 MMOL/L (98-107) H Carbon Dioxide Level 23 MMOL/L (21-32) Anion Gap 10 mmol/L (5-15) Blood Urea Nitrogen 22 mg/dL (7-18) H Creatinine 1.7 MG/DL (0.55-1.30) H Estimat Glomerular Filtration Rate mL/min (>60) Glucose Level 142 MG/DL (74-106) H Calcium Level 8.5 MG/DL (8.5-10.1) Phosphorus Level 3.7 MG/DL (2.5-4.9) Magnesium Level 2.1 MG/DL (1.8-2.4) Total Bilirubin 0.2 MG/DL (0.2-1.0) Aspartate Amino Transf (AST/SGOT) 17 U/L (15-37) Alanine Aminotransferase (ALT/SGPT) 16 U/L (12-78) Alkaline Phosphatase 116 U/L (46-116) C-Reactive Protein, Quantitative 1.3 mg/dL (0.00-0.90) H Total Protein 6.3 G/DL (6.4-8.2) L Albumin 2.6 G/DL (3.4-5.0) L Globulin 3.7 g/dL Albumin/Globulin Ratio 0.7 (1.0-2.7) L Microbiology Date/Time Source Procedure Growth Status 12/07/17 09:30 Blood Blood Culture - Preliminary NO GROWTH AFTER 24 HOURS Resulted 12/07/17 09:15 Blood Blood Culture - Preliminary NO GROWTH AFTER 24 HOURS Resulted 12/07/17 09:15 Nasal Nares MRSA Culture - Final NO METHICILLIN RESISTANT STAPH AUREUS... Complete 12/07/17 09:15 Urine,Clean Catch Urine Culture - Preliminary NO GROWTH AFTER 24 HOURS Resulted 12/07/17 09:15 Rectum VRE Culture - Final NO VANCOMYCIN RESISTANT ENTEROCOCCUS ... Complete Intake and Output 12/08/17 12/09/17 19:00 07:00 Intake Total 1985 ml 1305 ml Balance 1985 ml 1305 ml Intake Oral 720 ml 480 ml IV Total 900 ml 825 ml Other 365 ml # Voids 2 3 Assessment/Plan Problem List: (1) Alzheimer's dementia Assessment & Plan: Continue Namenda (2) UTI (urinary tract infection) Assessment & Plan: Continue Levaquin. (3) Acute encephalopathy (4) DM (diabetes mellitus) Assessment & Plan: Continue amaryl and novolog (5) Hypertension Assessment & Plan: Continue lopressor and norvasc (6) ARF (acute renal failure) (7) Coronary artery disease Status: progressing Assessment/Plan Discharge planning: SNF; D/W sonStefano at [facility] Dec 09, 2017 11:00
--- NOTE | 2017-12-09 13:33 | Pulmonology Progress Note ---
Assessment/Plan Problems: (1) Pyelonephritis (2) Acute encephalopathy (3) Alzheimer's dementia (4) DM (diabetes mellitus) Assessment/Plan check cultures check wbc continue abx ID consult swallow evalution aspiration precaution sliding scale Subjective ROS Limited/Unobtainable: No Constitutional: Reports: no symptoms HEENT: Repors: no symptoms Respiratory: Reports: no symptoms Allergies: Coded Allergies: No Known Allergies (Unverified , 01/10/15) Objective Last 24 Hour Vital Signs Date Time Temp Pulse Resp B/P (MAP) Pulse Ox O2 Delivery O2 Flow Rate FiO2 12/09/17 12:00 98.4 17 149/66 96 98.4 12/09/17 08:30 64 157/75 12/09/17 08:29 64 157/75 12/09/17 08:00 98.5 18 157/75 100 98.5 12/09/17 04:00 98.4 64 20 147/66 98 98.4 12/09/17 00:00 98.2 66 20 143/66 98 98.2 12/08/17 20:49 71 145/73 12/08/17 20:00 98.2 71 20 145/73 97 98.2 12/08/17 16:00 97.8 72 19 152/67 97 Room Air 97.8 Intake and Output 12/08/17 12/09/17 19:00 07:00 Intake Total 1985 ml 1305 ml Balance 1985 ml 1305 ml Intake Oral 720 ml 480 ml IV Total 900 ml 825 ml Other 365 ml # Voids 2 3 Objective General Appearance: cachetic Lines, tubes and drains: peripheral HEENT: normocephalic Neck: non-tender, normal alignment Breasts: no masses Abdomen: normal bowel sounds, non tender Genitourinary/Rectal: normal genital exam, normal rectal exam Extremities: normal range of motion 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 Complete 12/07/17 09:15 Urine,Clean Catch Urine Culture - Preliminary NO GROWTH AFTER 24 HOURS Resulted 12/07/17 09:15 Rectum VRE Culture - Final NO VANCOMYCIN RESISTANT ENTEROCOCCUS ... Complete Laboratory Tests 12/09/17 08:06: White Blood Count 8.5, Red Blood Count 3.30L, Hemoglobin 10.5L, Hematocrit 30.9L , Mean Corpuscular Volume 93, Mean Corpuscular Hemoglobin 31.8H, Mean Corpuscular Hemoglobin Concent 34.0, Red Cell Distribution Width 13.4, Platelet Count 266, Mean Platelet Volume 5.6L, Neutrophils (%) (Auto) 76.6H, Lymphocytes (%) (Auto) 17.6L, Monocytes (%) (Auto) 5.0, Eosinophils (%) (Auto) 0.5, Basophils (%) (Auto) 0.4, Erythrocyte Sedimentation Rate 65H, Sodium Level 144, Potassium Level 3.7, Chloride Level 111H, Carbon Dioxide Level 23, Anion Gap 10 , Blood Urea Nitrogen 22H, Creatinine 1.7H, Estimat Glomerular Filtration Rate , Glucose Level 142H, Calcium Level 8.5, Phosphorus Level 3.7, Magnesium Level 2.1, Total Bilirubin 0.2, Aspartate Amino Transf (AST/SGOT) 17, Alanine Aminotransferase (ALT/SGPT) 16, Alkaline Phosphatase 116, C-Reactive Protein, Quantitative 1.3H, Total Protein 6.3L, Albumin 2.6L, Globulin 3.7, Albumin/ Globulin Ratio 0.7L Current Medications Medications (Trade) Dose Ordered Sig/Mikhail Route PRN Reason Start Time Stop Time Status Last Admin Dose Admin Acetaminophen (Tylenol) 650 mg Q6H PRN ORAL Mild Pain/Temp > 100.5 12/07/17 16:45 01/06/18 16:44 12/09/17 08:31 Acetaminophen/ Codeine Phosphate (Tylenol #3) 1 tab Q8HR PRN ORAL For Pain 12/07/17 16:45 12/14/17 16:44 Alprazolam (Xanax) 0.5 mg TWICE A DAY ORAL 12/09/17 09:00 12/16/17 08:59 12/09/17 08:30 Amlodipine Besylate (Norvasc) 5 mg DAILY ORAL 12/08/17 09:00 01/07/18 08:59 12/09/17 08:30 Atorvastatin Calcium (Lipitor) 10 mg BEDTIME ORAL 12/07/17 21:00 01/06/18 20:59 12/08/17 20:49 Ceftriaxone Sodium 1 gm/ Dextrose 55 ml @ 110 mls/hr Q24H IVPB 12/08/17 09:00 12/15/17 08:59 12/09/17 08:28 Dextrose (Dextrose 50%) 25 ml STAT PRN IV Hypoglycemia 12/07/17 17:00 01/06/18 16:59 Dextrose (Dextrose 50%) 50 ml STAT PRN IV Hypoglycemia 12/07/17 17:00 01/06/18 16:59 Gabapentin (Neurontin) 300 mg Q12HR ORAL 12/08/17 09:00 01/07/18 08:59 12/09/17 08:30 Glimepiride (Amaryl) 2 mg ACBREAKFAST ORAL 12/08/17 06:30 01/07/18 06:29 12/09/17 06:07 Heparin Sodium (Porcine) (Heparin 5000 units/ml) 5,000 units EVERY 8 HOURS SUBQ 12/07/17 22:00 01/06/18 21:59 12/09/17 06:09 Insulin Aspart (NovoLOG) BEFORE MEALS AND HS SUBQ 12/07/17 21:00 01/06/18 20:59 12/09/17 11:51 Lactulose (Cephulac) 10 gm DAILY ORAL 12/08/17 09:00 01/07/18 08:59 12/09/17 08:29 Memantine (Namenda) 5 mg DAILY ORAL 12/08/17 09:00 01/07/18 08:59 12/09/17 08:30 Metoprolol Tartrate (Lopressor) 25 mg Q12HR ORAL 12/07/17 21:00 01/06/18 20:59 12/09/17 08:29 Nicotine (Nicoderm) 1 patch Q24H TDERMAL 12/07/17 18:00 01/06/18 17:59 12/08/17 17:32 Ondansetron HCl (Zofran) 4 mg Q4H PRN IVP Nausea & Vomiting 12/07/17 17:00 01/06/18 16:59 Pantoprazole (Protonix) 40 mg DAILY ORAL 12/08/17 09:00 01/07/18 08:59 12/09/17 08:30 Paroxetine HCl (Paxil) 40 mg DAILY ORAL 12/08/17 09:00 01/07/18 08:59 12/09/17 08:30 Sodium Chloride 1,000 ml @ 75 mls/hr [id number] IV 12/07/17 17:00 01/06/18 16:59 12/09/17 08:29 Georgie Montanez MD Dec 09, 2017 13:33
[2017-12-09] MEDS: Norco 5mg/325mg tab ORAL PRN ×2 (14:38→23:08)
--- NOTE | 2017-12-09 19:32 | Consultation ---
Consult Note Assessment/Plan # [id number] Tyrese Pagan MD Dec 09, 2017 19:32
--- NOTE | 2017-12-09 21:26 | Cardiology Report ---
APPROVED REPORT EKG Measurement Heart [id number] Normal sinus rhythm Minimal voltage criteria for LVH, may be normal variant Septal infarct, age undetermined Abnormal ECG
--- NOTE | 2017-12-09 22:30 | Consultation ---
DATE OF CONSULTATION: 12/09/2017 INFECTIOUS DISEASE CONSULTATION CONSULTING PHYSICIAN: Tyrese Pagan M.D. REQUESTING PHYSICIAN: Georgie Montanez M.D. REASON FOR CONSULTATION: Evaluation of the patient for sepsis and antibiotic management. HISTORY OF PRESENT ILLNESS: The patient is a 77-year-old female, who was recently admitted to this medical center and was discharged recently. The patient was admitted to this medical center because of worsening of mental status and lethargicness. Infectious Disease consultation has been requested for evaluation of the patient in view of recent history of urinary tract infection and possible need for further workups and antibiotic management. PAST MEDICAL HISTORY: 1. History E. coli urinary tract infection. 2. History of recent altered mental status. 3. Status post fall. 4. CAD. 5. Hyperlipidemia. 6. Hypertension. 7. Renal insufficiency. 8. Arthritis. 9. Diabetes. 10. Depression. MEDICATIONS: The patient is on Rocephin. ALLERGIES: No known drug allergies. SOCIAL HISTORY: Negative for alcohol, drug abuse, or smoking. FAMILY HISTORY: Not contributing. PHYSICAL EXAMINATION: VITAL SIGNS: Temperature 98 degrees, blood pressure 106/65, pulse 86, respiratory rate 18, and T-max 100 degrees. HEENT: No pale conjunctivae. No icterus. NECK: No lymphadenopathy. CHEST: Clear. HEART: S1 and S2. ABDOMEN: Soft and nontender. EXTREMITIES: No cyanosis at this time. NEUROLOGIC: Awake. LABORATORY AND DIAGNOSTIC DATA: White blood cells 8.5, hemoglobin 10, and platelets 266. UA, 10 to 15 white blood cells and 2 to 4 red blood cells. BUN 22 and creatinine 0.7. ALT, AST, and alkaline phosphatase unremarkable. Recent urine culture grew E. coli. Ultrasound of kidney is unremarkable. Chest x-ray, no new atelectasis or focal infiltrate. CT of the head, no acute intracranial bleed. ASSESSMENT: The patient is a 77-year-old female with, 1. Low-grade fever. 2. Mild leukocytosis, status post. 3. Rule out urinary tract infection. 4. Rule out bacteremia. 5. No evidence of pneumonia. PLAN: 1. We will continue the patient on IV Rocephin day #3. 2. Monitor CBC. 3. Monitor BMP. 4. Monitor cultures (blood, urine). 5. Monitor chest x-ray. 6. Based on the patient's clinical course and labs, we will do further recommendations. Thank you, Dr. Motnanez and Dr. De Leon, for following me to participate in the care of this patient. I will follow the patient with you during this hospitalization. Tyrese Pagan M.D. DR: BENITEZ JOB#: [id number] CC:
--- NOTE | 2017-12-09 23:45 | General Progress Note ---
Assessment/Plan Assessment/Plan mdd anxiety encephalopathy dementia with behavioral dist -paxil -xanxa -cont to provide ro/st Subjective Date patient seen: Dec 09, 2017 Neurologic/Psychiatric: Reports: anxiety, depressed, emotional problems Allergies: Coded Allergies: No Known Allergies (Unverified , 01/10/15) Objective Last 24 Hour Vital Signs Date Time Temp Pulse Resp B/P (MAP) Pulse Ox O2 Delivery O2 Flow Rate FiO2 12/09/17 21:30 158/57 12/09/17 20:49 66 160/80 12/09/17 20:00 98.8 66 20 160/80 93 Room Air 98.8 12/09/17 16:10 98.1 16 106/65 67 98.1 12/09/17 12:00 98.4 17 149/66 96 98.4 12/09/17 08:30 64 157/75 12/09/17 08:29 64 157/75 12/09/17 08:00 98.5 18 157/75 100 98.5 12/09/17 04:00 98.4 64 20 147/66 98 98.4 12/09/17 00:00 98.2 66 20 143/66 98 98.2 Intake and Output 12/08/17 12/09/17 19:00 07:00 Intake Total 1985 ml 1305 ml Balance 1985 ml 1305 ml Intake Oral 720 ml 480 ml IV Total 900 ml 825 ml Other 365 ml # Voids 2 3 Laboratory Tests 12/09/17 08:06: White Blood Count 8.5, Red Blood Count 3.30L, Hemoglobin 10.5L, Hematocrit 30.9L , Mean Corpuscular Volume 93, Mean Corpuscular Hemoglobin 31.8H, Mean Corpuscular Hemoglobin Concent 34.0, Red Cell Distribution Width 13.4, Platelet Count 266, Mean Platelet Volume 5.6L, Neutrophils (%) (Auto) 76.6H, Lymphocytes (%) (Auto) 17.6L, Monocytes (%) (Auto) 5.0, Eosinophils (%) (Auto) 0.5, Basophils (%) (Auto) 0.4, Erythrocyte Sedimentation Rate 65H, Sodium Level 144, Potassium Level 3.7, Chloride Level 111H, Carbon Dioxide Level 23, Anion Gap 10 , Blood Urea Nitrogen 22H, Creatinine 1.7H, Estimat Glomerular Filtration Rate , Glucose Level 142H, Calcium Level 8.5, Phosphorus Level 3.7, Magnesium Level 2.1, Total Bilirubin 0.2, Aspartate Amino Transf (AST/SGOT) 17, Alanine Aminotransferase (ALT/SGPT) 16, Alkaline Phosphatase 116, C-Reactive Protein, Quantitative 1.3H, Total Protein 6.3L, Albumin 2.6L, Globulin 3.7, Albumin/ Globulin Ratio 0.7L Height (Feet): 6 Height (Inches): 2.00 Weight (Pounds): 180 General Appearance: no apparent distress, alert, confused Gregg Acosta M.D. Dec 09, 2017 23:45
[2017-12-10] VITALS (8 sets, daily range): BP systolic 160–185; BP diastolic 71–80
[2017-12-10] MEDS: Heparin 5000 units/ml inj SUBQ SCH ×3 (05:09→20:41)
[2017-12-10] MEDS: Glimepiride 1mg tab ORAL SCH (06:08)
[2017-12-10] MEDS: NovoLOG Insulin Flexpen SUBQ SCH ×4 (06:08→20:41)
[2017-12-10 08:10] LABS: BASOPHILS % (AUTO) 0.8 % (0.0-2.0); EOSINOPHILS % (AUTO) 1.2 % (0.0-3.0); HEMATOCRIT 29.6 % (37.0-47.0); HEMOGLOBIN 10.2 G/DL (12.0-16.0); LYMPHOCYTES % (AUTO) 17.6 % (20.0-45.0); MEAN CORPUSCULAR VOLUME 93 FL (80-99); MONOCYTES % (AUTO) 6.2 % (1.0-10.0); NEUTROPHILS % (AUTO) 74.2 % (45.0-75.0); PLATELET COUNT 234 K/UL (150-450); RED BLOOD COUNT 3.17 M/UL (4.20-5.40); RED CELL DISTRIBUTION WIDTH 13.6 % (11.6-14.8); WHITE BLOOD COUNT 8.2 K/UL (4.8-10.8)
[2017-12-10] MEDS: Metoprolol 25mg tab ORAL SCH ×2 (08:32→20:35)
[2017-12-10] MEDS: Memantine 5 MG TAB ORAL SCH (08:32)
[2017-12-10] MEDS: Lactulose 20gm/30ml UDC ORAL SCH (08:32)
[2017-12-10] MEDS: PARoxetine 20mg tab ORAL SCH (08:32)
[2017-12-10] MEDS: ALPRAZolam 0.5mg tab ORAL SCH (08:32)
[2017-12-10 08:33] LABS: ANION GAP 8 mmol/L (5-15); BLOOD UREA NITROGEN 17 mg/dL (7-18); CALCIUM 8.1 MG/DL (8.5-10.1); CARBON DIOXIDE 24 MMOL/L (21-32); CHLORIDE 107 MMOL/L (98-107); CREATININE 1.8 MG/DL (0.55-1.30); POTASSIUM 3.8 MMOL/L (3.5-5.1); SODIUM 139 MMOL/L (136-145)
[2017-12-10] MEDS: cefTRIAXone 1 GM in D5W 110 ML IVPB SCH (08:33)
--- NOTE | 2017-12-10 12:47 | Infectious Diseases Prog Note ---
Assessment/Plan Assessment/Plan ASSESSMENT: The patient is a 77-year-old female with Low-grade fever Mild leukocytosis, status post no evid of Urinary tract infection UCx Neg Rule out bacteremia No evidence of pneumonia Chest x-ray, no new atelectasis or focal infiltrate CT : the head, no acute intracranial bleed. History E. coli urinary tract infection. SP ALOC Status post fall CAD Hyperlipidemia Hypertension Renal insufficiency Arthritis Diabetes Depression PLAN: Continue the patient on IV Rocephin day # 4 / 5 Monitor CBC Monitor BMP Monitor cultures (blood) Monitor chest x-ray Subjective Constitutional: Denies: no symptoms, fever, chills, fatigue, anorexia, drenching sweats, other Allergies: Coded Allergies: No Known Allergies (Unverified , 01/10/15) Objective Vital Signs Last 24 Hour Vital Signs Date Time Temp Pulse Resp B/P (MAP) Pulse Ox O2 Delivery O2 Flow Rate FiO2 12/10/17 08:32 65 160/76 12/10/17 08:32 65 160/76 12/10/17 08:20 97.9 65 20 160/76 98 97.9 12/10/17 08:00 97.9 60 20 172/71 98 97.9 12/10/17 06:17 65 160/76 12/10/17 05:08 185/75 12/10/17 04:00 97.3 63 20 185/75 97 Room Air 97.3 12/10/17 00:31 171/80 12/10/17 00:04 97.5 64 20 171/80 98 Room Air 97.5 12/09/17 21:30 158/57 12/09/17 20:49 66 160/80 12/09/17 20:00 98.8 66 20 160/80 93 Room Air 98.8 12/09/17 16:10 98.1 16 106/65 67 98.1 Height (Feet): 6 Height (Inches): 2.00 Weight (Pounds): 180 HEENT: anicteric Respiratory/Chest: no accessory muscle use Cardiovascular: no gallop/murmur Abdomen: no organomegaly Laboratory Tests Test 12/10/17 06:35 White Blood Count 8.2 K/UL (4.8-10.8) Red Blood Count 3.17 M/UL (4.20-5.40) L Hemoglobin 10.2 G/DL (12.0-16.0) L Hematocrit 29.6 % (37.0-47.0) L Mean Corpuscular Volume 93 FL (80-99) Mean Corpuscular Hemoglobin 32.3 PG (27.0-31.0) H Mean Corpuscular Hemoglobin Concent 34.5 G/DL (32.0-36.0) Red Cell Distribution Width 13.6 % (11.6-14.8) Platelet Count 234 K/UL (150-450) Mean Platelet Volume 5.7 FL (6.5-10.1) L Neutrophils (%) (Auto) 74.2 % (45.0-75.0) Lymphocytes (%) (Auto) 17.6 % (20.0-45.0) L Monocytes (%) (Auto) 6.2 % (1.0-10.0) Eosinophils (%) (Auto) 1.2 % (0.0-3.0) Basophils (%) (Auto) 0.8 % (0.0-2.0) Sodium Level 139 MMOL/L (136-145) Potassium Level 3.8 MMOL/L (3.5-5.1) Chloride Level 107 MMOL/L (98-107) Carbon Dioxide Level 24 MMOL/L (21-32) Anion Gap 8 mmol/L (5-15) Blood Urea Nitrogen 17 mg/dL (7-18) Creatinine 1.8 MG/DL (0.55-1.30) H Estimat Glomerular Filtration Rate mL/min (>60) Glucose Level 158 MG/DL (74-106) H Calcium Level 8.1 MG/DL (8.5-10.1) L Current Medications Medications (Trade) Dose Ordered Sig/Mikhail Route PRN Reason Start Time Stop Time Status Last Admin Dose Admin Acetaminophen (Tylenol) 650 mg Q6H PRN ORAL Mild Pain/Temp > 100.5 12/07/17 16:45 01/06/18 16:44 12/10/17 01:33 Acetaminophen/ Hydrocodone Bitart ([place] 5/325) 1 tab Q6H PRN ORAL mod-severe pain 4-10 12/09/17 14:00 12/16/17 13:59 12/09/17 23:08 Alprazolam (Xanax) 0.5 mg TWICE A DAY ORAL 12/09/17 09:00 12/16/17 08:59 12/10/17 08:32 Amlodipine Besylate (Norvasc) 5 mg DAILY ORAL 12/08/17 09:00 01/07/18 08:59 12/10/17 08:32 Atorvastatin Calcium (Lipitor) 10 mg BEDTIME ORAL 12/07/17 21:00 01/06/18 20:59 12/09/17 20:49 Ceftriaxone Sodium 1 gm/ Dextrose 110 ml @ 220 mls/hr Q24H IVPB 12/10/17 09:00 12/15/17 23:59 12/10/17 08:33 Clonidine HCl (Catapres Tab) 0.1 mg Q4H PRN ORAL For High Blood Pressure 12/10/17 00:30 01/09/18 00:29 12/10/17 05:08 Dextrose (Dextrose 50%) 25 ml STAT PRN IV Hypoglycemia 12/07/17 17:00 01/06/18 16:59 Dextrose (Dextrose 50%) 50 ml STAT PRN IV Hypoglycemia 12/07/17 17:00 01/06/18 16:59 Gabapentin (Neurontin) 300 mg Q12HR ORAL 12/08/17 09:00 01/07/18 08:59 12/10/17 08:32 Glimepiride (Amaryl) 2 mg ACBREAKFAST ORAL 12/08/17 06:30 01/07/18 06:29 12/10/17 06:08 Heparin Sodium (Porcine) (Heparin 5000 units/ml) 5,000 units EVERY 8 HOURS SUBQ 12/07/17 22:00 01/06/18 21:59 12/10/17 05:09 Insulin Aspart (NovoLOG) BEFORE MEALS AND HS SUBQ 12/07/17 21:00 01/06/18 20:59 12/09/17 11:51 Lactulose (Cephulac) 10 gm DAILY ORAL 12/08/17 09:00 01/07/18 08:59 12/10/17 08:32 Memantine (Namenda) 5 mg DAILY ORAL 12/08/17 09:00 01/07/18 08:59 12/10/17 08:32 Metoprolol Tartrate (Lopressor) 25 mg Q12HR ORAL 12/07/17 21:00 01/06/18 20:59 12/10/17 08:32 Nicotine (Nicoderm) 1 patch Q24H TDERMAL 12/07/17 18:00 01/06/18 17:59 12/09/17 17:15 Ondansetron HCl (Zofran) 4 mg Q4H PRN IVP Nausea & Vomiting 12/07/17 17:00 01/06/18 16:59 Pantoprazole (Protonix) 40 mg DAILY ORAL 12/08/17 09:00 01/07/18 08:59 12/10/17 08:32 Paroxetine HCl (Paxil) 40 mg DAILY ORAL 12/08/17 09:00 01/07/18 08:59 12/10/17 08:32 Sodium Chloride 1,000 ml @ 75 mls/hr [id number] IV 12/07/17 17:00 01/06/18 16:59 12/10/17 12:20 Tyrese Pagan MD Dec 10, 2017 12:47
--- NOTE | 2017-12-10 14:55 | Pulmonology Progress Note ---
Assessment/Plan Problems: (1) Pyelonephritis (2) Acute encephalopathy (3) Alzheimer's dementia (4) DM (diabetes mellitus) Assessment/Plan more lethargic today check cultures, all negative so far check wbc, WNL continue abx ID consult swallow evalution when mental status better aspiration precaution sliding scale Neuro consult called Subjective ROS Limited/Unobtainable: No Constitutional: Reports: no symptoms HEENT: Repors: no symptoms Respiratory: Reports: no symptoms Allergies: Coded Allergies: No Known Allergies (Unverified , 01/10/15) Objective Last 24 Hour Vital Signs Date Time Temp Pulse Resp B/P (MAP) Pulse Ox O2 Delivery O2 Flow Rate FiO2 12/10/17 12:00 97.6 58 16 172/78 96 97.6 12/10/17 08:32 65 160/76 12/10/17 08:32 65 160/76 12/10/17 08:20 97.9 65 20 160/76 98 97.9 12/10/17 08:00 97.9 60 20 172/71 98 97.9 12/10/17 06:17 65 160/76 12/10/17 05:08 185/75 12/10/17 04:00 97.3 63 20 185/75 97 Room Air 97.3 12/10/17 00:31 171/80 12/10/17 00:04 97.5 64 20 171/80 98 Room Air 97.5 12/09/17 21:30 158/57 12/09/17 20:49 66 160/80 12/09/17 20:00 98.8 66 20 160/80 93 Room Air 98.8 12/09/17 16:10 98.1 16 106/65 67 98.1 Intake and Output 12/09/17 12/10/17 19:00 07:00 Intake Total 1140 ml 1305 ml Balance 1140 ml 1305 ml Intake Oral 1065 ml 480 ml IV Total 75 ml 825 ml # Voids 5 3 Objective General Appearance: cachetic Lines, tubes and drains: peripheral HEENT: normocephalic Neck: non-tender, normal alignment Breasts: no masses Abdomen: normal bowel sounds, non tender Genitourinary/Rectal: normal genital exam, normal rectal exam Extremities: normal range of motion 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 Laboratory Tests 12/10/17 06:35: White Blood Count 8.2, Red Blood Count 3.17L, Hemoglobin 10.2L, Hematocrit 29.6L , Mean Corpuscular Volume 93, Mean Corpuscular Hemoglobin 32.3H, Mean Corpuscular Hemoglobin Concent 34.5, Red Cell Distribution Width 13.6, Platelet Count 234, Mean Platelet Volume 5.7L, Neutrophils (%) (Auto) 74.2, Lymphocytes ( %) (Auto) 17.6L, Monocytes (%) (Auto) 6.2, Eosinophils (%) (Auto) 1.2, Basophils (%) (Auto) 0.8, Sodium Level 139, Potassium Level 3.8, Chloride Level 107, Carbon Dioxide Level 24, Anion Gap 8, Blood Urea Nitrogen 17, Creatinine 1.8H, Estimat Glomerular Filtration Rate , Glucose Level 158H, Calcium Level 8.1L Current Medications Medications (Trade) Dose Ordered Sig/Mikhail Route PRN Reason Start Time Stop Time Status Last Admin Dose Admin Acetaminophen (Tylenol) 650 mg Q6H PRN ORAL Mild Pain/Temp > 100.5 12/07/17 16:45 01/06/18 16:44 12/10/17 01:33 Acetaminophen/ Hydrocodone Bitart ([place] 5/325) 1 tab Q6H PRN ORAL mod-severe pain 4-10 12/09/17 14:00 12/16/17 13:59 12/09/17 23:08 Alprazolam (Xanax) 0.5 mg TWICE A DAY ORAL 12/09/17 09:00 12/16/17 08:59 12/10/17 08:32 Amlodipine Besylate (Norvasc) 5 mg DAILY ORAL 12/08/17 09:00 01/07/18 08:59 12/10/17 08:32 Atorvastatin Calcium (Lipitor) 10 mg BEDTIME ORAL 12/07/17 21:00 01/06/18 20:59 12/09/17 20:49 Ceftriaxone Sodium 1 gm/ Dextrose 110 ml @ 220 mls/hr Q24H IVPB 12/10/17 09:00 12/15/17 23:59 12/10/17 08:33 Clonidine HCl (Catapres Tab) 0.1 mg Q4H PRN ORAL For High Blood Pressure 12/10/17 00:30 01/09/18 00:29 12/10/17 05:08 Dextrose (Dextrose 50%) 25 ml STAT PRN IV Hypoglycemia 12/07/17 17:00 01/06/18 16:59 Dextrose (Dextrose 50%) 50 ml STAT PRN IV Hypoglycemia 12/07/17 17:00 01/06/18 16:59 Gabapentin (Neurontin) 300 mg Q12HR ORAL 12/08/17 09:00 01/07/18 08:59 12/10/17 08:32 Glimepiride (Amaryl) 2 mg ACBREAKFAST ORAL 12/08/17 06:30 01/07/18 06:29 12/10/17 06:08 Heparin Sodium (Porcine) (Heparin 5000 units/ml) 5,000 units EVERY 8 HOURS SUBQ 12/07/17 22:00 01/06/18 21:59 12/10/17 05:09 Insulin Aspart (NovoLOG) BEFORE MEALS AND HS SUBQ 12/07/17 21:00 01/06/18 20:59 12/09/17 11:51 Lactulose (Cephulac) 10 gm DAILY ORAL 12/08/17 09:00 01/07/18 08:59 12/10/17 08:32 Memantine (Namenda) 5 mg DAILY ORAL 12/08/17 09:00 01/07/18 08:59 12/10/17 08:32 Metoprolol Tartrate (Lopressor) 25 mg Q12HR ORAL 12/07/17 21:00 01/06/18 20:59 12/10/17 08:32 Nicotine (Nicoderm) 1 patch Q24H TDERMAL 12/07/17 18:00 01/06/18 17:59 12/09/17 17:15 Ondansetron HCl (Zofran) 4 mg Q4H PRN IVP Nausea & Vomiting 12/07/17 17:00 01/06/18 16:59 Pantoprazole (Protonix) 40 mg DAILY ORAL 12/08/17 09:00 01/07/18 08:59 12/10/17 08:32 Paroxetine HCl (Paxil) 40 mg DAILY ORAL 12/08/17 09:00 01/07/18 08:59 12/10/17 08:32 Sodium Chloride 1,000 ml @ 75 mls/hr [id number] IV 12/07/17 17:00 01/06/18 16:59 12/10/17 12:20 Georgie Montanez MD Dec 10, 2017 14:55
--- NOTE | 2017-12-10 16:51 | Cardiac Electrophysiology PN ---
Subjective Subjective [id number] Objective Last 24 Hour Vital Signs Date Time Temp Pulse Resp B/P (MAP) Pulse Ox O2 Delivery O2 Flow Rate FiO2 12/10/17 15:41 97.8 59 16 165/71 96 97.8 12/10/17 12:00 97.6 58 16 172/78 96 97.6 12/10/17 08:32 65 160/76 12/10/17 08:32 65 160/76 12/10/17 08:20 97.9 65 20 160/76 98 97.9 12/10/17 08:00 97.9 60 20 172/71 98 97.9 12/10/17 06:17 65 160/76 12/10/17 05:08 185/75 12/10/17 04:00 97.3 63 20 185/75 97 Room Air 97.3 12/10/17 00:31 171/80 12/10/17 00:04 97.5 64 20 171/80 98 Room Air 97.5 12/09/17 21:30 158/57 12/09/17 20:49 66 160/80 12/09/17 20:00 98.8 66 20 160/80 93 Room Air 98.8 Intake and Output 12/09/17 12/10/17 19:00 07:00 Intake Total 1140 ml 1305 ml Balance 1140 ml 1305 ml Intake Oral 1065 ml 480 ml IV Total 75 ml 825 ml # Voids 5 3 Laboratory Tests Test 12/10/17 06:35 White Blood Count 8.2 K/UL (4.8-10.8) Red Blood Count 3.17 M/UL (4.20-5.40) L Hemoglobin 10.2 G/DL (12.0-16.0) L Hematocrit 29.6 % (37.0-47.0) L Mean Corpuscular Volume 93 FL (80-99) Mean Corpuscular Hemoglobin 32.3 PG (27.0-31.0) H Mean Corpuscular Hemoglobin Concent 34.5 G/DL (32.0-36.0) Red Cell Distribution Width 13.6 % (11.6-14.8) Platelet Count 234 K/UL (150-450) Mean Platelet Volume 5.7 FL (6.5-10.1) L Neutrophils (%) (Auto) 74.2 % (45.0-75.0) Lymphocytes (%) (Auto) 17.6 % (20.0-45.0) L Monocytes (%) (Auto) 6.2 % (1.0-10.0) Eosinophils (%) (Auto) 1.2 % (0.0-3.0) Basophils (%) (Auto) 0.8 % (0.0-2.0) Sodium Level 139 MMOL/L (136-145) Potassium Level 3.8 MMOL/L (3.5-5.1) Chloride Level 107 MMOL/L (98-107) Carbon Dioxide Level 24 MMOL/L (21-32) Anion Gap 8 mmol/L (5-15) Blood Urea Nitrogen 17 mg/dL (7-18) Creatinine 1.8 MG/DL (0.55-1.30) H Estimat Glomerular Filtration Rate mL/min (>60) Glucose Level 158 MG/DL (74-106) H Calcium Level 8.1 MG/DL (8.5-10.1) L Hunter Ruby MD Dec 10, 2017 16:51
[2017-12-10] MEDS ORDERED: Aspirin EC 81mg tab ORAL SCH (17:00)
--- NOTE | 2017-12-10 17:06 | Internal Med Progress Note ---
Subjective Date of Service: Dec 10, 2017 Physician Name Marcell De Leon Attending Physician García Neil MD Current Medications Medications (Trade) Dose Ordered Sig/Mikhail Route PRN Reason Start Time Stop Time Status Last Admin Dose Admin Acetaminophen (Tylenol) 650 mg Q6H PRN ORAL Mild Pain/Temp > 100.5 12/07/17 16:45 01/06/18 16:44 12/10/17 01:33 Acetaminophen/ Hydrocodone Bitart (Eldena 5/325) 1 tab Q6H PRN ORAL mod-severe pain 4-10 12/09/17 14:00 12/16/17 13:59 12/09/17 23:08 Alprazolam (Xanax) 0.5 mg TWICE A DAY ORAL 12/09/17 09:00 12/16/17 08:59 12/10/17 08:32 Amlodipine Besylate (Norvasc) 5 mg DAILY ORAL 12/08/17 09:00 01/07/18 08:59 12/10/17 08:32 Aspirin (Ecotrin) 81 mg DAILY ORAL 12/11/17 09:00 01/10/18 08:59 Aspirin (Ecotrin) 81 mg ONCE ORAL 12/10/17 17:00 12/10/17 18:00 Atorvastatin Calcium (Lipitor) 10 mg BEDTIME ORAL 12/07/17 21:00 01/06/18 20:59 12/09/17 20:49 Ceftriaxone Sodium 1 gm/ Dextrose 110 ml @ 220 mls/hr Q24H IVPB 12/10/17 09:00 12/15/17 23:59 12/10/17 08:33 Clonidine HCl (Catapres Tab) 0.1 mg Q4H PRN ORAL For High Blood Pressure 12/10/17 00:30 01/09/18 00:29 12/10/17 05:08 Dextrose (Dextrose 50%) 25 ml STAT PRN IV Hypoglycemia 12/07/17 17:00 01/06/18 16:59 Dextrose (Dextrose 50%) 50 ml STAT PRN IV Hypoglycemia 12/07/17 17:00 01/06/18 16:59 Gabapentin (Neurontin) 300 mg Q12HR ORAL 12/08/17 09:00 01/07/18 08:59 12/10/17 08:32 Glimepiride (Amaryl) 2 mg ACBREAKFAST ORAL 12/08/17 06:30 01/07/18 06:29 12/10/17 06:08 Heparin Sodium (Porcine) (Heparin 5000 units/ml) 5,000 units EVERY 8 HOURS SUBQ 12/07/17 22:00 01/06/18 21:59 12/10/17 15:23 Insulin Aspart (NovoLOG) BEFORE MEALS AND HS SUBQ 12/07/17 21:00 01/06/18 20:59 12/09/17 11:51 Lactulose (Cephulac) 10 gm DAILY ORAL 12/08/17 09:00 01/07/18 08:59 12/10/17 08:32 Memantine (Namenda) 5 mg DAILY ORAL 12/08/17 09:00 01/07/18 08:59 12/10/17 08:32 Metoprolol Tartrate (Lopressor) 25 mg Q12HR ORAL 12/07/17 21:00 01/06/18 20:59 12/10/17 08:32 Nicotine (Nicoderm) 1 patch Q24H TDERMAL 12/07/17 18:00 01/06/18 17:59 12/09/17 17:15 Ondansetron HCl (Zofran) 4 mg Q4H PRN IVP Nausea & Vomiting 12/07/17 17:00 01/06/18 16:59 Pantoprazole (Protonix) 40 mg DAILY ORAL 12/08/17 09:00 01/07/18 08:59 12/10/17 08:32 Paroxetine HCl (Paxil) 40 mg DAILY ORAL 12/08/17 09:00 01/07/18 08:59 12/10/17 08:32 Sodium Chloride 1,000 ml @ 75 mls/hr [id number] IV 12/07/17 17:00 01/06/18 16:59 12/10/17 12:20 Allergies: Coded Allergies: No Known Allergies (Unverified , 01/10/15) ROS Limited/Unobtainable: No Constitutional: Reports: no symptoms HEENT: Reports: no symptoms Cardiovascular: Reports: no symptoms Respiratory: Reports: no symptoms Gastrointestinal/Abdominal: Reports: no symptoms Genitourinary: Reports: no symptoms Neurologic/Psychiatric: Reports: no symptoms Subjective 77 YO F admitted with altered mental status. Now UTI. Continues to have systolic hypertension and bradycardia. Cover for Int Med-Dr Neil. Objective Last Vital Signs Date Time Temp Pulse Resp B/P (MAP) Pulse Ox O2 Delivery O2 Flow Rate FiO2 12/10/17 15:41 97.8 59 16 165/71 96 97.8 12/10/17 04:00 Room Air Laboratory Tests Test 12/10/17 06:35 White Blood Count 8.2 K/UL (4.8-10.8) Red Blood Count 3.17 M/UL (4.20-5.40) L Hemoglobin 10.2 G/DL (12.0-16.0) L Hematocrit 29.6 % (37.0-47.0) L Mean Corpuscular Volume 93 FL (80-99) Mean Corpuscular Hemoglobin 32.3 PG (27.0-31.0) H Mean Corpuscular Hemoglobin Concent 34.5 G/DL (32.0-36.0) Red Cell Distribution Width 13.6 % (11.6-14.8) Platelet Count 234 K/UL (150-450) Mean Platelet Volume 5.7 FL (6.5-10.1) L Neutrophils (%) (Auto) 74.2 % (45.0-75.0) Lymphocytes (%) (Auto) 17.6 % (20.0-45.0) L Monocytes (%) (Auto) 6.2 % (1.0-10.0) Eosinophils (%) (Auto) 1.2 % (0.0-3.0) Basophils (%) (Auto) 0.8 % (0.0-2.0) Sodium Level 139 MMOL/L (136-145) Potassium Level 3.8 MMOL/L (3.5-5.1) Chloride Level 107 MMOL/L (98-107) Carbon Dioxide Level 24 MMOL/L (21-32) Anion Gap 8 mmol/L (5-15) Blood Urea Nitrogen 17 mg/dL (7-18) Creatinine 1.8 MG/DL (0.55-1.30) H Estimat Glomerular Filtration Rate mL/min (>60) Glucose Level 158 MG/DL (74-106) H Calcium Level 8.1 MG/DL (8.5-10.1) L Intake and Output 12/09/17 12/10/17 19:00 07:00 Intake Total 1140 ml 1305 ml Balance 1140 ml 1305 ml Intake Oral 1065 ml 480 ml IV Total 75 ml 825 ml # Voids 5 3 Objective General Appearance: WD/WN, no apparent distress, alert EENT: PERRL/EOMI, normal ENT inspection, TMs normal Neck: non-tender, normal alignment, supple Cardiovascular: normal peripheral pulses, normal rate, regular rhythm, no gallop/murmur, no JVD Respiratory/Chest: chest wall non-tender, lungs clear, normal breath sounds, no respiratory distress, no accessory muscle use Abdomen: normal bowel sounds, non tender, soft, no organomegaly, no mass Extremities: normal range of motion, non-tender 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 (3) Acute encephalopathy (4) DM (diabetes mellitus) Assessment & Plan: Continue amaryl and novolog (5) Hypertension Assessment & Plan: Await cardiology consult. Hold clonidine for now due to bradycardia. Continue lopressor and norvasc (6) ARF (acute renal failure) (7) Coronary artery disease Status: not improved Assessment/Plan Discharge planning: SNF; D/W sonStefano at [facility] Dec 10, 2017 17:06
[2017-12-10] MEDS ORDERED: Artificial Tears 1.4% Op Soln BOTH EYES PRN (17:15)
--- NOTE | 2017-12-10 17:39 | Consultation ---
Consult Note Consult Note NEUROLOGY CONSULTATION: Full note dictated #[id number] 77 y/o, RH, BF with a PH of HTN, DM, DL, CAD, cognitive dysfunction and recently frequent falls. She was hospitalized for AMS and the problems continues. ON EXAM: Problems with orientation, memory, VSF, HCF, language. R - VII central R- Hemiparesis R- brisker DTRs IMPRESSION: Recent stroke leading to decline in cognitive and motor function. REC: Brain MRI. PT/OT to mobilize. Observe. Madisyn Tony M.D., M.S.P.H. MADISYN TONY Dec 10, 2017 17:39
[2017-12-10] MEDS ORDERED: ALPRAZolam 0.5mg tab ORAL PRN (18:00)
--- NOTE | 2017-12-10 18:15 | Consultation ---
DATE OF CONSULTATION: 12/10/2017 CARDIOLOGY CONSULTATION CONSULTING PHYSICIAN: Hunter Ruby M.D. REFERRING PHYSICIAN: García Neil M.D. REASON FOR CONSULTATION: Management of hypertension, hyperlipidemia, and coronary artery disease. HISTORY OF PRESENT ILLNESS: The patient is a 77-year-old lady, who was just recently discharged about a week from [facility]. The patient was admitted for altered mental status and lethargy. The patient had recent urinary tract infection and was also evaluated by ID and was started on antibiotic. Cardiology consultation was obtained for further evaluation and management. PAST MEDICAL HISTORY: 1. Hypertension. 2. Coronary artery disease with history of coronary artery bypass graft. 3. History of supraventricular tachycardia. 4. History of renal failure. 5. Very high CPK and troponin elevation. 6. Normal left ventricular systolic function. FAMILY HISTORY: Noncontributory. SOCIAL HISTORY: She lives in [facility]. Does not smoke or drink alcohol. REVIEW OF SYSTEMS: Negative other than what was mentioned in the history of present illness. PHYSICAL EXAMINATION: VITAL SIGNS: Blood pressure is 172/78, pulse 58, respirations 18, and temperature 97.6. HEAD AND NECK: Shows no JVD. LUNGS: Clear. CARDIOVASCULAR: Shows irregular S1, S2 with no gallop or murmur. ABDOMEN: Soft. EXTREMITIES: No pitting edema. Her sternotomy is intact. LABORATORY AND DIAGNOSTIC DATA: Her labs show white count of 8.2, hemoglobin 10.2, hematocrit of 29.6, and platelet count is 234,000. Sodium 139, potassium 3.8, BUN of 17, creatinine 1.8, and glucose of 158. INR is 0.9. Tox screen is positive for opioid and benzodiazepine. ASSESSMENT AND PLAN: 1. History of coronary artery disease with known coronary artery bypass graft. The patient remains without any chest pain. The patient is on metoprolol 25 mg b.i.d. and Lipitor 10 mg daily. We will add aspirin 81 mg daily to her medical regimen. 2. Hypertension. On Lopressor as mentioned above as well as Norvasc 5 mg daily. The patient is on p.r.n. clonidine as well. 3. Hyperlipidemia. On Lipitor. 4. History of supraventricular tachycardia without recurrence on Lopressor 25 mg b.i.d. 5. History of urinary tract infection. 6. Altered mental status. 7. Renal failure with creatinine 1.8. We will avoid KENDRA inhibitor and angiotensin receptor blockers. Thank you very much, Dr. Neil, for allowing me to participate in the care of this patient. Please do not hesitate to contact me for any questions regarding my evaluation. Hunter Ruby M.D. DR: KIAN JOB#: [id number] CC:
[2017-12-10] MEDS: Lisinopril 10mg tab ORAL SCH (18:59)
--- NOTE | 2017-12-10 19:15 | Consultation ---
DATE OF CONSULTATION: 12/10/2017 NEUROLOGY CONSULTATION CONSULTING PHYSICIAN: Erwin Tony M.D. REQUESTING PHYSICIAN: Hira De Leon M.D. HISTORY: Ms. Carolann Tsang is a 77-year-old, right-handed, black lady, who does have a past history of hypertension, diabetes mellitus, dyslipidemia, coronary artery disease, cognitive dysfunction, and recently frequent falls. She was hospitalized for a change in her mental state. The problem continues and has been waxing and waning and thus this consultation was requested. At this point in time, the patient feels that she is relatively well. She feels that her mind was quite clear. She has not noticed any definite weakness on one side or the other, but she states that the right side of her body feels numb. When asked what exactly she felt by numb, she said that the sensation was altered. She denies any problems with vision, memory or other neurological symptoms. PAST MEDICAL HISTORY: Significant for hypertension, diabetes mellitus, dyslipidemia, coronary artery disease, cognitive dysfunction, and recently frequent falls. FAMILY HISTORY: Significant for high blood pressure and diabetes mellitus in other family members. PERSONAL HISTORY: Home: She lives in a half-way facility. 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 Habits: She used to smoke and drink in the past, but has stopped doing both. MEDICATIONS: Present medications include aspirin 81 mg daily, Artificial Tears, ceftriaxone, clonidine, Fosters, Xanax, Norvasc, Neurontin, lactulose, Namenda, Protonix, Paxil, Amaryl, heparin for DVT prophylaxis, Lipitor, NovoLog insulin, Lopressor, NicoDerm patch, Zofran and Tylenol. PHYSICAL EXAMINATION: GENERAL: She is a well-developed, well-nourished, pleasant black lady, lying in bed, in no acute distress. VITAL SIGNS: Pulse 59 per minute, blood pressure 165/71 mm Hg, respirations 16 per minute, and temperature 97.8 degrees Fahrenheit. HEAD: Normocephalic and atraumatic with significant temporal wasting. EENT: Examination benign. NECK: No neck rigidity was observed. NEUROLOGIC EXAMINATION: MENTAL STATUS EXAMINATION: She was awake and alert. She was oriented to [facility] and November 2017. She did not know the exact date. She was able to recall 3/3 words immediately, but could only remember 2/3 words in 1 minute and 3 minutes even on the second trial. She was able to remember presidents, Trump and Obama with hints, but could not remember presidents prior to that. Her mathematical skills were impaired. Her visuospatial function was also impaired. SPEECH: She had no dysarthria. LANGUAGE: She had anomia for low-frequency words. CRANIAL NERVE EXAMINATION: II: The visual lizama were intact to confrontation testing. III, IV & : The external ocular movements were full and the pupils 3 mm in diameter, equal, round, regular, and reactive to light. V: She had normal facial sensations, and the temporales, masseters, and pterygoids functioned normally. VII: She had a right VII central facial paresis. VIII: She was able to hear well bilaterally and had no nystagmus. IX: The palate moved symmetrically on phonation. X: She had no hoarseness of voice. XI: The sternocleidomastoids and trapezii functioned normally. XII: The tongue was in the midline without any fasciculations or atrophy. MOTOR SYSTEM: The tone was normal in all four extremities. Examination of muscle mass revealed no focal wasting. Examination of power revealed G 5/5 power except for G 4+/5 power in the right finger extensors and iliopsoas. SENSORY EXAMINATION: She had intact sensations to pinprick, light touch, and graphesthesia, but complained of a subjective alteration to light touch over entire right body. REFLEXES: 1+ on the left and 2+ on the right at the biceps, triceps, brachioradialis, and knees, 0 at both ankles. The plantar responses were flexor bilaterally. COORDINATION: She performed well on [id number]-gn-[id number] testing. She had problems performing tdkr-va-pdeu testing bilaterally. STANCE & GAIT: Could not be tested because she was afraid to try to stand and walk because of her right leg felt weak. DIAGNOSTIC IMPRESSION: 1. Ms. Carolann Tsang is a 77-year-old, right-handed, black lady, who does have a past history of hypertension, diabetes mellitus, dyslipidemia, coronary artery disease, cognitive dysfunction, and recently frequent falls, who was hospitalized for an alteration in her mental state. 2. On neurological examination, at this time, she does have problems with orientation, recent and remote memory, visuospatial function, higher cognitive function, and language. She also has a right hemiparesis involving the face and upper and lower extremities with brisker reflexes on the right side compared to the left. 3. Her latest CT scan of the brain performed on 12/07/2017 reveals a significant atrophy, deep white matter changes, and in addition old infarcts involving the basal ganglia and marshall radiata bilaterally. 4. The patient's history and neurological examination are most compatible with a possible new left brain stroke causing the right hemiparesis and increased right-sided weakness. In addition, they may also be a cognitive decline related to an acute cerebrovascular event. RECOMMENDATIONS: 1. Agree with management thus far. 2. An MRI scan of the brain will be ordered to evaluate the patient for acute intracranial pathology. 3. The patient should be started on physical and occupational therapy to mobilize her. 4. The patient will be observed closely and depending on how she fares over the next day or so, further recommendations will be given. Thank you for entrusting me with the care of Ms. Tsang. I shall follow her with you. Erwin Tony M.D., M.S.P.H. DR: SWEETIE JOB#: [id number] MTDD
[2017-12-11] VITALS: BP 168/78
[2017-12-11 04:00] VITALS: BP 158/76
[2017-12-11] MEDS: Norco 5mg/325mg tab ORAL PRN ×3 (05:16→20:59)
[2017-12-11] MEDS: Glimepiride 1mg tab ORAL SCH (05:42)
[2017-12-11] MEDS: NovoLOG Insulin Flexpen SUBQ SCH ×4 (05:45→20:55)
[2017-12-11] MEDS: Heparin 5000 units/ml inj SUBQ SCH ×3 (05:45→20:53)
[2017-12-11 08:00] VITALS: BP 169/75
[2017-12-11] MEDS: Memantine 5 MG TAB ORAL SCH (08:04)
[2017-12-11] MEDS: PARoxetine 20mg tab ORAL SCH (08:04)
[2017-12-11] MEDS: Lisinopril 10mg tab ORAL SCH ×2 (08:05→18:24)
[2017-12-11] MEDS: Metoprolol 25mg tab ORAL SCH ×2 (08:05→20:54)
[2017-12-11] MEDS: Lactulose 20gm/30ml UDC ORAL SCH (08:05)
[2017-12-11] MEDS: cefTRIAXone 1 GM in D5W 110 ML IVPB SCH (08:06)
[2017-12-11] MEDS: Aspirin EC 81mg tab ORAL SCH (08:23)
[2017-12-11 08:26] LABS: BASOPHILS % (AUTO) 0.7 % (0.0-2.0); EOSINOPHILS % (AUTO) 1.3 % (0.0-3.0); HEMATOCRIT 32.1 % (37.0-47.0); HEMOGLOBIN 10.9 G/DL (12.0-16.0); MEAN CORPUSCULAR VOLUME 92 FL (80-99); MONOCYTES % (AUTO) 5.4 % (1.0-10.0); NEUTROPHILS % (AUTO) 73.6 % (45.0-75.0); PLATELET COUNT 234 K/UL (150-450); RED BLOOD COUNT 3.51 M/UL (4.20-5.40); RED CELL DISTRIBUTION WIDTH 12.9 % (11.6-14.8); WHITE BLOOD COUNT 7.3 K/UL (4.8-10.8)
[2017-12-11 08:45] LABS: ANION GAP 7 mmol/L (5-15); BLOOD UREA NITROGEN 14 mg/dL (7-18); CALCIUM 8.6 MG/DL (8.5-10.1); CARBON DIOXIDE 27 MMOL/L (21-32); CHLORIDE 108 MMOL/L (98-107); CREATININE 1.5 MG/DL (0.55-1.30); POTASSIUM 3.7 MMOL/L (3.5-5.1); SODIUM 142 MMOL/L (136-145)
--- NOTE | 2017-12-11 11:11 | Internal Med Progress Note ---
Subjective Date of Service: Dec 11, 2017 Physician Name Marcell Wayne Attending Physician García Neil MD Current Medications Medications (Trade) Dose Ordered Sig/Mikhail Route PRN Reason Start Time Stop Time Status Last Admin Dose Admin Acetaminophen (Tylenol) 650 mg Q6H PRN ORAL Mild Pain/Temp > 100.5 12/07/17 16:45 01/06/18 16:44 12/10/17 01:33 Acetaminophen/ Hydrocodone Bitart (Gonzales 5/325) 1 tab Q6H PRN ORAL mod-severe pain 4-10 12/09/17 14:00 12/16/17 13:59 12/11/17 05:16 Alprazolam (Xanax) 0.5 mg BIDPRN PRN ORAL For Anxiety 12/10/17 18:00 12/17/17 17:59 Amlodipine Besylate (Norvasc) 5 mg DAILY ORAL 12/08/17 09:00 01/07/18 08:59 12/11/17 08:05 Artificial Tears (Akwa-Tears) 2 drop Q2H PRN BOTH EYES Dry Eyes 12/10/17 17:15 01/09/18 17:14 Aspirin (Ecotrin) 81 mg DAILY ORAL 12/11/17 09:00 01/10/18 08:59 12/11/17 08:23 Atorvastatin Calcium (Lipitor) 10 mg BEDTIME ORAL 12/07/17 21:00 01/06/18 20:59 12/10/17 20:35 Ceftriaxone Sodium 1 gm/ Dextrose 110 ml @ 220 mls/hr Q24H IVPB 12/10/17 09:00 12/15/17 23:59 12/11/17 08:06 Clonidine HCl (Catapres Tab) 0.1 mg Q4H PRN ORAL For High Blood Pressure 12/10/17 00:30 01/09/18 00:29 12/10/17 05:08 Dextrose (Dextrose 50%) 25 ml STAT PRN IV Hypoglycemia 12/07/17 17:00 01/06/18 16:59 Dextrose (Dextrose 50%) 50 ml STAT PRN IV Hypoglycemia 12/07/17 17:00 01/06/18 16:59 Gabapentin (Neurontin) 300 mg Q12HR ORAL 12/08/17 09:00 01/07/18 08:59 12/11/17 08:04 Glimepiride (Amaryl) 2 mg ACBREAKFAST ORAL 12/08/17 06:30 01/07/18 06:29 12/11/17 05:42 Heparin Sodium (Porcine) (Heparin 5000 units/ml) 5,000 units EVERY 8 HOURS SUBQ 12/07/17 22:00 01/06/18 21:59 12/11/17 05:45 Insulin Aspart (NovoLOG) BEFORE MEALS AND HS SUBQ 12/07/17 21:00 01/06/18 20:59 12/09/17 11:51 Lactulose (Cephulac) 10 gm DAILY ORAL 12/08/17 09:00 01/07/18 08:59 12/11/17 08:05 Lisinopril (Zestril) 10 mg DAILY ORAL 12/10/17 18:30 01/09/18 18:29 12/11/17 08:05 Memantine (Namenda) 5 mg DAILY ORAL 12/08/17 09:00 01/07/18 08:59 12/11/17 08:04 Metoprolol Tartrate (Lopressor) 25 mg Q12HR ORAL 12/07/17 21:00 01/06/18 20:59 12/11/17 08:05 Nicotine (Nicoderm) 1 patch Q24H TDERMAL 12/07/17 18:00 01/06/18 17:59 12/10/17 19:00 Ondansetron HCl (Zofran) 4 mg Q4H PRN IVP Nausea & Vomiting 12/07/17 17:00 01/06/18 16:59 Pantoprazole (Protonix) 40 mg DAILY ORAL 12/08/17 09:00 01/07/18 08:59 12/11/17 08:04 Paroxetine HCl (Paxil) 40 mg DAILY ORAL 12/08/17 09:00 01/07/18 08:59 12/11/17 08:04 Sodium Chloride 1,000 ml @ 75 mls/hr [id number] IV 12/07/17 17:00 01/06/18 16:59 12/11/17 01:14 Allergies: Coded Allergies: No Known Allergies (Unverified , 01/10/15) ROS Limited/Unobtainable: No Constitutional: Reports: no symptoms HEENT: Reports: no symptoms Cardiovascular: Reports: no symptoms Respiratory: Reports: no symptoms Gastrointestinal/Abdominal: Reports: no symptoms Genitourinary: Reports: no symptoms Neurologic/Psychiatric: Reports: no symptoms Subjective 77 YO F admitted with altered mental status. Now UTI. Continues to have systolic hypertension and bradycardia. Cover for Int Med-Dr Neil. Await MRI brain. Objective Last Vital Signs Date Time Temp Pulse Resp B/P (MAP) Pulse Ox O2 Delivery O2 Flow Rate FiO2 12/11/17 08:05 169/75 12/11/17 08:05 61 12/11/17 08:00 99.6 20 98 99.6 12/10/17 04:00 Room Air Laboratory Tests Test 12/11/17 07:20 White Blood Count 7.3 K/UL (4.8-10.8) Red Blood Count 3.51 M/UL (4.20-5.40) L Hemoglobin 10.9 G/DL (12.0-16.0) L Hematocrit 32.1 % (37.0-47.0) L Mean Corpuscular Volume 92 FL (80-99) Mean Corpuscular Hemoglobin 31.0 PG (27.0-31.0) Mean Corpuscular Hemoglobin Concent 33.9 G/DL (32.0-36.0) Red Cell Distribution Width 12.9 % (11.6-14.8) Platelet Count 234 K/UL (150-450) Mean Platelet Volume 5.9 FL (6.5-10.1) L Neutrophils (%) (Auto) 73.6 % (45.0-75.0) Lymphocytes (%) (Auto) 19.0 % (20.0-45.0) L Monocytes (%) (Auto) 5.4 % (1.0-10.0) Eosinophils (%) (Auto) 1.3 % (0.0-3.0) Basophils (%) (Auto) 0.7 % (0.0-2.0) Sodium Level 142 MMOL/L (136-145) Potassium Level 3.7 MMOL/L (3.5-5.1) Chloride Level 108 MMOL/L (98-107) H Carbon Dioxide Level 27 MMOL/L (21-32) Anion Gap 7 mmol/L (5-15) Blood Urea Nitrogen 14 mg/dL (7-18) Creatinine 1.5 MG/DL (0.55-1.30) H Estimat Glomerular Filtration Rate mL/min (>60) Glucose Level 75 MG/DL (74-106) Calcium Level 8.6 MG/DL (8.5-10.1) Intake and Output 12/10/17 12/11/17 19:00 07:00 Intake Total 1095 ml 315 ml Balance 1095 ml 315 ml Intake Oral 160 ml 240 ml IV Total 935 ml 75 ml # Voids 5 3 Objective General Appearance: WD/WN, no apparent distress, alert EENT: PERRL/EOMI, normal ENT inspection, TMs normal Neck: non-tender, normal alignment, supple Cardiovascular: normal peripheral pulses, normal rate, regular rhythm, no gallop/murmur, no JVD Respiratory/Chest: chest wall non-tender, lungs clear, normal breath sounds, no respiratory distress, no accessory muscle use Abdomen: normal bowel sounds, non tender, soft, no organomegaly, no mass Extremities: normal range of motion, non-tender 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 (3) Acute encephalopathy (4) DM (diabetes mellitus) Assessment & Plan: Continue amaryl and novolog (5) Hypertension Assessment & Plan: Await cardiology consult. Hold clonidine for now due to bradycardia. Continue lopressor and norvasc (6) ARF (acute renal failure) (7) Coronary artery disease (8) Altered mental status Assessment & Plan: Await MRI brain-see neurology note. Assessment/Plan [facility] Dec 11, 2017 11:11
[2017-12-11 12:00] VITALS: BP 169/99
--- NOTE | 2017-12-11 12:02 | Infectious Diseases Prog Note ---
Assessment/Plan Assessment/Plan ASSESSMENT: The patient is a 77-year-old female with Low-grade fever Mild leukocytosis, status post no evid of Urinary tract infection UCx Neg Rule out bacteremia No evidence of pneumonia Chest x-ray, no new atelectasis or focal infiltrate CT : the head, no acute intracranial bleed. History E. coli urinary tract infection. SP ALOC : Neuro following Status post fall CAD Hyperlipidemia Hypertension Renal insufficiency Arthritis Diabetes Depression PLAN: DC IV Rocephin day # Monitor CBC Monitor BMP Monitor cultures (blood) Monitor chest x-ray MRI scan of the brain : P Subjective Allergies: Coded Allergies: No Known Allergies (Unverified , 01/10/15) Objective Vital Signs Last 24 Hour Vital Signs Date Time Temp Pulse Resp B/P (MAP) Pulse Ox O2 Delivery O2 Flow Rate FiO2 12/11/17 08:05 169/75 12/11/17 08:05 61 169/75 12/11/17 08:05 61 169/75 12/11/17 08:00 99.6 61 20 169/75 98 99.6 12/11/17 04:00 98.8 65 20 158/76 98 98.8 12/11/17 00:00 99.0 67 19 168/78 97 99.0 12/10/17 20:35 59 160/72 12/10/17 20:00 97.8 59 19 160/72 96 97.8 12/10/17 18:59 174/72 12/10/17 15:41 97.8 59 16 165/71 96 97.8 Height (Feet): 6 Height (Inches): 2.00 Weight (Pounds): 180 HEENT: anicteric Respiratory/Chest: normal breath sounds Cardiovascular: regular rhythm Abdomen: soft, non tender Laboratory Tests Test 12/11/17 07:20 White Blood Count 7.3 K/UL (4.8-10.8) Red Blood Count 3.51 M/UL (4.20-5.40) L Hemoglobin 10.9 G/DL (12.0-16.0) L Hematocrit 32.1 % (37.0-47.0) L Mean Corpuscular Volume 92 FL (80-99) Mean Corpuscular Hemoglobin 31.0 PG (27.0-31.0) Mean Corpuscular Hemoglobin Concent 33.9 G/DL (32.0-36.0) Red Cell Distribution Width 12.9 % (11.6-14.8) Platelet Count 234 K/UL (150-450) Mean Platelet Volume 5.9 FL (6.5-10.1) L Neutrophils (%) (Auto) 73.6 % (45.0-75.0) Lymphocytes (%) (Auto) 19.0 % (20.0-45.0) L Monocytes (%) (Auto) 5.4 % (1.0-10.0) Eosinophils (%) (Auto) 1.3 % (0.0-3.0) Basophils (%) (Auto) 0.7 % (0.0-2.0) Sodium Level 142 MMOL/L (136-145) Potassium Level 3.7 MMOL/L (3.5-5.1) Chloride Level 108 MMOL/L (98-107) H Carbon Dioxide Level 27 MMOL/L (21-32) Anion Gap 7 mmol/L (5-15) Blood Urea Nitrogen 14 mg/dL (7-18) Creatinine 1.5 MG/DL (0.55-1.30) H Estimat Glomerular Filtration Rate mL/min (>60) Glucose Level 75 MG/DL (74-106) Calcium Level 8.6 MG/DL (8.5-10.1) Current Medications Medications (Trade) Dose Ordered Sig/Mikhail Route PRN Reason Start Time Stop Time Status Last Admin Dose Admin Acetaminophen (Tylenol) 650 mg Q6H PRN ORAL Mild Pain/Temp > 100.5 12/07/17 16:45 01/06/18 16:44 12/10/17 01:33 Acetaminophen/ Hydrocodone Bitart ([place] 5/325) 1 tab Q6H PRN ORAL mod-severe pain 4-10 12/09/17 14:00 12/16/17 13:59 12/11/17 05:16 Alprazolam (Xanax) 0.125 mg BID ORAL 12/11/17 18:00 12/18/17 17:59 Amlodipine Besylate (Norvasc) 5 mg DAILY ORAL 12/08/17 09:00 01/07/18 08:59 12/11/17 08:05 Artificial Tears (Akwa-Tears) 2 drop Q2H PRN BOTH EYES Dry Eyes 12/10/17 17:15 01/09/18 17:14 Aspirin (Ecotrin) 81 mg DAILY ORAL 12/11/17 09:00 01/10/18 08:59 12/11/17 08:23 Atorvastatin Calcium (Lipitor) 10 mg BEDTIME ORAL 12/07/17 21:00 01/06/18 20:59 12/10/17 20:35 Ceftriaxone Sodium 1 gm/ Dextrose 110 ml @ 220 mls/hr Q24H IVPB 12/10/17 09:00 12/15/17 23:59 12/11/17 08:06 Clonidine HCl (Catapres Tab) 0.1 mg Q4H PRN ORAL For High Blood Pressure 12/10/17 00:30 01/09/18 00:29 12/10/17 05:08 Dextrose (Dextrose 50%) 25 ml STAT PRN IV Hypoglycemia 12/07/17 17:00 01/06/18 16:59 Dextrose (Dextrose 50%) 50 ml STAT PRN IV Hypoglycemia 12/07/17 17:00 01/06/18 16:59 Gabapentin (Neurontin) 300 mg Q12HR ORAL 12/08/17 09:00 01/07/18 08:59 12/11/17 08:04 Glimepiride (Amaryl) 2 mg ACBREAKFAST ORAL 12/08/17 06:30 01/07/18 06:29 12/11/17 05:42 Heparin Sodium (Porcine) (Heparin 5000 units/ml) 5,000 units EVERY 8 HOURS SUBQ 12/07/17 22:00 01/06/18 21:59 12/11/17 05:45 Insulin Aspart (NovoLOG) BEFORE MEALS AND HS SUBQ 12/07/17 21:00 01/06/18 20:59 12/09/17 11:51 Lactulose (Cephulac) 10 gm DAILY ORAL 12/08/17 09:00 01/07/18 08:59 12/11/17 08:05 Lisinopril (Zestril) 10 mg DAILY ORAL 12/10/17 18:30 01/09/18 18:29 12/11/17 08:05 Memantine (Namenda) 5 mg DAILY ORAL 12/08/17 09:00 01/07/18 08:59 12/11/17 08:04 Metoprolol Tartrate (Lopressor) 25 mg Q12HR ORAL 12/07/17 21:00 01/06/18 20:59 12/11/17 08:05 Nicotine (Nicoderm) 1 patch Q24H TDERMAL 12/07/17 18:00 01/06/18 17:59 12/10/17 19:00 Ondansetron HCl (Zofran) 4 mg Q4H PRN IVP Nausea & Vomiting 12/07/17 17:00 01/06/18 16:59 Pantoprazole (Protonix) 40 mg DAILY ORAL 12/08/17 09:00 01/07/18 08:59 12/11/17 08:04 Paroxetine HCl (Paxil) 40 mg BEDTIME ORAL 12/12/17 21:00 01/11/18 20:59 Tyrese Pagan MD Dec 11, 2017 12:02
--- NOTE | 2017-12-11 12:20 | Pulmonology Progress Note ---
Assessment/Plan Problems: (1) Pyelonephritis (2) Acute encephalopathy (3) left diaphragm elevation (4) DM (diabetes mellitus) (5) Alzheimer's dementia Assessment/Plan mental status better again check cultures, all negative so far check wbc, WNL continue abx ID consult aspiration precaution sliding scale Neuro consult appreciated, MRI ordered Subjective ROS Limited/Unobtainable: No Interval Events: awake Constitutional: Reports: no symptoms HEENT: Repors: no symptoms Allergies: Coded Allergies: No Known Allergies (Unverified , 01/10/15) Objective Last 24 Hour Vital Signs Date Time Temp Pulse Resp B/P (MAP) Pulse Ox O2 Delivery O2 Flow Rate FiO2 12/11/17 08:05 169/75 12/11/17 08:05 61 169/75 12/11/17 08:05 61 169/75 12/11/17 08:00 99.6 61 20 169/75 98 99.6 12/11/17 04:00 98.8 65 20 158/76 98 98.8 12/11/17 00:00 99.0 67 19 168/78 97 99.0 12/10/17 20:35 59 160/72 12/10/17 20:00 97.8 59 19 160/72 96 97.8 12/10/17 18:59 174/72 12/10/17 15:41 97.8 59 16 165/71 96 97.8 Intake and Output 12/10/17 12/11/17 19:00 07:00 Intake Total 1095 ml 315 ml Balance 1095 ml 315 ml Intake Oral 160 ml 240 ml IV Total 935 ml 75 ml # Voids 5 3 Objective General Appearance: cachetic Lines, tubes and drains: peripheral HEENT: normocephalic Neck: non-tender, normal alignment Breasts: no masses Abdomen: normal bowel sounds, non tender Genitourinary/Rectal: normal genital exam, normal rectal exam Extremities: normal range of motion Neurologic: bariatric coordinator II-XII grossly normal Laboratory Tests 12/11/17 07:20: White Blood Count 7.3, Red Blood Count 3.51L, Hemoglobin 10.9L, Hematocrit 32.1L , Mean Corpuscular Volume 92, Mean Corpuscular Hemoglobin 31.0, Mean Corpuscular Hemoglobin Concent 33.9, Red Cell Distribution Width 12.9, Platelet Count 234, Mean Platelet Volume 5.9L, Neutrophils (%) (Auto) 73.6, Lymphocytes ( %) (Auto) 19.0L, Monocytes (%) (Auto) 5.4, Eosinophils (%) (Auto) 1.3, Basophils (%) (Auto) 0.7, Sodium Level 142, Potassium Level 3.7, Chloride Level 108H, Carbon Dioxide Level 27, Anion Gap 7, Blood Urea Nitrogen 14, Creatinine 1.5H, Estimat Glomerular Filtration Rate , Glucose Level 75, Calcium Level 8.6 Current Medications Medications (Trade) Dose Ordered Sig/Mikhail Route PRN Reason Start Time Stop Time Status Last Admin Dose Admin Acetaminophen (Tylenol) 650 mg Q6H PRN ORAL Mild Pain/Temp > 100.5 12/07/17 16:45 01/06/18 16:44 12/10/17 01:33 Acetaminophen/ Hydrocodone Bitart ([place] 5/325) 1 tab Q6H PRN ORAL mod-severe pain 4-10 12/09/17 14:00 12/16/17 13:59 12/11/17 05:16 Alprazolam (Xanax) 0.125 mg BID ORAL 12/11/17 18:00 12/18/17 17:59 Amlodipine Besylate (Norvasc) 5 mg DAILY ORAL 12/08/17 09:00 01/07/18 08:59 12/11/17 08:05 Artificial Tears (Akwa-Tears) 2 drop Q2H PRN BOTH EYES Dry Eyes 12/10/17 17:15 01/09/18 17:14 Aspirin (Ecotrin) 81 mg DAILY ORAL 12/11/17 09:00 01/10/18 08:59 12/11/17 08:23 Atorvastatin Calcium (Lipitor) 10 mg BEDTIME ORAL 12/07/17 21:00 01/06/18 20:59 12/10/17 20:35 Clonidine HCl (Catapres Tab) 0.1 mg Q4H PRN ORAL For High Blood Pressure 12/10/17 00:30 01/09/18 00:29 12/10/17 05:08 Dextrose (Dextrose 50%) 25 ml STAT PRN IV Hypoglycemia 12/07/17 17:00 01/06/18 16:59 Dextrose (Dextrose 50%) 50 ml STAT PRN IV Hypoglycemia 12/07/17 17:00 01/06/18 16:59 Gabapentin (Neurontin) 300 mg Q12HR ORAL 12/08/17 09:00 01/07/18 08:59 12/11/17 08:04 Glimepiride (Amaryl) 2 mg ACBREAKFAST ORAL 12/08/17 06:30 01/07/18 06:29 12/11/17 05:42 Heparin Sodium (Porcine) (Heparin 5000 units/ml) 5,000 units EVERY 8 HOURS SUBQ 12/07/17 22:00 01/06/18 21:59 12/11/17 05:45 Insulin Aspart (NovoLOG) BEFORE MEALS AND HS SUBQ 12/07/17 21:00 01/06/18 20:59 12/09/17 11:51 Lactulose (Cephulac) 10 gm DAILY ORAL 12/08/17 09:00 01/07/18 08:59 12/11/17 08:05 Lisinopril (Zestril) 10 mg DAILY ORAL 12/10/17 18:30 01/09/18 18:29 12/11/17 08:05 Memantine (Namenda) 5 mg DAILY ORAL 12/08/17 09:00 01/07/18 08:59 12/11/17 08:04 Metoprolol Tartrate (Lopressor) 25 mg Q12HR ORAL 12/07/17 21:00 01/06/18 20:59 12/11/17 08:05 Nicotine (Nicoderm) 1 patch Q24H TDERMAL 12/07/17 18:00 01/06/18 17:59 12/10/17 19:00 Ondansetron HCl (Zofran) 4 mg Q4H PRN IVP Nausea & Vomiting 12/07/17 17:00 01/06/18 16:59 Pantoprazole (Protonix) 40 mg DAILY ORAL 12/08/17 09:00 01/07/18 08:59 12/11/17 08:04 Paroxetine HCl (Paxil) 40 mg BEDTIME ORAL 12/12/17 21:00 01/11/18 20:59 Georgie Montanez MD Dec 11, 2017 12:20
--- NOTE | 2017-12-11 13:35 | Cardiac Electrophysiology PN ---
Assessment/Plan Assessment/Plan 1. History of coronary artery bypass graft. The patient remains without any chest pain. The patient is on metoprolol 25 mg b.i.d. and Lipitor 10 mg daily and aspirin 81 mg daily 2. Hypertension. On Lopressor as mentioned . Increase Norvasc to 5 bid and lisinopril to 10 bid 3. Hyperlipidemia. On Lipitor. 4. History of supraventricular tachycardia without recurrence on Lopressor 25 mg b.i.d. 5. History of urinary tract infection. 6. Altered mental status. 7. Renal failure with creatinine 1.8. We will avoid KENDRA inhibitor and angiotensin receptor blockers. EVE RN Subjective Subjective BP running high. No chest pain. Objective Last 24 Hour Vital Signs Date Time Temp Pulse Resp B/P (MAP) Pulse Ox O2 Delivery O2 Flow Rate FiO2 12/11/17 12:00 98.9 63 20 169/99 98 98.9 12/11/17 08:05 169/75 12/11/17 08:05 61 169/75 12/11/17 08:05 61 169/75 12/11/17 08:00 99.6 61 20 169/75 98 99.6 12/11/17 04:00 98.8 65 20 158/76 98 98.8 12/11/17 00:00 99.0 67 19 168/78 97 99.0 12/10/17 20:35 59 160/72 12/10/17 20:00 97.8 59 19 160/72 96 97.8 12/10/17 18:59 174/72 12/10/17 15:41 97.8 59 16 165/71 96 97.8 Intake and Output 12/10/17 12/11/17 19:00 07:00 Intake Total 1095 ml 315 ml Balance 1095 ml 315 ml Intake Oral 160 ml 240 ml IV Total 935 ml 75 ml # Voids 5 3 Laboratory Tests Test 12/11/17 07:20 White Blood Count 7.3 K/UL (4.8-10.8) Red Blood Count 3.51 M/UL (4.20-5.40) L Hemoglobin 10.9 G/DL (12.0-16.0) L Hematocrit 32.1 % (37.0-47.0) L Mean Corpuscular Volume 92 FL (80-99) Mean Corpuscular Hemoglobin 31.0 PG (27.0-31.0) Mean Corpuscular Hemoglobin Concent 33.9 G/DL (32.0-36.0) Red Cell Distribution Width 12.9 % (11.6-14.8) Platelet Count 234 K/UL (150-450) Mean Platelet Volume 5.9 FL (6.5-10.1) L Neutrophils (%) (Auto) 73.6 % (45.0-75.0) Lymphocytes (%) (Auto) 19.0 % (20.0-45.0) L Monocytes (%) (Auto) 5.4 % (1.0-10.0) Eosinophils (%) (Auto) 1.3 % (0.0-3.0) Basophils (%) (Auto) 0.7 % (0.0-2.0) Sodium Level 142 MMOL/L (136-145) Potassium Level 3.7 MMOL/L (3.5-5.1) Chloride Level 108 MMOL/L (98-107) H Carbon Dioxide Level 27 MMOL/L (21-32) Anion Gap 7 mmol/L (5-15) Blood Urea Nitrogen 14 mg/dL (7-18) Creatinine 1.5 MG/DL (0.55-1.30) H Estimat Glomerular Filtration Rate mL/min (>60) Glucose Level 75 MG/DL (74-106) Calcium Level 8.6 MG/DL (8.5-10.1) Objective HEAD AND NECK: Shows no JVD. LUNGS: Clear. CARDIOVASCULAR: Shows irregular S1, S2 with no gallop or murmur. ABDOMEN: Soft. EXTREMITIES: No pitting edema. Her sternotomy is intact. Hunter Ruby MD Dec 11, 2017 13:35
--- NOTE | 2017-12-11 15:05 | Diagnostic Imaging Report ---
Indication: Altered mental status, abnormal prior head CT Technique: sagittal T1 fast spin echo, axial T1 FLAIR, axial T2 FLAIR, axial T2 FS PROPELLER, axial T2* GRE, axial diffusion weighted images. ADC and exponential ADC maps generated Comparison: 11/27/2017 MRI brain, 12/07/[address] Findings: No abnormal areas of restricted diffusion to suggest acute infarction. No acute hemorrhage or edema. Punctate foci of susceptibility artifact are seen in the left frontal lobe, left temporal lobe, and right cerebellar hemisphere consistent with old microplates. Susceptibility artifact in the bilateral basal ganglia and dentate nuclei are consistent with physiologic calcifications. Old lacunar infarcts are demonstrated in the bilateral cerebellar hemispheres, the left midbrain, bilateral basal ganglia, and left frontal and parietal periventricular deep white matter, also previously demonstrated. No mass effect nor midline shift. There is mild age-related enlargement of the ventricles and extra-axial CSF spaces.. There is evidence of prior bilateral cataract surgery. Visualized sinuses are clear. There is periventricular deep white matter high T2 signal, consistent with chronic deep white matter ischemic change Impression: Chronic and age-related changes, including old lacunar infarcts. Negative for acute intracranial bleed, mass effect, or acute infarct.
[2017-12-11 16:00] VITALS: BP 174/75
[2017-12-11] MEDS: ALPRAZolam 0.25mg tab ORAL SCH (18:00)
--- NOTE | 2017-12-11 18:00 | General Progress Note ---
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 the pt more anxious today Objective Last 24 Hour Vital Signs Date Time Temp Pulse Resp B/P (MAP) Pulse Ox O2 Delivery O2 Flow Rate FiO2 12/11/17 16:00 98.1 66 18 174/75 96 98.1 12/11/17 15:13 169/99 12/11/17 12:00 98.9 63 20 169/99 98 98.9 12/11/17 08:05 169/75 12/11/17 08:05 61 169/75 12/11/17 08:05 61 169/75 12/11/17 08:00 99.6 61 20 169/75 98 99.6 12/11/17 04:00 98.8 65 20 158/76 98 98.8 12/11/17 00:00 99.0 67 19 168/78 97 99.0 12/10/17 20:35 59 160/72 12/10/17 20:00 97.8 59 19 160/72 96 97.8 12/10/17 18:59 174/72 Intake and Output 12/10/17 12/11/17 18:59 06:59 Intake Total 1095 ml 315 ml Balance 1095 ml 315 ml Intake Oral 160 ml 240 ml IV Total 935 ml 75 ml # Voids 5 3 Laboratory Tests 12/11/17 07:20: White Blood Count 7.3, Red Blood Count 3.51L, Hemoglobin 10.9L, Hematocrit 32.1L , Mean Corpuscular Volume 92, Mean Corpuscular Hemoglobin 31.0, Mean Corpuscular Hemoglobin Concent 33.9, Red Cell Distribution Width 12.9, Platelet Count 234, Mean Platelet Volume 5.9L, Neutrophils (%) (Auto) 73.6, Lymphocytes ( %) (Auto) 19.0L, Monocytes (%) (Auto) 5.4, Eosinophils (%) (Auto) 1.3, Basophils (%) (Auto) 0.7, Sodium Level 142, Potassium Level 3.7, Chloride Level 108H, Carbon Dioxide Level 27, Anion Gap 7, Blood Urea Nitrogen 14, Creatinine 1.5H, Estimat Glomerular Filtration Rate , Glucose Level 75, Calcium Level 8.6 Height (Feet): 6 Height (Inches): 2.00 Weight (Pounds): 180 General Appearance: no apparent distress, alert, confused Gregg Acosta M.D. Dec 11, 2017 18:00
--- NOTE | 2017-12-11 18:01 | Psych Consult Progress Note ---
Psych Consult Progress Note Consult 12/10/17 the pt was lethargic due to paxil being changed to am and xanax Vital Signs Last 24 Hour Vital Signs Date Time Temp Pulse Resp B/P (MAP) Pulse Ox O2 Delivery O2 Flow Rate FiO2 12/11/17 16:00 98.1 66 18 174/75 96 98.1 12/11/17 15:13 169/99 12/11/17 12:00 98.9 63 20 169/99 98 98.9 12/11/17 08:05 169/75 12/11/17 08:05 61 169/75 12/11/17 08:05 61 169/75 12/11/17 08:00 99.6 61 20 169/75 98 99.6 12/11/17 04:00 98.8 65 20 158/76 98 98.8 12/11/17 00:00 99.0 67 19 168/78 97 99.0 12/10/17 20:35 59 160/72 12/10/17 20:00 97.8 59 19 160/72 96 97.8 12/10/17 18:59 174/72 Labs Laboratory Tests Test 12/11/17 07:20 White Blood Count 7.3 K/UL (4.8-10.8) Red Blood Count 3.51 M/UL (4.20-5.40) L Hemoglobin 10.9 G/DL (12.0-16.0) L Hematocrit 32.1 % (37.0-47.0) L Mean Corpuscular Volume 92 FL (80-99) Mean Corpuscular Hemoglobin 31.0 PG (27.0-31.0) Mean Corpuscular Hemoglobin Concent 33.9 G/DL (32.0-36.0) Red Cell Distribution Width 12.9 % (11.6-14.8) Platelet Count 234 K/UL (150-450) Mean Platelet Volume 5.9 FL (6.5-10.1) L Neutrophils (%) (Auto) 73.6 % (45.0-75.0) Lymphocytes (%) (Auto) 19.0 % (20.0-45.0) L Monocytes (%) (Auto) 5.4 % (1.0-10.0) Eosinophils (%) (Auto) 1.3 % (0.0-3.0) Basophils (%) (Auto) 0.7 % (0.0-2.0) Sodium Level 142 MMOL/L (136-145) Potassium Level 3.7 MMOL/L (3.5-5.1) Chloride Level 108 MMOL/L (98-107) H Carbon Dioxide Level 27 MMOL/L (21-32) Anion Gap 7 mmol/L (5-15) Blood Urea Nitrogen 14 mg/dL (7-18) Creatinine 1.5 MG/DL (0.55-1.30) H Estimat Glomerular Filtration Rate mL/min (>60) Glucose Level 75 MG/DL (74-106) Calcium Level 8.6 MG/DL (8.5-10.1) Medications Current Medications Medications (Trade) Dose Ordered Sig/Mikhail Route PRN Reason Start Time Stop Time Status Last Admin Dose Admin Acetaminophen (Tylenol) 650 mg Q6H PRN ORAL Mild Pain/Temp > 100.5 12/07/17 16:45 01/06/18 16:44 12/10/17 01:33 Acetaminophen/ Hydrocodone Bitart ([place] 5/325) 1 tab Q6H PRN ORAL mod-severe pain 4-10 12/09/17 14:00 12/16/17 13:59 12/11/17 13:06 Alprazolam (Xanax) 0.125 mg BID ORAL 12/11/17 18:00 12/18/17 17:59 Amlodipine Besylate (Norvasc) 5 mg BID ORAL 12/11/17 18:00 01/07/18 08:59 Artificial Tears (Akwa-Tears) 2 drop Q2H PRN BOTH EYES Dry Eyes 12/10/17 17:15 01/09/18 17:14 Aspirin (Ecotrin) 81 mg DAILY ORAL 12/11/17 09:00 01/10/18 08:59 12/11/17 08:23 Atorvastatin Calcium (Lipitor) 10 mg BEDTIME ORAL 12/07/17 21:00 01/06/18 20:59 12/10/17 20:35 Clonidine HCl (Catapres Tab) 0.1 mg Q4H PRN ORAL For High Blood Pressure 12/10/17 00:30 01/09/18 00:29 12/11/17 15:13 Dextrose (Dextrose 50%) 25 ml STAT PRN IV Hypoglycemia 12/07/17 17:00 01/06/18 16:59 Dextrose (Dextrose 50%) 50 ml STAT PRN IV Hypoglycemia 12/07/17 17:00 01/06/18 16:59 Gabapentin (Neurontin) 300 mg Q12HR ORAL 12/08/17 09:00 01/07/18 08:59 12/11/17 08:04 Glimepiride (Amaryl) 2 mg ACBREAKFAST ORAL 12/08/17 06:30 01/07/18 06:29 12/11/17 05:42 Heparin Sodium (Porcine) (Heparin 5000 units/ml) 5,000 units EVERY 8 HOURS SUBQ 12/07/17 22:00 01/06/18 21:59 12/11/17 15:13 Insulin Aspart (NovoLOG) BEFORE MEALS AND HS SUBQ 12/07/17 21:00 01/06/18 20:59 12/11/17 12:56 Lactulose (Cephulac) 10 gm DAILY ORAL 12/08/17 09:00 01/07/18 08:59 12/11/17 08:05 Lisinopril (Zestril) 10 mg BID ORAL 12/11/17 18:00 01/09/18 18:29 Memantine (Namenda) 5 mg DAILY ORAL 12/08/17 09:00 01/07/18 08:59 12/11/17 08:04 Metoprolol Tartrate (Lopressor) 25 mg Q12HR ORAL 12/07/17 21:00 01/06/18 20:59 12/11/17 08:05 Nicotine (Nicoderm) 1 patch Q24H TDERMAL 12/07/17 18:00 01/06/18 17:59 12/10/17 19:00 Ondansetron HCl (Zofran) 4 mg Q4H PRN IVP Nausea & Vomiting 12/07/17 17:00 01/06/18 16:59 Pantoprazole (Protonix) 40 mg DAILY ORAL 12/08/17 09:00 01/07/18 08:59 12/11/17 08:04 Paroxetine HCl (Paxil) 40 mg BEDTIME ORAL 12/12/17 21:00 01/11/18 20:59 Problems: (1) Acute encephalopathy Status: Acute Assessment & Plan: 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 Dec 11, 2017 18:01
--- NOTE | 2017-12-11 18:56 | Neurology Progress Note ---
Interim History Interim History Interim History Ms Tsang feels better. The mind is clear. She feels a little stronger. She denies any new neurologic symptoms. She has still not been out of bed. Review of Systems Neuro Review of Systems Benign. Objective Physical Exam Last Vital Signs Date Time Temp Pulse Resp B/P (MAP) Pulse Ox O2 Delivery O2 Flow Rate FiO2 12/11/17 18:24 134/62 12/11/17 18:23 59 12/11/17 16:00 98.1 18 96 98.1 12/10/17 04:00 Room Air Laboratory Tests Test 12/11/17 07:20 White Blood Count 7.3 K/UL (4.8-10.8) Red Blood Count 3.51 M/UL (4.20-5.40) L Hemoglobin 10.9 G/DL (12.0-16.0) L Hematocrit 32.1 % (37.0-47.0) L Mean Corpuscular Volume 92 FL (80-99) Mean Corpuscular Hemoglobin 31.0 PG (27.0-31.0) Mean Corpuscular Hemoglobin Concent 33.9 G/DL (32.0-36.0) Red Cell Distribution Width 12.9 % (11.6-14.8) Platelet Count 234 K/UL (150-450) Mean Platelet Volume 5.9 FL (6.5-10.1) L Neutrophils (%) (Auto) 73.6 % (45.0-75.0) Lymphocytes (%) (Auto) 19.0 % (20.0-45.0) L Monocytes (%) (Auto) 5.4 % (1.0-10.0) Eosinophils (%) (Auto) 1.3 % (0.0-3.0) Basophils (%) (Auto) 0.7 % (0.0-2.0) Sodium Level 142 MMOL/L (136-145) Potassium Level 3.7 MMOL/L (3.5-5.1) Chloride Level 108 MMOL/L (98-107) H Carbon Dioxide Level 27 MMOL/L (21-32) Anion Gap 7 mmol/L (5-15) Blood Urea Nitrogen 14 mg/dL (7-18) Creatinine 1.5 MG/DL (0.55-1.30) H Estimat Glomerular Filtration Rate mL/min (>60) Glucose Level 75 MG/DL (74-106) Calcium Level 8.6 MG/DL (8.5-10.1) Neurologic Exam Objective PHYSICAL EXAMINATION: GENERAL: She is a well-developed, well-nourished, pleasant black lady, lying in bed, in no acute distress. HEAD: Normocephalic and atraumatic with significant temporal wasting. EENT: Examination benign. NECK: No neck rigidity was observed. NEUROLOGIC EXAMINATION: MENTAL STATUS EXAMINATION: She was awake and alert. She was oriented to [facility], [facility] and December 11, 2017. She was able to recall 3/3 words immediately, but could only remember 2/3 words in 1 minute and 3 minutes. She was able to remember presidents, Trump through [employer] with hints. Her mathematical skills were impaired. Her visuospatial function was also impaired. SPEECH: She had no dysarthria. LANGUAGE: She had anomia for low-frequency words. CRANIAL NERVE EXAMINATION: II: The visual lizama were intact to confrontation testing. III, IV & : The external ocular movements were full and the pupils 3 mm in diameter, equal, round, regular, and reactive to light. V: She had normal facial sensations, and the temporales, masseters, and pterygoids functioned normally. VII: She had a right VII central facial paresis. VIII: She was able to hear well bilaterally and had no nystagmus. IX: The palate moved symmetrically on phonation. X: She had no hoarseness of voice. XI: The sternocleidomastoids and trapezii functioned normally. XII: The tongue was in the midline without any fasciculations or atrophy. MOTOR SYSTEM: The tone was normal in all four extremities. Examination of muscle mass revealed no focal wasting. Examination of power revealed G 5/5 power except for G 4+/5 power in the right finger extensors and iliopsoas. SENSORY EXAMINATION: She had intact sensations to pinprick, light touch, and graphesthesia, but complained of a subjective alteration to light touch over entire right body. REFLEXES: 1+ on the left and 2+ on the right at the biceps, triceps, brachioradialis, and knees, 0 at both ankles. The plantar responses were flexor bilaterally. COORDINATION: She performed well on [id number] testing. She had problems performing [id number] testing bilaterally. STANCE & GAIT: Could not be tested because she was afraid to try to stand and walk because of her right leg felt weak. Impression/Recommendations Diagnostic Impression 1. Ms. Carolann Tsang is a 77-year-old, right-handed, black lady, who does have a past history of hypertension, diabetes mellitus, dyslipidemia, coronary artery disease, cognitive dysfunction, and recently frequent falls, who was hospitalized for an alteration in her mental state. 2. She feels better. The mind is clear. She feels a little stronger. She denies any new neurologic symptoms. She has still not been out of bed. 3. On neurological examination, at this time, she does have problems with recent and remote memory, visuospatial function, higher cognitive function, and language. She also has a right hemiparesis involving the face and upper and lower extremities with brisker reflexes on the right side compared to the left. 4. Her latest CT scan of the brain performed on 12/07/2017 reveals a significant atrophy, deep white matter changes, and in addition old infarcts involving the basal ganglia and marshall radiata bilaterally. 5. The MRI of the brain done on 12/11/17 revealed old lacunar infarcts in the bilateral cerebellar hemispheres, the left midbrain, bilateral basal ganglia, and left frontal and parietal periventricular deep white matter. No acute pathology was seen. 6. The patient's history and neurological examination are most compatible brain strokes causing the right hemiparesis. In addition, they may also be a cognitive decline related to her cerebrovascular event. Recommendations 1. Continue present management. 2. Physical and occupational therapy to mobilize her. 3. Increase activity as tolerated. 4. Change antiplatelet agent form Aspirin to Plavix to give patient added stroke reduction benefits. Madisyn Tony M.D., M.S.P.MADISYN CANO Dec 11, 2017 18:56
[2017-12-11 20:00] VITALS: BP 124/51
[2017-12-12] VITALS: BP 138/67
[2017-12-12 04:00] VITALS: BP_SYST 141; BP_SYST 143; BP_DIAS 64; BP_DIAS 71
[2017-12-12] MEDS: Glimepiride 1mg tab ORAL SCH (05:54)
[2017-12-12] MEDS: Heparin 5000 units/ml inj SUBQ SCH ×2 (05:55→14:40)
[2017-12-12] MEDS: NovoLOG Insulin Flexpen SUBQ SCH ×3 (06:16→16:30)
[2017-12-12 06:20] LABS: BASOPHILS % (AUTO) 1.3 % (0.0-2.0); EOSINOPHILS % (AUTO) 1.6 % (0.0-3.0); HEMATOCRIT 28.1 % (37.0-47.0); HEMOGLOBIN 9.6 G/DL (12.0-16.0); LYMPHOCYTES % (AUTO) 25.8 % (20.0-45.0); MEAN CORPUSCULAR VOLUME 92 FL (80-99); MONOCYTES % (AUTO) 7.3 % (1.0-10.0); PLATELET COUNT 235 K/UL (150-450); RED BLOOD COUNT 3.04 M/UL (4.20-5.40); RED CELL DISTRIBUTION WIDTH 12.4 % (11.6-14.8)
[2017-12-12 06:27] LABS: ANION GAP 7 mmol/L (5-15); BLOOD UREA NITROGEN 13 mg/dL (7-18); CALCIUM 8.4 MG/DL (8.5-10.1); CARBON DIOXIDE 24 MMOL/L (21-32); CHLORIDE 107 MMOL/L (98-107); CREATININE 1.6 MG/DL (0.55-1.30); POTASSIUM 4.2 MMOL/L (3.5-5.1); SODIUM 138 MMOL/L (136-145)
[2017-12-12 08:00] VITALS: BP 146/48
[2017-12-12] MEDS: Lactulose 20gm/30ml UDC ORAL SCH (08:29)
[2017-12-12] MEDS: Aspirin EC 81mg tab ORAL SCH (08:30)
[2017-12-12] MEDS: Memantine 5 MG TAB ORAL SCH (08:30)
[2017-12-12] MEDS: Metoprolol 25mg tab ORAL SCH (08:30)
[2017-12-12] MEDS: Lisinopril 10mg tab ORAL SCH (08:30)
[2017-12-12] MEDS: ALPRAZolam 0.25mg tab ORAL SCH (08:31)
--- NOTE | 2017-12-12 09:54 | Infectious Diseases Prog Note ---
Assessment/Plan Assessment/Plan ASSESSMENT: The patient is a 77-year-old female with Low-grade fever, SP Mild leukocytosis, status post no evid of Urinary tract infection UCx Neg No evidence of pneumonia Chest x-ray, no new atelectasis or focal infiltrate History E. coli urinary tract infection. SP ALOC : Neuro following 12/11 MRI : MRI scan of the brain : Chronic and age-related changes, including old lacunar infarcts. Status post fall CAD Hyperlipidemia Hypertension Renal insufficiency Arthritis Diabetes Depression PLAN: monitor pt of off of AB Rx 12/11 SP IV Rocephin day # 5 Monitor CBC Monitor BMP Monitor cultures (blood) Monitor chest x-ray Subjective Constitutional: Denies: no symptoms, fever, chills, fatigue, anorexia, drenching sweats, other Allergies: Coded Allergies: No Known Allergies (Unverified , 01/10/15) Objective Vital Signs Last 24 Hour Vital Signs Date Time Temp Pulse Resp B/P (MAP) Pulse Ox O2 Delivery O2 Flow Rate FiO2 12/12/17 08:30 146/48 12/12/17 08:30 62 146/48 12/12/17 08:30 62 146/48 12/12/17 08:00 97.1 62 21 146/48 97 Room Air 97.1 12/12/17 04:00 98.0 64 20 141/71 96 98.0 12/12/17 00:00 98.3 61 20 138/67 97 98.3 12/11/17 20:54 59 124/51 12/11/17 20:00 98.2 59 20 124/51 97 98.2 12/11/17 18:24 134/62 12/11/17 18:23 59 134/62 12/11/17 16:00 98.1 66 18 174/75 96 98.1 12/11/17 15:13 169/99 12/11/17 12:00 98.9 63 20 169/99 98 98.9 Height (Feet): 6 Height (Inches): 2.00 Weight (Pounds): 180 Cardiovascular: regularly irregular Abdomen: soft, non tender Laboratory Tests Test 12/12/17 05:50 White Blood Count 6.0 K/UL (4.8-10.8) Red Blood Count 3.04 M/UL (4.20-5.40) L Hemoglobin 9.6 G/DL (12.0-16.0) L Hematocrit 28.1 % (37.0-47.0) L Mean Corpuscular Volume 92 FL (80-99) Mean Corpuscular Hemoglobin 31.6 PG (27.0-31.0) H Mean Corpuscular Hemoglobin Concent 34.2 G/DL (32.0-36.0) Red Cell Distribution Width 12.4 % (11.6-14.8) Platelet Count 235 K/UL (150-450) Mean Platelet Volume 5.8 FL (6.5-10.1) L Neutrophils (%) (Auto) 64.0 % (45.0-75.0) Lymphocytes (%) (Auto) 25.8 % (20.0-45.0) Monocytes (%) (Auto) 7.3 % (1.0-10.0) Eosinophils (%) (Auto) 1.6 % (0.0-3.0) Basophils (%) (Auto) 1.3 % (0.0-2.0) Sodium Level 138 MMOL/L (136-145) Potassium Level 4.2 MMOL/L (3.5-5.1) Chloride Level 107 MMOL/L (98-107) Carbon Dioxide Level 24 MMOL/L (21-32) Anion Gap 7 mmol/L (5-15) Blood Urea Nitrogen 13 mg/dL (7-18) Creatinine 1.6 MG/DL (0.55-1.30) H Estimat Glomerular Filtration Rate mL/min (>60) Glucose Level 78 MG/DL (74-106) Calcium Level 8.4 MG/DL (8.5-10.1) L Current Medications Medications (Trade) Dose Ordered Sig/Mikhail Route PRN Reason Start Time Stop Time Status Last Admin Dose Admin Acetaminophen (Tylenol) 650 mg Q6H PRN ORAL Mild Pain/Temp > 100.5 12/07/17 16:45 01/06/18 16:44 12/12/17 08:32 Acetaminophen/ Hydrocodone Bitart ([place] 5/325) 1 tab Q6H PRN ORAL mod-severe pain 4-10 12/09/17 14:00 12/16/17 13:59 12/11/17 20:59 Alprazolam (Xanax) 0.125 mg BID ORAL 12/11/17 18:00 12/18/17 17:59 12/12/17 08:31 Amlodipine Besylate (Norvasc) 5 mg BID ORAL 12/11/17 18:00 01/07/18 08:59 12/12/17 08:30 Artificial Tears (Akwa-Tears) 2 drop Q2H PRN BOTH EYES Dry Eyes 12/10/17 17:15 01/09/18 17:14 Aspirin (Ecotrin) 81 mg DAILY ORAL 12/11/17 09:00 01/10/18 08:59 12/12/17 08:30 Atorvastatin Calcium (Lipitor) 10 mg BEDTIME ORAL 12/07/17 21:00 01/06/18 20:59 12/11/17 20:55 Clonidine HCl (Catapres Tab) 0.1 mg Q4H PRN ORAL For High Blood Pressure 12/10/17 00:30 01/09/18 00:29 12/11/17 15:13 Clopidogrel Bisulfate (Plavix) 75 mg DAILY ORAL 12/12/17 09:00 01/11/18 08:59 12/12/17 08:30 Dextrose (Dextrose 50%) 25 ml STAT PRN IV Hypoglycemia 12/07/17 17:00 01/06/18 16:59 Dextrose (Dextrose 50%) 50 ml STAT PRN IV Hypoglycemia 12/07/17 17:00 01/06/18 16:59 Gabapentin (Neurontin) 300 mg Q12HR ORAL 12/08/17 09:00 01/07/18 08:59 12/12/17 08:30 Glimepiride (Amaryl) 2 mg ACBREAKFAST ORAL 12/08/17 06:30 01/07/18 06:29 12/12/17 05:54 Heparin Sodium (Porcine) (Heparin 5000 units/ml) 5,000 units EVERY 8 HOURS SUBQ 12/07/17 22:00 01/06/18 21:59 12/12/17 05:55 Insulin Aspart (NovoLOG) BEFORE MEALS AND HS SUBQ 12/07/17 21:00 01/06/18 20:59 12/11/17 12:56 Lactulose (Cephulac) 10 gm DAILY ORAL 12/08/17 09:00 01/07/18 08:59 12/12/17 08:29 Lisinopril (Zestril) 10 mg BID ORAL 12/11/17 18:00 01/09/18 18:29 12/12/17 08:30 Memantine (Namenda) 5 mg DAILY ORAL 12/08/17 09:00 01/07/18 08:59 12/12/17 08:30 Metoprolol Tartrate (Lopressor) 25 mg Q12HR ORAL 12/07/17 21:00 01/06/18 20:59 12/12/17 08:30 Nicotine (Nicoderm) 1 patch Q24H TDERMAL 12/07/17 18:00 01/06/18 17:59 12/11/17 18:23 Ondansetron HCl (Zofran) 4 mg Q4H PRN IVP Nausea & Vomiting 12/07/17 17:00 01/06/18 16:59 Pantoprazole (Protonix) 40 mg DAILY ORAL 12/08/17 09:00 01/07/18 08:59 12/12/17 08:30 Paroxetine HCl (Paxil) 40 mg BEDTIME ORAL 12/12/17 21:00 01/11/18 20:59 Tyrese Pagan MD Dec 12, 2017 09:54
[2017-12-12 11:55] VITALS: BP 142/57
[2017-12-12] MEDS: Norco 5mg/325mg tab ORAL PRN (12:49)
--- NOTE | 2017-12-12 13:58 | General Progress Note ---
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 the pt less anxious today Objective Last 24 Hour Vital Signs Date Time Temp Pulse Resp B/P (MAP) Pulse Ox O2 Delivery O2 Flow Rate FiO2 12/12/17 11:55 98.8 62 20 142/57 96 Room Air 98.8 12/12/17 08:30 146/48 12/12/17 08:30 62 146/48 12/12/17 08:30 62 146/48 12/12/17 08:00 97.1 62 21 146/48 97 Room Air 97.1 12/12/17 04:00 98.0 64 20 141/71 96 98.0 12/12/17 00:00 98.3 61 20 138/67 97 98.3 12/11/17 20:54 59 124/51 12/11/17 20:00 98.2 59 20 124/51 97 98.2 12/11/17 18:24 134/62 12/11/17 18:23 59 134/62 12/11/17 16:00 98.1 66 18 174/75 96 98.1 12/11/17 15:13 169/99 Intake and Output 12/11/17 12/12/17 19:00 07:00 Intake Total 640 ml Balance 640 ml Intake Oral 640 ml # Voids 4 2 Laboratory Tests 12/12/17 05:50: White Blood Count 6.0, Red Blood Count 3.04L, Hemoglobin 9.6L, Hematocrit 28.1L , Mean Corpuscular Volume 92, Mean Corpuscular Hemoglobin 31.6H, Mean Corpuscular Hemoglobin Concent 34.2, Red Cell Distribution Width 12.4, Platelet Count 235, Mean Platelet Volume 5.8L, Neutrophils (%) (Auto) 64.0, Lymphocytes ( %) (Auto) 25.8, Monocytes (%) (Auto) 7.3, Eosinophils (%) (Auto) 1.6, Basophils (%) (Auto) 1.3, Sodium Level 138, Potassium Level 4.2, Chloride Level 107, Carbon Dioxide Level 24, Anion Gap 7, Blood Urea Nitrogen 13, Creatinine 1.6H, Estimat Glomerular Filtration Rate , Glucose Level 78, Calcium Level 8.4L Height (Feet): 6 Height (Inches): 2.00 Weight (Pounds): 180 General Appearance: no apparent distress, alert Neurologic: oriented x 3, responsive, depressed affect Gregg Acosta M.D. Dec 12, 2017 13:58
--- NOTE | 2017-12-12 15:12 | Cardiac Electrophysiology PN ---
Assessment/Plan Assessment/Plan 1. History of coronary artery bypass graft. No chest pain on metoprolol 25 mg b.i.d., Lipitor 10 mg daily and aspirin 81 mg daily 2. Hypertension. On Lopressor, Norvasc 5 bid and lisinopril to 10 bid 3. Hyperlipidemia. On Lipitor. 4. History of supraventricular tachycardia without recurrence on Lopressor 25 mg b.i.d. 5. History of urinary tract infection. 6. Altered mental status. 7. Renal failure with creatinine 1.8. DW RN Subjective Subjective No chest pain.Comfortable. DC planning in progress Objective Last 24 Hour Vital Signs Date Time Temp Pulse Resp B/P (MAP) Pulse Ox O2 Delivery O2 Flow Rate FiO2 12/12/17 11:55 98.8 62 20 142/57 96 Room Air 98.8 12/12/17 08:30 146/48 12/12/17 08:30 62 146/48 12/12/17 08:30 62 146/48 12/12/17 08:00 97.1 62 21 146/48 97 Room Air 97.1 12/12/17 04:00 98.0 64 20 141/71 96 98.0 12/12/17 00:00 98.3 61 20 138/67 97 98.3 12/11/17 20:54 59 124/51 12/11/17 20:00 98.2 59 20 124/51 97 98.2 12/11/17 18:24 134/62 12/11/17 18:23 59 134/62 12/11/17 16:00 98.1 66 18 174/75 96 98.1 12/11/17 15:13 169/99 Intake and Output 12/11/17 12/12/17 19:00 07:00 Intake Total 640 ml Balance 640 ml Intake Oral 640 ml # Voids 4 2 Laboratory Tests Test 12/12/17 05:50 White Blood Count 6.0 K/UL (4.8-10.8) Red Blood Count 3.04 M/UL (4.20-5.40) L Hemoglobin 9.6 G/DL (12.0-16.0) L Hematocrit 28.1 % (37.0-47.0) L Mean Corpuscular Volume 92 FL (80-99) Mean Corpuscular Hemoglobin 31.6 PG (27.0-31.0) H Mean Corpuscular Hemoglobin Concent 34.2 G/DL (32.0-36.0) Red Cell Distribution Width 12.4 % (11.6-14.8) Platelet Count 235 K/UL (150-450) Mean Platelet Volume 5.8 FL (6.5-10.1) L Neutrophils (%) (Auto) 64.0 % (45.0-75.0) Lymphocytes (%) (Auto) 25.8 % (20.0-45.0) Monocytes (%) (Auto) 7.3 % (1.0-10.0) Eosinophils (%) (Auto) 1.6 % (0.0-3.0) Basophils (%) (Auto) 1.3 % (0.0-2.0) Sodium Level 138 MMOL/L (136-145) Potassium Level 4.2 MMOL/L (3.5-5.1) Chloride Level 107 MMOL/L (98-107) Carbon Dioxide Level 24 MMOL/L (21-32) Anion Gap 7 mmol/L (5-15) Blood Urea Nitrogen 13 mg/dL (7-18) Creatinine 1.6 MG/DL (0.55-1.30) H Estimat Glomerular Filtration Rate mL/min (>60) Glucose Level 78 MG/DL (74-106) Calcium Level 8.4 MG/DL (8.5-10.1) L Objective HEAD AND NECK: Shows no JVD. LUNGS: Clear. CARDIOVASCULAR: Shows irregular S1, S2 with no gallop or murmur. ABDOMEN: Soft. EXTREMITIES: No pitting edema. Sternotomy is intact. Hunter Ruby MD Dec 12, 2017 15:12
--- NOTE | 2017-12-12 15:44 | Pulmonology Progress Note ---
Assessment/Plan Problems: (1) Pyelonephritis (2) Acute encephalopathy (3) left diaphragm elevation (4) DM (diabetes mellitus) (5) Alzheimer's dementia Assessment/Plan mental status better again check cultures, all negative so far check wbc, WNL aspiration precaution sliding scale pt needs to go to a fpc Subjective Constitutional: Reports: no symptoms HEENT: Repors: no symptoms Respiratory: Reports: no symptoms Allergies: Coded Allergies: No Known Allergies (Unverified , 01/10/15) Objective Last 24 Hour Vital Signs Date Time Temp Pulse Resp B/P (MAP) Pulse Ox O2 Delivery O2 Flow Rate FiO2 12/12/17 11:55 98.8 62 20 142/57 96 Room Air 98.8 12/12/17 08:30 146/48 12/12/17 08:30 62 146/48 12/12/17 08:30 62 146/48 12/12/17 08:00 97.1 62 21 146/48 97 Room Air 97.1 12/12/17 04:00 98.0 64 20 141/71 96 98.0 12/12/17 00:00 98.3 61 20 138/67 97 98.3 12/11/17 20:54 59 124/51 12/11/17 20:00 98.2 59 20 124/51 97 98.2 12/11/17 18:24 134/62 12/11/17 18:23 59 134/62 12/11/17 16:00 98.1 66 18 174/75 96 98.1 Intake and Output 12/11/17 12/12/17 19:00 07:00 Intake Total 640 ml Balance 640 ml Intake Oral 640 ml # Voids 4 2 Objective General Appearance: cachetic Lines, tubes and drains: peripheral HEENT: normocephalic Neck: non-tender, normal alignment Breasts: no masses Abdomen: normal bowel sounds, non tender Genitourinary/Rectal: normal genital exam, normal rectal exam Extremities: normal range of motion Neurologic: archeologist II-XII grossly normal Laboratory Tests 12/12/17 05:50: White Blood Count 6.0, Red Blood Count 3.04L, Hemoglobin 9.6L, Hematocrit 28.1L , Mean Corpuscular Volume 92, Mean Corpuscular Hemoglobin 31.6H, Mean Corpuscular Hemoglobin Concent 34.2, Red Cell Distribution Width 12.4, Platelet Count 235, Mean Platelet Volume 5.8L, Neutrophils (%) (Auto) 64.0, Lymphocytes ( %) (Auto) 25.8, Monocytes (%) (Auto) 7.3, Eosinophils (%) (Auto) 1.6, Basophils (%) (Auto) 1.3, Sodium Level 138, Potassium Level 4.2, Chloride Level 107, Carbon Dioxide Level 24, Anion Gap 7, Blood Urea Nitrogen 13, Creatinine 1.6H, Estimat Glomerular Filtration Rate , Glucose Level 78, Calcium Level 8.4L Current Medications Medications (Trade) Dose Ordered Sig/Mikhail Route PRN Reason Start Time Stop Time Status Last Admin Dose Admin Acetaminophen (Tylenol) 650 mg Q6H PRN ORAL Mild Pain/Temp > 100.5 12/07/17 16:45 01/06/18 16:44 12/12/17 08:32 Acetaminophen/ Hydrocodone Bitart ([place] 5/325) 1 tab Q6H PRN ORAL mod-severe pain 4-10 12/09/17 14:00 12/16/17 13:59 12/12/17 12:49 Alprazolam (Xanax) 0.125 mg BID ORAL 12/11/17 18:00 12/18/17 17:59 12/12/17 08:31 Amlodipine Besylate (Norvasc) 5 mg BID ORAL 12/11/17 18:00 01/07/18 08:59 12/12/17 08:30 Artificial Tears (Akwa-Tears) 2 drop Q2H PRN BOTH EYES Dry Eyes 12/10/17 17:15 01/09/18 17:14 Aspirin (Ecotrin) 81 mg DAILY ORAL 12/11/17 09:00 01/10/18 08:59 12/12/17 08:30 Atorvastatin Calcium (Lipitor) 10 mg BEDTIME ORAL 12/07/17 21:00 01/06/18 20:59 12/11/17 20:55 Clonidine HCl (Catapres Tab) 0.1 mg Q4H PRN ORAL For High Blood Pressure 12/10/17 00:30 01/09/18 00:29 12/11/17 15:13 Clopidogrel Bisulfate (Plavix) 75 mg DAILY ORAL 12/12/17 09:00 01/11/18 08:59 12/12/17 08:30 Dextrose (Dextrose 50%) 25 ml STAT PRN IV Hypoglycemia 12/07/17 17:00 01/06/18 16:59 Dextrose (Dextrose 50%) 50 ml STAT PRN IV Hypoglycemia 12/07/17 17:00 01/06/18 16:59 Gabapentin (Neurontin) 300 mg Q12HR ORAL 12/08/17 09:00 01/07/18 08:59 12/12/17 08:30 Glimepiride (Amaryl) 2 mg ACBREAKFAST ORAL 12/08/17 06:30 01/07/18 06:29 12/12/17 05:54 Heparin Sodium (Porcine) (Heparin 5000 units/ml) 5,000 units EVERY 8 HOURS SUBQ 12/07/17 22:00 01/06/18 21:59 12/12/17 14:40 Insulin Aspart (NovoLOG) BEFORE MEALS AND HS SUBQ 12/07/17 21:00 01/06/18 20:59 12/11/17 12:56 Lactulose (Cephulac) 10 gm DAILY ORAL 12/08/17 09:00 01/07/18 08:59 12/12/17 08:29 Lisinopril (Zestril) 10 mg BID ORAL 12/11/17 18:00 01/09/18 18:29 12/12/17 08:30 Memantine (Namenda) 5 mg DAILY ORAL 12/08/17 09:00 01/07/18 08:59 12/12/17 08:30 Metoprolol Tartrate (Lopressor) 25 mg Q12HR ORAL 12/07/17 21:00 01/06/18 20:59 12/12/17 08:30 Nicotine (Nicoderm) 1 patch Q24H TDERMAL 12/07/17 18:00 01/06/18 17:59 12/11/17 18:23 Ondansetron HCl (Zofran) 4 mg Q4H PRN IVP Nausea & Vomiting 12/07/17 17:00 01/06/18 16:59 Pantoprazole (Protonix) 40 mg DAILY ORAL 12/08/17 09:00 01/07/18 08:59 12/12/17 08:30 Paroxetine HCl (Paxil) 40 mg BEDTIME ORAL 12/12/17 21:00 01/11/18 20:59 Georgie Montanez MD Dec 12, 2017 15:44
[2017-12-12 16:00] VITALS: BP 137/68
--- NOTE | 2017-12-12 17:58 | Internal Med Progress Note ---
Subjective Date of Service: Dec 12, 2017 Physician Name Hira Wayne Attending Physician García Neil MD Current Medications Medications (Trade) Dose Ordered Sig/Mikhail Route PRN Reason Start Time Stop Time Status Last Admin Dose Admin Acetaminophen (Tylenol) 650 mg Q6H PRN ORAL Mild Pain/Temp > 100.5 12/07/17 16:45 01/06/18 16:44 12/12/17 08:32 Acetaminophen/ Hydrocodone Bitart ([place] 5/325) 1 tab Q6H PRN ORAL mod-severe pain 4-10 12/09/17 14:00 12/16/17 13:59 12/12/17 12:49 Alprazolam (Xanax) 0.125 mg BID ORAL 12/11/17 18:00 12/18/17 17:59 12/12/17 08:31 Amlodipine Besylate (Norvasc) 5 mg BID ORAL 12/11/17 18:00 01/07/18 08:59 12/12/17 08:30 Artificial Tears (Akwa-Tears) 2 drop Q2H PRN BOTH EYES Dry Eyes 12/10/17 17:15 01/09/18 17:14 Aspirin (Ecotrin) 81 mg DAILY ORAL 12/11/17 09:00 01/10/18 08:59 12/12/17 08:30 Atorvastatin Calcium (Lipitor) 10 mg BEDTIME ORAL 12/07/17 21:00 01/06/18 20:59 12/11/17 20:55 Clonidine HCl (Catapres Tab) 0.1 mg Q4H PRN ORAL For High Blood Pressure 12/10/17 00:30 01/09/18 00:29 12/11/17 15:13 Clopidogrel Bisulfate (Plavix) 75 mg DAILY ORAL 12/12/17 09:00 01/11/18 08:59 12/12/17 08:30 Dextrose (Dextrose 50%) 25 ml STAT PRN IV Hypoglycemia 12/07/17 17:00 01/06/18 16:59 Dextrose (Dextrose 50%) 50 ml STAT PRN IV Hypoglycemia 12/07/17 17:00 01/06/18 16:59 Gabapentin (Neurontin) 300 mg Q12HR ORAL 12/08/17 09:00 01/07/18 08:59 12/12/17 08:30 Glimepiride (Amaryl) 2 mg ACBREAKFAST ORAL 12/08/17 06:30 01/07/18 06:29 12/12/17 05:54 Heparin Sodium (Porcine) (Heparin 5000 units/ml) 5,000 units EVERY 8 HOURS SUBQ 12/07/17 22:00 01/06/18 21:59 12/12/17 14:40 Insulin Aspart (NovoLOG) BEFORE MEALS AND HS SUBQ 12/07/17 21:00 01/06/18 20:59 12/11/17 12:56 Lactulose (Cephulac) 10 gm DAILY ORAL 12/08/17 09:00 01/07/18 08:59 12/12/17 08:29 Lisinopril (Zestril) 10 mg BID ORAL 12/11/17 18:00 01/09/18 18:29 12/12/17 08:30 Memantine (Namenda) 5 mg DAILY ORAL 12/08/17 09:00 01/07/18 08:59 12/12/17 08:30 Metoprolol Tartrate (Lopressor) 25 mg Q12HR ORAL 12/07/17 21:00 01/06/18 20:59 12/12/17 08:30 Nicotine (Nicoderm) 1 patch Q24H TDERMAL 12/07/17 18:00 01/06/18 17:59 12/11/17 18:23 Ondansetron HCl (Zofran) 4 mg Q4H PRN IVP Nausea & Vomiting 12/07/17 17:00 01/06/18 16:59 Pantoprazole (Protonix) 40 mg DAILY ORAL 12/08/17 09:00 01/07/18 08:59 12/12/17 08:30 Paroxetine HCl (Paxil) 40 mg BEDTIME ORAL 12/12/17 21:00 01/11/18 20:59 Allergies: Coded Allergies: No Known Allergies (Unverified , 01/10/15) ROS Limited/Unobtainable: No Constitutional: Reports: no symptoms HEENT: Reports: no symptoms Cardiovascular: Reports: no symptoms Respiratory: Reports: no symptoms Gastrointestinal/Abdominal: Reports: no symptoms Genitourinary: Reports: no symptoms Neurologic/Psychiatric: Reports: no symptoms Subjective 77 YO F admitted with altered mental status. Now UTI. Cover for Int Med-Dr Neil. Objective Last Vital Signs Date Time Temp Pulse Resp B/P (MAP) Pulse Ox O2 Delivery O2 Flow Rate FiO2 12/12/17 16:00 99.6 66 21 137/68 96 Room Air 99.6 Laboratory Tests Test 12/12/17 05:50 White Blood Count 6.0 K/UL (4.8-10.8) Red Blood Count 3.04 M/UL (4.20-5.40) L Hemoglobin 9.6 G/DL (12.0-16.0) L Hematocrit 28.1 % (37.0-47.0) L Mean Corpuscular Volume 92 FL (80-99) Mean Corpuscular Hemoglobin 31.6 PG (27.0-31.0) H Mean Corpuscular Hemoglobin Concent 34.2 G/DL (32.0-36.0) Red Cell Distribution Width 12.4 % (11.6-14.8) Platelet Count 235 K/UL (150-450) Mean Platelet Volume 5.8 FL (6.5-10.1) L Neutrophils (%) (Auto) 64.0 % (45.0-75.0) Lymphocytes (%) (Auto) 25.8 % (20.0-45.0) Monocytes (%) (Auto) 7.3 % (1.0-10.0) Eosinophils (%) (Auto) 1.6 % (0.0-3.0) Basophils (%) (Auto) 1.3 % (0.0-2.0) Sodium Level 138 MMOL/L (136-145) Potassium Level 4.2 MMOL/L (3.5-5.1) Chloride Level 107 MMOL/L (98-107) Carbon Dioxide Level 24 MMOL/L (21-32) Anion Gap 7 mmol/L (5-15) Blood Urea Nitrogen 13 mg/dL (7-18) Creatinine 1.6 MG/DL (0.55-1.30) H Estimat Glomerular Filtration Rate mL/min (>60) Glucose Level 78 MG/DL (74-106) Calcium Level 8.4 MG/DL (8.5-10.1) L Intake and Output 12/11/17 12/12/17 19:00 07:00 Intake Total 640 ml Balance 640 ml Intake Oral 640 ml # Voids 4 2 Objective General Appearance: WD/WN, no apparent distress, alert EENT: PERRL/EOMI, normal ENT inspection, TMs normal Neck: non-tender, normal alignment, supple Cardiovascular: normal peripheral pulses, normal rate, regular rhythm, no gallop/murmur, no JVD Respiratory/Chest: chest wall non-tender, lungs clear, normal breath sounds, no respiratory distress, no accessory muscle use Abdomen: normal bowel sounds, non tender, soft, no organomegaly, no mass Extremities: normal range of motion, non-tender 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 (3) Acute encephalopathy (4) DM (diabetes mellitus) Assessment & Plan: Continue amaryl and novolog (5) Hypertension Assessment & Plan: Await cardiology consult. Hold clonidine for now due to bradycardia. Continue lopressor and norvasc (6) ARF (acute renal failure) (7) Coronary artery disease (8) Altered mental status Assessment & Plan: MRI brain=no acute dis. See neurology note. Assessment/Plan Discharge planning: [facility] today HIRA WAYNE Dec 12, 2017 17:58
[2017-12-12] MEDS ORDERED: Tubing IV Secondary IV ONE (18:12)
[2017-12-12] MEDS ORDERED: PARoxetine 20mg tab ORAL SCH (21:00)
--- NOTE | 2017-12-13 14:25 | Discharge Summary ---
Discharge Summary Discharge Summary Discharge Summary DATE OF ADMISSION: 12/07/2017 DATE OF DISCHARGE: 12/12/2017 CONSULTANTS: Dr. Georgie Ruby BRIEF HOSPITAL COURSE: Patient is a 77-year-old -[place] female who presented with chief complaint of altered mental status. Patient was recently admitted to [facility]. 3 days prior to admission family noticed she had been more confused than usual. She has medical history significant for diabetes, hypertension, chronic renal failure, coronary artery disease status post coronary artery bypass graft in 2013. She then presented to ED where on evaluation she had elevated white count and urine with findings of infection. She was started on antibiotic and was given IV fluid she was then admitted for urinary tract infection with acute encephalopathy and acute kidney injury. She was having low-grade fever and was followed by the infectious disease specialist. She had a history of Escherichia coli UTI. She received 5 days of IV cefepime. Urine culture was negative, she was taken off antibiotics. She underwent neurologic evaluation. On neuro exam, she has problems with orientation, recent and remote memory, visuospatial function, higher cognitive function and language. She has a right hemiparesis involving the face and upper and lower extremities. Latest CT scan of the brain revealed significant atrophy, deep white matter changes, old infarcts in the basal ganglia and marshall radiata. Brain MRI was negative for acute intracranial bleed, mass effect, or acute infarct. She was given mobilization therapy. She was advised to switch aspirin to Plavix for added stroke reduction benefits. She had history of coronary artery disease and was continued on metoprolol 25 mg twice a day, and limited Lipitor 10 mg daily, Norvasc 5 mg daily was increased to twice a day and lisinopril to 10 mg twice a day. She had anxiety with dementia and was given Paxil and Xanax. Cultures did not isolate any growth. She completed antibiotic therapy. She was eventually discharged back to retirement. FINAL DIAGNOSES: Acute encephalopathy Diabetes mellitus Alzheimer's dementia with behavioral disturbance Hypertension Coronary artery disease Acute kidney injury Hyperlipidemia Depression Old CVA with right hemiparesis Anxiety DISPOSITION: Patient was discharged to [facility] DISCHARGE MEDICATIONS: Refer to Discharge Medication List. I have been assigned to dictate discharge summary on this account, and I was not involved in the patient's management. Taryn Anderson NP Dec 13, 2017 14:25
== END 2017-12-12 18:40 | DRG 689 ==
LOC: EDBD 09:04 → EMR 09:37 → 4E 10:50 → EDBEDREQ 13:52 → 4E 12-10 08:29
DX: N39.0 Urinary tract infection, site not specified (principal); G93.40 Encephalopathy, unspecified; N17.9 Acute kidney failure, unspecified; F02.81 Dementia in other diseases classified elsewhere, unspecified severity, with behavioral disturbance; I69.351 Hemiplegia and hemiparesis following cerebral infarction affecting right dominant side; I25.10 Atherosclerotic heart disease of native coronary artery without angina pectoris; G30.9 Alzheimer's disease, unspecified; I12.9 Hypertensive chronic kidney disease with stage 1 through stage 4 chronic kidney disease, or unspecified chronic kidney disease; E11.22 Type 2 diabetes mellitus with diabetic chronic kidney disease; N18.9 Chronic kidney disease, unspecified; E78.5 Hyperlipidemia, unspecified; M19.90 Unspecified osteoarthritis, unspecified site; Z95.1 Presence of aortocoronary bypass graft; Z91.81 History of falling; F32.9 Major depressive disorder, single episode, unspecified; F41.9 Anxiety disorder, unspecified
CPT/HCPCS: 36415; 70450; 70551; 71045; 76770; 80048; 80053; 80061; 81003; 82550; 82553; 82962; 83605; 83735; 84100; 84484; 85025; 85651; 86140; 87040; 87081; 87086; 93005; 99285; J1815